=== PATIENT | female | born 1965 | race Caucasian/White ===

== ENCOUNTER 2021-08-22 20:21 | Outpatient (RCR) | payer MEDICAID, SELFPAY | END 2021-10-26 14:43 | disposition home or self-care (01) | LOC: MOW 20:21 | PROVIDERS: PCP Family Medicine; Visit Provider Family Medicine | DX: Z76.0 Encounter for issue of repeat prescription (principal) | CPT/HCPCS: S5170 ==

== ENCOUNTER 2021-09-04 15:03 | Outpatient (RCR) | payer MEDICARE, OTHER, SELFPAY ==
[2021-09-04 18:05] LABS: SARS PCR* Negative SARS-CoV-2 (Negative)
== END 2022-08-24 23:00 | disposition home or self-care (01) ==
LOC: LAB 15:03
PROVIDERS: PCP Family Medicine; Visit Provider Family Medicine
DX: Z11.9 Encounter for screening for infectious and parasitic diseases, unspecified (principal); Z20.822 Contact with and (suspected) exposure to COVID-19
CPT/HCPCS: 87635

== ENCOUNTER 2021-10-16 17:59 | Emergency (ER) | payer MEDICARE, OTHER, SELFPAY ==
[2021-10-16 18:04] VITALS: BP 95/63; PULSE 70; RESP 18; TEMP 36.3; O2SAT 96
--- NOTE | 2021-10-16 18:19 | ED.GENADULT ---
HPI - General Adult General Time Seen by Provider: 18:19 Date Seen: 10/16/21 Chief complaint: Dizziness/Vertigo Stated complaint: Hypotension Time Seen by Provider: 10/16/21 18:19 Source: patient and RN notes reviewed Mode of arrival: other Limitations: no limitations History of Present Illness HPI narrative: Patient is a 56-year-old female coming in with low blood pressure and feeling lightheaded. She states she had a episode of her cyclical vomiting over the weekend with recurrent nausea and vomiting. Her home health nurse was there today in with her blood pressure being low she wanted her to come in and be evaluated. Marina did keep down some Jell-O just prior to coming in. She actually feels that she has maybe turn the corner and that she does needs to go home and get something the eat and drink and rest. She has had no fevers. She does note that she was coughing through the weekend and coughing up some mucus. No chest pain no shortness of breath. No known fevers. No abdominal pain. No urinary symptoms. The lightheadedness is more symptomatic of a feeling of when you stand up too fast. There is no spinning with that. She is not passed out. She was unable to eat or drink through the weekend. Related Data Home Medications Medication Instructions Recorded Confirmed Unobtainable 08/23/21 08/23/21 Allergies Allergy/AdvReac Type Severity Reaction Status Date / Time aspirin Allergy Unknown GI Bleed Unverified 09/19/21 09:40 bupivacaine Allergy Unknown Agitation Unverified 09/19/21 09:40 diphenhydramine Allergy Unknown Anxiety Unverified 09/19/21 09:40 lamotrigine Allergy Unknown Angioedema Unverified 09/19/21 09:40 metoclopramide Allergy Unknown Anxiety Unverified 09/19/21 09:40 NSAIDS (Non-Steroidal Allergy Unknown GI Bleed Unverified 09/19/21 09:40 Anti-Inflamma [NSAIDS (Non-Steroidal Anti-Inflammatory Drug)] prochlorperazine Allergy Unknown Unknown Unverified 09/19/21 09:40 pseudoephedrine Allergy Unknown Unknown Unverified 09/19/21 09:40 sumatriptan Allergy Unknown Punched Unverified 09/19/21 09:40 The Beta Adrenergic Blockers Allergy Unknown Unknown Uncoded 09/19/21 09:40 Haldol Allergy Unknown Anxiety Uncoded 09/19/21 09:40 Review of Systems Status of ROS: Reports: 10 or more systems reviewed and unremarkable except as noted in History and below PFSH PFSH Family History (Updated 08/04/21 @ 15:52 by Sean Henderson) Father Prostate cancer Other Ovarian cancer Social History (Updated 08/04/21 @ 15:52 by Sean Henderson) Narrative: , 3 kids, unemployed, smoker, no EtOH Exam Const: Vital Signs, click to edit/add: Vital Signs - 24 hr 10/16/21 18:04 Temperature 97.4 F L Pulse Rate [Pulse Oximeter] 70 Respiratory Rate 18 Blood Pressure [Le ft Upper Arm] 95/63 Pulse Oximetry 96 Oxygen Delivery Me thod Room Air Documenting provider has reviewed patient's vital signs: yes Common normals: no apparent distress, oriented x3, no limitations, healthy appearing and alert General appearance: cooperative and comfortable HENMT: Common normals: normocephalic, head/scalp atraumatic, external ears normal, nasal mucous membranes and turbinates normal and oropharynx normal (Some greenish staining of the tongue from her Jell-O, mildly dry membranes) Head and scalp: normocephalic and atraumatic Nose: nasal mucous membranes and turbinates normal External ear: external ears normal Eye: Common normals: PERRL, EOMs intact bilaterally, conjunctivae normal and no scleral icterus Conjunctiva: conjunctiva(e) normal Pupil: PERRL Neck & C-Spine: Common normals: full ROM, no lymphadenopathy, supple, no meningeal signs, no JVD and thyroid normal Thyroid: thyroid normal Resp: Common normals: normal respiratory effort, no retractions, no use of accessory muscles and clear to auscultation bilaterally Auscultation: clear to auscultation bilaterally Cardio: Common normals: no JVD, regular rate, regular rhythm, S1 normal heart sound, S2 normal heart sound, no gallops, no clicks and no murmurs Rate: regular rate Rhythm: regular rhythm Heart sounds: S1 normal and S2 normal GI: Common normals: Normal to inspection, nondistended, normoactive bowel sounds present, soft to palpation, non-tender, no hepatosplenomegaly and no masses Palpation: soft and no hepatosplenomegaly Extremity: Common normals: normal to inspection, full ROM, no calf tenderness and no pedal edema Neuro: Common normals: oriented x3, CN's II-XII intact bilaterally, moves all extremities, no focal motor deficits and no sensory deficits noted Sensorium/orientation: alert Meningeal signs: no meningeal signs Speech: speech normal Course Course Hospital Course: Will stab lesion IV, give her L of IV fluids and see how she responds to this. Will do some basic labs and a portable chest x-ray. I have discussed testing for COVID in she would be agreeable to this. Thus, we will do SARs PCR. This presumably is low blood pressure from hypovolemia from decreased oral intake. If that is the case would assume that she will have improvement with IV fluids. She would like to drink something and would like to try some ice water. I will allow her to try this but will cease if she has recurrent nausea or vomiting. Reviewed with patient that I would prefer her to complete a L of fluids, complete her meal and then allow is to recheck the sodium. She really does not want to do that and is requesting discharge to home. She has been drinking fluids here prior to eating and tolerating them fine. Reevaluation(s) Reevaluation #1: Nursing staff came to reports to me that patient wanted her IV out, stated that she wanted to go home. She stated the IV was causing pain all the way upper arm. Nursing staff noted that this was an easy IV start and that they saw no evidence of any infiltration. Patient may be received about half of the 1 L of normal saline. Reviewed with patient that her sodium was 127. She states she just needs to eat and go home. She was going to have a ham sandwich and potato chips at home. I did look in her prior records and we have no recent sodiums on her but a few years back had been normal. She has had about half a L of normal saline. She was able to eat a sandwich and potato chips here and kept them down. Her CBC and C-reactive protein are completely normal, thus, making infection very unlikely. Time: 19:47 Reevaluation #2: Patient is requesting to go home. She has had slight improvement of her blood pressures with systolics of upper 90s to low 100. She states she is feeling fine. She is not feeling nauseated, has tolerated oral food and drink here. She wants to go home. She does agree to allow me to see how she feels when she stands up. Will get nursing staff to assist her with ambulation and see how she is doing. She seems to be of clear mind in understanding what I am saying. I do not feel that I can force her to take IV fluids. She does not want this done. She did not want a different nurse to try different IV to see if it felt better. She refused that as well. Time: 20:11 Reevaluation #3: Nursing staff reported to me that the ambulated patient around in the hallway, she was symptom-free, they felt she was ambulating without any concerns. She is requesting to go home. Time: 20:31 Vital Signs Vital signs: Initial Vital Signs Temperature 97.4 F L 10/16/21 18:04 Temperature Source Temporal Artery Scan 10/16/21 18:04 Pulse Rate 70 10/16/21 18:04 Pulse Rhythm 10/16/21 18:04 Respiratory Rate 18 10/16/21 18:04 Blood Pressure 95/63 10/16/21 18:04 Blood Pressure Mean 73 10/16/21 18:04 Blood Pressure Position Supine 10/16/21 18:04 Pulse Oximetry 96 10/16/21 18:04 Oxygen Delivery Method 10/16/21 18:04 Vital Signs Temperature 97.4 F L 10/16/21 18:04 Pulse Rate 70 10/16/21 18:04 Respiratory Rate 18 10/16/21 18:04 Blood Pressure 95/63 10/16/21 18:04 Pulse Oximetry 96 10/16/21 18:04 Oxygen Delivery Method 10/16/21 18:04 Temperature 97.4 F L 10/16/21 18:04 Pulse Rate 70 10/16/21 18:04 Respiratory Rate 18 10/16/21 18:04 Blood Pressure 95/63 10/16/21 18:04 Pulse Oximetry 96 10/16/21 18:04 Oxygen Delivery Method 10/16/21 18:04 Medical Decision Making Lab Data Labs: Lab Results 10/16/21 10/16/21 10/16/21 Range/Units 19:06 19:06 Unknown WBC 6.55 (4.50-11.00) K/uL RBC 4.67 (4.00-5.20) m/uL Hgb 13.0 (12.0-16.0) gm/dL Hct 39.2 (33.0-51.0) % MCV 84 (80-100) fL MCH 28 (26-34) pg MCHC 33 (32-36) gm/dL RDW Coeff of Chely 13.4 (11.5-15.5) % Plt Count 276 (140-440) K/uL Neut % (Auto) 64.9 (42.0-72.0) % Lymph % (Auto) 22.3 (20-44) % Centre % (Auto) 10.8 (0.0-11.0) % Eos % (Auto) 1.4 (0.0-7.0) % Baso % (Auto) 0.3 (0.0-3.0) % Neut # (Auto) 4.25 (1.7-7.0) K/uL Lymph # (Auto) 1.46 (0.90-2.90) K/uL Centre # (Auto) 0.70 (0.00-0.90) K/UL Eos # (Auto) 0.09 (0.00-0.50) K/uL Baso # (Auto) 0.02 (0.00-0.30) K/uL Abs Immat Gran (auto) 0.02 (0.00-0.30) K/uL Sodium 127 L (135-149) mmol/L Potassium 3.8 (3.6-5.1) mmol/L Chloride 91 L (96-114) mmol/L Carbon Dioxide 28 (20-32) mmol/L BUN 16 (7-30) mg/dL Creatinine 1.4 (0.5-1.5) mg/dL Estimated Creat Clear 39.41 Estimated GFR 44 ml/min Glucose 104 (60-115) mg/dL Calcium 9.3 (8.4-10.6) mg/dL C-Reactive Protein < 0.5 L (0.5-1.0) mg/dL SARS-CoV-2 (PCR) Negative SARS-CoV-2 (Negative) Imaging Data Chest x-ray: Attestation: I have reviewed the pertinent imaging results. Radiologist's impression: Patient: MARINA RICHARDS Facility:?[facility] Patient ID:?[id number] Site Patient ID:?[id number]. Site :?[id number] Study:?XRay Chest PORTABLE-10/16/2021 6:52:19 PM Ordering Physician:Dimas Levine Final Report: INDICATION: COUGH, HYPOTENSION TECHNIQUE: Chest 1 view. COMPARISON: None. FINDINGS: Cardiovascular and mediastinum: Heart size and vasculature are normal in caliber and appearance. Mediastinum is within normal limits. Lungs and pleural space: Lungs are clear. No sign of infiltrate or mass. No sign of pleural effusion. No pneumothorax. Bones and soft tissues: No significant findings. IMPRESSION: Unremarkable chest. Dictated by: Anam Schneider MD @ 10/16/2021 18:57:53 (Electronic Signature) Critical Care Time Critical Care Time Critical Care Time: No Discharge Plan Discharge Clinical Impression: Hyponatremia, Cyclical vomiting, Low blood pressure Condition: Stable Instructions: Hyponatremia (ED), Hypotension (ED), Cyclic Vomiting Syndrome (ED) Additional Instructions: I do not know if the sodium being low is from your nausea and vomiting that you had over the weekend or if it is a chronic finding for you. Thus, I need her to follow up within the next few days to have your sodium rechecked, make this appointment through your clinic. Do encourage you to eat and drink as normally. Should you have recurrent nausea or vomiting, have weakness, are not feeling better in the next 24-48 hours, I do need to return for further evaluation and management. Activity Level: Activity as Tolerated Discharge Diet: Regular Prescriptions: No Action Unobtainable Follow Up/Referrals: Rose Bright DO [Primary Care Provider] - Stand Alone Forms: [employer] Info Instructions
--- NOTE | 2021-10-16 18:24 | CRLHL7_ITS ---
For Patients: As a result of the Century Cures Act, medical imaging exams and procedure reports are released immediately into your electronic medical record. You may view this report before your referring provider. If you have questions, please contact your health care provider. INDICATION: COUGH, HYPOTENSION TECHNIQUE: Chest 1 view. COMPARISON: None. FINDINGS: Cardiovascular and mediastinum: Heart size and vasculature are normal in caliber and appearance. Mediastinum is within normal limits. Lungs and pleural space: Lungs are clear. No sign of infiltrate or mass. No sign of pleural effusion. No pneumothorax. Bones and soft tissues: No significant findings. IMPRESSION: Unremarkable chest. Dictated by: Anam Schneider MD @ 10/16/2021 18:57:53 (Electronically Signed)
[2021-10-16 18:30] VITALS: BP 88/65; PULSE 68; RESP 16; O2SAT 97
[2021-10-16] MEDS: 0.9 % SODIUM CHLORIDE 1000 ml 1,000 ML 700 ML IV (19:02)
[2021-10-16 19:12] LABS: Basophils Absolute Auto 0.02 K/uL (0.00-0.30); Basophils Percent Auto 0.3 % (0.0-3.0); Eosinophils Absolute Auto 0.09 K/uL (0.00-0.50); Eosinophils Percent Auto 1.4 % (0.0-7.0); Hematocrit 39.2 % (33.0-51.0); Immature Granulocytes Abs Auto 0.02 K/uL (0.00-0.30); Lymphocytes Absolute Auto 1.46 K/uL (0.90-2.90); Lymphocytes Percent Auto 22.3 % (20-44); Mean Corpuscular HGB Conc 33 gm/dL (32-36); Mean Corpuscular Hemoglobin 28 pg (26-34); Mean Corpuscular Volume 84 fL (80-100); Monocytes Percent Auto 10.8 % (0.0-11.0); Neutrophils Absolute Auto 4.25 K/uL (1.7-7.0); Neutrophils Percent Auto 64.9 % (42.0-72.0); Platelet Count* 276 K/uL (140-440); RDW Coefficient of Variation % 13.4 % (11.5-15.5); Red Blood Count 4.67 m/uL (4.00-5.20); White Blood Count* 6.55 K/uL (4.50-11.00)
[2021-10-16 19:13] VITALS: BP 101/72; PULSE 68; RESP 16; O2SAT 98
[2021-10-16 19:16] LABS: Slide Review Reflex No
[2021-10-16 19:27] LABS: Chloride* 91 mmol/L (96-114); Potassium* 3.8 mmol/L (3.6-5.1); Sodium* 127 mmol/L (135-149)
[2021-10-16 19:29] LABS: Creatinine* 1.4 mg/dL (0.5-1.5); Est. Creatinine Clearance* 39.41; Estimated Glomerular Filt Rate 44 ml/min
[2021-10-16 19:30] VITALS: BP 88/71; PULSE 64; RESP 16; O2SAT 99
[2021-10-16 19:30] LABS: Blood Urea Nitrogen* 16 mg/dL (7-30); Carbon Dioxide* 28 mmol/L (20-32)
[2021-10-16 19:31] LABS: Calcium* 9.3 mg/dL (8.4-10.6); Glucose* 104 mg/dL (60-115)
--- NOTE | 2021-10-16 19:31 | ED.NURSE ---
iv to R forearm was easy and intact, pt complains of pain up forearm so iv dc'd.
[2021-10-16 19:36] LABS: C Reactive Protein* < 0.5 mg/dL (0.5-1.0)
--- NOTE | 2021-10-16 19:45 | ED.NURSE ---
Pt declines new iv, states she's drinking well now and is past her bed time, prefers to d/c to home, dr rush has been updated
[2021-10-16 20:00] VITALS: BP 97/86; PULSE 64; RESP 16; O2SAT 99
[2021-10-16 20:10] VITALS: BP 97/86; PULSE 62; RESP 16; O2SAT 98
[2021-10-16 20:14] LABS: SARS PCR* Negative SARS-CoV-2 (Negative)
--- NOTE | 2021-10-16 20:20 | ED.NURSE ---
pt ambulated , pt used cane. No symptoms during ambulation
--- NOTE | 2021-10-16 20:44 | ED.NURSE ---
Pt departs ER ambulatory tolerating well independently
== END 2021-10-16 20:45 | disposition home or self-care (01) ==
PROVIDERS: Emergency Provider Family Medicine; PCP Family Medicine
DX: E87.1 Hypo-osmolality and hyponatremia (principal); R11.15 Cyclical vomiting syndrome unrelated to migraine; I95.9 Hypotension, unspecified
CPT/HCPCS: 36415; 71045; 80048; 85025; 86140; 87635; 99284; J7030

== ENCOUNTER 2021-11-02 11:56 | Emergency (ER) | payer MEDICARE, OTHER, SELFPAY ==
[2021-11-02 12:14] VITALS: BP 119/92; PULSE 75; RESP 14; TEMP 36.2; O2SAT 97; BMI 29.1
[2021-11-02 12:56] VITALS: BP 103/78; BP 108/70; BP 124/84; PULSE 72; PULSE 77
[2021-11-02 12:57] VITALS: BP 105/78; PULSE 78; O2SAT 98
[2021-11-02 12:58] VITALS: BP 103/78; PULSE 82; O2SAT 98
--- NOTE | 2021-11-02 13:03 | ED_ITS ---
HPI - General Adult General Date Seen: 11/02/21 Chief complaint: Weakness Stated complaint: BP 80 over 50 Time Seen by Provider: 11/02/21 12:17 Source: patient History of Present Illness HPI narrative: Patient is a 56-year-old woman with a history of cyclic vomiting, seen here a week ago with weakness and dehydration, was noted to have hyponatremia with a sodium 127. She says she has been working on hydration and taking in extra salt. Past couple of days, she says she has been feeling like she is ?melting into her chair, and feels that it takes her a long time to get up. She says actually she feels better today than she did yesterday. She denies having any problems with vomiting or diarrhea over the past few days. She has not had any fevers, denies abdominal pain, chest pain, difficulty breathing, or urinary symptoms. She says that her home health nurse today checked orthostatic vital signs and tells me that her standing blood pressure was 88/50. She did tell nursing it was 80/50. She has not had any syncope. Franklin lightheaded yesterday although that is better today. She says that because of the low blood pressure on standing is recommended that she come in to be seen. She actually feels like she probably does not need to be here today. Related Data Home Medications Medication Instructions Recorded Confirmed Unobtainable 08/23/21 08/23/21 Allergies Allergy/AdvReac Type Severity Reaction Status Date / Time aspirin Allergy Unknown GI Bleed Unverified 09/19/21 09:40 bupivacaine Allergy Unknown Agitation Unverified 09/19/21 09:40 diphenhydramine Allergy Unknown Anxiety Unverified 09/19/21 09:40 lamotrigine Allergy Unknown Angioedema Unverified 09/19/21 09:40 metoclopramide Allergy Unknown Anxiety Unverified 09/19/21 09:40 NSAIDS (Non-Steroidal Allergy Unknown GI Bleed Unverified 09/19/21 09:40 Anti-Inflamma [NSAIDS (Non-Steroidal Anti-Inflammatory Drug)] prochlorperazine Allergy Unknown Unknown Unverified 09/19/21 09:40 pseudoephedrine Allergy Unknown Unknown Unverified 09/19/21 09:40 sumatriptan Allergy Unknown Punched Unverified 09/19/21 09:40 The Beta Adrenergic Blockers Allergy Unknown Unknown Uncoded 09/19/21 09:40 Haldol Allergy Unknown Anxiety Uncoded 09/19/21 09:40 Review of Systems Status of ROS: Reports: 10 or more systems reviewed and unremarkable except as noted in History and below PFSH [facility] Family History Father Prostate cancer Other Ovarian cancer Social History Narrative: , 3 kids, unemployed, smoker, no EtOH Smoking Status: Current every day smoker What tobacco products do you use: cigarettes Do you use any of these nicotine containing products: None Second hand tobacco smoke exposure: Yes How often do you have a drink containing alcohol: never How often do you have six or more drinks on one occasion: Never AUDIT-C Alcohol total score: 0 Non-prescribed substance use: denies use Exam Narrative: Exam Narrative: Vital signs as noted above. In general, an alert, well-appearing patient. Head: Normocephalic, atraumatic. Eyes: Pupils are equal reactive. Extraocular movements are full. Conjunctivae are normal. ENT: Mucous membranes are moist. Throat is normal. Neck: Supple without lymphadenopathy. Heart: Regular rate and rhythm. No murmur or rub. Lungs: Clear bilaterally. No increased work of breathing, crackles or wheezes. Abdomen: Soft and nontender. No organomegaly. Extremities: Well perfused. No edema. No calf tenderness. Pulses intact. Neurologic: Patient is alert and oriented to person and place. Speech is fluent. Face is symmetric. Moves all extremities equally. Affect: Normal. Skin: Warm and dry. Well perfused. Const: Vital Signs, click to edit/add: Vital Signs - 24 hr 11/02/21 12:14 Temperature 97.1 F L Pulse Rate [Pulse Oximeter] 75 Respiratory Rate 14 Blood Pressure [Le ft Upper Arm] 119/92 H Pulse Oximetry 97 Oxygen Delivery Me thod Room Air Course Course Hospital Course: We started by repeating orthostatic vital signs here, which are normal. My plan had been to recheck her electrolytes, I discussed with her that it would be worthwhile to see whether her sodium was improved, and check her potassium. I was also going to give her a little fluid. However, when she saw that her orthostatic vital signs were normal, she said she actually would just like to go home. She says that she feels like she is improving compared to yesterday, she would like to just keep up with hydration and salt intake at home. I discussed that without doing any labs here I can not be certain that her sodium isn't worse than it was last week, and that low sodium can be dangerous if it gets too low. However, she declines any further intervention. She does tell me that she will make sure to come back if she is feeling any worse, and she also agrees to go to clinic next week to have electrolytes rechecked. Vital Signs Vital signs: Initial Vital Signs Temperature 97.1 F L 11/02/21 12:14 Temperature Source Temporal Artery Scan 11/02/21 12:14 Pulse Rate 75 11/02/21 12:14 Respiratory Rate 14 11/02/21 12:14 Blood Pressure 119/92 H 11/02/21 12:14 Blood Pressure Mean 101 11/02/21 12:14 Pulse Oximetry 97 11/02/21 12:14 Oxygen Delivery Method 11/02/21 12:14 Vital Signs Temperature 97.1 F L 11/02/21 12:14 Pulse Rate 75 11/02/21 12:14 Respiratory Rate 14 11/02/21 12:14 Blood Pressure 119/92 H 11/02/21 12:14 Pulse Oximetry 97 11/02/21 12:14 Oxygen Delivery Method 11/02/21 12:14 Temperature 97.1 F L 11/02/21 12:14 Pulse Rate 75 11/02/21 12:14 Respiratory Rate 14 11/02/21 12:14 Blood Pressure 119/92 H 11/02/21 12:14 Pulse Oximetry 97 11/02/21 12:14 Oxygen Delivery Method 11/02/21 12:14 Discharge Plan Discharge Clinical Impression: Weakness Patient Disposition: Home, Self-Care Condition: Stable Instructions: Weakness (ED) Additional Instructions: Your sodium should be rechecked next week in clinic. If you have any worsening weakness or fatigue, develop new symptoms such as vomiting or fever, return to the emergency department. We have not rechecked any labs today, so I am unable to tell you whether your sodium is improved from last week or has gotten worse. Prescriptions: No Action Unobtainable Follow Up/Referrals: Rose Bright, [Primary Care Provider] - Stand Alone Forms: [employer] Info Instructions
--- NOTE | 2021-11-02 13:07 | ED.NURSE ---
Patient is reassured with results of her orthostatic blood pressures. Does not want IV or fluids or blood drawn. MD updated and to the room to talk with patient.
== END 2021-11-02 13:21 | disposition home or self-care (01) ==
PROVIDERS: Emergency Provider Emergency Medicine; PCP Family Medicine
DX: R53.1 Weakness (principal)
CPT/HCPCS: 80048; 81001; 83605; 85025; 86140; 99283

== ENCOUNTER 2021-11-19 23:25 | Emergency (ER) | payer MEDICARE, OTHER, SELFPAY ==
[2021-11-19 23:27] VITALS: BP 98/70; PULSE 78; RESP 16; TEMP 36.3; O2SAT 98; BMI 28.3
--- NOTE | 2021-11-19 23:30 | ED.NURSE ---
Dr. Fontenot notified Pt episode of dizziness @2229, denies concern for acute stroke at this time.
[2021-11-19 23:40] VITALS: BP 96/70; PULSE 75; RESP 16; O2SAT 97
[2021-11-20] VITALS: BP 96/71; PULSE 71; RESP 16; O2SAT 100
--- NOTE | 2021-11-20 | ED.GENADULT ---
HPI - General Adult General Time Seen by Provider: 00:01 Date Seen: 11/20/21 Chief complaint: Dizziness/Vertigo Stated complaint: Fall Time Seen by Provider: 11/20/21 00:00 Source: patient and RN notes reviewed Mode of arrival: EMS Limitations: no limitations History of Present Illness HPI narrative: 48-year-old female who presents by EMS today with lightheadedness and fall. Patient reports a history of cyclic vomiting which is been bothering for the last 4 days although she better over the last 24 hours and new drinking. This evening she got up with the bathroom, sitting on the edge of the bed was quite lightheaded and when she got her balance. She was able to get up but subsequently lost her balance again and fell related to these falls. She uses a walker when she has lightheadedness and was using her walker scarred. She reports lightheadedness and weakness but no room spinning dizziness, no vision changes, no tingling in the arms or legs, no focal weakness. Urinary symptoms, no diarrhea, no chest pain, abdominal pain, or palpitations. Related Data Home Medications Medication Instructions Recorded Confirmed Unobtainable 08/23/21 08/23/21 Allergies Allergy/AdvReac Type Severity Reaction Status Date / Time aspirin Allergy Unknown GI Bleed Verified 11/19/21 23:37 bupivacaine Allergy Unknown Agitation Verified 11/19/21 23:37 diphenhydramine Allergy Unknown Anxiety Verified 11/19/21 23:37 lamotrigine Allergy Unknown Angioedema Verified 11/19/21 23:37 metoclopramide Allergy Unknown Anxiety Verified 11/19/21 23:37 NSAIDS (Non-Steroidal Allergy Unknown GI Bleed Verified 11/19/21 23:37 Anti-Inflamma [NSAIDS (Non-Steroidal Anti-Inflammatory Drug)] prochlorperazine Allergy Unknown Unknown Verified 11/19/21 23:37 pseudoephedrine Allergy Unknown Unknown Verified 11/19/21 23:37 sumatriptan Allergy Unknown Punched Verified 11/19/21 23:37 Luciano ESCOBEDO Beta Adrenergic Blockers Allergy Unknown Unknown Uncoded 09/19/21 09:40 Haldol Allergy Unknown Anxiety Uncoded 09/19/21 09:40 Review of Systems Status of ROS: Reports: 10 or more systems reviewed and unremarkable except as noted in History and below PFSH PFSH Family History Father Prostate cancer Other Ovarian cancer Social History Narrative: , 3 kids, unemployed, smoker, no EtOH Smoking Status: Current every day smoker What tobacco products do you use: cigarettes Do you use any of these nicotine containing products: None Second hand tobacco smoke exposure: Yes How often do you have a drink containing alcohol: never How often do you have six or more drinks on one occasion: Never AUDIT-C Alcohol total score: 0 Non-prescribed substance use: denies use Exam Narrative: Exam Narrative: General: Well-developed and well-nourished, no acute distress Head: Atraumatic and normocephalic Eyes: Pupils are equal reactive, extraocular motions intact, conjunctiva clear ENT: External nose and ears are normal, posterior pharynx without erythema or exudate Neck: No midline cervical tenderness, full spontaneous range of motion the neck, trachea midline, no adenopathy Heart: Regular rate and rhythm no murmurs or thrills Lungs: Clear to auscultation bilaterally without wheezes or crackles Abdomen: Soft, nontender, nondistended with active bowel sounds Musculoskeletal: No tenderness, deformity, or edema Neurologic: Awake, alert, and oriented x3, no gross focal neurologic deficits, cranial nerves intact as tested Psych: Mood and affect are appropriate Skin: No rashes Const: Vital Signs, click to edit/add: Vital Signs - 24 hr 11/19/21 23:27 Temperature 97.3 F L Pulse Rate [Right Pulse Oximeter] 78 Respiratory Rate 16 Blood Pressure [Le ft Upper Arm] 98/70 Pulse Oximetry 98 Oxygen Delivery Me thod Room Air Course Course Hospital Course: Patient seen and examined, prior records reviewed. Due not limited to electrolyte disturbance, dysrhythmia, dehydration, heart failure sepsis. Lightheadedness and. Some on initial exam and she feels back to normal. Charged side of bed and stood up with her walker, reports no lightheadedness and refuses further evaluation. We discussed concerns for possible electrolyte disturbance or infected since symptoms, she verbalizes understanding of this and refuses further treatment. She will be discharged at her request with return instructions. Vital Signs Vital signs: Initial Vital Signs Temperature 97.3 F L 11/19/21 23:27 Temperature Source Temporal Artery Scan 11/19/21 23:27 Pulse Rate 78 11/19/21 23:27 Respiratory Rate 16 11/19/21 23:27 Blood Pressure 98/70 11/19/21 23:27 Blood Pressure Mean 79 11/19/21 23:27 Blood Pressure Position Supine 11/19/21 23:27 Pulse Oximetry 98 11/19/21 23:27 Oxygen Delivery Method 11/19/21 23:27 Vital Signs Temperature 97.3 F L 11/19/21 23:27 Pulse Rate 78 11/19/21 23:27 Respiratory Rate 16 11/19/21 23:27 Blood Pressure 98/70 11/19/21 23:27 Pulse Oximetry 98 11/19/21 23:27 Oxygen Delivery Method 11/19/21 23:27 Temperature 97.3 F L 11/19/21 23:27 Pulse Rate 78 11/19/21 23:27 Respiratory Rate 16 11/19/21 23:27 Blood Pressure 98/70 11/19/21 23:27 Pulse Oximetry 98 11/19/21 23:27 Oxygen Delivery Method 11/19/21 23:27 Medical Decision Making Medical Records Medical records reviewed: Yes I reviewed the patient's medical records Lab Data Lab results reviewed: Yes I reviewed the patient's lab results Discharge Plan Discharge Clinical Impression: Near syncope Patient Disposition: Home w/ Parent or Adult Condition: Improved Instructions: Near Syncope (ED) Additional Instructions: Follow-up with your doctor. Activity Level: No Restrictions Discharge Diet: Regular Prescriptions: No Action Unobtainable Follow Up/Referrals: Rose Bright DO [Primary Care Provider] - Stand Alone Forms: MyHealth Info Instructions
== END 2021-11-20 00:35 | disposition home or self-care (01) ==
LOC: ED 11-20 00:35
PROVIDERS: Emergency Provider Family Medicine; PCP Family Medicine
DX: R55 Syncope and collapse (principal)
CPT/HCPCS: 99283

== ENCOUNTER 2021-11-21 10:16 | Outpatient (CLI) | payer MEDICARE, OTHER, SELFPAY ==
--- NOTE | 2021-11-21 10:30 | CRLHL7_ITS ---
For Patients: As a result of the Cures Act, medical imaging exams and procedure reports are released immediately into your electronic medical record. You may view this report before your referring provider. If you have questions, please contact your health care provider. INDICATION: Fall TECHNIQUE: Cervical spine 4 view. COMPARISON: 11/22/2020 FINDINGS: Bones: Straightening of the normal lordosis. No fractures or significant bone lesions. Joints: Disc space narrowing and spurring C5-6. Normal facet joints. Soft tissues: Unremarkable. IMPRESSION: No fracture. Moderate degenerative disc disease C5-6 which has progressed since the prior study. Dictated by Anam Silverio MD @ 11/21/2021 11:34:34 AM (Electronically Signed)
--- NOTE | 2021-11-21 10:45 | CRLHL7_ITS ---
For Patients: As a result of the Cures Act, medical imaging exams and procedure reports are released immediately into your electronic medical record. You may view this report before your referring provider. If you have questions, please contact your health care provider. INDICATION: Fall, pain TECHNIQUE: 2-view lumbar spine. COMPARISON: 11/22/2020 FINDINGS: Postop changes of lumbar fusion L4-S1. Methylmethacrylate in L3. Hardware intact. No acute fracture. There is physiologic wedging regarding L1. IMPRESSION: No evidence of acute lumbar fracture. Dictated by Anam Silverio MD @ 11/21/2021 11:42:55 AM (Electronically Signed)
--- NOTE | 2021-11-21 11:00 | CRLHL7_ITS ---
For Patients: As a result of the Cures Act, medical imaging exams and procedure reports are released immediately into your electronic medical record. You may view this report before your referring provider. If you have questions, please contact your health care provider. INDICATION: Fall TECHNIQUE: 2-view thoracic spine. COMPARISON: 11/22/2020 FINDINGS: S-shaped curvature thoracic spine. No fracture. Intact pedicles. Catheter terminates at T6, as before. IMPRESSION: No thoracic spine fracture. Dictated by Anam Silverio MD @ 11/21/2021 11:35:58 AM (Electronically Signed)
== END 2021-11-21 10:17 | disposition home or self-care (01) ==
LOC: RAD 10:17
PROVIDERS: PCP Family Medicine; Visit Provider Physician Assistant
DX: M54.50 Low back pain, unspecified (principal); W19.XXXA Unspecified fall, initial encounter
CPT/HCPCS: 72040; 72070; 72100

== ENCOUNTER 2022-05-27 06:55 | Outpatient (CLI) | payer MEDICARE, OTHER, SELFPAY | END 2022-05-27 06:56 | disposition home or self-care (01) | PROVIDERS: PCP Family Medicine; Visit Provider Family Medicine | DX: R55 Syncope and collapse (principal); R53.1 Weakness; I95.9 Hypotension, unspecified | CPT/HCPCS: A0425; A0427 ==

== ENCOUNTER 2022-05-27 07:23 | Emergency (ER) | payer MEDICARE, OTHER, SELFPAY ==
[2022-05-27] VITALS (31 sets, daily range): BP systolic 66–107; BP diastolic 43–81; PULSE 69–92; RESP 12–19; TEMP 36.2; O2SAT 91–100; BMI 32.3
[2022-05-27] MEDS: 0.9 % SODIUM CHLORIDE 1000 ml 1,000 ML IV ×3 (07:29→08:05)
--- NOTE | 2022-05-27 07:29 | ED.NURSE ---
0720--patient arrived and placed on monitor, bp continues every 10 minutes placed in reverse Trendelenburg and interviewing patient to get information. 0725--MD in to see patient patient arrived and c/o dry mouth, abdominal pain rated 9/10 scale. started #20 Jelco in the right forearm and able to draw the labs running a POC ED Trop with results pending. EKG done. 0.9% normal saline started one liter infusing now. 0735--second liter of fluids hung as started 2nd saline lock #20 Jelco in the left forearm. 0740--c/o dry mouth and explained to patient unable to give any water and the reason why. given a swab in the mouth to help with the dryness. 0751--Dr. Martinez in to recheck patient noted the BP 81/52 0753--Repositioned patient on left side as wants to get off back since hx of 2 back surgeries. feels better in this position.
--- NOTE | 2022-05-27 07:40 | ED.GENADULT ---
HPI - General Adult General Chief complaint: Dizziness/Vertigo <Celestino Martinez MD - Last Filed: 05/28/22 07:04> Stated complaint: Hypotension <Celestino Martinez MD - Last Filed: 05/28/22 07:04> Time Seen by Provider: 05/27/22 07:38 <Celestino Martinez MD - Last Filed: 05/28/22 07:04> History of Present Illness HPI narrative: Pt is a 57 year old woman who underwent left lower extremity varicose vein surgery several days ago who presents with weakness via EMS. Pt states that she has extreme mouth dryness. Upon arrival she is noted to be extremely hypotensive with a blood pressure of 66/40 and a pulse of 95. Pt is also complaining of severe pain in the midline of her thorasic spine without radiation. Pt denies overt chest pain. Pt states that she is not having any significant discomfort of the left lower extremity but does note bruising. Pt has not passed out and notes no changes in her sensorium. Upon arrival in the ED a second IV was placed and aggressive hydration is resulting in improved blood pressure but the pain in the midthorasic spine persists. <Celestino Martinez MD - Last Filed: 05/28/22 07:04> Related Data Home medications: Home Medications Medication Instructions Recorded Confirmed buspirone 30 mg tablet 30 mg PO BID 05/27/22 05/27/22 cyclobenzaprine 10 mg tablet 10 mg PO QPM PRN muscle spasm 05/27/22 05/27/22 doxepin 150 mg capsule 150 mg PO QPM 05/27/22 05/27/22 furosemide 20 mg tablet 20 mg PO BID 05/27/22 05/27/22 hydrocodone 5 mg-acetaminophen 325 tab PO 05/27/22 mg tablet naloxegol 25 mg tablet (Movantik) 25 mg PO QAM 05/27/22 05/27/22 nicotine 10 mg inhalation 10 mg inhalation nicotine cravings 05/27/22 cartridge (Nicotrol) ondansetron 8 mg disintegrating 8 mg PO Q8H PRN nausea 05/27/22 05/27/22 tablet oxcarbazepine 300 mg tablet mg PO 05/27/22 oxycodone 5 mg tablet 5 mg PO DAILY PRN chronic pain 05/27/22 05/27/22 promethazine 25 mg tablet 25 mg PO Q12H PRN nausea 05/27/22 05/27/22 sennosides 8.6 mg-docusate sodium tab PO 05/27/22 50 mg tablet (Senexon-S) <Celestino Martinez MD - Last Filed: 05/28/22 07:04> Allergies/adverse reactions: Allergies Allergy/AdvReac Type Severity Reaction Status Date / Time aspirin Allergy Unknown GI Bleed Verified 05/27/22 09:32 bupivacaine Allergy Unknown Agitation Verified 05/27/22 09:32 diphenhydramine Allergy Unknown Anxiety Verified 05/27/22 09:32 lamotrigine Allergy Unknown Angioedema Verified 05/27/22 09:32 metoclopramide Allergy Unknown Anxiety Verified 05/27/22 09:32 NSAIDS (Non-Steroidal Allergy Unknown GI Bleed Verified 05/27/22 09:32 Anti-Inflamma [NSAIDS (Non-Steroidal Anti-Inflammatory Drug)] prochlorperazine Allergy Unknown Unknown Verified 05/27/22 09:32 pseudoephedrine Allergy Unknown Unknown Verified 05/27/22 09:32 sumatriptan Allergy Unknown Punched Verified 05/27/22 09:32 Luciano ESCOBEDO Beta Adrenergic Blockers Allergy Unknown Unknown Uncoded 05/27/22 09:32 Haldol Allergy Unknown Anxiety Uncoded 05/27/22 09:32 <Celestino Martinez MD - Last Filed: 05/28/22 07:04> Review of Systems Status of ROS: Reports: 10 or more systems reviewed and unremarkable except as noted in History and below <Celestino Martinez MD - Last Filed: 05/28/22 07:04> PFSH PFSH Family History: Family History Father Prostate cancer Other Ovarian cancer <Celestino Martinez MD - Last Filed: 05/28/22 07:04> Social History: Social History Narrative: , 3 kids, unemployed, smoker, no EtOH Smoking Status: Current every day smoker What tobacco products do you use: cigarettes Do you use any of these nicotine containing products: None Second hand tobacco smoke exposure: Yes How often do you have a drink containing alcohol: never How often do you have six or more drinks on one occasion: Never AUDIT-C Alcohol total score: 0 Non-prescribed substance use: denies use <Celestino Martinez MD - Last Filed: 05/28/22 07:04> Exam Narrative: Exam Narrative: EXAM GENERAL: Patient appears dehydrated and weak. EYES: No scleral icterus. THYROID: no thyroid nodules or thyromegaly. LYMPH: No supraclavicular or cervical lymphadenopathy. SKIN: Visible skin seen during exam normal or with benign process only. EXT: Left lower extremity shows venous varicose vein surgery with bruising and ecchymoses is small puncture sites. HEART: Regular rate and rhythm with no murmurs, rubs, or gallops. LUNGS: Clear to auscultation bilaterally with no crackles or wheezes. ABD: Soft, non tender, non distended. PSYCH: Good eye contact, speech is not pressured. Neuro: Cranial nerves 2-12 grossly intact no focal neurologic defects. <Celestino Martinez MD - Last Filed: 05/28/22 07:04> Const: Vital Signs, click to edit/add: Vital Signs - 24 hr 05/27/22 07:30 05/27/22 07:35 05/27/22 07:36 Temperature Pulse Rate Pulse Rate [Left P ulse Oximeter] Pulse Rate [Pulse Oximeter] 92 87 90 Respiratory Rate 19 15 12 Blood Pressure Blood Pressure [Le ft Upper Arm] 66/52 L 76/52 L 78/51 L Pulse Oximetry Oxygen Delivery Me thod Oxygen Flow Rate 05/27/22 07:40 05/27/22 07:54 05/27/22 08:26 Temperature 97.1 F L Pulse Rate Pulse Rate [Left P ulse Oximeter] 92 Pulse Rate [Pulse Oximeter] 83 Respiratory Rate 14 16 Blood Pressure Blood Pressure [Le ft Upper Arm] 78/56 L 74/43 L Pulse Oximetry 95 100 Oxygen Delivery Me thod Room Air Oxygen Flow Rate 05/27/22 08:00 05/27/22 07:39 05/27/22 07:40 Temperature Pulse Rate 82 81 Pulse Rate [Left P ulse Oximeter] Pulse Rate [Pulse Oximeter] Respiratory Rate Blood Pressure 78/51 L Blood Pressure [Le ft Upper Arm] Pulse Oximetry 99 96 95 Oxygen Delivery Me thod Nasal Cannula Nasal Cannula Oxygen Flow Rate 3 3 05/27/22 07:41 05/27/22 07:45 05/27/22 07:51 Temperature Pulse Rate 80 84 79 Pulse Rate [Left P ulse Oximeter] Pulse Rate [Pulse Oximeter] Respiratory Rate Blood Pressure 73/56 L 81/52 L Blood Pressure [Le ft Upper Arm] Pulse Oximetry 96 96 100 Oxygen Delivery Me thod Oxygen Flow Rate 05/27/22 08:00 05/27/22 08:01 05/27/22 08:11 Temperature Pulse Rate 80 77 79 Pulse Rate [Left P ulse Oximeter] Pulse Rate [Pulse Oximeter] Respiratory Rate Blood Pressure 85/61 L 107/69 Blood Pressure [Le ft Upper Arm] Pulse Oximetry 100 100 100 Oxygen Delivery Me thod Oxygen Flow Rate 05/27/22 08:15 05/27/22 08:21 05/27/22 08:30 Temperature Pulse Rate 71 80 72 Pulse Rate [Left P ulse Oximeter] Pulse Rate [Pulse Oximeter] Respiratory Rate Blood Pressure 84/65 L Blood Pressure [Le ft Upper Arm] Pulse Oximetry 100 100 100 Oxygen Delivery Me thod Oxygen Flow Rate 05/27/22 08:31 05/27/22 08:41 05/27/22 08:45 Temperature Pulse Rate 69 72 71 Pulse Rate [Left P ulse Oximeter] Pulse Rate [Pulse Oximeter] Respiratory Rate Blood Pressure 91/66 90/59 L Blood Pressure [Le ft Upper Arm] Pulse Oximetry 99 97 99 Oxygen Delivery Me thod Oxygen Flow Rate 05/27/22 08:51 05/27/22 09:00 05/27/22 09:01 Temperature Pulse Rate 77 73 74 Pulse Rate [Left P ulse Oximeter] Pulse Rate [Pulse Oximeter] Respiratory Rate Blood Pressure 85/69 L 90/62 Blood Pressure [Le ft Upper Arm] Pulse Oximetry 91 100 100 Oxygen Delivery Me thod Oxygen Flow Rate 05/27/22 09:30 05/27/22 09:31 05/27/22 09:41 Temperature Pulse Rate 77 80 76 Pulse Rate [Left P ulse Oximeter] Pulse Rate [Pulse Oximeter] Respiratory Rate Blood Pressure 87/58 L 81/61 L Blood Pressure [Le ft Upper Arm] Pulse Oximetry 99 99 99 Oxygen Delivery Me thod Room Air Oxygen Flow Rate 05/27/22 09:51 05/27/22 10:21 05/27/22 10:32 Temperature Pulse Rate 73 78 83 Pulse Rate [Left P ulse Oximeter] Pulse Rate [Pulse Oximeter] Respiratory Rate 14 12 Blood Pressure 103/75 91/81 91/72 Blood Pressure [Le ft Upper Arm] Pulse Oximetry 99 98 99 Oxygen Delivery Me thod Oxygen Flow Rate 05/27/22 10:41 05/27/22 10:51 05/27/22 11:22 Temperature Pulse Rate 78 75 81 Pulse Rate [Left P ulse Oximeter] Pulse Rate [Pulse Oximeter] Respiratory Rate 16 Blood Pressure 96/64 94/67 89/75 L Blood Pressure [Le ft Upper Arm] Pulse Oximetry 97 95 98 Oxygen Delivery Me thod Room Air Oxygen Flow Rate <Celestino Martinez MD - Last Filed: 05/28/22 07:04> Vital Signs, click to edit/add: Vital Signs - 24 hr 05/27/22 07:30 05/27/22 07:35 05/27/22 07:36 Temperature Pulse Rate Pulse Rate [Left P ulse Oximeter] Pulse Rate [Pulse Oximeter] 92 87 90 Respiratory Rate 19 15 12 Blood Pressure Blood Pressure [Le ft Upper Arm] 66/52 L 76/52 L 78/51 L Pulse Oximetry Oxygen Delivery Me thod Oxygen Flow Rate 05/27/22 07:40 05/27/22 07:54 05/27/22 08:26 Temperature 97.1 F L Pulse Rate Pulse Rate [Left P ulse Oximeter] 92 Pulse Rate [Pulse Oximeter] 83 Respiratory Rate 14 16 Blood Pressure Blood Pressure [Le ft Upper Arm] 78/56 L 74/43 L Pulse Oximetry 95 100 Oxygen Delivery Me thod Room Air Oxygen Flow Rate 05/27/22 08:00 05/27/22 07:39 05/27/22 07:40 Temperature Pulse Rate 82 81 Pulse Rate [Left P ulse Oximeter] Pulse Rate [Pulse Oximeter] Respiratory Rate Blood Pressure 78/51 L Blood Pressure [Le ft Upper Arm] Pulse Oximetry 99 96 95 Oxygen Delivery Me thod Nasal Cannula Nasal Cannula Oxygen Flow Rate 3 3 05/27/22 07:41 05/27/22 07:45 05/27/22 07:51 Temperature Pulse Rate 80 84 79 Pulse Rate [Left P ulse Oximeter] Pulse Rate [Pulse Oximeter] Respiratory Rate Blood Pressure 73/56 L 81/52 L Blood Pressure [Le ft Upper Arm] Pulse Oximetry 96 96 100 Oxygen Delivery Me thod Oxygen Flow Rate 05/27/22 08:00 05/27/22 08:01 05/27/22 08:11 Temperature Pulse Rate 80 77 79 Pulse Rate [Left P ulse Oximeter] Pulse Rate [Pulse Oximeter] Respiratory Rate Blood Pressure 85/61 L 107/69 Blood Pressure [Le ft Upper Arm] Pulse Oximetry 100 100 100 Oxygen Delivery Me thod Oxygen Flow Rate 05/27/22 08:15 05/27/22 08:21 05/27/22 08:30 Temperature Pulse Rate 71 80 72 Pulse Rate [Left P ulse Oximeter] Pulse Rate [Pulse Oximeter] Respiratory Rate Blood Pressure 84/65 L Blood Pressure [Le ft Upper Arm] Pulse Oximetry 100 100 100 Oxygen Delivery Me thod Oxygen Flow Rate 05/27/22 08:31 05/27/22 08:41 05/27/22 08:45 Temperature Pulse Rate 69 72 71 Pulse Rate [Left P ulse Oximeter] Pulse Rate [Pulse Oximeter] Respiratory Rate Blood Pressure 91/66 90/59 L Blood Pressure [Le ft Upper Arm] Pulse Oximetry 99 97 99 Oxygen Delivery Me thod Oxygen Flow Rate 05/27/22 08:51 05/27/22 09:00 05/27/22 09:01 Temperature Pulse Rate 77 73 74 Pulse Rate [Left P ulse Oximeter] Pulse Rate [Pulse Oximeter] Respiratory Rate Blood Pressure 85/69 L 90/62 Blood Pressure [Le ft Upper Arm] Pulse Oximetry 91 100 100 Oxygen Delivery Me thod Oxygen Flow Rate 05/27/22 09:30 05/27/22 09:31 05/27/22 09:41 Temperature Pulse Rate 77 80 76 Pulse Rate [Left P ulse Oximeter] Pulse Rate [Pulse Oximeter] Respiratory Rate Blood Pressure 87/58 L 81/61 L Blood Pressure [Le ft Upper Arm] Pulse Oximetry 99 99 99 Oxygen Delivery Me thod Room Air Oxygen Flow Rate 05/27/22 09:51 05/27/22 10:21 05/27/22 10:32 Temperature Pulse Rate 73 78 83 Pulse Rate [Left P ulse Oximeter] Pulse Rate [Pulse Oximeter] Respiratory Rate 14 12 Blood Pressure 103/75 91/81 91/72 Blood Pressure [Le ft Upper Arm] Pulse Oximetry 99 98 99 Oxygen Delivery Me thod Oxygen Flow Rate 05/27/22 10:41 05/27/22 10:51 05/27/22 11:22 Temperature Pulse Rate 78 75 81 Pulse Rate [Left P ulse Oximeter] Pulse Rate [Pulse Oximeter] Respiratory Rate 16 Blood Pressure 96/64 94/67 89/75 L Blood Pressure [Le ft Upper Arm] Pulse Oximetry 97 95 98 Oxygen Delivery Me thod Room Air Oxygen Flow Rate <Vicki Anderson MD - Last Filed: 05/27/22 13:03> Course Course Hospital Course: Patient is being aggressively hydrated. I did order CBC troponin CMP lactate urinalysis. EKG upon my review does show some peaked T-waves. She is in sinus rhythm. Portable chest x-ray is pending. Patient is too unstable to consider going to radiology for CT scan at this point. I will be handing her off to my colleague at change of shift. <Celestino Martinez MD - Last Filed: 05/28/22 07:04> Reevaluation(s) Reevaluation #1: Blood pressure improved. Will proceed with a CT chest PE protocol. <Celestino Martinez MD - Last Filed: 05/28/22 07:04> Time: 07:54 <Celestino Martinez MD - Last Filed: 05/28/22 07:04> Vital Signs Vital signs: Initial Vital Signs Pulse Rate 92 05/27/22 07:30 Respiratory Rate 19 05/27/22 07:30 Blood Pressure 66/52 L 05/27/22 07:30 Blood Pressure Mean 56 05/27/22 07:30 Blood Pressure Position Supine 05/27/22 07:30 Vital Signs Pulse Rate 92 05/27/22 07:30 Respiratory Rate 19 05/27/22 07:30 Blood Pressure 66/52 L 05/27/22 07:30 Temperature 97.1 F L 05/27/22 07:54 Pulse Rate 81 05/27/22 11:22 Respiratory Rate 16 05/27/22 11:22 Blood Pressure 89/75 L 05/27/22 11:22 Pulse Oximetry 98 05/27/22 11:22 Oxygen Delivery Method Room Air 05/27/22 11:22 Oxygen Flow Rate 3 05/27/22 08:00 <Celestino Martinez MD - Last Filed: 05/28/22 07:04> Initial Vital Signs Pulse Rate 92 05/27/22 07:30 Respiratory Rate 19 05/27/22 07:30 Blood Pressure 66/52 L 05/27/22 07:30 Blood Pressure Mean 56 05/27/22 07:30 Blood Pressure Position Supine 05/27/22 07:30 Vital Signs Pulse Rate 92 05/27/22 07:30 Respiratory Rate 19 05/27/22 07:30 Blood Pressure 66/52 L 05/27/22 07:30 Temperature 97.1 F L 05/27/22 07:54 Pulse Rate 81 05/27/22 11:22 Respiratory Rate 16 05/27/22 11:22 Blood Pressure 89/75 L 05/27/22 11:22 Pulse Oximetry 98 05/27/22 11:22 Oxygen Delivery Method Room Air 05/27/22 11:22 Oxygen Flow Rate 3 05/27/22 08:00 <Vicki Anderson MD - Last Filed: 05/27/22 13:03> Medical Decision Making MDM Narrative Medical decision making narrative: With both Dr Martinez and myself in patient room, blood pressure appears to be slowly improving now at 85 systolic. Patient has remained to be not tachycardic. Patient is complaining of back pain. Initial history was that this woke patient up but upon further discussion she has actually been dealing with increased back pain for the past 2 days. She notes that she has had to use more oxycodone than normal recently. She does have a pain pump in. She notes decreased p.o. intake over the past 72 hours. She denies a fever. She denies dysuria. States that she has not been urinating very much. She denies anterior chest pain or shortness of breath. Palpation down thoracic spine does not yield any acute discomfort. She is mentating normally. I have ordered fentanyl 50 mcg and Zofran 4 mg for discomfort. She is receiving a 3rd L of saline at this time and blood pressure now at [address] of chest to PE protocol chest, abdomen pelvis for aorta evaluation. Concern with patient is that her elevated troponin represents an aortic dissection but could also be caused by acute coronary syndrome, diffuse cardiac stress from prolonged hypotension, PE, intra-abdominal process. Have alerted CT of my concerns and the need for expedited CT. Note delay because of a Code White in the hospital as well as code stroke concurrently. 1026 hours: CT of the chest and abdomen show no evidence of PE or aortic dissection. Discussion with Dr. Gustafson, cardiology at [place]. [employer] believes that elevated troponin likely secondary to hypotension. Patient has been accepted by head inspector and center marker but they are asking me to also speak to hospitalist. Patient requesting more pain medication for her back. 50 mcg fentanyl ordered along with aspirin 324 mg p.o. now that we know there is no evidence of a dissection. Assessment/plan 1. Elevated troponin- likely secondary to prolonged hypotension but cannot rule out acute coronary syndrome. Aspirin 324 mg given p.o.. Discussed use of heparin but will hold off for now. Will continue to trend troponins. 2. Acute on chronic back pain-fentanyl IV 50 mcg x 2 3. Recent vein stripping left leg-no evidence of erythema. Note no evidence of PE on CT 4. Disposition-ALS transport to [facility] pending. Accepted by Dr. Mead, hospitalist and Dr. Gustafson, cardiology. 4-6 hour wait stated at 1020 hours. I was called back into the room as Marina expressed her wish to leave to the nursing staff. I do state to Marina that I am of course very worried about her and that the elevated troponin was not just a mild elevation. While this could have been from her prolonged hypotension, we also must keep in mind that this could have been an acute coronary event. Marina states that she would like to go home and does not want to go to [place]. I did ask her if somehow we could keep her here in [facility] overnight for monitoring and she declines this as well. She does appear to be in a state where she is able to make her own decisions and is not currently under the affect of alcohol. I did have nurse come in witness our discussion. I did state that what ever is going on could worsen and could cause her . I did state that without continued observation there be may be other on discovered medical issues going on. She states that she understands that. She tells me that she is DNR DNI and states that if she ever was very sick she would only want an oxygen mask and no intubation and medications to take away her discomfort but no CPR. I again tried to discuss with the importance of seeing a specialist but again she declines and does appear to be able to make that decision on her own. She does agree to follow up with her primary MD. I think an echocardiogram to start with would be a very good idea. I did state that even though she is leaving now if she changes her mind I would be happy to have her come back for further evaluation. AMA is signed. <Vicki Anderson MD - Last Filed: 05/27/22 13:03> Medical Records Medical records reviewed: Yes I reviewed the patient's medical records <Vicki Anderson MD - Last Filed: 05/27/22 13:03> Lab Data Lab results reviewed: Yes I reviewed the patient's lab results <Vicki Anderson MD - Last Filed: 05/27/22 13:03> Labs: Lab Results 05/27/22 05/27/22 05/27/22 Range/Units 07:29 07:35 09:51 WBC 9.74 (4.50-11.00) K/uL RBC 5.07 (4.00-5.20) m/uL Hgb 13.9 (12.0-16.0) gm/dL Hct 40.1 (33.0-51.0) % MCV 79 L (80-100) fL MCH 27 (26-34) pg MCHC 35 (32-36) gm/dL RDW Coeff of Chely 13.9 (11.5-15.5) % Plt Count 314 (140-440) K/uL Neut % (Auto) 75.8 H (42.0-72.0) % Lymph % (Auto) 12.9 L (20-44) % Graham % (Auto) 10.5 (0.0-11.0) % Eos % (Auto) 0.1 (0.0-7.0) % Baso % (Auto) 0.0 (0.0-3.0) % Neut # (Auto) 7.40 H (1.7-7.0) K/uL Lymph # (Auto) 1.30 (0.90-2.90) K/uL Graham # (Auto) 1.00 H (0.00-0.90) K/UL Eos # (Auto) 0.01 (0.00-0.50) K/uL Baso # (Auto) 0.00 (0.00-0.30) K/uL Sodium 128 L (135-149) mmol/L Potassium 3.4 L (3.6-5.1) mmol/L Chloride 100 (96-114) mmol/L Carbon Dioxide 17 L (20-32) mmol/L BUN 23 (7-30) mg/dL Creatinine 1.5 (0.5-1.5) mg/dL Estimated Creat Clear 37.80 Estimated GFR 40 ml/min Glucose 152 H (60-115) mg/dL Lactate 1.4 (0.5-1.9) mmol/L Calcium 9.5 (8.4-10.6) mg/dL Total Bilirubin 0.8 (0.1-1.5) mg/dL AST 25 (12-35) U/L ALT 14 (4-35) U/L Alkaline Phosphatase 90 (40-150) U/L Troponin I 0.35 H* 0.20 H* (0.01-0.04) ng/mL Total Protein 8.0 (6.0-8.3) g/dL Albumin 4.8 (3.3-5.0) g/dL Urine Color (Yellow) Urine Appearance (Clear) Urine pH (5.0-8.5) Ur Specific Kimberly (1.000-1.030) Urine Protein (Negative) Urine Glucose (UA) (Negative) Urine Ketones (Negative) Urine Blood (Negative) Urine Nitrite (Negative) Urine Bilirubin (Negative) Urine Urobilinogen (0.2-1.0) Ur Leukocyte Esterase (Negative) Urine RBC (0-2) Urine WBC (0-5) Ur Squamous Epith Cells (None-Few) Urine Bacteria (None) POC Troponin I 0.23 H 0.15 H (0.01-0.04) ng/ml 05/27/22 Range/Units 10:11 WBC (4.50-11.00) K/uL RBC (4.00-5.20) m/uL Hgb (12.0-16.0) gm/dL Hct (33.0-51.0) % MCV (80-100) fL MCH (26-34) pg MCHC (32-36) gm/dL RDW Coeff of Chely (11.5-15.5) % Plt Count (140-440) K/uL Neut % (Auto) (42.0-72.0) % Lymph % (Auto) (20-44) % Graham % (Auto) (0.0-11.0) % Eos % (Auto) (0.0-7.0) % Baso % (Auto) (0.0-3.0) % Neut # (Auto) (1.7-7.0) K/uL Lymph # (Auto) (0.90-2.90) K/uL Graham # (Auto) (0.00-0.90) K/UL Eos # (Auto) (0.00-0.50) K/uL Baso # (Auto) (0.00-0.30) K/uL Sodium (135-149) mmol/L Potassium (3.6-5.1) mmol/L Chloride (96-114) mmol/L Carbon Dioxide (20-32) mmol/L BUN (7-30) mg/dL Creatinine (0.5-1.5) mg/dL Estimated Creat Clear Estimated GFR ml/min Glucose (60-115) mg/dL Lactate (0.5-1.9) mmol/L Calcium (8.4-10.6) mg/dL Total Bilirubin (0.1-1.5) mg/dL AST (12-35) U/L ALT (4-35) U/L Alkaline Phosphatase (40-150) U/L Troponin I (0.01-0.04) ng/mL Total Protein (6.0-8.3) g/dL Albumin (3.3-5.0) g/dL Urine Color Brown A (Yellow) Urine Appearance Cloudy A (Clear) Urine pH 6.0 (5.0-8.5) Ur Specific Kimberly 1.025 (1.000-1.030) Urine Protein 3+ A (Negative) Urine Glucose (UA) Negative (Negative) Urine Ketones 1+ A (Negative) Urine Blood Trace-intact A (Negative) Urine Nitrite Negative (Negative) Urine Bilirubin 2+ A (Negative) Urine Urobilinogen 0.2 (0.2-1.0) Ur Leukocyte Esterase Negative (Negative) Urine RBC 5-10 A (0-2) Urine WBC 10-25 A (0-5) Ur Squamous Epith Cells Moderate A (None-Few) Urine Bacteria Few A (None) POC Troponin I (0.01-0.04) ng/ml <Celestino Martinez MD - Last Filed: 05/28/22 07:04> Lab Results 05/27/22 05/27/22 05/27/22 Range/Units 07:29 07:35 09:51 WBC 9.74 (4.50-11.00) K/uL RBC 5.07 (4.00-5.20) m/uL Hgb 13.9 (12.0-16.0) gm/dL Hct 40.1 (33.0-51.0) % MCV 79 L (80-100) fL MCH 27 (26-34) pg MCHC 35 (32-36) gm/dL RDW Coeff of Chely 13.9 (11.5-15.5) % Plt Count 314 (140-440) K/uL Neut % (Auto) 75.8 H (42.0-72.0) % Lymph % (Auto) 12.9 L (20-44) % Graham % (Auto) 10.5 (0.0-11.0) % Eos % (Auto) 0.1 (0.0-7.0) % Baso % (Auto) 0.0 (0.0-3.0) % Neut # (Auto) 7.40 H (1.7-7.0) K/uL Lymph # (Auto) 1.30 (0.90-2.90) K/uL Graham # (Auto) 1.00 H (0.00-0.90) K/UL Eos # (Auto) 0.01 (0.00-0.50) K/uL Baso # (Auto) 0.00 (0.00-0.30) K/uL Sodium 128 L (135-149) mmol/L Potassium 3.4 L (3.6-5.1) mmol/L Chloride 100 (96-114) mmol/L Carbon Dioxide 17 L (20-32) mmol/L BUN 23 (7-30) mg/dL Creatinine 1.5 (0.5-1.5) mg/dL Estimated Creat Clear 37.80 Estimated GFR 40 ml/min Glucose 152 H (60-115) mg/dL Lactate 1.4 (0.5-1.9) mmol/L Calcium 9.5 (8.4-10.6) mg/dL Total Bilirubin 0.8 (0.1-1.5) mg/dL AST 25 (12-35) U/L ALT 14 (4-35) U/L Alkaline Phosphatase 90 (40-150) U/L Troponin I 0.35 H* 0.20 H* (0.01-0.04) ng/mL Total Protein 8.0 (6.0-8.3) g/dL Albumin 4.8 (3.3-5.0) g/dL Urine Color (Yellow) Urine Appearance (Clear) Urine pH (5.0-8.5) Ur Specific Kimberly (1.000-1.030) Urine Protein (Negative) Urine Glucose (UA) (Negative) Urine Ketones (Negative) Urine Blood (Negative) Urine Nitrite (Negative) Urine Bilirubin (Negative) Urine Urobilinogen (0.2-1.0) Ur Leukocyte Esterase (Negative) Urine RBC (0-2) Urine WBC (0-5) Ur Squamous Epith Cells (None-Few) Urine Bacteria (None) POC Troponin I 0.23 H 0.15 H (0.01-0.04) ng/ml 05/27/22 Range/Units 10:11 WBC (4.50-11.00) K/uL RBC (4.00-5.20) m/uL Hgb (12.0-16.0) gm/dL Hct (33.0-51.0) % MCV (80-100) fL MCH (26-34) pg MCHC (32-36) gm/dL RDW Coeff of Chely (11.5-15.5) % Plt Count (140-440) K/uL Neut % (Auto) (42.0-72.0) % Lymph % (Auto) (20-44) % Graham % (Auto) (0.0-11.0) % Eos % (Auto) (0.0-7.0) % Baso % (Auto) (0.0-3.0) % Neut # (Auto) (1.7-7.0) K/uL Lymph # (Auto) (0.90-2.90) K/uL Graham # (Auto) (0.00-0.90) K/UL Eos # (Auto) (0.00-0.50) K/uL Baso # (Auto) (0.00-0.30) K/uL Sodium (135-149) mmol/L Potassium (3.6-5.1) mmol/L Chloride (96-114) mmol/L Carbon Dioxide (20-32) mmol/L BUN (7-30) mg/dL Creatinine (0.5-1.5) mg/dL Estimated Creat Clear Estimated GFR ml/min Glucose (60-115) mg/dL Lactate (0.5-1.9) mmol/L Calcium (8.4-10.6) mg/dL Total Bilirubin (0.1-1.5) mg/dL AST (12-35) U/L ALT (4-35) U/L Alkaline Phosphatase (40-150) U/L Troponin I (0.01-0.04) ng/mL Total Protein (6.0-8.3) g/dL Albumin (3.3-5.0) g/dL Urine Color Brown A (Yellow) Urine Appearance Cloudy A (Clear) Urine pH 6.0 (5.0-8.5) Ur Specific Kimberly 1.025 (1.000-1.030) Urine Protein 3+ A (Negative) Urine Glucose (UA) Negative (Negative) Urine Ketones 1+ A (Negative) Urine Blood Trace-intact A (Negative) Urine Nitrite Negative (Negative) Urine Bilirubin 2+ A (Negative) Urine Urobilinogen 0.2 (0.2-1.0) Ur Leukocyte Esterase Negative (Negative) Urine RBC 5-10 A (0-2) Urine WBC 10-25 A (0-5) Ur Squamous Epith Cells Moderate A (None-Few) Urine Bacteria Few A (None) POC Troponin I (0.01-0.04) ng/ml <Vicki Anderson MD - Last Filed: 05/27/22 13:03> Imaging Data CT Chest/Ab/Pelvis: Attestation: I have reviewed the pertinent imaging results. <Vicki Anderson MD - Last Filed: 05/27/22 13:03> Radiologist's impression: A noncontrast acquisition of the chest was not obtained. This lowers sensitivity for detection of intramural or mediastinal hematoma. No findings to suggest an intramural or mediastinal hematoma is seen. The ascending thoracic aorta measures 39 millimeters. This is mildly dilated. No displaced intimal calcification. No dissection flap. The brachiocephalic trunk, left common carotid artery, and left subclavian artery are normal. The main pulmonary artery measures 34 millimeters. This is dilated. Consider pulmonary arterial hypertension. No pulmonary emboli are demonstrated. There is no evidence for right heart strain. There is no pleural or pericardial effusion. No mass at the thoracic inlet. The lung windows demonstrate no endobronchial mass. There is no bronchiectasis. Interstitial type opacities are present in the lung bases, which may represent atelectasis or scarring. There is no honeycombing. There is no traction bronchiectasis. No consolidation. Mild mosaic attenuation in the lung parenchyma, often secondary to small airways disease/air trapping. There is a presumed anastomotic suture line present about the right middle lobe, presumably from prior sublobar wedge resection. Perifissural nodule in the right lung measuring 4 millimeters on series 6, image 97. Potentially an intrapulmonary lymph node. This is of low suspicion for malignancy. Abdomen/pelvis: The liver morphology is non cirrhotic. There is no solid hepatic mass. Cholecystectomy. No adrenal mass. Symmetric nephrograms. No solid renal mass or perinephric fluid. The spleen size is normal. There is no pancreatic mass or glandular atrophy. No common bile duct stone. The celiac axis, SMA, and EMILIANA are widely patent. There is no abdominal aortic aneurysm. There is no dissection flap. There is no retroperitoneal hematoma. Urinary bladder is normal. Uterus appears absent. There is no adnexal mass. There is no evidence on CT for a small bowel or colonic obstruction. There is no transition point. No mucosal hyper enhancement. No perienteric edema. Normal ileocecal valve. Nonspecific fat stranding present about the left common femoral artery and vein. This can be correlated with physical exam findings and focused ultrasound if there is concern. No pelvic sidewall lymphadenopathy. No retroperitoneal or gastrohepatic ligament adenopathy. The patient has undergone a prior gastric bypass. The Tucker limb appears antecolic/antegastric. No obstruction of the Tucker limb or pancreaticobiliary limb. The bone windows demonstrate a small sclerotic lesion in the right proximal femur, likely benign bone islands. This is unchanged. Similar findings are seen in the contralateral left proximal femur. Millimeter device, with anterior/posterior fusion changes from L4 through S1, and vertebroplasty changes at L3. Compression fracture involving the superior endplate of L1. These findings are stable from 12/2019. Impression: 1. No pulmonary emboli. 2. No evidence on CT for right heart strain. No pulmonary infarct. 3. Although a noncontrast acquisition of the chest was not obtained, which limits sensitivity for intramural/mediastinal hematoma, no findings are seen to indicate an acute aortic syndrome. Fusiform dilation of the ascending thoracic aorta. This may be correlated with echocardiogram. 4. No abdominal aortic aneurysm or dissection. Visceral artery branches are widely patent. 5. The patient is post gastric bypass. There is no obstruction of the Tucker limb of pancreaticobiliary limb. No inflammatory changes adjacent to the gastrojejunostomy, or jejunojejunostomy. 6. Fat stranding present about the left common femoral artery/vein. This could be a region of cellulitis. Correlation with focused ultrasound physical e <Vicki Anderson MD - Last Filed: 05/27/22 13:03> ECG Data Attestation: I personally reviewed and interpreted this ECG as follows: <Vicki Anderson MD - Last Filed: 05/27/22 13:03> Interpretation: EKG by my read shows sinus rhythm at a rate of 96. Peaked T-waves are noted V3 and V4, leads 2 <Vicki Anderson MD - Last Filed: 05/27/22 13:03> Discharge Plan Discharge Clinical Impression: Elevated troponin, Hypotension <Celestino Martinez MD - Last Filed: 05/28/22 07:04> Patient Disposition: Left Against Medical Advice <Celestino Matrinez MD - Last Filed: 05/28/22 07:04> Prescriptions: No Action cyclobenzaprine 10 mg tablet 10 mg PO QPM PRN (Reason: muscle spasm) hydrocodone-acetaminophen 5-325 mg tablet PO sennosides-docusate sodium [Senexon-S] 8.6-50 mg tablet PO oxcarbazepine 300 mg tablet PO Nicotrol 10 mg cartridge 10 mg INHALATION ondansetron 8 mg tablet,disintegrating 8 mg PO Q8H PRN (Reason: nausea) buspirone 30 mg tablet 30 mg PO BID promethazine 25 mg tablet 25 mg PO Q12H PRN (Reason: nausea) furosemide 20 mg tablet 20 mg PO BID doxepin 150 mg capsule 150 mg PO QPM oxycodone 5 mg tablet 5 mg PO DAILY PRN (Reason: chronic pain) Movantik 25 mg tablet 25 mg PO QAM <Celestino Martinez MD - Last Filed: 05/28/22 07:04> Follow Up/Referrals: Rose Bright DO [Primary Care Provider] - <Celestino Martinez MD - Last Filed: 05/28/22 07:04> Stand Alone Forms: [facility] Info Instructions <Celestino Martinez MD - Last Filed: 05/28/22 07:04>
[2022-05-27 07:44] LABS: Lactate* 1.4 mmol/L (0.5-1.9)
[2022-05-27 07:46] LABS: Eosinophils Absolute Auto 0.01 K/uL (0.00-0.50); Eosinophils Percent Auto 0.1 % (0.0-7.0); Hematocrit 40.1 % (33.0-51.0); Hemoglobin* 13.9 gm/dL (12.0-16.0); Immature Granulocytes Abs Auto 0.07 K/uL (0.00-0.30); Immature Granulocytes Pct Auto 0.7 %; Lymphocytes Percent Auto 12.9 % (20-44); Mean Corpuscular HGB Conc 35 gm/dL (32-36); Mean Corpuscular Hemoglobin 27 pg (26-34); Mean Corpuscular Volume 79 fL (80-100); Monocytes Percent Auto 10.5 % (0.0-11.0); Neutrophils Percent Auto 75.8 % (42.0-72.0); Platelet Count* 314 K/uL (140-440); RDW Coefficient of Variation % 13.9 % (11.5-15.5); Red Blood Count 5.07 m/uL (4.00-5.20); White Blood Count* 9.74 K/uL (4.50-11.00)
[2022-05-27 07:47] LABS: Slide Review Reflex No
[2022-05-27 07:49] LABS: Troponin, Point-of-Care* 0.23 ng/ml (0.01-0.04)
--- NOTE | 2022-05-27 07:49 | ED.NURSE ---
Ed trop 0.23 Dr Martinez aware
--- NOTE | 2022-05-27 07:52 | CRLHL7_ITS ---
For Patients: As a result of the 21st Century Cures Act, medical imaging exams and procedure reports are released immediately into your electronic medical record. You may view this report before your referring provider. If you have questions, please contact your health care provider. INDICATION: Chest painr/o PE, r/o dissection if able Indication: Chest pain. Evaluate for pulmonary emboli. Evaluate for dissection. Technique: CT of the chest, abdomen, and pelvis. Coronal/sagittal reconstruction images. 95 cc of Isovue 370 IV. Comparison: CT of the abdomen and pelvis, 01/20/2020. Findings: Chest: A noncontrast acquisition of the chest was not obtained. This lowers sensitivity for detection of intramural or mediastinal hematoma. No findings to suggest an intramural or mediastinal hematoma is seen. The ascending thoracic aorta measures 39 millimeters. This is mildly dilated. No displaced intimal calcification. No dissection flap. The brachiocephalic trunk, left common carotid artery, and left subclavian artery are normal. The main pulmonary artery measures 34 millimeters. This is dilated. Consider pulmonary arterial hypertension. No pulmonary emboli are demonstrated. There is no evidence for right heart strain. There is no pleural or pericardial effusion. No mass at the thoracic inlet. The lung windows demonstrate no endobronchial mass. There is no bronchiectasis. Interstitial type opacities are present in the lung bases, which may represent atelectasis or scarring. There is no honeycombing. There is no traction bronchiectasis. No consolidation. Mild mosaic attenuation in the lung parenchyma, often secondary to small airways disease/air trapping. There is a presumed anastomotic suture line present about the right middle lobe, presumably from prior sublobar wedge resection. Perifissural nodule in the right lung measuring 4 millimeters on series 6, image 97. Potentially an intrapulmonary lymph node. This is of low suspicion for malignancy. Abdomen/pelvis: The liver morphology is non cirrhotic. There is no solid hepatic mass. Cholecystectomy. No adrenal mass. Symmetric nephrograms. No solid renal mass or perinephric fluid. The spleen size is normal. There is no pancreatic mass or glandular atrophy. No common bile duct stone. The celiac axis, SMA, and EMILIANA are widely patent. There is no abdominal aortic aneurysm. There is no dissection flap. There is no retroperitoneal hematoma. Urinary bladder is normal. Uterus appears absent. There is no adnexal mass. There is no evidence on CT for a small bowel or colonic obstruction. There is no transition point. No mucosal hyper enhancement. No perienteric edema. Normal ileocecal valve. Nonspecific fat stranding present about the left common femoral artery and vein. This can be correlated with physical exam findings and focused ultrasound if there is concern. No pelvic sidewall lymphadenopathy. No retroperitoneal or gastrohepatic ligament adenopathy. The patient has undergone a prior gastric bypass. The Tucker limb appears antecolic/antegastric. No obstruction of the Tucker limb or pancreaticobiliary limb. The bone windows demonstrate a small sclerotic lesion in the right proximal femur, likely benign bone islands. This is unchanged. Similar findings are seen in the contralateral left proximal femur. Millimeter device, with anterior/posterior fusion changes from L4 through S1, and vertebroplasty changes at L3. Compression fracture involving the superior endplate of L1. These findings are stable from 12/2019. Impression: 1. No pulmonary emboli. 2. No evidence on CT for right heart strain. No pulmonary infarct. 3. Although a noncontrast acquisition of the chest was not obtained, which limits sensitivity for intramural/mediastinal hematoma, no findings are seen to indicate an acute aortic syndrome. Fusiform dilation of the ascending thoracic aorta. This may be correlated with echocardiogram. 4. No abdominal aortic aneurysm or dissection. Visceral artery branches are widely patent. 5. The patient is post gastric bypass. There is no obstruction of the Tucker limb of pancreaticobiliary limb. No inflammatory changes adjacent to the gastrojejunostomy, or jejunojejunostomy. 6. Fat stranding present about the left common femoral artery/vein. This could be a region of cellulitis. Correlation with focused ultrasound physical e Dictated by Justus Lindo MD @ 05/27/2022 9:51:19 AM Please note that all CT scans at this facility use dose modulation, iterative reconstruction, and/or weight-based dosing when appropriate to reduce radiation dose to as low as reasonably achievable. Dictated by: Justus Lindo MD @ 05/27/2022 09:51:33 (Electronically Signed)
[2022-05-27 08:05] LABS: Albumin* 4.8 g/dL (3.3-5.0)
[2022-05-27 08:06] LABS: Chloride* 100 mmol/L (96-114); Potassium* 3.4 mmol/L (3.6-5.1); Sodium* 128 mmol/L (135-149)
[2022-05-27 08:08] LABS: Aspartate Amino Transferase* 25 U/L (12-35); Bilirubin Total* 0.8 mg/dL (0.1-1.5); Carbon Dioxide* 17 mmol/L (20-32); Creatinine* 1.5 mg/dL (0.5-1.5); Estimated Glomerular Filt Rate 40 ml/min
--- NOTE | 2022-05-27 08:08 | CRLHL7_ITS ---
For Patients: As a result of the Century Cures Act, medical imaging exams and procedure reports are released immediately into your electronic medical record. You may view this report before your referring provider. If you have questions, please contact your health care provider. INDICATION: Trauma, fall. TECHNIQUE: CT head without contrast. COMPARISON: None. FINDINGS: CSF spaces: Within normal limits for age. Brain parenchyma and extra-axial spaces: The lawrence-white differentiation is normal. No sign of mass, hemorrhage, or midline shift. No extra-axial fluid collection. Skull base and calvarium: The visualized paranasal sinuses and mastoid air cells demonstrate no acute or significant findings. The visualized orbits are grossly unremarkable. No skull fractures. IMPRESSION: Unremarkable noncontrast head CT. Please note that all CT scans at this facility use dose modulation, iterative reconstruction, and/or weight-based dosing when appropriate to reduce radiation dose to as low as reasonably achievable. Dictated by Joseph Esquivel MD @ 05/27/2022 9:47:42 AM (Electronically Signed)
--- NOTE | 2022-05-27 08:08 | CRLHL7_ITS ---
For Patients: As a result of the Cures Act, medical imaging exams and procedure reports are released immediately into your electronic medical record. You may view this report before your referring provider. If you have questions, please contact your health care provider. INDICATION: Trauma, fall. TECHNIQUE: CT cervical spine without contrast. COMPARISON: None. FINDINGS: Vertebrae: Alignment is normal. There are no fractures or suspicious bony lesions. Discs and facet joints: Degenerative disc spondylosis at C5-6. No other degenerative changes. Extraspinal findings: Prevertebral soft tissues, visualized airway, and visualized lungs are unremarkable. IMPRESSION: No sign of acute injury in the cervical spine. Please note that all CT scans at this facility use dose modulation, iterative reconstruction, and/or weight-based dosing when appropriate to reduce radiation dose to as low as reasonably achievable. Dictated by Joseph Esquivel MD @ 05/27/2022 9:45:01 AM (Electronically Signed)
[2022-05-27 08:09] LABS: Alanine Aminotransferase* 14 U/L (4-35); Alkaline Phosphatase* 90 U/L (40-150); Blood Urea Nitrogen* 23 mg/dL (7-30); Calcium* 9.5 mg/dL (8.4-10.6); Glucose* 152 mg/dL (60-115)
--- NOTE | 2022-05-27 08:15 | PC.NURSE ---
patient continues to be in reverse Trendelenburg and BP improving systolic 80's. patient is more talkative and on 3rd liter of fluids. lying on the left side to get off of back. Dr. Anderson came in to see patient.
[2022-05-27] MEDS: fentaNYL 100 MCG/2 ML inj 50 MCG IVP (08:20)
[2022-05-27] MEDS: ONDANSETRON 2 MG/ML inj 4 MG IVP (08:20)
[2022-05-27 08:22] LABS: Troponin I* 0.35 ng/mL (0.01-0.04)
[2022-05-27 10:12] LABS: Troponin, Point-of-Care* 0.15 ng/ml (0.01-0.04)
[2022-05-27 10:20] LABS: Appearance Urine Cloudy (Clear); Bilirubin Urine 2+ (Negative); Blood Urine Trace-intact (Negative); Color Urine Brown (Yellow); Glucose Urine Negative (Negative); Ketones Urine 1+ (Negative); Leukocyte Esterase Urine Negative (Negative); Nitrite Urine Negative (Negative); Protein Urine 3+ (Negative); Specific Gravity Urine 1.025 (1.000-1.030); Urobilinogen Urine 0.2 (0.2-1.0)
[2022-05-27] MEDS: fentaNYL 100 MCG/2 ML inj 25 MCG IVP (10:29)
[2022-05-27] MEDS: ASPIRIN 81 MG TAB.CHEW 324 MG PO (10:30)
[2022-05-27 10:32] LABS: Bacteria Urine Few; Squamous Epithelial Cell Urine Moderate (None-Few)
--- NOTE | 2022-05-27 11:34 | ED.NURSE ---
Pt signs AMA form, at bedside.
== END 2022-05-27 11:55 | disposition left against medical advice (07) ==
PROVIDERS: Internal Medicine; Emergency Provider Family Medicine; PCP Family Medicine
DX: I95.9 Hypotension, unspecified (principal); R79.89 Other specified abnormal findings of blood chemistry
CPT/HCPCS: 36415; 70450; 71260; 72125; 74177; 80053; 81003; 81015; 83605; 84484; 85025; 87086; 93005; 94761; 96374; 96375; 96376; 99283; 99285; 99291; A9270; J2405; J3010; J7030; Q9967

== ENCOUNTER 2022-08-20 03:07 | Emergency (ER) | payer MEDICARE, OTHER, SELFPAY ==
--- NOTE | 2022-08-20 03:11 | ED_ITS ---
HPI - General Adult General Time Seen by Provider: 03:11 Date Seen: 08/20/22 Chief complaint: Constipation Stated complaint: Constipation Time Seen by Provider: 08/20/22 03:16 Source: patient, RN notes reviewed and old records reviewed Mode of arrival: ambulatory Limitations: no limitations History of Present Illness HPI narrative: 57-year-old female who presents today with complaint that she has not had a bowel movement for a week. No vomiting. No diarrhea. Related Data Home Medications Medication Instructions Recorded Confirmed buspirone 30 mg tablet 30 mg PO BID 05/27/22 08/20/22 cyclobenzaprine 10 mg tablet 10 mg PO QPM PRN muscle spasm 05/27/22 08/20/22 doxepin 150 mg capsule 150 mg PO QPM 05/27/22 08/20/22 furosemide 20 mg tablet 20 mg PO BID 05/27/22 08/20/22 naloxegol 25 mg tablet (Movantik) 25 mg PO QAM 05/27/22 08/20/22 nicotine 10 mg inhalation 10 mg inhalation nicotine cravings 05/27/22 cartridge (Nicotrol) ondansetron 8 mg disintegrating 8 mg PO Q8H PRN nausea 05/27/22 08/20/22 tablet oxcarbazepine 300 mg tablet mg PO 05/27/22 oxycodone 5 mg tablet 5 mg PO DAILY PRN chronic pain 05/27/22 08/20/22 promethazine 25 mg tablet 25 mg PO Q12H PRN nausea 05/27/22 08/20/22 sennosides 8.6 mg-docusate sodium tab PO 05/27/22 50 mg tablet (Senexon-S) Allergies Allergy/AdvReac Type Severity Reaction Status Date / Time aspirin Allergy Unknown GI Bleed Verified 05/27/22 09:32 bupivacaine Allergy Unknown Agitation Verified 05/27/22 09:32 diphenhydramine Allergy Unknown Anxiety Verified 05/27/22 09:32 lamotrigine Allergy Unknown Angioedema Verified 05/27/22 09:32 metoclopramide Allergy Unknown Anxiety Verified 05/27/22 09:32 NSAIDS (Non-Steroidal Allergy Unknown GI Bleed Verified 05/27/22 09:32 Anti-Inflamma [NSAIDS (Non-Steroidal Anti-Inflammatory Drug)] prochlorperazine Allergy Unknown Unknown Verified 05/27/22 09:32 pseudoephedrine Allergy Unknown Unknown Verified 05/27/22 09:32 sumatriptan Allergy Unknown Punched Verified 05/27/22 09:32 The Beta Adrenergic Blockers Allergy Unknown Unknown Uncoded 05/27/22 09:32 Haldol Allergy Unknown Anxiety Uncoded 05/27/22 09:32 [facility] Family History Father Prostate cancer Other Ovarian cancer Social History Narrative: , 3 kids, unemployed, smoker, no EtOH Smoking Status: Current every day smoker What tobacco products do you use: cigarettes Do you use any of these nicotine containing products: None Second hand tobacco smoke exposure: Yes How often do you have a drink containing alcohol: never How often do you have six or more drinks on one occasion: Never AUDIT-C Alcohol total score: 0 Non-prescribed substance use: denies use Exam Narrative: Exam Narrative: General: Well-developed and well-nourished, no acute distress Head: Atraumatic and normocephalic Eyes: Pupils are equal reactive, extraocular motions intact, conjunctiva clear ENT: External nose and ears are normal, posterior pharynx without erythema or exudate Neck: No midline cervical tenderness, full spontaneous range of motion the neck, trachea midline, no adenopathy Heart: Regular rate and rhythm no murmurs or thrills Lungs: Clear to auscultation bilaterally without wheezes or crackles Abdomen: Soft, nontender, nondistended with active bowel sounds Musculoskeletal: No tenderness, deformity, or edema Neurologic: Awake, alert, and oriented x3, no gross focal neurologic deficits, cranial nerves intact as tested Psych: Mood and affect are appropriate Skin: No rashes Const: Vital Signs, click to edit/add: Vital Signs - 24 hr 08/20/22 03:13 Temperature 97.1 F L Respiratory Rate 24 Blood Pressure [Ri ght Upper Arm] 146/89 H Pulse Oximetry 97 Oxygen Delivery Me thod Room Air Course Course Hospital Course: Patient seen examined, prior records are reviewed. Patient presents with abdominal pain and nausea reported no bowel movement for week. Has tried enemas at home and is on Movantik. Exam, appears anxious and uncomfortable. Mild diffuse abdominal tenderness. Chaperoned rectal exam with no stool in the rectal vault. X-ray ordered to make sure there is no evidence for bowel obstruction, if this is negative patient will be given Enemeez, Relistor, and po lyethylene glycol. Reevaluation(s) Time of Reevaluation #1: 04:04 Reevaluation #1: Abdominal x-ray independently interpreted by me demonstrates nonobstructive pattern with moderate colonic air and stool. Will avoid Relistor for now as patient is already on Movantik, GoLYTELY and Enemeez ordered. Time of Reevaluation #2: 05:05 Reevaluation #2: Patient recheck, has taken some of the GoLYTELY in the emergency department has had small amount of stool output. Still complaining of some nausea. Offered repeat doses Zofran which patient declined. She is agreeable to discharge and will be sent home with GoLYTELY although says ?I won't drink that.? Reports that she has Zofran at home. Vital Signs Vital signs: Initial Vital Signs Temperature 97.1 F L 08/20/22 03:13 Temperature Source Temporal Artery Scan 08/20/22 03:13 Respiratory Rate 24 08/20/22 03:13 Blood Pressure 146/89 H 08/20/22 03:13 Blood Pressure Mean 108 H 08/20/22 03:13 Pulse Oximetry 97 08/20/22 03:13 Oxygen Delivery Method Room Air 08/20/22 03:13 Vital Signs Temperature 97.1 F L 08/20/22 03:13 Respiratory Rate 24 08/20/22 03:13 Blood Pressure 146/89 H 08/20/22 03:13 Pulse Oximetry 97 08/20/22 03:13 Oxygen Delivery Method Room Air 08/20/22 03:13 Temperature 97.1 F L 08/20/22 03:13 Respiratory Rate 24 08/20/22 03:13 Blood Pressure 146/89 H 08/20/22 03:13 Pulse Oximetry 97 08/20/22 03:13 Oxygen Delivery Method Room Air 08/20/22 03:13 Discharge Plan Discharge Clinical Impression: Constipation Patient Disposition: Home, Self-Care Condition: Stable Instructions: Constipation (DC) Additional Instructions: Continue taking GoLYTELY until stool is clear Activity Level: No Restrictions Discharge Diet: Regular Prescriptions: No Action cyclobenzaprine 10 mg tablet 10 mg PO QPM PRN (Reason: muscle spasm) sennosides-docusate sodium [Senexon-S] 8.6-50 mg tablet PO oxcarbazepine 300 mg tablet PO Nicotrol 10 mg cartridge 10 mg INHALATION ondansetron 8 mg tablet,disintegrating 8 mg PO Q8H PRN (Reason: nausea) buspirone 30 mg tablet 30 mg PO BID promethazine 25 mg tablet 25 mg PO Q12H PRN (Reason: nausea) furosemide 20 mg tablet 20 mg PO BID doxepin 150 mg capsule 150 mg PO QPM oxycodone 5 mg tablet 5 mg PO DAILY PRN (Reason: chronic pain) Movantik 25 mg tablet 25 mg PO QAM Follow Up/Referrals: Rose Bright DO [Primary Care Provider] - Stand Alone [facility]: [facility]
[2022-08-20 03:13] VITALS: BP 146/89; RESP 24; TEMP 36.2; O2SAT 97; BMI 33.3
--- NOTE | 2022-08-20 03:36 | CRLHL7_ITS ---
For Patients: As a result of the Cures Act, medical imaging exams and procedure reports are released immediately into your electronic medical record. You may view this report before your referring provider. If you have questions, please contact your health care provider. INDICATION: abd pain, nausea- constipation vs sbo TECHNIQUE: Chest 1 views, abdomen two-view. COMPARISON: Chest x-ray October 16, 2021 FINDINGS: Cardiovascular and mediastinum: Heart size and vasculature are normal in caliber and appearance. Lungs and pleural spaces: Similar bibasilar interstitial prominence represents scarring or atelectasis. No sign of infiltrate or mass. No sign of pleural effusion. No pneumothorax. Bones and soft tissues: Postop changes of lumbosacral spine. Left lower quadrant soft tissue device. Cholecystectomy clips. Abdomen: Mild-moderately dilated loops of bowel throughout the abdomen with air seen distally to level of the rectum. No evidence of air-fluid levels. Mild fecal retention. IMPRESSION: 1. No evidence of acute cardiopulmonary process. 2. Nonspecific mild moderately dilated loops of bowel throughout the abdomen with air seen distally to level of the rectum. No evidence of air-fluid levels. Mild fecal retention. No specific evidence for small bowel obstruction. Dictated by Kieran Wagner MD @ 08/20/2022 4:24:05 AM (Electronically Signed)
[2022-08-20] MEDS: DOCUSATE SODIUM/BENZOCAINE 5 ML ENEMA PR (04:08)
[2022-08-20] MEDS: ONDANSETRON ODT 4 MG TAB PO (04:08)
[2022-08-20] MEDS: PEG-3350 SODIUM CL/BICARB-KCL 4,000 ML SOLN 4000 ML PO (04:32)
--- NOTE | 2022-08-20 04:38 | ED.NURSE ---
Patient in and out of the room walking to the bathroom despite commode at bedside. Patient states that there is no way that she can drink the go lightly. RN asked patient if she could try, patient made no comment.
--- NOTE | 2022-08-20 05:26 | ED.NURSE ---
Patient given remainder of go lytely at discharge as well as discharge paperwork. Patient left both the go lytely and paperwork on the counter when she discharged. Patient frustrated with staff
== END 2022-08-20 05:29 | disposition home or self-care (01) ==
PROVIDERS: Emergency Provider Family Medicine; PCP Family Medicine
DX: K59.00 Constipation, unspecified (principal)
CPT/HCPCS: 74022; 96372; 99284; A9270

== ENCOUNTER 2022-09-15 19:48 | Outpatient (CLI) | payer MEDICARE, OTHER, SELFPAY | END 2022-09-15 19:49 | disposition home or self-care (01) | LOC: AMB 09-16 09:57 | PROVIDERS: PCP Family Medicine; Visit Provider Family Medicine | DX: R41.82 Altered mental status, unspecified (principal) | CPT/HCPCS: A0425; A0427 ==

== ENCOUNTER 2022-09-15 20:28 | Emergency (ER) | payer MEDICARE, OTHER, SELFPAY ==
[2022-09-15] VITALS (25 sets, daily range): BP systolic 82–115; BP diastolic 51–85; PULSE 63–96; RESP 16–18; TEMP 36.1–36.6; O2SAT 89–100
--- NOTE | 2022-09-15 20:32 | ED.GENADULT ---
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 own decisions and wishes to go home. <Vicki Anderson MD - Last Filed: 11/27/22 00:41> 1. Fall-fortunately no evidence of head injury, cervical spine injury. Later in the course of the ED visit, Patient does admit that she may have taken extra muscle relaxer before bed tonight. Fall likely secondary to polypharmacy. Patient is able to stand and does not appear to have any significant injury. However she becomes very dizzy after this and is unable to ambulate. Troponin was negative and EKG reassuring. CK elevated 492. 2 L normal saline. Patient declines any further medications. 2. Altered mentation-again likely secondary to polypharmacy. Patient has been very challenging as she is stating that it is her right not to have any further blood draws or evaluation. Urinalysis positive for opioids, benzodiazepines, tricyclics as well as marijuana. Alcohol is negative. 3. Anemia-hemoglobin 9.7 which is a drop from 13.9 in May. Patient denies vomiting or any blood in her stool and is declining a rectal exam. She denies vomiting. She certainly becomes pale when she stands up. CT of the abdomen does not show any obvious acute issues. Patient declines recheck of her hemoglobin. Looking through past records her hemoglobin has been as low as 6.1 in August of 2021. 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 4. Hypotension-improved after 2 L normal saline. Initially I thought low blood pressure was secondary to dehydration but urine shows no evidence of ketones. This low blood pressure likely secondary from muscle relaxers. 5. Disposition-patient agrees to go to [facility] for overnight hospitalization and evaluation regarding the anemia, need for IV fluids given elevated CK. I have contacted patient placement and they will be calling me back. 0020 hours: At this time nursing staff tells me that Marina is pulling off all of her leads and now it wants to sign AMA. She did specifically state AMA once again. By the time I make into the room she is back sleeping. Still have not heard from [facility] at this time Patient agrees to go to [facility] as I do believe she is in need of not only observation but further tests for the new anemia. She will also need fluids for the elevated CK. Creatinine normal at this time. 0200: I had the pleasure of speaking with Dr. Ma, hospitalist at [facility]. He is requesting that I speak with poison Control in regards to potential overdose. Patient had initially agreed that she took baclofen but this is not listed on her active medication list. Other medications which could influence mental status include boost per own although no evidence of prolonged QT on EKG., cyclobenzaprine, Trileptal, oxycodone and Phenergan. Patient denies taking any oxycodone tonight. She does have a fentanyl pain pump however. Patient does not have benzodiazepine listed but did test positive tonight. . I was able to speak to poison Control. Poison Control does not feel that after 5-1/2 hours we should be expecting worsening status. I did go through patient's meds, normal EKG including QT interval and at this time they have no concerns. Addendum 0 400 patient allows me to do rectal exam. Do not see any mikal blood. There is not a lot of stool in the rectal vault. Fecal occult test is sent. Patient is receptive to hemoglobin test. At this time she appears to be able to make her own decisions and wishes to go home. Dr. Kaur- [id number]- reviewed repeat hemoglobin, improved. Agree with discharge plans, notes reviewed. <Lucie Kaur MD - Last Filed: 09/16/22 05:36> Medical Records Medical records reviewed: Yes I reviewed the patient's medical records <Vicki Anderson MD - Last Filed: 11/27/22 00:41> Lab Data Lab results reviewed: Yes I reviewed the patient's lab results <Vicki Anderson MD - Last Filed: 11/27/22 00:41> Lab results narrative: Initial anemia, improved on repeat labs, uncertain etiology <Lucie Kaur MD - Last Filed: 09/16/22 05:36> Labs: Lab Results 09/15/22 09/15/22 09/15/22 Range/Units 20:35 20:40 23:25 WBC 6.21 (4.50-11.00) K/uL RBC 3.63 L (4.00-5.20) m/uL Hgb 9.7 L (12.0-16.0) gm/dL Hct 29.4 L (33.0-51.0) % MCV 81 (80-100) fL MCH 27 (26-34) pg MCHC 33 (32-36) gm/dL RDW Coeff of Chely 14.2 (11.5-15.5) % Plt Count 178 (140-440) K/uL Neut % (Auto) 79.4 H (42.0-72.0) % Lymph % (Auto) 6.4 L (20-44) % [place]son % (Auto) 13.0 H (0.0-11.0) % Eos % (Auto) 0.6 (0.0-7.0) % Baso % (Auto) 0.0 (0.0-3.0) % Neut # (Auto) 4.90 (1.7-7.0) K/uL Lymph # (Auto) 0.40 L (0.90-2.90) K/uL Anson # (Auto) 0.80 (0.00-0.90) K/UL Eos # (Auto) 0.04 (0.00-0.50) K/uL Baso # (Auto) 0.00 (0.00-0.30) K/uL Abs Immat Gran (auto) 0.04 (0.00-0.30) K/uL Imm/Tot Granulo (auto) 0.6 % Sodium 126 L (135-149) mmol/L Potassium 3.0 L (3.6-5.1) mmol/L Chloride 92 L (96-114) mmol/L Carbon Dioxide 26 (20-32) mmol/L BUN 22 (7-30) mg/dL Creatinine 0.9 (0.5-1.5) mg/dL Estimated GFR 74 ml/min Glucose 154 H (60-115) mg/dL Calcium 8.5 (8.4-10.6) mg/dL Total Bilirubin 0.3 (0.1-1.5) mg/dL AST 37 H (12-35) U/L ALT 19 (4-35) U/L Alkaline Phosphatase 84 (40-150) U/L Total Creatine Kinase 496 H (41-117) U/L C-Reactive Protein 23.8 H (0.5-1.0) mg/dL Total Protein 6.4 (6.0-8.3) g/dL Albumin 3.6 (3.3-5.0) g/dL Lipase 12 L (23-300) U/L Urine Color (Yellow) Urine Appearance (Clear) Urine pH (5.0-8.5) Ur Specific [place] (1.000-1.030) Urine Protein (Negative) Urine Glucose (UA) (Negative) Urine Ketones (Negative) Urine Blood (Negative) Urine Nitrite (Negative) Urine Bilirubin (Negative) Urine Urobilinogen (0.2-1.0) Ur Leukocyte Esterase (Negative) Urine RBC (0-2) Urine WBC (0-5) Ur Squamous Epith Cells (None-Few) Urine Bacteria (None) Stool Occult Blood (Negative) Salicylates < 1.0 L (1.0-10) mg/dL Urine Opiates Screen POSITIVE A (Negative) Ur Oxycodone Screen Negative (Negative) Urine Methadone Screen Negative (Negative) Ur Propoxyphene Screen Negative (Negative) Acetaminophen 10.0 (10.0-30.0) ug/mL Ur Barbiturates Screen Negative (Negative) U Tricyclic Antidepress POSITIVE A (Negative) Ur Phencyclidine Scrn Negative (Negative) Ur Amphetamines Screen Negative (Negative) U Methamphetamines Scrn Negative (Negative) U Benzodiazepines Scrn POSITIVE A (Negative) Urine Cocaine Screen Negative (Negative) U Marijuana (THC) Screen POSITIVE A (Negative) Ur Drug Screen Comment See Note Ethyl Alcohol < 0.01 L (0.01-0.03) % Lab Acknowledgement Test Added POC Troponin I 0.00 L (0.01-0.04) ng/ml 09/15/22 09/16/22 09/16/22 Range/Units 23:26 04:20 04:59 WBC (4.50-11.00) K/uL RBC (4.00-5.20) m/uL Hgb 10.3 L (12.0-16.0) gm/dL Hct (33.0-51.0) % MCV (80-100) fL MCH (26-34) pg MCHC (32-36) gm/dL RDW Coeff of Chely (11.5-15.5) % Plt Count (140-440) K/uL Neut % (Auto) (42.0-72.0) % Lymph % (Auto) (20-44) % Anson % (Auto) (0.0-11.0) % Eos % (Auto) (0.0-7.0) % Baso % (Auto) (0.0-3.0) % Neut # (Auto) (1.7-7.0) K/uL Lymph # (Auto) (0.90-2.90) K/uL Anson # (Auto) (0.00-0.90) K/UL Eos # (Auto) (0.00-0.50) K/uL Baso # (Auto) (0.00-0.30) K/uL Abs Immat Gran (auto) (0.00-0.30) K/uL Imm/Tot Granulo (auto) % Sodium (135-149) mmol/L Potassium (3.6-5.1) mmol/L Chloride (96-114) mmol/L Carbon Dioxide (20-32) mmol/L BUN (7-30) mg/dL Creatinine (0.5-1.5) mg/dL Estimated GFR ml/min Glucose (60-115) mg/dL Calcium (8.4-10.6) mg/dL Total Bilirubin (0.1-1.5) mg/dL AST (12-35) U/L ALT (4-35) U/L Alkaline Phosphatase (40-150) U/L Total Creatine Kinase (41-117) U/L C-Reactive Protein (0.5-1.0) mg/dL Total Protein (6.0-8.3) g/dL Albumin (3.3-5.0) g/dL Lipase (23-300) U/L Urine Color Yellow (Yellow) Urine Appearance Clear (Clear) Urine pH 5.5 (5.0-8.5) Ur Specific [place] 1.010 (1.000-1.030) Urine Protein Negative (Negative) Urine Glucose (UA) Negative (Negative) Urine Ketones Negative (Negative) Urine Blood Trace-intact A (Negative) Urine Nitrite Positive A (Negative) Urine Bilirubin Negative (Negative) Urine Urobilinogen 0.2 (0.2-1.0) Ur Leukocyte Esterase Trace A (Negative) Urine RBC 2-5 A (0-2) Urine WBC 2-5 (0-5) Ur Squamous Epith Cells Few (None-Few) Urine Bacteria Moderate A (None) Stool Occult Blood Negative (Negative) Salicylates (1.0-10) mg/dL Urine Opiates Screen (Negative) Ur Oxycodone Screen (Negative) Urine Methadone Screen (Negative) Ur Propoxyphene Screen (Negative) Acetaminophen (10.0-30.0) ug/mL Ur Barbiturates Screen (Negative) U Tricyclic Antidepress (Negative) Ur Phencyclidine Scrn (Negative) Ur Amphetamines Screen (Negative) U Methamphetamines Scrn (Negative) U Benzodiazepines Scrn (Negative) Urine Cocaine Screen (Negative) U Marijuana (THC) Screen (Negative) Ur Drug Screen Comment Ethyl Alcohol (0.01-0.03) % Lab Acknowledgement POC Troponin I (0.01-0.04) ng/ml <Vicki Anderson MD - Last Filed: 11/27/22 00:41> Lab Results 09/15/22 09/15/22 09/15/22 Range/Units 20:35 20:40 23:25 WBC 6.21 (4.50-11.00) K/uL RBC 3.63 L (4.00-5.20) m/uL Hgb 9.7 L (12.0-16.0) gm/dL Hct 29.4 L (33.0-51.0) % MCV 81 (80-100) fL MCH 27 (26-34) pg MCHC 33 (32-36) gm/dL RDW Coeff of Chely 14.2 (11.5-15.5) % Plt Count 178 (140-440) K/uL Neut % (Auto) 79.4 H (42.0-72.0) % Lymph % (Auto) 6.4 L (20-44) % Anson % (Auto) 13.0 H (0.0-11.0) % Eos % (Auto) 0.6 (0.0-7.0) % Baso % (Auto) 0.0 (0.0-3.0) % Neut # (Auto) 4.90 (1.7-7.0) K/uL Lymph # (Auto) 0.40 L (0.90-2.90) K/uL [place] # (Auto) 0.80 (0.00-0.90) K/UL Eos # (Auto) 0.04 (0.00-0.50) K/uL Baso # (Auto) 0.00 (0.00-0.30) K/uL Abs Immat Gran (auto) 0.04 (0.00-0.30) K/uL Imm/Tot Granulo (auto) 0.6 % Sodium 126 L (135-149) mmol/L Potassium 3.0 L (3.6-5.1) mmol/L Chloride 92 L (96-114) mmol/L Carbon Dioxide 26 (20-32) mmol/L BUN 22 (7-30) mg/dL Creatinine 0.9 (0.5-1.5) mg/dL Estimated GFR 74 ml/min Glucose 154 H (60-115) mg/dL Calcium 8.5 (8.4-10.6) mg/dL Total Bilirubin 0.3 (0.1-1.5) mg/dL AST 37 H (12-35) U/L ALT 19 (4-35) U/L Alkaline Phosphatase 84 (40-150) U/L Total Creatine Kinase 496 H (41-117) U/L C-Reactive Protein 23.8 H (0.5-1.0) mg/dL Total Protein 6.4 (6.0-8.3) g/dL Albumin 3.6 (3.3-5.0) g/dL Lipase 12 L (23-300) U/L Urine Color (Yellow) Urine Appearance (Clear) Urine pH (5.0-8.5) Ur Specific [place] (1.000-1.030) Urine Protein (Negative) Urine Glucose (UA) (Negative) Urine Ketones (Negative) Urine Blood (Negative) Urine Nitrite (Negative) Urine Bilirubin (Negative) Urine Urobilinogen (0.2-1.0) Ur Leukocyte Esterase (Negative) Urine RBC (0-2) Urine WBC (0-5) Ur Squamous Epith Cells (None-Few) Urine Bacteria (None) Stool Occult Blood (Negative) Salicylates < 1.0 L (1.0-10) mg/dL Urine Opiates Screen POSITIVE A (Negative) Ur Oxycodone Screen Negative (Negative) Urine Methadone Screen Negative (Negative) Ur Propoxyphene Screen Negative (Negative) Acetaminophen 10.0 (10.0-30.0) ug/mL Ur Barbiturates Screen Negative (Negative) U Tricyclic Antidepress POSITIVE A (Negative) Ur Phencyclidine Scrn Negative (Negative) Ur Amphetamines Screen Negative (Negative) U Methamphetamines Scrn Negative (Negative) U Benzodiazepines Scrn POSITIVE A (Negative) Urine Cocaine Screen Negative (Negative) U Marijuana (THC) Screen POSITIVE A (Negative) Ur Drug Screen Comment See Note Ethyl Alcohol < 0.01 L (0.01-0.03) % Lab Acknowledgement Test Added POC Troponin I 0.00 L (0.01-0.04) ng/ml 09/15/22 09/16/22 09/16/22 Range/Units 23:26 04:20 04:59 WBC (4.50-11.00) K/uL RBC (4.00-5.20) m/uL Hgb 10.3 L (12.0-16.0) gm/dL Hct (33.0-51.0) % MCV (80-100) fL MCH (26-34) pg MCHC (32-36) gm/dL RDW Coeff of Chely (11.5-15.5) % Plt Count (140-440) K/uL Neut % (Auto) (42.0-72.0) % Lymph % (Auto) (20-44) % [place] % (Auto) (0.0-11.0) % Eos % (Auto) (0.0-7.0) % Baso % (Auto) (0.0-3.0) % Neut # (Auto) (1.7-7.0) K/uL Lymph # (Auto) (0.90-2.90) K/uL [place] # (Auto) (0.00-0.90) K/UL Eos # (Auto) (0.00-0.50) K/uL Baso # (Auto) (0.00-0.30) K/uL Abs Immat Gran (auto) (0.00-0.30) K/uL Imm/Tot Granulo (auto) % Sodium (135-149) mmol/L Potassium (3.6-5.1) mmol/L Chloride (96-114) mmol/L Carbon Dioxide (20-32) mmol/L BUN (7-30) mg/dL Creatinine (0.5-1.5) mg/dL Estimated GFR ml/min Glucose (60-115) mg/dL Calcium (8.4-10.6) mg/dL Total Bilirubin (0.1-1.5) mg/dL AST (12-35) U/L ALT (4-35) U/L Alkaline Phosphatase (40-150) U/L Total Creatine Kinase (41-117) U/L C-Reactive Protein (0.5-1.0) mg/dL Total Protein (6.0-8.3) g/dL Albumin (3.3-5.0) g/dL Lipase (23-300) U/L Urine Color Yellow (Yellow) Urine Appearance Clear (Clear) Urine pH 5.5 (5.0-8.5) Ur Specific [place] 1.010 (1.000-1.030) Urine Protein Negative (Negative) Urine Glucose (UA) Negative (Negative) Urine Ketones Negative (Negative) Urine Blood Trace-intact A (Negative) Urine Nitrite Positive A (Negative) Urine Bilirubin Negative (Negative) Urine Urobilinogen 0.2 (0.2-1.0) Ur Leukocyte Esterase Trace A (Negative) Urine RBC 2-5 A (0-2) Urine WBC 2-5 (0-5) Ur Squamous Epith Cells Few (None-Few) Urine Bacteria Moderate A (None) Stool Occult Blood Negative (Negative) Salicylates (1.0-10) mg/dL Urine Opiates Screen (Negative) Ur Oxycodone Screen (Negative) Urine Methadone Screen (Negative) Ur Propoxyphene Screen (Negative) Acetaminophen (10.0-30.0) ug/mL Ur Barbiturates Screen (Negative) U Tricyclic Antidepress (Negative) Ur Phencyclidine Scrn (Negative) Ur Amphetamines Screen (Negative) U Methamphetamines Scrn (Negative) U Benzodiazepines Scrn (Negative) Urine Cocaine Screen (Negative) U Marijuana (THC) Screen (Negative) Ur Drug Screen Comment Ethyl Alcohol (0.01-0.03) % Lab Acknowledgement POC Troponin I (0.01-0.04) ng/ml <Lucie Kaur MD - Last Filed: 09/16/22 05:36> Imaging Data CT Chest/Ab/Pelvis: Attestation: I have reviewed the pertinent imaging results. <Vicki Anderson MD - Last Filed: 11/27/22 00:41> Radiologist's impression: In the chest, the lungs are clear with no sign of significant infiltrate or mass. There is satisfactory enhancement of the pulmonary arteries with no sign of central pulmonary embolism. There is stable mild dilatation of the main pulmonary artery at 3.7 centimeters suggesting pulmonary artery hypertension. There is a moderate patchy atelectasis of the posterior lower lobes, increased compared to the previous study. There is no sign of pneumothorax, pulmonary contusion, pleural effusion, or pleural hematoma. There is no sign of mediastinal or hilar mass or adenopathy. The heart is normal in appearance for the patient`s age. There is stable mild dilatation of the ascending thoracic aorta, measuring 4.1 centimeters in diameter. No sign of aortic dissection. There is age appropriate appearance of the rest of the thoracic aorta and ascending great vessels. There is no sign of supraclavicular or axillary mass or adenopathy. There is no sign of fracture of the ribs, visualized shoulder girdle, sternum or manubrium. There is stable mild T11 compression fracture with stable moderate superior T11 endplate fracture. There are stable minimal T7 and T8 compression fractures. In the abdomen, the liver is seen to have stable mild intrahepatic ductal dilatation. This is associated with stable mild dilatation of the common bile duct to 9 mm and surgical clips from cholecystectomy. The findings are consistent with post-cholecystectomy status. The liver is otherwise normal in appearance. The spleen, pancreas, and adrenals are normal in appearance. The kidneys are normal in appearance. The abdominal aorta is normal in caliber with no sign of dilatation. There is no sign of retroperitoneal mass or adenopathy. Again seen are several lines of surgical shaq in the gastric fundus consistent with gastric bypass surgery. A small bowl anastamosis is again seen in the left upper quadrant with no sign of stricture. The distal stomach, the rest of the loops of small bowel, and colon in the abdomen are normal in appearance. In the pelvis, the appendix is normal in appearance with no sign of inflammatory process. The loops of small bowel, colon, and rectum in the pelvis are normal in appearance. The uterus is again seen to be absent and the adnexal regions are normal in appearance. The urinary bladder is normal in appearance. There is no sign of pelvic or inguinal mass or adenopathy. The previously seen mild patchy density in the left inguinal subcutaneous fat is improved, with mild scarring consistent with previous inflammation or surgery. There is no sign of free air or free fluid in the abdomen or pelvis. Again seen is bone cement in the L3 vertebral body from previous vertebroplasty or kyphoplasty. There is stable mild anterior wedging of the L3 vertebral body with moderate superior L3 endplate fracture. There is a stable moderate L1 compression fracture with stable moderate superior endplate fracture. There are stable changes of fusion from L4 through S1 with bilateral intrapedicular screws with vertical connecting rods. Bilateral sacroiliac joint fusion screws are also seen. There continues to be anterior positioning of the L4-5 interbody spacer. The L5-S1 interbody spacer remains in satisfactory position in the central portion of the disc space. There is stable settling of the spacer into the superior S1 endplate. Again seen is mild scoliosis of the thoracic and lumbar spine convex towards the left. There is no sign of acute fracture of the pelvis, hips, or lumbar spine. An infusion pump is again seen implanted in the left buttock, with catheter entering the spinal canal at the L2-3 interlaminar space and extending superiorly to the T6 level. IMPRESSION: No sign of acute traumatic injury to the chest, abdomen, or pelvis. CT of the chest shows increased patchy atelectasis in the dependent portions of both lungs, now moderate. Stable mild dilatation of the main pulmonary artery suggesting pulmonary artery hypertension. Stable mild aneurysmal dilatation of the ascending thoracic aorta at 4.1 centimeters with no sign of dissection. CT of the abdomen shows stable mild intrahepatic and extrahepatic biliary ductal dilatation consistent with post cholecystectomy status. Stable appearance of gastric bypass surgery. CT of the pelvis shows stable appearance of hysterectomy. Stable appearance of T11, L1, and L3 compression fractures as described above. <Vicki Anderson MD - Last Filed: 11/27/22 00:41> CT scan - head: Attestation: I have reviewed the pertinent imaging results. <Vicki Anderson MD - Last Filed: 11/27/22 00:41> My impression: No obvious abnormalities <Vicki Anderson MD - Last Filed: 11/27/22 00:41> Radiologist's impression: Brain parenchyma and extra-axial spaces: The lawrence-white differentiation is normal. No sign of mass, hemorrhage, or midline shift. No extra-axial fluid collection. Skull base and calvarium: The visualized paranasal sinuses and mastoid air cells demonstrate no acute or significant findings. The visualized orbits are grossly unremarkable. No skull fractures. IMPRESSION: Unremarkable noncontrast head CT. <Vicki Anderson MD - Last Filed: 11/27/22 00:41> Cervical spine CT: Attestation: I have reviewed the pertinent imaging results. <Vicki Anderson MD - Last Filed: 11/27/22 00:41> My impression: I do not note any acute fractures. <Vicki Anderson MD - Last Filed: 11/27/22 00:41> Radiologist's impression: ertebrae: Alignment is normal. There are no fractures or suspicious bony lesions. Discs and facet joints: Disc space narrowing and disc osteophyte complex at C5-6. Extraspinal findings: Prevertebral soft tissues, visualized airway, and visualized lungs are unremarkable. IMPRESSION: No acute cervical spine findings. <Vicki Anderson MD - Last Filed: 11/27/22 00:41> ECG Data Attestation: I personally reviewed and interpreted this ECG as follows: <Vicki Anderson MD - Last Filed: 11/27/22 00:41> Interpretation: EKG by my read shows sinus rhythm at a rate of 92. I do not note any acute ST or T-wave changes. Both DE interval and QT corrected are within normal limits <Vicki Anderson MD - Last Filed: 11/27/22 00:41> Critical Care Time Critical Care Time Critical Care Time: Yes Attestation: The patient required my highest level preparedness to intervene emergently and I personally spent this critical care time directly and personally managing the patient. This critical care time included: Obtaining a history; Examining the patient; Pulse oximetry; Ordering and reviewing of studies; Arranging urgent treatment with development of a management plan; Evaluation of patients response to treatment; Frequent reassessment discussions with other providers. This critical care time was performed to assess and manage the high probability of imminent life-threatening deterioration that could result in multiorgan failure. It was exclusive of separate billable procedures and treating other patients and teaching time. <Vicki Anderson MD - Last Filed: 11/27/22 00:41> Total Critical Care Time in Minutes: 60 <Vicki Anderson MD - Last Filed: 11/27/22 00:41> Discharge Plan Discharge Clinical Impression: Acute hypotension, Elevated creatine kinase, Anemia, Altered mental status <Vicki Anderson MD - Last Filed: 11/27/22 00:41> Patient Disposition: Xfer Other <Vicki Anderson MD - Last Filed: 11/27/22 00:41> Discharge Location: [facility] <Vicki Anderson MD - Last Filed: 11/27/22 00:41> Condition: Improved <Vicki Anderson MD - Last Filed: 11/27/22 00:41> Additional Instructions: Marina, your hemoglobin was 9.7 today. This is changed from May when her hemoglobin was 13.9. Your stool tested today for blood was negative which is good. I would like you to call your primary on Saturday to see if you can have your hemoglobin recheck. Limit extra muscle relaxer pain medications in the future. Return to the emergency room for worsening symptoms. <Vicki Anderson MD - Last Filed: 11/27/22 00:41> Prescriptions: No Action cyclobenzaprine 10 mg tablet 10 mg PO QPM PRN (Reason: muscle spasm) sennosides-docusate sodium [Senexon-S] 8.6-50 mg tablet PO oxcarbazepine 300 mg tablet PO Nicotrol 10 mg cartridge 10 mg INHALATION ondansetron 8 mg tablet,disintegrating 8 mg PO Q8H PRN (Reason: nausea) buspirone 30 mg tablet 30 mg PO BID promethazine 25 mg tablet 25 mg PO Q12H PRN (Reason: nausea) furosemide 20 mg tablet 20 mg PO BID doxepin 150 mg capsule 150 mg PO QPM oxycodone 5 mg tablet 5 mg PO DAILY PRN (Reason: chronic pain) Movantik 25 mg tablet 25 mg PO QAM <Vicki Anderson MD - Last Filed: 11/27/22 00:41> Stand Alone Forms: [facility] Info Instructions <Vicki Anderson MD - Last Filed: 11/27/22 00:41>
--- NOTE | 2022-09-15 20:35 | CRLHL7_ITS ---
For Patients: As a result of the Century Cures Act, medical imaging exams and procedure reports are released immediately into your electronic medical record. You may view this report before your referring provider. If you have questions, please contact your health care provider. INDICATION: Fall, head pain TECHNIQUE: CT head without contrast. COMPARISON: 05/27/[address] FINDINGS: CSF spaces: Within normal limits for age. Brain parenchyma and extra-axial spaces: The lawrence-white differentiation is normal. No sign of mass, hemorrhage, or midline shift. No extra-axial fluid collection. Skull base and calvarium: The visualized paranasal sinuses and mastoid air cells demonstrate no acute or significant findings. The visualized orbits are grossly unremarkable. No skull fractures. IMPRESSION: Unremarkable noncontrast head CT. Please note that all CT scans at this facility use dose modulation, iterative reconstruction, and/or weight-based dosing when appropriate to reduce radiation dose to as low as reasonably achievable. Dictated by Colt Feliz MD @ 09/15/2022 10:17:26 PM (Electronically Signed)
--- NOTE | 2022-09-15 20:35 | CRLHL7_ITS ---
For Patients: As a result of the Cures Act, medical imaging exams and procedure reports are released immediately into your electronic medical record. You may view this report before your referring provider. If you have questions, please contact your health care provider. INDICATION: Fall, head and neck pain. TECHNIQUE: CT cervical spine without contrast. COMPARISON: 05/27/[address] FINDINGS: Vertebrae: Alignment is normal. There are no fractures or suspicious bony lesions. Discs and facet joints: Disc space narrowing and disc osteophyte complex at C5-6. Extraspinal findings: Prevertebral soft tissues, visualized airway, and visualized lungs are unremarkable. IMPRESSION: No acute cervical spine findings. Please note that all CT scans at this facility use dose modulation, iterative reconstruction, and/or weight-based dosing when appropriate to reduce radiation dose to as low as reasonably achievable. Dictated by Colt Feliz MD @ 09/15/2022 10:20:58 PM (Electronically Signed)
--- NOTE | 2022-09-15 20:36 | CRLHL7_ITS ---
For Patients: As a result of the Century Cures Act, medical imaging exams and procedure reports are released immediately into your electronic medical record. You may view this report before your referring provider. If you have questions, please contact your health care provider. INDICATION: Status post fall with abdominal pain. History of cholecystectomy, spine stimulator, gastric bypass. COMPARISON: CT of the chest, abdomen, pelvis from 05/27/2022. TECHNIQUE: CT examination of the chest, abdomen, and pelvis was performed with the uneventful intravenous administration of 98 cc of Isovue 370 while 3 mm thick axial sections were obtained from above the apices of the lungs through the symphysis pubis. Oral contrast was not administered. Please note that all CT scans at this facility use dose modulation, iterative reconstruction, and/or weight-based dosing when appropriate to reduce radiation dose to as low as reasonably achievable. FINDINGS: : In the chest, the lungs are clear with no sign of significant infiltrate or mass. There is satisfactory enhancement of the pulmonary arteries with no sign of central pulmonary embolism. There is stable mild dilatation of the main pulmonary artery at 3.7 centimeters suggesting pulmonary artery hypertension. There is a moderate patchy atelectasis of the posterior lower lobes, increased compared to the previous study. There is no sign of pneumothorax, pulmonary contusion, pleural effusion, or pleural hematoma. There is no sign of mediastinal or hilar mass or adenopathy. The heart is normal in appearance for the patient`s age. There is stable mild dilatation of the ascending thoracic aorta, measuring 4.1 centimeters in diameter. No sign of aortic dissection. There is age appropriate appearance of the rest of the thoracic aorta and ascending great vessels. There is no sign of supraclavicular or axillary mass or adenopathy. There is no sign of fracture of the ribs, visualized shoulder girdle, sternum or manubrium. There is stable mild T11 compression fracture with stable moderate superior T11 endplate fracture. There are stable minimal T7 and T8 compression fractures. In the abdomen, the liver is seen to have stable mild intrahepatic ductal dilatation. This is associated with stable mild dilatation of the common bile duct to 9 mm and surgical clips from cholecystectomy. The findings are consistent with post-cholecystectomy status. The liver is otherwise normal in appearance. The spleen, pancreas, and adrenals are normal in appearance. The kidneys are normal in appearance. The abdominal aorta is normal in caliber with no sign of dilatation. There is no sign of retroperitoneal mass or adenopathy. Again seen are several lines of surgical shaq in the gastric fundus consistent with gastric bypass surgery. A small bowl anastamosis is again seen in the left upper quadrant with no sign of stricture. The distal stomach, the rest of the loops of small bowel, and colon in the abdomen are normal in appearance. In the pelvis, the appendix is normal in appearance with no sign of inflammatory process. The loops of small bowel, colon, and rectum in the pelvis are normal in appearance. The uterus is again seen to be absent and the adnexal regions are normal in appearance. The urinary bladder is normal in appearance. There is no sign of pelvic or inguinal mass or adenopathy. The previously seen mild patchy density in the left inguinal subcutaneous fat is improved, with mild scarring consistent with previous inflammation or surgery. There is no sign of free air or free fluid in the abdomen or pelvis. Again seen is bone cement in the L3 vertebral body from previous vertebroplasty or kyphoplasty. There is stable mild anterior wedging of the L3 vertebral body with moderate superior L3 endplate fracture. There is a stable moderate L1 compression fracture with stable moderate superior endplate fracture. There are stable changes of fusion from L4 through S1 with bilateral intrapedicular screws with vertical connecting rods. Bilateral sacroiliac joint fusion screws are also seen. There continues to be anterior positioning of the L4-5 interbody spacer. The L5-S1 interbody spacer remains in satisfactory position in the central portion of the disc space. There is stable settling of the spacer into the superior S1 endplate. Again seen is mild scoliosis of the thoracic and lumbar spine convex towards the left. There is no sign of acute fracture of the pelvis, hips, or lumbar spine. An infusion pump is again seen implanted in the left buttock, with catheter entering the spinal canal at the L2-3 interlaminar space and extending superiorly to the T6 level. IMPRESSION: No sign of acute traumatic injury to the chest, abdomen, or pelvis. CT of the chest shows increased patchy atelectasis in the dependent portions of both lungs, now moderate. Stable mild dilatation of the main pulmonary artery suggesting pulmonary artery hypertension. Stable mild aneurysmal dilatation of the ascending thoracic aorta at 4.1 centimeters with no sign of dissection. CT of the abdomen shows stable mild intrahepatic and extrahepatic biliary ductal dilatation consistent with post cholecystectomy status. Stable appearance of gastric bypass surgery. CT of the pelvis shows stable appearance of hysterectomy. Stable appearance of T11, L1, and L3 compression fractures as described above. Please note that all CT scans at this facility use dose modulation, iterative reconstruction, and/or weight-based dosing when appropriate to reduce radiation dose to as low as reasonably achievable. Dictated by Fili Gamino MD @ 09/15/2022 10:41:36 PM (Electronically Signed)
[2022-09-15 20:50] LABS: Eosinophils Absolute Auto 0.04 K/uL (0.00-0.50); Eosinophils Percent Auto 0.6 % (0.0-7.0); Hematocrit 29.4 % (33.0-51.0); Hemoglobin* 9.7 gm/dL (12.0-16.0); Immature Granulocytes Abs Auto 0.04 K/uL (0.00-0.30); Immature Granulocytes Pct Auto 0.6 %; Lymphocytes Percent Auto 6.4 % (20-44); Mean Corpuscular HGB Conc 33 gm/dL (32-36); Mean Corpuscular Hemoglobin 27 pg (26-34); Mean Corpuscular Volume 81 fL (80-100); Neutrophils Percent Auto 79.4 % (42.0-72.0); Platelet Count* 178 K/uL (140-440); RDW Coefficient of Variation % 14.2 % (11.5-15.5); Red Blood Count 3.63 m/uL (4.00-5.20); White Blood Count* 6.21 K/uL (4.50-11.00)
[2022-09-15] MEDS: 0.9 % SODIUM CHLORIDE 1000 ml 1,000 ML IV ×2 (21:00→22:12)
[2022-09-15 21:11] LABS: Slide Review Reflex No
[2022-09-15 21:15] LABS: Albumin* 3.6 g/dL (3.3-5.0)
[2022-09-15 21:16] LABS: Chloride* 92 mmol/L (96-114); Sodium* 126 mmol/L (135-149)
[2022-09-15 21:18] LABS: Bilirubin Total* 0.3 mg/dL (0.1-1.5); Creatinine* 0.9 mg/dL (0.5-1.5); Estimated Glomerular Filt Rate 74 ml/min
[2022-09-15 21:19] LABS: Alanine Aminotransferase* 19 U/L (4-35); Alkaline Phosphatase* 84 U/L (40-150); Aspartate Amino Transferase* 37 U/L (12-35); Blood Urea Nitrogen* 22 mg/dL (7-30); Calcium* 8.5 mg/dL (8.4-10.6); Carbon Dioxide* 26 mmol/L (20-32); Glucose* 154 mg/dL (60-115); Total Protein* 6.4 g/dL (6.0-8.3)
[2022-09-15 21:20] LABS: Lipase* 12 U/L (23-300)
[2022-09-15 21:22] LABS: Ethanol* < 0.01 % (0.01-0.03); Salicylate* < 1.0 mg/dL (1.0-10)
[2022-09-15 21:50] LABS: C Reactive Protein* 23.8 mg/dL (0.5-1.0)
[2022-09-15 22:13] LABS: Creatine Kinase* 496 U/L (41-117)
[2022-09-15 23:32] LABS: Appearance Urine Clear (Clear); Bilirubin Urine Negative (Negative); Blood Urine Trace-intact (Negative); Color Urine Yellow (Yellow); Glucose Urine Negative (Negative); Ketones Urine Negative (Negative); Leukocyte Esterase Urine Trace (Negative); Nitrite Urine Positive (Negative); Protein Urine Negative (Negative); Urobilinogen Urine 0.2 (0.2-1.0); pH Urine 5.5 (5.0-8.5)
[2022-09-15 23:39] LABS: Amphetamine Screen Urine Negative (Negative); Barbiturate Screen Urine Negative (Negative); Benzodiazepines Screen Urine POSITIVE (Negative); Cannabinoid Screen Urine POSITIVE (Negative); Cocaine Screen Urine Negative (Negative); Methadone Screen Urine Negative (Negative); Methamphetamines Screen Urine Negative (Negative); Opiate Screen Urine POSITIVE (Negative); Oxycodone Screen Urine Negative (Negative); Phencyclidine Screen Urine Negative (Negative); Tricyclic Antidepressant Urine POSITIVE (Negative)
[2022-09-15 23:55] LABS: Bacteria Urine Moderate; Squamous Epithelial Cell Urine Few (None-Few)
[2022-09-16] VITALS (21 sets, daily range): BP systolic 130; BP diastolic 83; PULSE 69–111; RESP 18; O2SAT 96–100
--- NOTE | 2022-09-16 00:23 | PC.NURSE ---
patient disoriented upon arrival to ER, combative with attempts to put in IV, carpenter supervisor monitoring equipment. patient then fell asleep and was snoring. slept through CT, slept though hooking her up to monitoring equipment; during the sleep period pressures low see VS charting. Dr Anderson updated, 2L bolus and patient continues to be very difficult to rouse, awakens only to painful stimuli sternal rub and then right back to sleep. patient awoke when cath urine sample obtained and became again agitated and combative. stated she did not want any further monitoring equipment, MD at bedside and patient in agreement to do more labs. wastewater analyst lab analyst came to bedside and patient again refusing labs. patient removed all tele leaves and O2 monitor from finger, when attempts made by nurse to reapply the monitoring equipment patient stated she no and refused to allow placement of monitoring equipment. MD updated on patients refusal of monitoring or labs. patient back to sleep at this time.
[2022-09-16] MEDS: POTASSIUM BICARB 25 MEQ EFFERVESCENT TAB 50 MEQ PO (03:49)
--- NOTE | 2022-09-16 04:15 | PC.NURSE ---
patient awoke and used BSC to void, ambulated with walker and 2 staff assist in room approx 10 ft. patient awake and alert now, able to answer appropriately and cooperate with cares
[2022-09-16 04:34] LABS: Fecal Occult Blood* Negative (Negative)
[2022-09-16 05:02] LABS: Hemoglobin* 10.3 gm/dL (12.0-16.0)
--- NOTE | 2022-09-16 06:55 | PC.NURSE ---
patient stated understanding to DC, taxi called and voucher provided. patient ambulated to taxi and DC with out further event
== END 2022-09-16 06:55 | disposition other institution (70) ==
PROVIDERS: Emergency Provider Family Medicine; PCP Family Medicine
DX: R41.82 Altered mental status, unspecified (principal); R74.8 Abnormal levels of other serum enzymes; I95.9 Hypotension, unspecified; D64.9 Anemia, unspecified
CPT/HCPCS: 36415; 70450; 71260; 72125; 74177; 80053; 80143; 80179; 80306; 81001; 82077; 82270; 82550; 83690; 84484; 85018; 85025; 86140; 87040; 87086; 87186; 93005; 99285; 99291; A9270; J7030; Q9967

== ENCOUNTER 2022-12-12 10:13 | Emergency (ER) | payer MEDICARE, OTHER, SELFPAY ==
[2022-12-12] VITALS (7 sets, daily range): BP systolic 128–152; BP diastolic 78–115; PULSE 81–102; RESP 12–25; TEMP 37.6; O2SAT 95–98; BMI 28.7
[2022-12-12] MEDS: LORazepam 2 MG/ML inj 1 MG IVP (11:24)
[2022-12-12] MEDS: OLANZapine 5 MG/ML inj IVP (11:25)
[2022-12-12] MEDS: 0.9 % SODIUM CHLORIDE 1000 ml 1,000 ML IV (11:25)
--- NOTE | 2022-12-12 11:39 | ED_ITS ---
HPI - General Adult General Chief complaint: Abdominal Pain Stated complaint: vomiting/UTI? Time Seen by Provider: 12/12/22 10:29 History of Present Illness HPI narrative: Patient is a 57-year-old female who has had a history of cyclic vomiting in the past she has had chronic pain issues. Is on narcotic on a regular basis. She reports a day and a half of nausea vomiting, and she is concerned about a UTI as well. She has had UTIs in the past. She denies chest pain, fevers, rigors, shortness of breath. She has not had any upper respiratory congestion. She has had no hematuria. She reports she has had some foul-smelling urine. She has had a past history of cyclic vomiting and she has not been told or no lens really figure out why she does this. Related Data Home Medications Medication Instructions Recorded Confirmed buspirone 30 mg tablet 30 mg PO BID 05/27/22 08/20/22 cyclobenzaprine 10 mg tablet 10 mg PO QPM PRN muscle spasm 05/27/22 08/20/22 doxepin 150 mg capsule 150 mg PO QPM 05/27/22 08/20/22 furosemide 20 mg tablet 20 mg PO BID 05/27/22 08/20/22 naloxegol 25 mg tablet (Movantik) 25 mg PO QAM 05/27/22 08/20/22 nicotine 10 mg inhalation 10 mg inhalation nicotine cravings 05/27/22 cartridge (Nicotrol) ondansetron 8 mg disintegrating 8 mg PO Q8H PRN nausea 05/27/22 08/20/22 tablet oxcarbazepine 300 mg tablet mg PO 05/27/22 oxycodone 5 mg tablet 5 mg PO DAILY PRN chronic pain 05/27/22 08/20/22 promethazine 25 mg tablet 25 mg PO Q12H PRN nausea 05/27/22 08/20/22 sennosides 8.6 mg-docusate sodium tab PO 05/27/22 50 mg tablet (Senexon-S) Previous Rx's Medication Instructions Recorded ciprofloxacin HCl 250 mg tablet 250 mg PO BID #10 tabs 12/12/22 (Cipro) Allergies Allergy/AdvReac Type Severity Reaction Status Date / Time aspirin Allergy Unknown GI Bleed Verified 09/15/22 21:32 bupivacaine Allergy Unknown Agitation Verified 09/15/22 21:32 diphenhydramine Allergy Unknown Anxiety Verified 09/15/22 21:32 lamotrigine Allergy Unknown Angioedema Verified 09/15/22 21:32 metoclopramide Allergy Unknown Anxiety Verified 09/15/22 21:32 NSAIDS (Non-Steroidal Allergy Unknown GI Bleed Verified 09/15/22 21:32 Anti-Inflamma [NSAIDS (Non-Steroidal Anti-Inflammatory Drug)] prochlorperazine Allergy Unknown Unknown Verified 09/15/22 21:32 pseudoephedrine Allergy Unknown Unknown Verified 09/15/22 21:32 sumatriptan Allergy Unknown Punched Verified 09/15/22 21:32 The Beta Adrenergic Blockers Allergy Unknown Unknown Uncoded 09/15/22 21:32 Haldol Allergy Unknown Anxiety Uncoded 09/15/22 21:32 Review of Systems Status of ROS: Reports: 6 or more systems reviewed and unremarkable except as noted in History and below PFSH PFSH Medical History POLST (Physician Orders for Life-Sustaining Treatment) ?Z78.9 - Other specified health status (ICD-10) Family History Father Prostate cancer Other Ovarian cancer Social History Narrative: , 3 kids, unemployed, smoker, no EtOH Smoking Status: Current every day smoker What tobacco products do you use: cigarettes Do you use any of these nicotine containing products: None Second hand tobacco smoke exposure: Yes How often do you have a drink containing alcohol: never How often do you have six or more drinks on one occasion: Never AUDIT-C Alcohol total score: 0 Non-prescribed substance use: denies use service: No Exam Narrative: Exam Narrative: Objective: Patient's vital signs show low-grade temperature a blood pressure elevated patient is slightly agitated Alert orient x3 No facial asymmetry Neck is supple Chest clear Pulse regular Abdomen benign soft Extremities are no edema neurologic nonfocal. Good peripheral perfusion noted. Const: Vital Signs, click to edit/add: Vital Signs - 24 hr 12/12/22 10:22 12/12/22 11:22 12/12/22 11:56 Temperature 99.7 F H Pulse Rate 81 Pulse Rate [Pulse Oximeter] 102 H Respiratory Rate 18 14 Blood Pressure [Ri ght Forearm] 152/115 H Pulse Oximetry 96 95 97 Oxygen Delivery Me thod Room Air Course Vital Signs Vital signs: Initial Vital Signs Temperature 99.7 F H 12/12/22 10:22 Temperature Source Temporal Artery Scan 12/12/22 10:22 Pulse Rate 102 H 12/12/22 10:22 Pulse Rhythm Regular 12/12/22 10:22 Respiratory Rate 18 12/12/22 10:22 Blood Pressure 152/115 H 12/12/22 10:22 Blood Pressure Mean 127 H 12/12/22 10:22 Blood Pressure Position Supine 12/12/22 10:22 Pulse Oximetry 96 12/12/22 10:22 Oxygen Delivery Method Room Air 12/12/22 10:22 Vital Signs Temperature 99.7 F H 12/12/22 10:22 Pulse Rate 102 H 12/12/22 10:22 Respiratory Rate 18 12/12/22 10:22 Blood Pressure 152/115 H 12/12/22 10:22 Pulse Oximetry 96 12/12/22 10:22 Oxygen Delivery Method Room Air 12/12/22 10:22 Temperature 99.7 F H 12/12/22 15:43 Pulse Rate 102 H 12/12/22 15:43 Respiratory Rate 14 12/12/22 15:43 Blood Pressure 152/115 H 12/12/22 15:43 Pulse Oximetry 98 12/12/22 15:00 Oxygen Delivery Method Room Air 12/12/22 10:22 Medical Decision Making MDM Narrative Medical decision making narrative: [age] year white female with chronic pain, with history of cyclic vomiting, presents with vomiting over the last day and a half. Will rule out UTI, check labs, IV hydration, IV Zyprexa and Ativan given. Disposition pending findings above. Patient was requesting some medication as she was pretty uncomfortable to vomiting and nausea. She does report she tried some Zofran at home and did not seem to help with the symptoms. Addendum 12:48 p.m. patient's lab studies show normal white count normal hemo globin, sodium slightly low 129, potassium significantly low at 2.9. She was given 25 mEq oral potassium bicarb, and will be given a 10 milk or blunt IV bump of potassium as well. Glucose is 121 nonfasting LFTs normal, and importantly her CRP is less than 0.5. Still pending urine. Patient feels a bit better. Addendum 1:28 p.m. patient had some burning with potassium so we will get her some lidocaine with the potassium. Hopefully she will tolerate the little better, will give her the oral potassium as well. She has not vomited at this time. She feels some better. I think it looks like she does have a urinary tract infection given Rocephin IV and will send her home with Cipro 2 times a day for the next week. Will need follow up with regular doctor next few days. She was comfortable plan. Lab Data Labs: Lab Results 12/12/22 12/12/22 Range/Units 12:00 12:40 WBC 6.47 (4.50-11.00) K/uL RBC 5.22 H (4.00-5.20) m/uL Hgb 13.7 (12.0-16.0) gm/dL Hct 40.6 (33.0-51.0) % MCV 78 L (80-100) fL MCH 26 (26-34) pg MCHC 34 (32-36) gm/dL RDW Coeff of [place] 13.4 (11.5-15.5) % Plt Count 272 (140-440) K/uL Neut % (Auto) 74.5 H (42.0-72.0) % Lymph % (Auto) 14.1 L (20-44) % [place] % (Auto) 10.7 (0.0-11.0) % Eos % (Auto) 0.0 (0.0-7.0) % Baso % (Auto) 0.2 (0.0-3.0) % Neut # (Auto) 4.80 (1.7-7.0) K/uL Lymph # (Auto) 0.90 (0.90-2.90) K/uL [place] # (Auto) 0.70 (0.00-0.90) K/UL Eos # (Auto) 0.00 (0.00-0.50) K/uL Baso # (Auto) 0.01 (0.00-0.30) K/uL Abs Immat Gran (auto) 0.03 (0.00-0.30) K/uL Imm/Tot Granulo (auto) 0.5 % Sodium 129 L (135-149) mmol/L Potassium 2.9 L* (3.6-5.1) mmol/L Chloride 95 L (96-114) mmol/L Carbon Dioxide 22 (20-32) mmol/L Anion Gap 12 (7-15) mEq/L BUN 12 (7-30) mg/dL Creatinine 0.6 (0.5-1.5) mg/dL Estimated Creat Clear 94.51 Estimated GFR 103 ml/min Glucose 120 H (60-115) mg/dL Calcium 9.3 (8.4-10.6) mg/dL Total Bilirubin 0.4 (0.1-1.5) mg/dL Direct Bilirubin 0.0 (0.0-0.5) mg/dL AST 33 (12-35) U/L ALT 12 (4-35) U/L Alkaline Phosphatase 97 (40-150) U/L C-Reactive Protein < 0.5 L (0.5-1.0) mg/dL Total Protein 8.0 (6.0-8.3) g/dL Albumin 4.8 (3.3-5.0) g/dL Amylase 80 (18-89) U/L Urine Color Yellow (Yellow) Urine Appearance Slightly Cloudy A (Clear) Urine pH 6.5 (5.0-8.5) Ur Specific [place] 1.020 (1.000-1.030) Urine Protein 1+ A (Negative) Urine Glucose (UA) Negative (Negative) Urine Ketones 1+ A (Negative) Urine Blood 1+ A (Negative) Urine Nitrite Positive A (Negative) Urine Bilirubin Negative (Negative) Urine Urobilinogen 1.0 (0.2-1.0) Ur Leukocyte Esterase 1+ A (Negative) Urine RBC 2-5 A (0-2) Urine WBC 25-50 A (0-5) Ur Squamous Epith Cells Few (None-Few) Urine Bacteria Many A (None) Urine Mucus Moderate A (None) Discharge Plan Discharge Clinical Impression: Nausea & vomiting, Urinary tract infection, Cyclical vomiting Patient Disposition: Home w/ Parent or Adult Condition: Improved Additional Instructions: Light activity, fluids, continue home medications, Cipro for urinary tract infection. Return if problems or concerns, follow up with regular doctor in 2-3 days. Eat high potassium containing diet including bananas leafy vegetables that are green, [place] juice. Recommend a repeat potassium check with your follow-up appointment Activity Level: Light activity Discharge Diet: Full Liquid Diet Detail: Advance diet as tolerated Prescriptions: New ciprofloxacin HCl [Cipro] 250 mg tablet 250 mg PO BID Qty: 10 0RF No Action cyclobenzaprine 10 mg tablet 10 mg PO QPM PRN (Reason: muscle spasm) sennosides-docusate sodium [Senexon-S] 8.6-50 mg tablet PO oxcarbazepine 300 mg tablet PO Nicotrol 10 mg cartridge 10 mg INHALATION ondansetron 8 mg tablet,disintegrating 8 mg PO Q8H PRN (Reason: nausea) buspirone 30 mg tablet 30 mg PO BID promethazine 25 mg tablet 25 mg PO Q12H PRN (Reason: nausea) furosemide 20 mg tablet 20 mg PO BID doxepin 150 mg capsule 150 mg PO QPM oxycodone 5 mg tablet 5 mg PO DAILY PRN (Reason: chronic pain) Movantik 25 mg tablet 25 mg PO QAM Follow Up/Referrals: Rose Bright DO [Primary Care Provider] - Stand Alone Forms: [facility] Instructions
[2022-12-12 12:12] LABS: Basophils Absolute Auto 0.01 K/uL (0.00-0.30); Basophils Percent Auto 0.2 % (0.0-3.0); Hematocrit 40.6 % (33.0-51.0); Hemoglobin* 13.7 gm/dL (12.0-16.0); Immature Granulocytes Abs Auto 0.03 K/uL (0.00-0.30); Immature Granulocytes Pct Auto 0.5 %; Lymphocytes Percent Auto 14.1 % (20-44); Mean Corpuscular HGB Conc 34 gm/dL (32-36); Mean Corpuscular Hemoglobin 26 pg (26-34); Mean Corpuscular Volume 78 fL (80-100); Monocytes Percent Auto 10.7 % (0.0-11.0); Neutrophils Percent Auto 74.5 % (42.0-72.0); Platelet Count* 272 K/uL (140-440); RDW Coefficient of Variation % 13.4 % (11.5-15.5); Red Blood Count 5.22 m/uL (4.00-5.20); White Blood Count* 6.47 K/uL (4.50-11.00)
[2022-12-12 12:14] LABS: Slide Review Reflex No
[2022-12-12 12:19] LABS: Albumin* 4.8 g/dL (3.3-5.0); Chloride* 95 mmol/L (96-114); Sodium* 129 mmol/L (135-149)
[2022-12-12 12:22] LABS: Amylase* 80 U/L (18-89); Creatinine* 0.6 mg/dL (0.5-1.5); Est. Creatinine Clearance* 94.51; Estimated Glomerular Filt Rate 103 ml/min
[2022-12-12 12:23] LABS: Alanine Aminotransferase* 12 U/L (4-35); Alkaline Phosphatase* 97 U/L (40-150); Anion Gap 12 mEq/L (7-15); Aspartate Amino Transferase* 33 U/L (12-35); Bilirubin Total* 0.4 mg/dL (0.1-1.5); Blood Urea Nitrogen* 12 mg/dL (7-30); Calcium* 9.3 mg/dL (8.4-10.6); Carbon Dioxide* 22 mmol/L (20-32); Glucose* 120 mg/dL (60-115)
[2022-12-12 12:25] LABS: Potassium* 2.9 mmol/L (3.6-5.1)
[2022-12-12 12:27] LABS: C Reactive Protein* < 0.5 mg/dL (0.5-1.0)
[2022-12-12 12:53] LABS: Appearance Urine Slightly Cloudy (Clear); Bilirubin Urine Negative (Negative); Blood Urine 1+ (Negative); Color Urine Yellow (Yellow); Glucose Urine Negative (Negative); Ketones Urine 1+ (Negative); Leukocyte Esterase Urine 1+ (Negative); Nitrite Urine Positive (Negative); Protein Urine 1+ (Negative); pH Urine 6.5 (5.0-8.5)
[2022-12-12 13:00] LABS: Bacteria Urine Many; Mucus Urine Moderate; Squamous Epithelial Cell Urine Few (None-Few); WBC Urine 25-50 (0-5)
[2022-12-12] MEDS: POTASSIUM CHLORIDE 10 MEQ/100 ML PIGGYBACK 100 MEQ IVPB (13:10)
[2022-12-12] MEDS: POTASSIUM BICARB 25 MEQ EFFERVESCENT TAB PO (13:10)
--- NOTE | 2022-12-12 13:18 | ED.NURSE ---
dr manning informed of her inability to cope with the iv kcl due to pain in the right arm. co pain with the potassium infusion. this was turned off. dr manning ordered lidocaine with the infusion.
[2022-12-12] MEDS: cefTRIAXone 1 GM in 0.9 % SODIUM CHLORIDE Mini-bag 100 ML IVPB (13:25)
[2022-12-12] MEDS: POTASSIUM CHLORIDE 10 MEQ, LIDOCAINE 1 % 1 ML in 0.9 % SODIUM CHLORIDE 100 ml 100 ML 106 MEQ IVPB (13:32)
[2022-12-12] MEDS: OXYCODONE 5 MG TABLET PO (14:25)
--- NOTE | 2022-12-12 15:50 | ED.NURSE ---
Registration Bag Machine Helper assisting Pt with calling taxi and voucher. Pt waiting for taxi in waiting room.
== END 2022-12-12 15:44 | disposition home or self-care (01) ==
PROVIDERS: Emergency Provider Family Medicine; PCP Family Medicine
DX: N39.0 Urinary tract infection, site not specified (principal); R11.15 Cyclical vomiting syndrome unrelated to migraine
CPT/HCPCS: 36415; 80048; 80076; 81001; 82150; 84132; 85025; 86140; 87086; 87186; 94761; 96365; 96368; 96375; 99284; A9270; J0696; J2060; J3480; J7030; S0166

== ENCOUNTER 2023-01-14 15:01 | Outpatient (CLI) | payer MEDICARE, OTHER, SELFPAY ==
--- OUTSIDE RECORDS SUMMARY | 2023-01-15 10:32 | XMS_ITS | Continuity of Care Document ---
Author Name Unknown Organization [facility] Address [address] [place] [address] Phone Care Team Providers Care Culinary Intern Name Role Phone Luis A ESCOBEDO, PhD, [...] on Encounter [facility], [address], [place], [place], [address] , [place] tel:[phone] [facility] No Information 2 Luis A Carrillo. [facility] [place], [address], [place], [address], [place]. tel:[phone] [facility], [address], [facility] [place], [place], [address] , [place] tel:[phone] [facility] Arthrodesis status 2 Luis A Carrillo. [facility], [address], [place], [address], [place]. tel:[phone] Referring Provider: Rose Kovacs, [employer] [facility] [address] [place], [address]. tel:[phone] [facility], [address], [place], [address] , [place] tel: [phone] [facility] No Information 2 Cm Perez. [facility], [address], [place], [place], [address] , [place]. tel: [phone] Referring Provider: Rose Kovacs, [employer] [address], [place], [address]. tel:[phone] [facility], [address], [place], [place], [address] , [place] tel: [phone] [facility] No Information 2 Luis A Carrillo. [facility] [place], [address], [place], [address], [place]. tel: [phone] Referring Provider: Rose Kovacs, [employer] [address], [place], [address]. tel:[phone] [facility], [address], [place], [place], [address] , [place] tel: [phone] [facility] No Information 2 Luis A Carrillo. [facility], [address], [place], [address], [place]. tel:[phone] Referring Provider: Rose Kovacs [employer] [address], [place], [address]. [phone] Office/Outpa tient Visit,Est, Mod [facility], [address], [place], [place], [address] , [place] tel: [phone] [facility] No Information 2 Luis A Carrillo. [facility], [address], [place], [address], [place]. tel:[phone] Referring Provider: Rose Kovacs, [employer] [address], [place], [address]. [phone] Office/Outpa tient Visit,Est, Mod [facility], [address], [place], [address] , [place] tel: [phone] [facility] Spinal stenosis, lumbar region with neurogenic claudication 2 Luis A Carrillo. [facility], [address], [place], [address], [place]. tel: [phone] Referring Provider: Rose Kovacs, [facility] [address], [place], [address]. tel:[phone] Office/Outpa tient Visit,New, Mod [facility], [address], [place], [address] , [place] tel: [phone] [facility] Spinal stenosis, lumbar region with neurogenic claudication Oct- 1 Luis A Carrillo. [facility] [place], [address], [place], [address], [place]. tel: [phone] Referring Provider: Rose Kovacs, [facility] [address], [place], [address]. tel:[phone] Office/Outpa tient Visit,Est, Mod [facility], [address], [place], [address] , [place] tel: [phone] [facility] Arthrodesis status 7 Luis A Carrillo. [facility] [place], [address], [place], [address], [place]. tel: [phone] Referring Provider: Rose Kovacs [facility] [address], [place], [address]. tel:[phone] Office/Outpa tient Visit,New, Mod [facility], [address], [place], [address] , [place] tel: [phone] [facility] Arthrodesis statusOther spondylosis, lumbar region Apr- 0-201 7 Luis A Carrillo. [facility] [place], [address], [place], [address], [place]. tel: [phone] Referring Provider: Rose Kovacs, [employer] [address], [place], [address]. tel:[phone] [facility], [address], [place], [address] , [place] tel: [phone] [facility] Other intervertebral disc degeneration, lumbar regionCervicalg ia 7 Luis Alberto Landa. [facility], [address], [place], [place], [address] , [place]. tel: [phone] Family History Family Member Type Diagnosis Age At Onset No Information Payers Payer name Insurance type Covered libertarian ID Brant gold(s) Medicare MB [id number] Social History Type Description Quantity Date Captured [...]
--- OUTSIDE RECORDS SUMMARY | 2023-01-15 10:32 | XMS_ITS | Continuity of Care Document ---
Author Name Unknown Organization [facility] Address [address] [place] [address] Phone Care Team Providers Care Cake Icer And Packer Name Role Phone RN, RN Unavailable Unavailable [...] Providers Copied on Encounter OSCAR Garcia, [address], [place], [place], [address], [place] tel:[phone] Home Visit No Information 3 RN RN. [address], [place], [place], [address], [place]. tel:[phone] [facility], [address], [place], [address], [place] tel:[phone] [facility] CDS (chief complaint) Postlaminectom y syndrome, not elsewhere classifiedOthe r spondylosis with radiculopathy, lumbar regionOther intervertebral disc degeneration, lumbar regionOpioid dependence, uncomplicated 3 [facility]. [address], [place], [place], [address], [place]. tel:[phone] Referring Provider: Laine Diallo , [address], [place], [address]. tel:[phone] OSCAR Garcia, [address], [place], [place], [address], [place] tel:[phone] [facility] [place] No Information 3 Yoel Jang. [address], [place], [address], [place]. tel:[phone] Referring Provider: Laine Diallo , [address], [place], [address]. tel:[phone] [facility], [address], [place], [place], [address], [place] tel:[phone] [facility] No Information 3 Yoel Jang. [address], [place], [address], [place]. tel:[phone] Referring Provider: Laine Diallo , [address], [place], [address]. tel:[phone] [facility], [address], [place], [place], [address], [place] tel:[phone] Home Visit Pump Visit (chief complaint) Chronic pain syndromePostla minectomy syndrome, not elsewhere classifiedChro raina pain syndrome 3 CARLOS MANUEL HOROWITZ. [address], [address], [place], [address], [place]. tel:[phone] Referring Provider: Rose ADAN, [address] [place], [place], [address]. tel:[phone] [facility], [address], [place], [place], [address], [place] tel:[phone] Home Visit No Information 3 CARLOS MANUEL HOROWITZ. [address], [address], [place], [address], [place]. tel:[phone] Referring Provider: Rose ADAN, [address] [facility], [place], [address]. tel:[phone] [facility], [address], [place], [place], [address], [place] tel:[phone] Home Visit Pump Visit (chief complaint) Unspecified abdominal painPostlamine ctomy syndrome, not elsewhere classifiedUnsp ecified abdominal pain Oct- 3 RN RN. [address], [address], [place], [address], [place]. tel:[phone] Referring Provider: Rose ADAN, [address], [place], [address]. tel:[phone] [facility], [address], [place], [address], [place] tel:[phone] Home Visit No Information 3 RN RN. [address], [address], [address], [place]. tel:[phone] Referring Provider: Rose ADAN, [address], [place], [address]. tel:[phone] [facility], [address], [address], [place] tel:[phone] Home Visit Abdominal pain (chief complaint) Postlaminectom y syndrome, not elsewhere classifiedUnsp ecified abdominal painChronic pain syndromePostla minectomy syndrome, not elsewhere classified 3 RN RN. [address], [address], [place], [address], [place]. tel:[phone] Referring Provider: Rose ADAN, [address], [place], [address]. tel:[phone] [facility], [address], [place], [address], [place] tel:[phone] Home Visit No Information 3 RN RN. [address], [address], [place], [address], [place]. tel:[phone] Referring Provider: Rose ADAN, [address], [place], [address]. tel:[phone] BR[facility] GarciaC, [address], [place], [place], [address], [place] tel:[phone] Home Visit Pump Visit (chief complaint) Postlaminectom y syndrome, not elsewhere classifiedPost laminectomy syndrome, not elsewhere classified 3 RN RN. [address], [address], [place], [address], [place]. tel:[phone] Referring Provider: Rose ADAN, [address], [place], [address]. tel:[phone] BRADY GarciaC, [address], [place], [address], [place] tel:[phone] Home Visit No Information 3 RN RN. [address], [address], [place], [address], [place]. tel:[phone] Referring Provider: Rose ADAN, [address], [place], [address]. tel:[phone] [facility], [address], [place], [address], [place] tel:[phone] Home Visit Abdominal pain (chief complaint) Postlaminectom y syndrome, not elsewhere classifiedComp rudy regional pain syndrome I of other specified siteChronic pain syndromePostla minectomy syndrome, not elsewhere classified 3 RN RN. [address], [address], [place], [place], [address], [place]. tel:[phone] Referring Provider: Rose ADAN, [address], [place], [address]. tel:[phone] [facility], [address], [place], [place], [address], [place] tel:[phone] Home Visit No Information 3 RN RN. [address], [address], [place], [place], [address], [place]. tel:[phone] Referring Provider: Rose ADAN, [address] [place], [address]. tel:[phone] [facility], [address], [place], [address], [place] tel:[phone] Home Visit Abdominal pain (chief complaint) Postlaminectom y syndrome, not elsewhere classifiedUnsp ecified abdominal painChronic pain syndromePostla minectomy syndrome, not elsewhere classified 3 RN RN. [address], [address], [place], [address], [place]. tel:[phone] Referring Provider: Rose ADAN, [address] [place], [address]. tel:[phone] [facility], [address], [place], [address], [place] tel:[phone] Home Visit No Information 3 RN RN. [address], [address], [place], [address], [place]. tel:[phone] Referring Provider: Rose ADAN, [address] [place], [address]. tel:[phone] [facility], [address], [place], [address], [place] tel:[phone] Home Visit No Information 3 RN RN. [address], [address], [place], [place], [address], [place]. tel:[phone] Referring Provider: Rose ADAN, [address] [place], [address]. tel:[phone] Jose, [facility], [address], [place], [place], [address], [place] tel:[phone] Home Visit Pump Visit (chief complaint) Postlaminectom y syndrome, not elsewhere classifiedPost laminectomy syndrome, not elsewhere classified 3 RN RN. [address], [address], [place], [place], [address], [place]. tel:[phone] Referring Provider: Rose ADAN, [address] [place], [place], [address]. tel:[phone] [facility], [address], [place], [place], [address], [place] tel:[phone] [facility] No Information 3 Mannie Price. [address], [place], [address], [place]. tel:[phone] Referring Provider: Albert Chand [address], [place], [address]. tel:[phone] [facility], [address], [place], [address], [place] tel:[phone] [facility] Ev back pain (chief complaint) Postlaminectom y syndrome, not elsewhere classifiedGene ralized abdominal painPostlamine ctomy syndrome, not elsewhere classifiedGene ralized abdominal pain 3 [facility]. [address], [place], [place], [address], [place]. tel:[phone] Referring Provider: Albert Chand [address], [place], [address]. tel:[phone] [facility], [address], [place], [place], [address], [place] tel:[phone] [facility] [place] No Information 3 Mannie Price. [address], [place], [address], [place]. tel:[phone] Referring Provider: Albert Chand, [address], [place], [address]. tel:[phone] [facility], [address], [place], [place], [address], [place] tel:[phone] Home Visit No Information 3 RN RN. [address], [address], [place], [address], [place]. tel:[phone] Referring Provider: Rose ADAN, [address], [place], [address]. tel:[phone] [facility], [address], [place], [place], [address], [place] tel:[phone] Home Visit Abdominal pain (chief complaint) Complex regional pain syndrome I of lower limb, bilateralPostl aminectomy syndrome, not elsewhere classifiedComp rudy regional pain syndrome I of lower limb, bilateral 3 RN RN. [address], [address], [place], [place], [address], [place]. tel:[phone] Referring Provider: Rose ADAN, [address], [place], [address]. tel:[phone] [facility], [address], [place], [place], [address], [place] tel:[phone] Home Visit No Information 3 RN RN. [address], [address], [place], [place], [address], [place]. tel:[phone] Referring Provider: Rose ADAN, [address], [place], [address]. tel:[phone] [facility], [address], [place], [address], [place] tel:[phone] Home Visit Abdominal pain (chief complaint) Postlaminectom y syndrome, not elsewhere classifiedPost laminectomy syndrome, not elsewhere classified 3 RN RN. [address], [address], [place], [address], [place]. tel:[phone] Referring Provider: Rose ADAN, [address], [place], [address]. tel:[phone] [facility], [address], [place], [address], [place] tel:[phone] Home Visit No Information 3 RN RN. [address], [address], [place], [address], [place]. tel:[phone] Referring Provider: Rose ADAN, [address], [place], [address]. tel:[phone] [facility], [address], [place], [address], [place] tel:[phone] Home Visit Abdominal pain (chief complaint) Postlaminectom y syndrome, not elsewhere classifiedPost laminectomy syndrome, not elsewhere classified 2 RN RN. [address], [address], [place], [address], [place]. tel:[phone] Referring Provider: Rose ADAN, [address], [place], [address]. tel:[phone] [facility], [address], [place], [place], [address], [place] tel:[phone] Home Visit No Information 2 RN RN. [address], [address], [place], [place], [address], [place]. tel:[phone] Referring Provider: Rose ADAN, [address] [place], [address]. tel:[phone] [facility], [address], [place], [place], [address], [place] tel:[phone] Home Visit Abdominal pain (chief complaint) Complex regional pain syndrome I of other specified sitePostlamine ctomy syndrome, not elsewhere classifiedChro raina pain syndromeComple x regional pain syndrome I of other specified site 2 RN RN. [address], [address], [place]. tel:[phone] Referring Provider: Rose ADAN, [address] [place], [address]. tel:[phone] [facility], [address] [facility], [place], [address], [place] tel:[phone] Home Visit No Information 2 RN RN. [address], [place], [address], [place]. tel:[phone] Referring Provider: Rose ADAN, [address] [place], [address]. tel:[phone] [facility], [address], [place], [address], [place] tel:[phone] Home Visit Abdominal pain (chief complaint) Generalized abdominal painPostlamine ctomy syndrome, not elsewhere classifiedComp rudy regional pain syndrome I of lower limb, bilateral Nov- 2 RN RN. [address], [place], [address], [place]. tel:[phone] Referring Provider: Rose ADAN, [address], [place], [address]. tel:[phone] [facility], [address], [place], [address], [place] tel:[phone] Home Visit No Information 2 RN RN. [address] , [address], [place], [address], [place]. tel:[phone] Referring Provider: Rose ADAN, [address], [place], [address]. tel:[phone] [facility], [address] [facility] [address], [place], [address], [place] tel:[phone] Home Visit Postlaminectom y syndrome, not elsewhere classifiedPain disorder with related psychological factorsComplex regional pain syndrome I of lower limb, bilateral Oct- 2 RN RN. [address] , [address], [place], [address], [place]. tel:[phone] Referring Provider: Rose ADAN, [address], [place], [address]. tel:[phone] [facility], [address] [facility], [place], [address], [place] tel:[phone] Home Visit No Information 2 RN RN. [address] , [address], [place], [address], [place]. tel:[phone] Referring Provider: Rose ADAN, [address], [place], [address]. tel:[phone] [facility], [address], [place], [place], [address], [place] tel:[phone] Home Visit Abdominal pain (chief complaint) Postlaminectom y syndrome, not elsewhere classifiedPost laminectomy syndrome, not elsewhere classified 2 RN RN. [address], [address], [place], [place], [address], [place]. tel:[phone] Referring Provider: Rose ADAN, [address], [place], [address]. tel:[phone] [facility], [address], [place], [place], [address], [place] tel:[phone] Home Visit No Information 2 RN RN. [address], [address], [place], [address], [place]. tel:[phone] Referring Provider: Rose ADAN, [address], [place], [address]. tel:[phone] [facility], [address], [place], [place], [address], [place] tel:[phone] Home Visit Abdominal pain (chief complaint) Postlaminectom y syndrome, not elsewhere classifiedChro raina pain syndromePostla minectomy syndrome, not elsewhere classified 2 RN RN. [address], [address], [place], [place], [address], [place]. tel:[phone] Referring Provider: Rose ADAN, [address], [place], [address]. tel:[phone] [facility], [address], [place], [place], [address], [place] tel:[phone] Home Visit No Information 2 RN RN. [address] , [address], [place], [place], [address], [place]. tel:[phone] Referring Provider: Rose ADAN, [address], [place], [address]. tel:[phone] [facility], [address], [place], [address], [place] tel:[phone] Home Visit Abdominal pain (chief complaint) Postlaminectom y syndrome, not elsewhere classifiedChro raina pain syndromePostla minectomy syndrome, not elsewhere classified 2 RN RN. [address] , [address], [place], [address], [place]. tel:[phone] Referring Provider: Rose ADAN, [address], [place], [address]. tel:[phone] [facility], [address] [facility] [address], [place], [address], [place] tel:[phone] Home Visit No Information 2 RN RN. [address] , [address], [place], [address], [place]. tel:[phone] Referring Provider: Rose ADAN, [address], [place], [address]. tel:[phone] [facility], [address], [place], [address], [place] tel:[phone] Home Visit No Information 2 RN RN. [address] , [address], [place], [address], [place]. tel:[phone] Referring Provider: Rose ADAN, [address], [place], [address]. tel:[phone] [facility], [address], [place], [place], [address], [place] tel:[phone] Home Visit Pump Visit (chief complaint) Generalized abdominal painChronic pain syndromeGenera lized abdominal pain May- 2 RN RN. [address], [place], [address], [place]. tel:[phone] Referring Provider: Rose ADAN, [address], [place], [address]. tel:[phone] BR[facility]Y GarciaC, [address], [place], [address], [place] tel:[phone] Home Visit No Information 2 RN RN. [address], [address], [place], [address], [place]. tel:[phone] Referring Provider: Rose ADAN, [address], [place], [address]. tel:[phone] BR[facility]Y Garcia[facility], [address], [place], [address], [place] tel:[phone] Home Visit Abdominal pain (chief complaint) Postlaminectom y syndrome, not elsewhere classifiedChro raina pain syndromePostla minectomy syndrome, not elsewhere classified 2 RN RN. [address], [address], [place], [address], [place]. tel:[phone] Referring Provider: Rose ADAN, [address], [place], [address]. tel:[phone] [facility], [address], [place], [address], [place] tel:[phone] Home Visit No Information 2 RN RN. [address], [address], [place], [place], [address], [place]. tel:[phone] Referring Provider: Rose ADAN, [address], [place], [address]. tel:[phone] BRADY GarciaC, [address] [facility] [address], [place], [address], [place] tel:[phone] Home Visit Abdominal pain (chief complaint) Chronic pain syndromePostla minectomy syndrome, not elsewhere classifiedChro raina pain syndrome 2 RN RN. [address] , [address], [place], [address], [place]. tel:[phone] Referring Provider: Rose ADAN, [address], [place], [address]. tel:[phone] [facility], [address] [facility] [address], [place], [address], [place] tel:[phone] Home Visit No Information 2 RN RN. [address], [place], [address], [place]. tel:[phone] Referring Provider: Rose ADAN, [address], [place], [address]. tel:[phone] [facility], [address] [facility] [address], [place], [address], [place] tel:[phone] Home Visit Abdominal pain (chief complaint) Postlaminectom y syndrome, not elsewhere classifiedPost laminectomy syndrome, not elsewhere classified 2 RN RN. [address], [place], [address], [place]. tel:[phone] Referring Provider: Rose ADAN, [address], [place], [address]. tel:[phone] OSCAR Garcia, [address], [place], [place], [address], [place] tel:[phone] Home Visit No Information 2 RN RN. [address], [place], [place], [address], [place]. tel:[phone] Referring Provider: Rose ADAN, [address], [place], [address]. tel:[phone] OSCAR Garcia, [address], [place], [place], [address], [place] tel:[phone] Home Visit Abdominal pain (chief complaint) Chronic pain syndromePostla minectomy syndrome, not elsewhere classifiedChro raina pain syndrome 1 RN RN. [address], [address], [place], [place], [address], [place]. tel:[phone] Referring Provider: Rose ADAN, [address], [place], [address]. tel:[phone] OSCAR Garcia, [address], [place], [place], [address], [place] tel:[phone] Home Visit No Information 1 RN RN. [address], [address], [place], [address], [place]. tel:[phone] Referring Provider: Rose ADAN, [address], [place], [address]. tel:[phone] OSACR Garcia, [address], [address], [place] tel:[phone] Home Visit No Information 1 RN RN. [address], [address], [address], [place]. tel:[phone] Referring Provider: Rose ADAN, [address], [place], [address]. tel:[phone] OSCAR Garcia, [address], [place], [address], [place] tel:[phone] Home Visit Abdominal pain (chief complaint) Postlaminectom y syndrome, not elsewhere classifiedChro raina pain syndromeUnspec ified abdominal painPostlamine ctomy syndrome, not elsewhere classified 1 RN RN. [address], [address], [place], [address], [place]. tel:[phone] Referring Provider: Rose ADAN, [address], [place], [address]. tel:[phone] OSCAR Garcia, [address] [facility] [address], [place], [address], [place] tel:[phone] Home Visit No Information 1 RN RN. [address], [address], [place], [address], [place]. tel:[phone] Referring Provider: Rose ADAN, [address], [place], [address]. tel:[phone] OSCAR Garcia, [address], [place], [address], [place] tel:[phone] Home Visit Generalized abdominal painChronic pain syndromeGenera lized abdominal pain 1 RN RN. [address], [address], [address], [place]. tel:[phone] Referring Provider: Rose ADAN, [address], [place], [address]. tel:[phone] [facility], [address], [place], [address], [place] tel:[phone] Home Visit No Information 1 RN RN. [address], [place], [address], [place]. tel:[phone] Referring Provider: Rose ADAN, [address], [place], [address]. tel:[phone] [facility], [address] [facility], [place], [place], [address], [place] tel:[phone] Home Visit Chronic pain syndromePostla minectomy syndrome, not elsewhere classifiedChro raina pain syndrome 1 RN RN. [address], [place], [address], [place]. tel:[phone] Referring Provider: Rose ADAN, [address], [place], [address]. tel:[phone] [facility], [address] [facility] [address], [place], [address], [place] tel:[phone] Home Visit No Information 1 RN RN. [address] [facility], [address], [place], [address], [place]. tel:[phone] Referring Provider: Rose ADAN, [address], [place], [address]. tel:[phone] [facility], [address] [facility] [address], [place], [address], [place] tel:[phone] Home Visit No Information 1 RN RN. [address], [place], [address], [place]. tel:[phone] Referring Provider: Rose ADAN, [address], [place], [address]. tel:[phone] [facility], [address] [facility] [address], [place], [place], [address], [place] tel:[phone] Home Visit Abdominal pain (chief complaint) Postlaminectom y syndrome, not elsewhere classifiedChro raina pain syndromePostla minectomy syndrome, not elsewhere classified 1 RN RN. [address] [facility], [address], [place], [place], [address], [place]. tel:[phone] Referring Provider: Rose ADAN, [address], [place], [address]. tel:[phone] [facility], [address], [place], [place], [address], [place] tel:[phone] Home Visit No Information 1 RN CARLOS MANUEL. [address] [facility], [address], [place], [address], [place]. tel:[phone] Referring Provider: Rose ADAN, [address], [place], [address]. tel:[phone] [facility], [address] [facility], [address], [place], [address], [place] tel:[phone] [facility] back pain (chief complaint) Complex regional pain syndrome I of lower limb, bilateral 1 Brea Mendieta. [address], [place], [place], [address], [place]. tel:[phone] Referring Provider: Anam Wiley, [address], [place], [address] . tel:[phone] [facility], [address] [facility] [address], [place], [place], [address], [place] tel:[phone] [facility] No Information 1 Brea Mendieta. [address], [place], [place], [address], [place]. tel:[phone] Referring Provider: Rose ADAN, [address], [place], [address]. tel:[phone] OSCAR Garcia, [address], [place], [place], [address], [place] tel:[phone] [facility] Complex regional pain syndrome I of lower limb, bilateral 1 Jackie Thompson. [address], [place], [address], [place]. tel:[phone] Referring Provider: Rose ADAN, [address] [place], [place], [address]. tel:[phone] BRADY Garcia, [address], [place], [id number], [place] tel:[phone] Home Visit Chronic pain syndromeGenera lized abdominal painChronic pain syndrome 1 CARLOS MANUEL OHROWITZ. [address] , [address], [place], [place], [id number], [place]. tel:[phone] Referring Provider: Rose ADAN, [address] [place], [place], [address]. tel:[phone] [facility] [facility], [address], [place], [address], [place] tel:[phone] Home Visit No Information 1 CARLOS MANUEL HOROWITZ. [address], [address], [place], [address], [place]. tel:[phone] Referring Provider: Rose ADAN, [address] [facility], [place], [address]. tel:[phone] Est Pt Eval 25 Min BRADY Garcia, [address], [place], [address], [place] tel:[phone] [facility] back pain (chief complaint) Complex regional pain syndrome I of lower limb, bilateralPostl aminectomy syndrome, not elsewhere classified Apr-2 1 Brea Lacey. [address] [facility] [address], [place], [address], [place]. tel:[phone] Referring Provider: Rose ADAN, [address] [facility], [place], [address]. tel:[phone] OSCAR Garcia, [address], [place], [address], [place] tel:[phone] Home Visit No Information 1 RN CARLOS MANUEL. [address] , [address], [place], [address], [place]. tel:[phone] Referring Provider: Rose ADAN, [address] [facility], [place], [address]. tel:[phone] OSCAR Garcia, [address] [facility] [address], [place], [address], [place] tel:[phone] Home Visit Unspecified abdominal painUnspecifie d abdominal pain Apr- 1 RN CARLOS MANUEL. [address] , [address], [place], [address], [place]. tel:[phone] Referring Provider: Rose ADAN, [address] [facility], [place], [address]. tel:[phone] OSCAR aGrcia, [address] [facility] [address], [place], [address], [place] tel:[phone] Home Visit No Information 1 RN CARLOS MANUEL. [address] , [address], [place], [address], [place]. tel:[phone] Referring Provider: Rose ADAN, [address] [facility], [place], [address]. tel:[phone] BRADY GarciaC, [address], [place], [place], [address], [place] tel:[phone] Home Visit Postlaminectom y syndrome, not elsewhere classifiedLow back painPostlamine ctomy syndrome, not elsewhere classified 1 RN RN. [address], [address], [place], [place], [address], [place]. tel:[phone] Referring Provider: Rose ADAN, [address] [place], [address]. tel:[phone] [facility], [address], [place], [place], [address], [place] tel:[phone] Home Visit No Information 1 RN RN. [address], [address], [place], [place], [address], [place]. tel:[phone] Referring Provider: Rose ADAN, [address] [facility], [place], [address]. tel:[phone] BRADY GarciaC, [address], [place], [place], [address], [place] tel:[phone] Home Visit Postlaminectom y syndrome, not elsewhere classifiedPost laminectomy syndrome, not elsewhere classified 1 RN RN. [address], [address], [place], [place], [address], [place]. tel:[phone] Referring Provider: Rose ADAN, [address] [facility], [place], [address]. tel:[phone] [facility], [address], [place], [place], [address], [place] tel:[phone] Home Visit No Information 1 RN RN. [address], [address], [place], [place], [address], [place]. tel:[phone] Referring Provider: Rose Bright DO S, [address] [facility], [place], [address]. tel:[phone] [facility], [address], [place], [address], [place] tel:[phone] [facility] Ev Chest pain (chief complaint) Complex regional pain syndrome I of other specified siteGeneralize d abdominal painNeuralgia and neuritis, unspecifiedOpi oid dependence, uncomplicatedC omplex regional pain syndrome I of other specified siteGeneralize d abdominal painNeuralgia and neuritis, unspecifiedOpi oid dependence, uncomplicated 0 [facility]. [address] [facility] [address], [place], [place], [address], [place]. tel:[phone] Referring Provider: Ney Kovacs, [address] [facility] [address], [place], [address]. tel:[phone] [facility], [facility], [address], [place], [place], [address], [place] tel:[phone] [facility] Ev No Information 0 Gavin Brewster. [address], [place], [address], [place]. tel:[phone] Referring Provider: Ney Kovacs, [address] [facility] [address], [place], [address]. tel:[phone] [facility], [facility], [address], [place], [place], [address], [place] tel:[phone] Home Visit Postlaminectom y syndrome, not elsewhere classifiedChro raina pain syndromePostla minectomy syndrome, not elsewhere classified 0 RN RN. [address], [address], [place], [place], [address], [place]. tel:[phone] Referring Provider: Rose ADAN, [address] [place], [place], [address]. tel:[phone] BRADY GarciaC, [address], [place], [place], [address], [place] tel:[phone] Home Visit No Information 0 RN RN. [address], [address], [place], [place], [address], [place]. tel:[phone] Referring Provider: Rose ADAN, [address] [facility], [place], [address]. tel:[phone] BRADY GarciaC, [address], [place], [address], [place] tel:[phone] Home Visit No Information 0 RN RN. [address], [address], [place], [place], [address], [place]. tel:[phone] Referring Provider: Rose ADAN, [address] [place], [address]. tel:[phone] [facility], [address], [place], [place], [address], [place] tel:[phone] Home Visit No Information 0 Antonino Middleton. [address], [place], [address], [place]. tel:[phone] [facility], [address], [place], [place], [address], [place] tel:[phone] Home Visit Postlaminectom y syndrome, not elsewhere classifiedChro raina pain syndromePostla minectomy syndrome, not elsewhere classified 0 RN RN. [address], [address], [place], [place], [address], [place]. tel:[phone] Referring Provider: Rose ADAN, [address] [facility], [place], [address]. tel:[phone] [facility], [address], [place], [place], [address], [place] tel:[phone] Home Visit No Information 0 RN RN. [address], [address], [place], [address], [place]. tel:[phone] Referring Provider: Rose ADAN, [address] [facility], [place], [address]. tel:[phone] [facility], [address], [place], [address], [place] tel:[phone] Home Visit Postlaminectom y syndrome, not elsewhere classifiedChro raina pain syndromePostla minectomy syndrome, not elsewhere classified 0 RN RN. [address], [address], [place], [place], [address], [place]. tel:[phone] Referring Provider: Rose ADAN, [address] [facility], [place], [address]. tel:[phone] [facility], [address], [place], [address], [place] tel:[phone] Home Visit No Information 0 RN RN. [address], [address], [place], [address], [place]. tel:[phone] Referring Provider: Rose ADAN, [address] [facility], [place], [address]. tel:[phone] [facility], [address], [place], [place], [address], [place] tel:[phone] Home Visit No Information 0 RN RN. [address], [address], [place], [place], [address], [place]. tel:[phone] Referring Provider: Rose ADAN, [address] [facility], [place], [address]. tel:[phone] [facility], [address], [place], [place], [address], [place] tel:[phone] Home Visit Abdominal pain (chief complaint) Unspecified abdominal painUnspecifie d abdominal pain 0 RN RN. [address], [address], [place], [address], [place]. tel:[phone] Referring Provider: Rose ADAN, [address] [facility], [place], [address]. tel:[phone] [facility], [address], [place], [place], [address], [place] tel:[phone] Home Visit No Information 0 RN RN. [address], [address], [place], [address], [place]. tel:[phone] Referring Provider: Rose ADAN, [address] [facility], [place], [address]. tel:[phone] [facility], [address], [address], [place] tel:[phone] Home Visit No Information 0 RN RN. [address], [address], [place], [address], [place]. tel:[phone] Referring Provider: Rose ADAN, [address] [place], [address]. tel:[phone] OSCAR Garcia, [address], [address], tel:[phone] Home Visit Abdominal pain (chief complaint) back pain (chief complaint) bilateral ankle pain (chief complaint) bilateral foot pain (chief complaint) Generalized abdominal painPostlamine ctomy syndrome, not elsewhere classifiedChro raina pain syndromeGenera lized abdominal pain 0 RN RN. [address] [facility] [address], [place], [address], [place]. tel:[phone] Referring Provider: Rose ADAN, [address] [place], [address]. tel:[phone] OSCAR Garcia, [address], [address] [place] [address], tel:[phone] Home Visit No Information June-0 0 RN RN. [address], [address] [place] [address], . tel:[phone] Referring Provider: Rose ADAN, [address] [place], [address]. tel:[phone] OSCAR Garcia, [address], [address], tel:[phone] Home Visit Abdominal pain (chief complaint) bilateral ankle pain (chief complaint) bilateral foot pain (chief complaint) Generalized abdominal painGeneralize d abdominal pain May-0 0 RN RN. [address] [facility], [address], [place], [address], . tel:[phone] Referring Provider: Rose ADAN, [address] [place], [place], [address]. tel:[phone] OSCAR Garcia, [address], [place], [place], [address], [place] tel:[phone] Home Visit No Information 0 RN RN. [address], [address], [place], [place], [address], [place]. tel:[phone] Referring Provider: Rose ADAN, [address] [facility], [place], [address]. tel:[phone] [facility], [address], [place], [place], [address], [place] tel:[phone] Home Visit No Information 0 RN RN. [address], [address], [place], [address], [place]. tel:[phone] Referring Provider: Rose ADAN, [address] [facility], [place], [address]. tel:[phone] [facility], [address], [place], [place], [address], [place] tel:[phone] Home Visit Abdominal pain (chief complaint) Generalized abdominal painGeneralize d abdominal pain 0 RN RN. [address], [address], [place], [place], [address], [place]. tel:[phone] Referring Provider: Rose ADAN, [address] [facility], [place], [address]. tel:[phone] [facility], [address], [place], [place], [address], [place] tel:[phone] Home Visit No Information 0 RN RN. [address], [address], [place], [address], [place]. tel:[phone] Referring Provider: Rose ADAN, [address] [facility], [place], [address]. tel:[phone] BRADY GarciaC, [address], [address], [place] tel:[phone] [facility] Postlaminectom y syndrome, not elsewhere classified 0 RN RN. [address], [address], [place], [address], [place]. tel:[phone] Referring Provider: Rose ADAN, [address] [facility], [place], [address]. tel:[phone] [facility], [address], [place], [address], [place] tel:[phone] Home Visit No Information 0 RN RN. [address], [address], [place], [address], [place]. tel:[phone] Referring Provider: Rose ADAN, [address] [facility], [place], [address]. tel:[phone] [facility], [address], [place], [address], [place] tel:[phone] Home Visit Abdominal pain (chief complaint) Unspecified abdominal painGeneralize d abdominal painUnspecifie d abdominal pain 9 RN RN. [address], [address], [place], [address], [place]. tel:[phone] Referring Provider: Rose ADAN, [address] [facility], [place], [address]. tel:[phone] [facility], [address], [place], [address], [place] tel:[phone] Home Visit No Information 9 RN RN. [address], [place], [place], [address], [place]. tel:[phone] Referring Provider: Rose ADAN, [address] [place], [address]. tel:[phone] Jose, [facility], [address], [place], [place], [address], [place] tel:[phone] Home Visit back pain (chief complaint) Postlaminectom y syndrome, not elsewhere classifiedEnco unter for adjustment and management of infusion pumpPostlamine ctomy syndrome, not elsewhere classified 9 RN RN. [address], [place], [place], [address], [place]. tel:[phone] Referring Provider: Rose ADAN, [address] [place], [address]. tel:[phone] [facility], [address], [place], [place], [address], [place] tel:[phone] Home Visit No Information 9 RN RN. [address], [place], [address], [place]. tel:[phone] Referring Provider: Rose ADAN, [address] [place], [address]. tel:[phone] Est Pt Eval 25 Min [facility], [facility], [address], [place], [place], [address], [place] tel:[phone] [facility] back pain (chief complaint) Opioid dependence, uncomplicatedG eneralized abdominal painPostlamine ctomy syndrome, not elsewhere classifiedComp rudy regional pain syndrome I of lower limb, bilateral 9 Antonino Middleton. [address], [place], [address], [place]. tel:[phone] Referring Provider: Rose ADAN, [address] [place], [address]. tel:[phone] Est Pt Eval 25 Min [facility], [address], [place], [place], [address], [place] tel:[phone] [facility] Not Listed (chief complaint) Low back painPostlamine ctomy syndrome, not elsewhere classifiedPain in left kneeGeneralize d abdominal painNeuralgia and neuritis, unspecifiedRad iculopathy, lumbar regionComplex regional pain syndrome I of other specified siteLow back pain 9 Antonino Middleton. [address], [place], [address], [place]. tel:[phone] Referring Provider: Rose ADAN, [address] [place], [address]. tel:[phone] Est Pt Eval 25 Min [facility], [address], [place], [place], [address], [place] tel:[phone] [facility] Abdominal Pain (chief complaint) Neuralgia and neuritis, unspecifiedCom plex regional pain syndrome I of other specified siteLong term (current) use of opiate analgesicPain in left kneeOpioid dependence, uncomplicatedE ncounter for adjustment and management of infusion pumpNeuralgia and neuritis, unspecified 9 Jackie Thompson. [address], [place], [place], [address], [place]. tel:[phone] Referring Provider: Rose ADAN, [address] [place], [address]. tel:[phone] [facility], [address], [place], [place], [address], [place] tel:[phone] [facility] No Information 9 Jackie Thompson. [address], [place], [place], [address], [place]. tel:[phone] Referring Provider: Rose ADAN, [address] [facility] [place], [address]. tel:[phone] Est Pt Eval [address] [facility], [address], [place], [place], [address], [place] tel:[phone] [facility] Not Listed (chief complaint) Complex regional pain syndrome I of lower limb, bilateralPain in left kneeNeuralgia and neuritis, unspecifiedOpi oid dependence, uncomplicatedL eber term (current) use of opiate analgesicEncou nter for adjustment and management of infusion pumpComplex regional pain syndrome I of lower limb, bilateral Jackie Thompson. [address], [place], [address], [place]. tel:[phone] Referring Provider: Rose ADAN, [address] [facility] [place], [address]. tel:[phone] [facility], [address], [address], [place] tel:[phone] [facility] No Information 9 Jackie Thompson. [address], [address], [place]. tel:[phone] Referring Provider: Rose ADAN, [address] [facility] [place], [address]. tel:[phone] [facility], [address], [address], [place] tel:[phone] [facility] No Information 9 Alli Saldaña. [address], [place], [place], [address], [place]. tel:[phone] Referring Provider: Rose ADAN, [address] [place], [address]. tel:[phone] Est Pt Eval 25 Min [facility], [address], [place], [place], [address], [place] tel:[phone] [facility] Complex regional pain syndrome I of other specified sitePostlamine ctomy syndrome, not elsewhere classifiedComp rudy regional pain syndrome I of other specified site Apr- Antonino Middleton. [address], [place], [address], [place]. tel:[phone] Referring Provider: Rose ADAN, [address] [place], [address]. tel:[phone] Est Pt Eval 25 Min [facility], [address], [place], [place], [address], [place] tel:[phone] [facility] Complex regional pain syndrome I of lower limb, bilateralCompl ex regional pain syndrome I of other specified siteNeuralgia and neuritis, unspecifiedLon g term (current) use of opiate analgesicCompl ex regional pain syndrome I of lower limb, bilateral Apr- Justyn King. [address], [place], [address], [place]. tel:[phone] Referring Provider: Rose ADAN, [address] [place], [address]. tel:[phone] Est Pt Eval 25 Min [facility], [address], [place], [place], [address], [place] tel:[phone] [facility] Postlaminectom y syndrome, not elsewhere classifiedRadi culopathy, lumbar regionComplex regional pain syndrome I of lower limb, bilateralOther intervertebral disc degeneration, lumbar regionLong term (current) use of opiate analgesicPostl aminectomy syndrome, not elsewhere classified Justyn King. [address], [place], [address], [place]. tel:[phone] Referring Provider: Rose ADAN, [address] [facility], [place], [address]. tel:[phone] Est Pt Eval 25 Min [facility], [address], [place], [place], [address], [place] tel:[phone] [facility] Postlaminectom y syndrome, not elsewhere classifiedGene ralized abdominal painUnspecifie d abdominal painComplex regional pain syndrome I of other specified siteLong term (current) use of opiate analgesicPostl aminectomy syndrome, not elsewhere classified 9 Calixto Sagastume Felice. [address], [place], [address], [place]. tel:[phone] Referring Provider: Rose ADAN, [address] [facility], [place], [address]. tel:[phone] Est Pt Eval 25 Min [facility], [address], [place], [place], [address], [place] tel:[phone] [facility] Generalized abdominal painPostlamine ctomy syndrome, not elsewhere classifiedComp rudy regional pain syndrome I of other specified siteLong term (current) use of opiate analgesicGener alized abdominal pain 9 Antonino Middleton. [address], [place], [address], [place]. tel:[phone] Referring Provider: Rose ADAN, [address] [facility], [place], [address]. tel:[phone] [facility], [address] [facility] [address], [place], [place], [address], [place] tel:[phone] [facility] back pain (chief complaint) bilateral leg pain (chief complaint) Postlaminectom y syndrome, not elsewhere classifiedLow back painOpioid dependence, uncomplicated RN RN. [address] [facility] [address], [place], [place], [address], [place]. tel:[phone] Referring Provider: Rose Bright DO S, [address] [place], [address]. tel:[phone] Jose, [facility], [address] [facility] [address], [place], [place], [address], [place] tel:[phone] [facility] No Information 9 Brea Mendieta. [address], [place], [place], [address], [place]. tel:[phone] Referring Provider: Anam Wiley, [address], [place], [address] . tel:[phone] [facility], [address] [facility], [address], [place], [address], [place] tel:[phone] [facility] back pain (chief complaint) Postlaminectom y syndrome, not elsewhere classifiedOthe r spondylosis with radiculopathy, lumbar regionOther intervertebral disc degeneration, lumbar regionOpioid dependence, uncomplicated 9 [facility]. [address] [facility] [address], [place], [place], [address], [place]. tel:[phone] Referring Provider: Anam Wiley, [address], [place], [address] . tel:[phone] [facility], [address] [facility] [address], [place], [place], [address], [place] tel:[phone] [facility] Complex regional pain syndrome I of lower limb, bilateralCompl ex regional pain syndrome I of lower limb, bilateral RN RN. [address] [facility] [address], [place], [place], [address], [place]. tel:[phone] Referring Provider: Rose Bright DO S, [address] [place], [address]. tel:[phone] [facility], [facility], [address] [facility] [address], [place], [place], [address], [place] tel:[phone] [facility] No Information 8 Brea Mendieta. [address], [place], [place], [address], [place]. tel:[phone] Referring Provider: Anam Wiley, [address], [place], [address] . tel:[phone] [facility], [address] [facility], [address], [place], [address], [place] tel:[phone] [facility] Back pain (chief complaint) Postlaminectom y syndrome, not elsewhere classifiedOthe r spondylosis with radiculopathy, lumbar regionOther intervertebral disc degeneration, lumbar regionOpioid dependence, uncomplicatedP ostlaminectomy syndrome, not elsewhere classifiedOthe r spondylosis with radiculopathy, lumbar regionOther intervertebral disc degeneration, lumbar regionOpioid dependence, uncomplicated [facility]. [address] [facility] [address], [place], [place], [address], [place]. tel:[phone] Referring Provider: Anam Wiley, [address], [place], [address] . tel:[phone] Est Pt Eval 25 Min Jose, [facility], [address] [facility] [address], [place], [place], [address], [place] tel:[phone] [facility] Unspecified abdominal painComplex regional pain syndrome I of lower limb, bilateralNeura lgia and neuritis, unspecifiedUns pecified abdominal pain 8 Antonino Middleton. [address] [facility] [address], [place], [address], [place]. tel:[phone] Referring Provider: Rose ADAN, [address] [facility], [place], [address]. tel:[phone] [facility], [address] [facility], [place], [place], [address], [place] tel:[phone] [facility] Physical Therapy Myalgia 8 Augustus Nixon. [address] [facility] [address], [place], [place], [address], [place]. tel:[phone] Referring Provider: Rose ADAN, [address] [facility], [place], [address]. tel:[phone] Psychiatric Diagnostic Evaluation Jose [facility], [address] [facility], [place], [place], [address], [place] tel:[phone] [facility] Pain disorder with related psychological factors 8 Alli Saldaña. [address] [facility], [address], [place], [place], [address], [place]. tel:[phone] Referring Provider: Rose ADAN, [address] [facility], [place], [address]. tel:[phone] Est Pt Eval [address] [facility], [address] [facility] [address], [place], [place], [address], [place] tel:[phone] [facility] Generalized abdominal painNeuralgia and neuritis, unspecifiedCom plex regional pain syndrome I of other specified siteRadiculopa thy, lumbar regionLow back painComplex regional pain syndrome I of lower limb, bilateralPostl aminectomy syndrome, not elsewhere classifiedCerv icalgiaGeneral ized abdominal pain 8 Calixto Sagastume Felice. [address] [facility] [address], [place], [address], [place]. tel:[phone] Referring Provider: Rose ADAN, [address] [place], [address]. tel:[phone] Est Pt Eval 25 Min Jose, [facility], [address], [place], [place], [address], [place] tel:[phone] [facility] Generalized abdominal painNeuralgia and neuritis, unspecifiedPos tlaminectomy syndrome, not elsewhere classifiedLong term (current) use of opiate analgesicGener alized abdominal pain Leatha Joseph. [address] [facility], [address], [place], [place], [address], [place]. tel:[phone] Referring Provider: Rose ADAN, [address] [place], [address]. tel:[phone] [facility], [address], [place], [place], [address], [place] tel:[phone] [facility] right ankle pain (chief complaint) Complex regional pain syndrome I of lower limb, bilateralCompl ex regional pain syndrome I of lower limb, bilateral 8 RN RN. [address] [facility], [address], [place], [address], [place]. tel:[phone] Referring Provider: Rose ADNA, [address] [place], [address]. tel:[phone] [facility], [address], [place], [place], [address], [place] tel:[phone] [facility] No Information 8 Jake Farah. [address], [address], [place], [place], [address], [place]. tel:[phone] Referring Provider: Rose Bright DO S, [address] [place], [address]. tel:[phone] [facility], [address], [place], [address], [place] tel:[phone] [facility] bilateral leg pain (chief complaint) Postlaminectom y syndrome, not elsewhere classifiedComp rudy regional pain syndrome I of lower limb, bilateralNeura lgia and neuritis, unspecifiedPos tlaminectomy syndrome, not elsewhere classifiedComp rudy regional pain syndrome I of lower limb, bilateralNeura lgia and neuritis, unspecified 8 [facility]. [address] [facility], [place], [place], [address], [place]. tel:[phone] Referring Provider: Anam Wiley, [address], [place], [address] . tel:[phone] [facility], [address], [place], [place], [address], [place] tel:[phone] [facility] No Information 8 Brea Mendieta. [address], [place], [place], [address], [place]. tel:[phone] Referring Provider: Anam Wiley, [address], [place], [address] . tel:[phone] Est Pt Eval 25 Min [facility], [facility], [address] [facility] [address], [place], [place], [address], [place] tel:[phone] [facility] Generalized abdominal painPostlamine ctomy syndrome, not elsewhere classifiedLow back painRadiculopa thy, lumbar regionPain in left footPain in right footGeneralize d abdominal pain Calixto Viveros. [address], [place], [address], [place]. tel:[phone] Referring Provider: Rose ADAN, [address] [place], [address]. tel:[phone] [facility], [address], [place], [place], [address], [place] tel:[phone] [facility] No Information Jake Farah. [address], [place], [place], [address], [place]. tel:[phone] Referring Provider: Rose ADAN, [address] [place], [address]. tel:[phone] Est Pt Eval 25 Min [facility], [address], [place], [place], [address], [place] tel:[phone] [facility] Generalized abdominal painUnspecifie d abdominal painPostlamine ctomy syndrome, not elsewhere classifiedLow back painGeneralize d abdominal pain 8 Calixto Viveros. [address], [place], [address], [place]. tel:[phone] Referring Provider: Rose ADAN, [address] [place], [address]. tel:[phone] Est Pt Eval 25 Min [facility], [address], [place], [place], [address], [place] tel:[phone] [facility] Postlaminectom y syndrome, not elsewhere classifiedGene ralized abdominal painUnspecifie d abdominal painLow back painPostlamine ctomy syndrome, not elsewhere classified Oct-0 Calixto Viveros. [address], [place], [address], [place]. tel:[phone] Referring Provider: Rose ADAN, [address] [facility], [place], [address]. tel:[phone] Est Pt Eval 25 Min [facility], [address], [place], [place], [address], [place] tel:[phone] [facility] Postlaminectom y syndrome, not elsewhere classifiedUnsp ecified abdominal painGeneralize d abdominal painLow back painPostlamine ctomy syndrome, not elsewhere classified Calixto Viveros. [address], [place], [address], [place]. tel:[phone] Referring Provider: Rose ADAN, [address] [facility], [place], [address]. tel:[phone] Est Pt Eval 25 Min [facility], [address], [place], [place], [address], [place] tel:[phone] [facility] Postlaminectom y syndrome, not elsewhere classifiedGene ralized abdominal painUnspecifie d abdominal painLow back painPostlamine ctomy syndrome, not elsewhere classified Calixto Viveros. [address], [place], [address], [place]. tel:[phone] Referring Provider: Rose ADAN, [address] [facility], [place], [address]. tel:[phone] Est Pt Eval 25 Min [facility], [address], [place], [place], [address], [place] tel:[phone] [facility] Generalized abdominal painLong term (current) use of opiate analgesicPostl aminectomy syndrome, not elsewhere classifiedGene ralized abdominal pain 8 Calixto Viveros. [address], [place], [address], [place]. tel:[phone] Referring Provider: Rose ADAN, [address] [place], [address]. tel:[phone] Est Pt Eval 25 Min [facility], [address], [place], [place], [address], [place] tel:[phone] [facility] Generalized abdominal painLong term (current) use of opiate analgesicGener alized abdominal pain Leatha Joseph. [address], [place], [place], [address], [place]. tel:[phone] Referring Provider: Rose ADAN, [address] [place], [address]. tel:[phone] Est Pt Eval 25 Min Jose, [facility], [address], [place], [place], [address], [place] tel:[phone] [facility] Generalized abdominal painNeuralgia and neuritis, unspecifiedGen eralized abdominal pain 8 Alejandralakesha King. [address], [place], [address], [place]. tel:[phone] Referring Provider: Rose ADAN, [address] [place], [address]. tel:[phone] [facility], [address], [place], [address], [place] tel:[phone] [facility] headache (chief complaint) HeadacheOther reaction to spinal and lumbar punctureOther reaction to spinal and lumbar punctureHeadac he 8 [facility]. [address] [facility] [address], [place], [place], [address], [place]. tel:[phone] Referring Provider: Anam Wiley, [address], [place], [address] . tel:[phone] [facility], [address], [place], [place], [address], [place] tel:[phone] [facility] No Information 8 Brea Mendieta. [address], [place], [place], [address], [place]. tel:[phone] Referring Provider: Anam Wiley, [address], [place], [address] . tel:[phone] [facility], [address] [address], [place], [address], [place] tel:[phone] [facility] Abdominal pain (chief complaint) Complex regional pain syndrome I of other specified siteGeneralize d abdominal painNeuralgia and neuritis, unspecifiedOpi oid dependence, uncomplicated 8 [facility]. [address] [facility] [address], [place], [place], [address], [place]. tel:[phone] Referring Provider: Anam Wiley, [address], [place], [address] . tel:[phone] Jose, [facility], [address], [place], [place], [address], [place] tel:[phone] [facility] No Information 8 Brea Mendieta. [address], [place], [place], [address], [place]. tel:[phone] Referring Provider: Anam Wiley, [address], [place], [address] . tel:[phone] [facility], [address], [place], [place], [address], [place] tel:[phone] [facility] No Information 8 Lori Richey. [address], [place], [address], [place]. tel:[phone] Referring Provider: Rose ADAN, [address] [place], [address]. tel:[phone] [facility], [address], [place], [place], [address], [place] tel:[phone] [facility] MyalgiaGeneral ized abdominal painPain in unspecified jointPain in left knee 8 Lori Richey. [address], [place], [address], [place]. tel:[phone] Referring Provider: Rose ADAN, [address] [facility], [place], [address]. tel:[phone] [facility], [address], [place], [place], [address], [place] tel:[phone] [facility] Generalized abdominal painGeneralize d abdominal painGeneralize d abdominal painGeneralize d abdominal painUnspecifie d abdominal pain 8 RN RN. [address], [place], [place], [address], [place]. tel:[phone] Referring Provider: Rose ADAN, [address] [facility], [place], [address]. tel:[phone] [facility], [address], [place], [address], [place] tel:[phone] [facility] Abdominal pain (chief complaint) Complex regional pain syndrome I of other specified siteGeneralize d abdominal painNeuralgia and neuritis, unspecifiedOpi oid dependence, uncomplicated 8 [facility]. [address], [place], [place], [address], [place]. tel:[phone] Referring Provider: Anam Wiley, [address], [place], [address] . tel:[phone] [facility], [address], [place], [place], [address], [place] tel:[phone] [facility] No Information 8 Brea Mendieta. [address], [place], [place], [address], [place]. tel:[phone] Referring Provider: Anam Wiley, [address], [place], [address] . tel:[phone] [facility], [address], [place], [place], [address], [place] tel:[phone] [facility] [place] No Information 8 Lori Richey. [address], [place], [address], [place]. tel:[phone] Referring Provider: Rose Bright DO S, [address] [facility], [place], [address]. tel:[phone] [facility], [address], [place], [place], [address], [place] tel:[phone] [facility] Generalized abdominal painMyalgiaPai n in left kneePain in unspecified joint 8 Lori Richey. [address], [place], [address], [place]. tel:[phone] Referring Provider: Rose ADAN, [address] [facility], [place], [address]. tel:[phone] [facility], [address], [place], [place], [address], [place] tel:[phone] [facility] [place] Generalized abdominal painMyalgiaPai n in unspecified jointPain in left knee 8 Joey Garirson. [address], [place], [address], [place]. tel:[phone] Referring Provider: Rose ADAN, [address] [facility], [place], [address]. tel:[phone] [facility], [address], [place], [address], [place] tel:[phone] [facility] Abdominal pain (chief complaint) Unspecified abdominal painNeuralgia and neuritis, unspecifiedUns pecified abdominal painNeuralgia and neuritis, unspecified 8 [facility]. [address], [place], [place], [address], [place]. tel:[phone] Referring Provider: Anam Wiley, [address], [place], [address] . tel:[phone] [facility], [facility], [address], [place], [place], [address], [place] tel:[phone] [facility] No Information 8 Brea Mendieta. [address], [place], [place], [address], [place]. tel:[phone] Referring Provider: Anam Wiley, [address], [place], [address] . tel:[phone] Est Pt Eval 15 Min [facility], [address], [place], [place], [address], [place] tel:[phone] [facility] Abdominal pain (chief complaint) Generalized abdominal pain 8 Leatha Joseph. [address] [facility], [place], [place], [address], [place]. tel:[phone] Referring Provider: Rose Bright DO S, [address] [place], [address]. tel:[phone] [facility], [address] [facility] [address], [place], [address], [place] tel:[phone] [facility] Abdominal pain (chief complaint) Abdominal painNeuralgia and neuritis, unspecifiedUns pecified abdominal painNeuralgia and neuritis, unspecified 8 [facility]. [address] [facility] [address], [place], [place], [address], [place]. tel:[phone] Referring Provider: Anam Wiley, [address], [place], [address] . tel:[phone] [facility], [address] [address], [place], [place], [address], [place] tel:[phone] [facility] No Information 8 Brea Mendieta. [address], [place], [place], [address], [place]. tel:[phone] Referring Provider: Anam Wiley, [address], [place], [address] . tel:[phone] New Pt Eval 60 Min [facility], [address], [place], [place], [address], [place] tel:[phone] [facility] Abdominal pain (chief complaint) Generalized abdominal painPain in unspecified jointMyalgiaLo ng term (current) use of opiate analgesic No Information Referring Provider: Rose Bright DO S, [address] [place], [address]. tel:[phone] Family History Family Member Type Diagnosis Age At Onset Mother Problem (finding) Cancer Father Problem (finding) Cancer Father Problem (finding) Other Payers Payer name Insurance type Covered libertarian ID Authoriza tion(s) Medicare Part B [id number] [facility] [id number] Social History Type Description Quantity Date Captured [...] persistently. Pump Visit The pain is loca enll in the middle upper abdomen. Pain intensity [...] Location: right ankle. 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 The [...] Follow up int he cli raina as CC from the right buttock pocket Related [...] pain syndrome I of lower limb, bilateral - Dr. Anam Guidry to call patient and can proceed with scheduling appointment for SCS explant surgery. Related to Complex regional pain syndrome I of lower limb, bilateral Same plan of care as statement for above diagnosis, no changes Related to Postlaminectomy syndrome, not elsewhere classified Obtain PA for SCS ex plant- patient reports the device does not provide her with any pain relief Related to Postlaminectomy syndrome, not elsewhere classified Assessments Type Assessment Date No Information Patient Care Teams Name Effective Dates (start - stop) Status Members No Information
== END 2023-01-14 15:02 | disposition home or self-care (01) ==
LOC: AMB 01-15 10:27
PROVIDERS: PCP Family Medicine; Visit Provider Emergency Medicine Emergency Medical Services
DX: R10.9 Unspecified abdominal pain (principal)
CPT/HCPCS: A0425; A0427

== ENCOUNTER 2023-01-14 15:27 | Emergency (ER) | payer MEDICARE, OTHER, SELFPAY ==
[2023-01-14] VITALS (10 sets, daily range): BP systolic 134–163; BP diastolic 64–134; PULSE 93–107; RESP 18–20; TEMP 37.2; O2SAT 94–98; BMI 28.3
--- NOTE | 2023-01-14 15:54 | CRLHL7_ITS ---
For Patients: As a result of the Century Cures Act, medical imaging exams and procedure reports are released immediately into your electronic medical record. You may view this report before your referring provider. If you have questions, please contact your health care provider. INDICATION: Abdominal pain. TECHNIQUE: Multiplanar CT examination of the abdomen and pelvis were acquired after the administration of 100 mL Isovue 370 intravenously. COMPARISON: CT chest abdomen pelvis 09/15/2022. FINDINGS: Lower chest: Motion degraded study limits evaluation. Linear bandlike opacifications of the lung bases likely due to subsegmental atelectasis and/or scarring. No focal consolidation. Normal heart size. No pleural effusions or pneumothorax. Mild pulmonary vascular congestion. Liver: Normal. Gallbladder/Biliary: Cholecystectomy. No biliary ductal dilitation. Pancreas: Normal. Spleen: Normal. Adrenal Glands: Normal. Kidneys: Normal size and symmetrically enhancing. No obstructive calculi or hydronephrosis. Ureters: Unremarkable. Bladder: Unremarkable. Bowel: Postsurgical changes from prior gastric bypass. No bowel wall thickening or obstruction identified.. The appendix is normal. No significant colonic diverticulosis. Pelvic organs: Prostatomegaly. Peritoneum: No free fluid or pneumoperitoneum. Surgical clips in the left iliac chain region. Vessels: No aneurysms. Portal vein remains patent. Mild atherosclerotic calcifications. Lymph Nodes: No lymphadenopathy. Abdominal Wall/Soft Tissues: Small calcified lesion in subcutaneous soft tissues posteriorly on the right, possibly a sebaceous cyst otherwise, unremarkable.. Spinal stimulator pulse generator in the soft tissues of the posterior lumbar spine region. Spinal similar leads terminate outside the field of view. Bones: Spinal fixation hardware from L4-S2. Persistent anterior positioning of the intervertebral disc spacer between L4 and L5. Stable position of the L5-S1 interbody spacer. Kyphoplasty material within the vertebral body of L3. No acute osseous abnormalities identified.. IMPRESSION: 1. No acute abdominopelvic pathology. 2. Chronic findings as detailed above. Please note that all CT scans at this facility use dose modulation, iterative reconstruction, and/or weight-based dosing when appropriate to reduce radiation dose to as low as reasonably achievable. Dictated by Waylon Massey MD @ 01/14/2023 7:19:06 PM (Electronically Signed)
--- NOTE | 2023-01-14 15:57 | ED_ITS ---
HPI - Abdominal Pain General Chief Complaint: Abdominal Pain Stated Complaint: Abdominal pain Time Seen by Provider: 01/14/23 15:34 History of Present Illness HPI narrative: This 57-year-old female comes in by ambulance because of abdominal pain that she states began about 3 days ago. She states that it is in her back radiating to her abdomen or vice versa, in her abdomen radiating through to her back. She states that it is a constant pain that began at 2 or 3/10 in severity and now is at 8 or 9/10. She has some associated nausea but has not had any vomiting. She does have chronic pain and took an oxycodone prior to arrival. She arrives with normal vital signs. She did have CT imaging of her abdomen and pelvis 4 months ago and 7 months ago and I reviewed these results. Related Data Home Medications Medication Instructions Recorded Confirmed buspirone 30 mg tablet 30 mg PO BID 05/27/22 08/20/22 cyclobenzaprine 10 mg tablet 10 mg PO QPM PRN muscle spasm 05/27/22 08/20/22 doxepin 150 mg capsule 150 mg PO QPM 05/27/22 08/20/22 furosemide 20 mg tablet 20 mg PO BID 05/27/22 08/20/22 naloxegol 25 mg tablet (Movantik) 25 mg PO QAM 05/27/22 08/20/22 nicotine 10 mg inhalation 10 mg inhalation nicotine cravings 05/27/22 cartridge (Nicotrol) ondansetron 8 mg disintegrating 8 mg PO Q8H PRN nausea 05/27/22 08/20/22 tablet oxcarbazepine 300 mg tablet mg PO 05/27/22 oxycodone 5 mg tablet 5 mg PO DAILY PRN chronic pain 05/27/22 08/20/22 promethazine 25 mg tablet 25 mg PO Q12H PRN nausea 05/27/22 08/20/22 sennosides 8.6 mg-docusate sodium tab PO 05/27/22 50 mg tablet (Senexon-S) Previous Rx's Medication Instructions Recorded ciprofloxacin HCl 250 mg tablet 250 mg PO BID #10 tabs 12/12/22 (Cipro) tramadol 50 mg tablet 50 mg PO Q6H PRN pain #10 tabs 01/14/23 Allergies Allergy/AdvReac Type Severity Reaction Status Date / Time aspirin Allergy Unknown GI Bleed Verified 09/15/22 21:32 bupivacaine Allergy Unknown Agitation Verified 09/15/22 21:32 diphenhydramine Allergy Unknown Anxiety Verified 09/15/22 21:32 lamotrigine Allergy Unknown Angioedema Verified 09/15/22 21:32 metoclopramide Allergy Unknown Anxiety Verified 09/15/22 21:32 NSAIDS (Non-Steroidal Allergy Unknown GI Bleed Verified 09/15/22 21:32 Anti-Inflamma [NSAIDS (Non-Steroidal Anti-Inflammatory Drug)] prochlorperazine Allergy Unknown Unknown Verified 09/15/22 21:32 pseudoephedrine Allergy Unknown Unknown Verified 09/15/22 21:32 sumatriptan Allergy Unknown Punched Verified 09/15/22 21:32 The Beta Adrenergic Blockers Allergy Unknown Unknown Uncoded 09/15/22 21:32 Haldol Allergy Unknown Anxiety Uncoded 09/15/22 21:32 Review of Systems Status of ROS Reports: 10 or more systems reviewed and unremarkable except as noted in History and below Narrative Constitutional: No fevers, no weight gain or loss. Eyes: No discharge. No vision changes. HENT: No congestion, no sore throat, no ear pain. Cardiovascular: No chest pain, no palpitations. Respiratory: No shortness of breath, no wheezes, no cough. Gastrointestinal: Abdominal pain with nausea. No vomiting or diarrhea. Genitourinary: No dysuria, no hematuria. Musculoskeletal: Normal range of motion. Skin: No rashes, no pruritis. Neurological: No dizziness, weakness, sensory change, speech change. Endo/Heme/Allergies: No bruising or bleeding. No polydipsia. Pysch: no suicidality, no anxiety, no insomnia. All other systems reviewed and are negative. [facility] Medical History POLST (Physician Orders for Life-Sustaining Treatment) ?Z78.9 - Other specified health status (ICD-10) Family History Father Prostate cancer Other Ovarian cancer Social History Narrative: , 3 kids, unemployed, smoker, no EtOH Smoking Status: Current every day smoker What tobacco products do you use: cigarettes Do you use any of these nicotine containing products: None Second hand tobacco smoke exposure: Yes How often do you have a drink containing alcohol: never How often do you have six or more drinks on one occasion: Never AUDIT-C Alcohol total score: 0 Non-prescribed substance use: denies use service: No Exam Narrative: Exam Narrative: Constitutional: Well-developed, well-nourished, no acute distress. HEENT: Normocephalic, atraumatic. Neck: Normal range of motion. Nontender. Supple. Heart: Regular. No murmurs. Normal rate. Intact distal pulses. Lungs: Clear to auscultation. No chest discomfort. No wheezes, rhonchi, or rales. Abdomen: Normal bowel sounds. Diffuse tenderness in the mid abdomen. No rebound tenderness. Genitalia: Deferred. Back: No midline tenderness. Normal range of motion. Extremities: Normal range of motion. No injury. Skin: Intact. No rash. Warm. No erythema or pallor. Neurologic: No altered sensation. No weakness. Alert and oriented. Psychiatric: No suicidality. No anxiety or depression. No insomnia. Nursing notes and vitals signs are reviewed. Const: Vital Signs, click to edit/add: Vital Signs - 24 hr 01/14/23 15:30 01/14/23 15:31 01/14/23 16:00 Temperature 99.0 F Pulse Rate Pulse Rate [Right Pulse Oximeter] 104 H 93 104 H Respiratory Rate 20 18 20 Blood Pressure [Ri ght Upper Arm] 144/128 H 135/109 H 156/110 H Pulse Oximetry 96 Oxygen Delivery Me thod Room Air Room Air Room Air 01/14/23 16:14 01/14/23 16:15 01/14/23 17:20 Temperature Pulse Rate 96 96 Pulse Rate [Right Pulse Oximeter] 107 H Respiratory Rate 20 Blood Pressure [Ri ght Upper Arm] 146/112 H Pulse Oximetry 94 95 97 Oxygen Delivery Me thod Room Air 01/14/23 19:00 Temperature Pulse Rate Pulse Rate [Right Pulse Oximeter] 103 H Respiratory Rate 18 Blood Pressure [Ri ght Upper Arm] 163/134 H Pulse Oximetry 98 Oxygen Delivery Me thod Room Air Course Vital Signs Vital signs: Initial Vital Signs Pulse Rate 104 H 01/14/23 15:30 Pulse Rhythm Regular 01/14/23 15:30 Respiratory Rate 20 01/14/23 15:30 Respiratory Depth Normal 01/14/23 15:30 Blood Pressure 144/128 H 01/14/23 15:30 Blood Pressure Mean 133 H 01/14/23 15:30 Oxygen Delivery Method Room Air 01/14/23 15:30 Vital Signs Pulse Rate 104 H 01/14/23 15:30 Respiratory Rate 20 01/14/23 15:30 Blood Pressure 144/128 H 01/14/23 15:30 Oxygen Delivery Method Room Air 01/14/23 15:30 Temperature 99.0 F 01/14/23 15:31 Pulse Rate 103 H 01/14/23 19:00 Respiratory Rate 18 01/14/23 19:00 Blood Pressure 163/134 H 01/14/23 19:00 Pulse Oximetry 98 01/14/23 19:00 Oxygen Delivery Method Room Air 01/14/23 19:00 MDM - Abdominal Pain MDM Narrative Medical decision making narrative: This patient comes in with flare-up of abdominal pain and back pain. She is not sure which is causing the pain rather it is coming from her back or from her abdomen. An IV was established and labs are acquired. CT imaging of the abdomen and pelvis shows no acute findings. She does have history of back problems and has had surgery. Most likely this is coming from her back. Lab results are returning with reassuring findings. Her urine is not showing any sign of infection but there is some bilirubin present in the urine. This patient received a 1 time dose of Dilaudid 0.5 mg intravenously. I explained that we would not likely repeat this treatment unless there was new finding in her labs or imaging to necessitated. She does take 1 oxycodone tablet daily and states that she stays with that plan as it is outlined by her doctor. She is okay to be discharged home and states that she plans to call her back specialist tomorrow. I did provide prescription for 10 tablets of tramadol. Lab Data Labs: Lab Results 01/14/23 01/14/23 Range/Units 15:56 16:10 WBC 9.82 (4.50-11.00) K/uL RBC 5.70 H (4.00-5.20) m/uL Hgb 15.4 (12.0-16.0) gm/dL Hct 44.9 (33.0-51.0) % MCV 79 L (80-100) fL MCH 27 (26-34) pg MCHC 34 (32-36) gm/dL RDW Coeff of [place] 15.5 (11.5-15.5) % Plt Count 319 (140-440) K/uL Neut % (Auto) 71.0 (42.0-72.0) % Lymph % (Auto) 16.0 L (20-44) % [place] % (Auto) 12.5 H (0.0-11.0) % Eos % (Auto) 0.2 (0.0-7.0) % Baso % (Auto) 0.1 (0.0-3.0) % Neut # (Auto) 6.97 (1.7-7.0) K/uL Lymph # (Auto) 1.60 (0.90-2.90) K/uL [place] # (Auto) 1.20 H (0.00-0.90) K/UL Eos # (Auto) 0.02 (0.00-0.50) K/uL Baso # (Auto) 0.01 (0.00-0.30) K/uL Abs Immat Gran (auto) 0.02 (0.00-0.30) K/uL Imm/Tot Granulo (auto) 0.2 % Sodium Cancelled Potassium Cancelled Chloride Cancelled Carbon Dioxide Cancelled Anion Gap Cancelled BUN Cancelled Creatinine Cancelled Estimated Creat Clear Cancelled Estimated GFR Cancelled Glucose Cancelled Calcium Cancelled Total Bilirubin 0.7 (0.1-1.5) mg/dL Direct Bilirubin 0.1 (0.0-0.5) mg/dL AST 24 (12-35) U/L ALT 16 (4-35) U/L Alkaline Phosphatase 102 (40-150) U/L C-Reactive Protein < 0.5 L (0.5-1.0) mg/dL Total Protein 8.7 H (6.0-8.3) g/dL Albumin 5.2 H (3.3-5.0) g/dL Lipase 59 (23-300) U/L Urine Color [place] A (Yellow) Urine Appearance Cloudy A (Clear) Urine pH 6.0 (5.0-8.5) Ur Specific [place] >= 1.030 (1.000-1.030) Urine Protein 3+ A (Negative) Urine Glucose (UA) Negative (Negative) Urine Ketones Trace A (Negative) Urine Blood Trace-intact A (Negative) Urine Nitrite Negative (Negative) Urine Bilirubin 2+ A (Negative) Urine Urobilinogen 1.0 (0.2-1.0) Ur Leukocyte Esterase Negative (Negative) Urine RBC 0-2 (0-2) Urine WBC 0-2 (0-5) Ur Squamous Epith Cells Few (None-Few) Urine Bacteria Few A (None) Discharge Plan Discharge Clinical Impression: Back pain, Abdominal pain Patient Disposition: Home, Self-Care Condition: Unchanged Additional Instructions: Take medication as needed and directed. Follow up with primary physician or back specialist as needed. Return if worsening. Prescriptions: New tramadol 50 mg tablet 50 mg PO Q6H PRN (Reason: pain) Qty: 10 0RF No Action cyclobenzaprine 10 mg tablet 10 mg PO QPM PRN (Reason: muscle spasm) sennosides-docusate sodium [Senexon-S] 8.6-50 mg tablet PO oxcarbazepine 300 mg tablet PO Nicotrol 10 mg cartridge 10 mg INHALATION ondansetron 8 mg tablet,disintegrating 8 mg PO Q8H PRN (Reason: nausea) buspirone 30 mg tablet 30 mg PO BID promethazine 25 mg tablet 25 mg PO Q12H PRN (Reason: nausea) furosemide 20 mg tablet 20 mg PO BID doxepin 150 mg capsule 150 mg PO QPM oxycodone 5 mg tablet 5 mg PO DAILY PRN (Reason: chronic pain) Movantik 25 mg tablet 25 mg PO QAM ciprofloxacin HCl [Cipro] 250 mg tablet 250 mg PO BID Qty: 10 0RF Follow Up/Referrals: Rose Bright DO [Primary Care Provider] - Stand Alone Forms: MyHealth Info Instructions
[2023-01-14 16:17] LABS: Basophils Percent Auto 0.1 % (0.0-3.0); Eosinophils Percent Auto 0.2 % (0.0-7.0); Hematocrit 44.9 % (33.0-51.0); Hemoglobin* 15.4 gm/dL (12.0-16.0); Mean Corpuscular HGB Conc 34 gm/dL (32-36); Mean Corpuscular Hemoglobin 27 pg (26-34); Mean Corpuscular Volume 79 fL (80-100); Monocytes Percent Auto 12.5 % (0.0-11.0); Platelet Count* 319 K/uL (140-440); RDW Coefficient of Variation % 15.5 % (11.5-15.5); White Blood Count* 9.82 K/uL (4.50-11.00)
[2023-01-14 16:18] LABS: Basophils Absolute Auto 0.01 K/uL (0.00-0.30); Eosinophils Absolute Auto 0.02 K/uL (0.00-0.50); Immature Granulocytes Abs Auto 0.02 K/uL (0.00-0.30); Immature Granulocytes Pct Auto 0.2 %; Neutrophils Absolute Auto 6.97 K/uL (1.7-7.0)
[2023-01-14 16:19] LABS: Slide Review Reflex No
--- OUTSIDE RECORDS SUMMARY | 2023-01-14 16:20 | XMS_ITS | Continuity of Care Document ---
Author Name Unknown Organization [facility] Address [address] [place] [address] Phone Care Team Providers Care Mill Operator Name Role Phone RN, RN Unavailable Unavailable Allergies, Adverse Reactions, Alerts Substance Reaction Status Criticality HALOPERIDOL LACTATE Unknown Active No Infor mation haloperidol Unknown Active No Information NSAIDS (Non-Steroidal Anti-Inflammatory Drug) GI Bleed ing Active No Information METOCLOPRAMIDE HCL anxiety Active No Inform ation DIPHENHYDRAMINE HCL anxiety Active No Infor mation Medications Medication Instructions Dosage Effective Dates (start - stop) Status Comments doxepin 150 mg capsule take 1 capsule by oral route every day at bedtime 150 MG - Active Movantik 25 mg tablet take 1 tablet by oral route every day in the morning 25 MG - Active melatonin 10 mg capsule Takes 1 capsule at bed time - Active ferrous sulfate 325 mg (65 mg iron) tablet,delayed release Takes 1 table by mouth daily - Active take one tablet daily by mouth acetaminophen 500 mg capsule take 2 capsule by oral route every 8 hours as needed 1000 MG - Active promethazine 25 mg tablet take 1 tablet by oral route every 4 - 6 hours as needed 25 MG - Active oxycodone 5 mg tablet take 1 tablet by oral route daily as needed - Active furosemide 20 mg tablet take 2 tablet by oral route 2 times every day 40 MG - Active Intrathecal Fentanyl INTRATHEC - Active Intrathecal Morphine INTRATHEC - Active Intrathecal Bupivacaine INTRATHEC - Active FLEXERIL 10mg ORAL TABLET Take one tablet by mouth three times per day - Active Zofran 8 mg tablet take 1 tablet by oral route every 8 hours for 2 days - Active Procedures Procedure Date Catheter Dye Study Fluoroscopic guidance-Cath Dye Study Dec Catheter Dye Study Fluoroscopic guidance-Cath Dye Study Dec Verified No Separate Anesthesia 023 Pump Programming W/Refill Non 2022 HIT PAIN IMP PUMP DONNY Pump Programming W/Refill Non 2022 Compounded drug, not otherwise classifie d HIT PAIN IMP PUMP DONNY Pump Programming W/Refill Non 2022 Compounded drug, not otherwise classifie d HIT PAIN IMP PUMP DONNY Pump Programming W/Refill Non 2022 Compounded drug, not otherwise classifie d HIT PAIN IMP PUMP DONNY Pump Programming W/Refill Non 2022 Compounded drug, not otherwise classifie d HIT PAIN IMP PUMP DONNY Pump Programming W/Refill Non 2022 Compounded drug, not otherwise classifie d HIT PAIN IMP PUMP DONNY HIT PAIN IMP PUMP DONNY Pump Programming W/Refill Non 2022 Catheter Dye Study Fluoroscopic guidance-Cath Dye Study Apr Punct Asp Fluid Collection Fluoro Guidance - NonSpine Change Control for Procedure(s): 2022 Change Control for Modifier(s) Catheter Dye Study Fluoroscopic guidance-Cath Dye Study Apr Punct Asp Fluid Collection Fluoro Needle NonSpine Verified No Separate Anesthesia 023 HIT PAIN IMP PUMP DONNY Compounded drug, not otherwise classifie d Pump Programming W/Refill Non 2022 HIT PAIN IMP PUMP DONNY Pump Programming W/Refill Non 2022 Compounded drug, not otherwise classifie d Compounded drug, not otherwise classifie d Compounded drug, not otherwise classifie d HIT PAIN IMP PUMP DONNY Pump Programming W/Refill Non 2021 HIT PAIN IMP PUMP DONNY Pump Programming W/Refill Non 2021 Compounded drug, not otherwise classifie d Compounded drug, not otherwise classifie d Compounded drug, not otherwise classifie d HIT PAIN IMP PUMP DONNY HIT PAIN IMP PUMP DONNY HIT PAIN IMP PUMP DONNY Pump Programming W/Refill Non 2021 Compounded drug, not otherwise classifie d HIT PAIN IMP PUMP DNONY Pump Programming W/Refill Non 2021 Compounded drug, not otherwise classifie d HIT PAIN IMP PUMP DONNY Pump Programming W/Refill Non 2021 HIT PAIN IMP PUMP DONNY HIT PAIN IMP PUMP DONNY Pump Programming W/Refill Non 2021 HIT PAIN IMP PUMP DONNY Pump Programming W/Refill Non 2021 HIT PAIN IMP PUMP DONNY Pump Programming W/Refill Non 2021 HIT PAIN IMP PUMP DONNY Pump Programming W/Refill Non 2021 HIT PAIN IMP PUMP DONNY Pump Programming W/Refill Non 2020 Compounded drug, not otherwise classifie d HIT PAIN IMP PUMP DONNY HIT PAIN IMP PUMP DONNY Pump Programming W/Refill Non 2020 HIT PAIN IMP PUMP DONNY Pump Programming W/Refill Non 2020 Compounded drug, not otherwise classifie d HIT PAIN IMP PUMP DONNY Pump Programming W/Refill Non 2020 Compounded drug, not otherwise classifie d HIT PAIN IMP PUMP DONNY HIT PAIN IMP PUMP DONNY Pump Programming W/Refill Non 2020 HIT PAIN IMP PUMP DONNY Revise/Remove SCS IPG Removal Of Spenial Neurostimulator Elect rodes Removal Of Spinal Neurostimulator Electr odes Revise/Remove SCS (IPG) Pump Programming W/Refill Non 2020 HIT PAIN IMP PUMP DONNY Est Pt Eval 25 Min HIT PAIN IMP PUMP DONNY Pump Programming W/Refill Non 2020 HIT PAIN IMP PUMP DONNY Pump Programming W/Refill Non 2020 HIT PAIN IMP PUMP DONNY Pump Programming W/Refill Non 2020 HIT PAIN IMP PUMP DONNY Catheter Dye Study Fluoroscopic guidance-Cath Dye Study Jan Change Control for Diagnosis(s) Catheter Dye Study Fluoroscopic guidance-Cath Dye Study Jan Pump Programming W/Refill Non 2019 HIT PAIN IMP PUMP DONNY HIT PAIN IMP PUMP DONNY Pump Programming W/Refill Non 2019 HIT PAIN IMP PUMP DONNY Pump Programming W/Refill Non 2019 HIT PAIN IMP PUMP DONNY HIT PAIN IMP PUMP DONNY Pump Programming W/Refill Non 2019 HIT PAIN IMP PUMP DONNY HIT PAIN IMP PUMP DONNY Pump Programming W/Refill Non 2019 HIT PAIN IMP PUMP DONNY Pump Programming W/Refill Non 2019 HIT PAIN IMP PUMP DONNY HIT PAIN IMP PUMP DONNY Pump Programming W/Refill Non 2019 HIT PAIN IMP PUMP DONNY Pt Seen-No Charge, Per Physician 2019 HIT PAIN IMP PUMP DONNY Pump Programming W/Refill Non 2018 HIT PAIN IMP PUMP DONNY Pump Programming W/Refill Non 2018 HIT PAIN IMP PUMP DONNY Est Pt Eval 25 Min Est Pt Eval 25 Min Pump Programming W/Refill Non 2018 Est Pt Eval 25 Min Pump Programming W/Refill Non 2018 Toxicology Test Group C Est Pt Eval 25 Min Pump Programming W/Refill Non 2018 Toxicology Test Group C No Show Visit Fee Est Pt Eval 25 Min Pump Programming W/Refill Non 2018 Est Pt Eval 25 Min Electronic Anal. W/O Reprogram 19 Est Pt Eval 25 Min Electronic Anal. W/O Reprogram 19 Est Pt Eval 25 Min Electronic Anal. W/O Reprogram 19 Est Pt Eval 25 Min Pump Programming W/Refill Non 2018 Global Postop Visit Implant SCS Epidi Lead Implant SCS Epidi Lead Implant SCS IPG Implant SCS Epi Lead Implant SCS IPG Implant SCS IPG Implant SCS Epi Lead Implant SCS Epi Lead Global Postop Visit Implant SCS Epidi Lead Implant SCS Epidi Lead Moderate Sedation (older Than 5 Years) D Implant SCS Epi Lead Stim Analysis W Reprog Moderate Sedation (older Than 5 Years) D Moderate Sedation (older Than 5 Years) A ddl 15 Min Implant SCS Epi Lead Implant SCS Epi Lead Adverse Events did not occur Est Pt Eval 25 Min Pump Programming W/Refill Non 2017 PT Eval - Moderate Complexity 8 Therapeutic Activities Mobility: Walking & Moving Around, Curre nt Mobility: Walking & Moving Around, Goal Psychiatric Diagnostic Evaluation Est Pt Eval 25 Min Electronic Anal. W/O Reprogram 18 Est Pt Eval 25 Min Elec Analys Progrm Pump; W/rep Global Postop Visit No Show Visit Fee Implant SCS Epi Lead Stim Analysis W Reprog Moderate Sedation (older Than 5 Years) A ddl 15 Min Moderate Sedation (older Than 5 Years) O Implant SCS Epi Lead Implant SCS Epi Lead Adverse Events did not occur Implant SCS Epidi Lead Implant SCS Epidi Lead Moderate Sedation (older Than 5 Years) O Moderate Sedation (older Than 5 Years) A ddl 15 Min Est Pt Eval 25 Min Elec Analys Progrm Pump; W/rep 18 No Show Visit Fee Est Pt Eval 25 Min Pump Programming W/Refill Non 2017 Pump Meds See Narative Est Pt Eval 25 Min Elec Analys Progrm Pump; W/rep 18 Est Pt Eval 25 Min Elec Analys Progrm Pump; W/rep 18 Est Pt Eval 25 Min Elec Analys Progrm Pump; W/rep 18 Est Pt Eval 25 Min Elec Analys Progrm Pump; W/rep 18 Est Pt Eval 25 Min Elec Analys Progrm Pump; W/rep 18 Est Pt Eval 25 Min Elec Analys Progrm Pump; W/rep 18 Inj Lumbar Epidural Bld/clot P 18 Fluoro Guidance - Spine Inj Lumbar Epidural Bld/clot P 18 Fluoro Guidance - Spine Adverse Events did not occur Epidural Blood Patch Fluoroscopic Guidance For Needle Placeme nt - Spine Moderate Sedation (older Than 5 Years) J Implant/Revise Spine Cath Implant/Replace Prog Pump Implant/Replace Prog Pump Implant/Revise Spine Cath Adverse Events did not occur Implant/Revision Spine Cath Implant/Replace Prog Pump No Show Visit Fee Aquatic Therapy Global Postop Visit Moderate Sedation (older Than 5 Years) J Epidurography Rad S&i Implant/Revise Spine Cath Implant/Revise Spine Cath Adverse Events did not occur Implant/Revision Spine Cath Moderate Sedation (older Than 5 Years) J Moderate Sedation (older Than 5 Years) A ddl 15 Min No Show Visit Fee Neuromuscular Re-education Therapeutic Exercise PT Eval - Moderate Complexity 8 Neuromuscular Re-education Mobility: Walking & Moving Around, Curre nt Mobility: Walking & Moving Around, Goal Inj Anes Agent; Celiac Plexus 8 Inj Anes Agent; Celiac Plexus 8 Celiac Plexus Moderate Sedation (older Than 5 Years) J Moderate Sedation (older Than 5 Years) A ddl 15 Min Est Pt Eval 15 Min Inj Anes Agent; Celiac Plexus 8 Inj Anes Agent; Celiac Plexus 8 Celiac Plexus Moderate Sedation (older Than 5 Years) J New Pt Eval 60 Min Drug Test Prsmv Dir Opt Obs Advance Directives Directive Yes / No Effective Date File Name No Information Encounters Encounter Description Practice Location Reason(s) For Visit Diagnoses Date Provider Providers Copied on Encounter [facility], [address], [place], [place], [address], [place] tel:[phone] Home Visit No Information 3 RN RN. [address], [place], [place], [address], [place]. tel:[phone] [facility], [address], [place], [address], [place] tel:[phone] [facility] CDS (chief complaint) Postlaminectom y syndrome, not elsewhere classifiedOthe r spondylosis with radiculopathy, lumbar regionOther intervertebral disc degeneration, lumbar regionOpioid dependence, uncomplicated 3 [facility]. [address], [place], [place], [address], [place]. tel:[phone] Referring Provider: Laine Diallo , [address], [place], [address]. tel:[phone] [facility], [address], [place], [place], [address], [place] tel:[phone] [facility] [place] No Information 3 Yoel Jang. [address], [place], [address], [place]. tel:[phone] Referring Provider: Laine Diallo , [address], [place], [address]. tel:[phone] [facility], [address], [place], [place], [address], [place] tel:[phone] [facility] No Information 3 Yoel Jang. [address], [place], [address], [place]. tel:[phone] Referring Provider: Laine Diallo , [address], [place], [address]. tel:[phone] [facility], [address], [place], [place], [address], [place] tel:[phone] Home Visit Pump Visit (chief complaint) Chronic pain syndromePostla minectomy syndrome, not elsewhere classifiedChro raina pain syndrome 3 [facility]OR[facility]. [address], [address], [place], [address], [place]. tel:[phone] Referring Provider: Rose ADAN, [address] [place], [place], [address]. tel:[phone] [facility], [address], [place], [place], [address], [place] tel:[phone] Home Visit No Information 3 CARLOS MANUEL HOROWITZ. [address], [place], [address], [place]. tel:[phone] Referring Provider: Rose ADAN, [address] [facility], [place], [address]. tel:[phone] [facility], [address], [place], [place], [address], [place] tel:[phone] Home Visit Pump Visit (chief complaint) Unspecified abdominal painPostlamine ctomy syndrome, not elsewhere classifiedUnsp ecified abdominal pain Oct- 3 RN RN. [address], [place], [address], [place]. tel:[phone] Referring Provider: Rose ADAN, [address] [facility], [place], [address]. tel:[phone] [facility], [address], [place], [address], [place] tel:[phone] Home Visit No Information 3 RN RN. [address], [place], [address], [place]. tel:[phone] Referring Provider: Rose ADAN, [address], [place], [address]. tel:[phone] [facility], [address], [place], [address], [place] tel:[phone] Home Visit Abdominal pain (chief complaint) Postlaminectom y syndrome, not elsewhere classifiedUnsp ecified abdominal painChronic pain syndromePostla minectomy syndrome, not elsewhere classified 3 RN RN. [address], [place], [address], [place]. tel:[phone] Referring Provider: Rose ADAN, [address] [facility], [place], [address]. tel:[phone] [facility], [address], [place], [address], [place] tel:[phone] Home Visit No Information 3 RN RN. [address], [place], [address], [place]. tel:[phone] Referring Provider: Rose ADAN, [address] [facility], [place], [address]. tel:[phone] [facility], [address], [place], [place], [address], [place] tel:[phone] Home Visit Pump Visit (chief complaint) Postlaminectom y syndrome, not elsewhere classifiedPost laminectomy syndrome, not elsewhere classified 3 RN RN. [address], [place], [address], [place]. tel:[phone] Referring Provider: Rose ADAN, [address] [facility], [place], [address]. tel:[phone] [facility], [address], [place], [address], [place] tel:[phone] Home Visit No Information 3 RN RN. [address], [place], [address], [place]. tel:[phone] Referring Provider: Rose ADAN, [address] [facility], [place], [address]. tel:[phone] [facility], [address], [place], [address], [place] tel:[phone] Home Visit Abdominal pain (chief complaint) Postlaminectom y syndrome, not elsewhere classifiedComp rudy regional pain syndrome I of other specified siteChronic pain syndromePostla minectomy syndrome, not elsewhere classified 3 RN RN. [address], [address], [place], [place], [address], [place]. tel:[phone] Referring Provider: Rose ADAN, [address] [facility], [place], [address]. tel:[phone] [facility], [address], [place], [place], [address], [place] tel:[phone] Home Visit No Information 3 RN RN. [address], [place], [place], [address], [place]. tel:[phone] Referring Provider: Rose ADAN, [address] [place], [address]. tel:[phone] [facility], [address], [place], [address], [place] tel:[phone] Home Visit Abdominal pain (chief complaint) Postlaminectom y syndrome, not elsewhere classifiedUnsp ecified abdominal painChronic pain syndromePostla minectomy syndrome, not elsewhere classified 3 RN RN. [address], [place], [address], [place]. tel:[phone] Referring Provider: Rose ADAN, [address] [place], [address]. tel:[phone] [facility], [address], [place], [address], [place] tel:[phone] Home Visit No Information 3 RN RN. [address], [place], [address], [place]. tel:[phone] Referring Provider: Rose ADAN, [address] [place], [address]. tel:[phone] [facility], [address], [address], [place] tel:[phone] Home Visit No Information 3 RN RN. [address], [place], [place], [address], [place]. tel:[phone] Referring Provider: Rose ADAN, [address] [place], [address]. tel:[phone] [facility], [address], [place], [place], [address], [place] tel:[phone] Home Visit Pump Visit (chief complaint) Postlaminectom y syndrome, not elsewhere classifiedPost laminectomy syndrome, not elsewhere classified 3 RN RN. [address], [place], [place], [address], [place]. tel:[phone] Referring Provider: Rose ADAN, [address] [place], [place], [address]. tel:[phone] [facility], [address], [place], [place], [address], [place] tel:[phone] [facility] [place] No Information 3 Mannie Price. [address], [place], [address], [place]. tel:[phone] Referring Provider: Albert Chand [address], [place], [address]. tel:[phone] [facility], [address], [place], [address], [place] tel:[phone] [facility] Ev back pain (chief complaint) Postlaminectom y syndrome, not elsewhere classifiedGene ralized abdominal painPostlamine ctomy syndrome, not elsewhere classifiedGene ralized abdominal pain 3 [facility]. [address], [place], [place], [address], [place]. tel:[phone] Referring Provider: Albert Chand [address], [place], [address]. tel:[phone] [facility], [address], [place], [place], [address], [place] tel:[phone] [facility] [place] No Information 3 Mannie Price. [address], [place], [address], [place]. tel:[phone] Referring Provider: Albert Chand, [address], [place], [address]. tel:[phone] [facility], [address], [place], [place], [address], [place] tel:[phone] Home Visit No Information 3 RN RN. [address], [place], [address], [place]. tel:[phone] Referring Provider: Rose ADAN, [address] [facility], [place], [address]. tel:[phone] [facility], [address], [place], [place], [address], [place] tel:[phone] Home Visit Abdominal pain (chief complaint) Complex regional pain syndrome I of lower limb, bilateralPostl aminectomy syndrome, not elsewhere classifiedComp rudy regional pain syndrome I of lower limb, bilateral 3 RN RN. [address], [place], [place], [address], [place]. tel:[phone] Referring Provider: Rose ADAN, [address] [facility], [place], [address]. tel:[phone] [facility], [address], [place], [place], [address], [place] tel:[phone] Home Visit No Information 3 RN RN. [address], [place], [place], [address], [place]. tel:[phone] Referring Provider: Rose ADAN, [address] [facility], [place], [address]. tel:[phone] [facility], [address], [address], [place] tel:[phone] Home Visit Abdominal pain (chief complaint) Postlaminectom y syndrome, not elsewhere classifiedPost laminectomy syndrome, not elsewhere classified 3 RN RN. [address], [place], [address], [place]. tel:[phone] Referring Provider: Rose ADAN, [address] [facility], [place], [address]. tel:[phone] [facility], [address], [address], [place] tel:[phone] Home Visit No Information 3 RN RN. [address], [place], [address], [place]. tel:[phone] Referring Provider: Rose ADAN, [address] [facility], [place], [address]. tel:[phone] [facility], [address], [address], [place] tel:[phone] Home Visit Abdominal pain (chief complaint) Postlaminectom y syndrome, not elsewhere classifiedPost laminectomy syndrome, not elsewhere classified 2 RN RN. [address], [place], [address], [place]. tel:[phone] Referring Provider: Rose ADAN, [address] [facility], [place], [address]. tel:[phone] [facility], [address], [place], [place], [address], [place] tel:[phone] Home Visit No Information 2 RN RN. [address], [place], [place], [address], [place]. tel:[phone] Referring Provider: Rose ADAN, [address] [place], [address]. tel:[phone] [facility], [address], [place], [place], [address], [place] tel:[phone] Home Visit Abdominal pain (chief complaint) Complex regional pain syndrome I of other specified sitePostlamine ctomy syndrome, not elsewhere classifiedChro raina pain syndromeComple x regional pain syndrome I of other specified site 2 RN RN. [address], [place], [address], [place]. tel:[phone] Referring Provider: Rose ADAN, [address] [place], [address]. tel:[phone] [facility], [address] [facility], [place], [address], [place] tel:[phone] Home Visit No Information 2 RN RN. [address], [place], [address], [place]. tel:[phone] Referring Provider: Rose ADAN, [address] [place], [address]. tel:[phone] [facility], [address], [place], [address], [place] tel:[phone] Home Visit Abdominal pain (chief complaint) Generalized abdominal painPostlamine ctomy syndrome, not elsewhere classifiedComp rudy regional pain syndrome I of lower limb, bilateral Nov- 2 RN RN. [address], [place], [address], [place]. tel:[phone] Referring Provider: Rose ADAN, [address] [facility], [place], [address]. tel:[phone] [facility], [address], [place], [address], [place] tel:[phone] Home Visit No Information 2 RN RN. [address], [place], [address], [place]. tel:[phone] Referring Provider: Rose ADAN, [address] [facility], [place], [address]. tel:[phone] [facility], [address] [facility] [address], [place], [address], [place] tel:[phone] Home Visit Postlaminectom y syndrome, not elsewhere classifiedPain disorder with related psychological factorsComplex regional pain syndrome I of lower limb, bilateral Oct- 2 RN RN. [address], [place], [address], [place]. tel:[phone] Referring Provider: Rose ADAN, [address] [facility], [place], [address]. tel:[phone] [facility], [address] [facility], [address], [place] tel:[phone] Home Visit No Information 2 RN RN. [address], [place], [address], [place]. tel:[phone] Referring Provider: Rose ADAN, [address] [facility], [place], [address]. tel:[phone] [facility], [address], [place], [place], [address], [place] tel:[phone] Home Visit Abdominal pain (chief complaint) Postlaminectom y syndrome, not elsewhere classifiedPost laminectomy syndrome, not elsewhere classified 2 RN RN. [address], [place], [place], [address], [place]. tel:[phone] Referring Provider: Rose ADAN, [address] [facility], [place], [address]. tel:[phone] [facility], [address], [place], [place], [address], [place] tel:[phone] Home Visit No Information 2 RN RN. [address], [place], [address], [place]. tel:[phone] Referring Provider: Rose ADAN, [address] [facility], [place], [address]. tel:[phone] [facility], [address], [place], [place], [address], [place] tel:[phone] Home Visit Abdominal pain (chief complaint) Postlaminectom y syndrome, not elsewhere classifiedChro raina pain syndromePostla minectomy syndrome, not elsewhere classified 2 RN RN. [address], [place], [place], [address], [place]. tel:[phone] Referring Provider: Rose ADAN, [address] [facility], [place], [address]. tel:[phone] [facility], [address], [place], [place], [address], [place] tel:[phone] Home Visit No Information 2 RN RN. [address] , [address] [address], [place], [place], [address], [place]. tel:[phone] Referring Provider: Rose ADAN, [address] [facility], [place], [address]. tel:[phone] [facility], [address], [place], [address], [place] tel:[phone] Home Visit Abdominal pain (chief complaint) Postlaminectom y syndrome, not elsewhere classifiedChro raina pain syndromePostla minectomy syndrome, not elsewhere classified 2 RN RN. [address] , [address], [place], [address], [place]. tel:[phone] Referring Provider: Rose ADAN, [address] [facility], [place], [address]. tel:[phone] [facility], [address] [facility], [place], [address], [place] tel:[phone] Home Visit No Information 2 RN RN. [address] , [address], [place], [address], [place]. tel:[phone] Referring Provider: Rose ADAN, [address] [facility], [place], [address]. tel:[phone] [facility], [address], [place], [address], [place] tel:[phone] Home Visit No Information 2 RN RN. [address] , [address], [place], [address], [place]. tel:[phone] Referring Provider: Rose ADAN, [address] [facility], [place], [address]. tel:[phone] BRADY GarciaC, [address], [place], [place], [address], [place] tel:[phone] Home Visit Pump Visit (chief complaint) Generalized abdominal painChronic pain syndromeGenera lized abdominal pain May- 2 RN RN. [address], [address], [place], [address], [place]. tel:[phone] Referring Provider: Rose ADAN, [address] [facility], [place], [address]. tel:[phone] BRADY GarciaC, [address], [place], [address], [place] tel:[phone] Home Visit No Information 2 RN RN. [address], [address], [place], [address], [place]. tel:[phone] Referring Provider: Rose ADAN, [address] [facility], [place], [address]. tel:[phone] BRADY GarciaC, [address], [place], [address], [place] tel:[phone] Home Visit Abdominal pain (chief complaint) Postlaminectom y syndrome, not elsewhere classifiedChro raina pain syndromePostla minectomy syndrome, not elsewhere classified 2 RN RN. [address], [address], [place], [address], [place]. tel:[phone] Referring Provider: Rose ADAN, [address] [facility], [place], [address]. tel:[phone] [facility], [address], [place], [address], [place] tel:[phone] Home Visit No Information 2 RN RN. [address], [address], [place], [place], [address], [place]. tel:[phone] Referring Provider: Rose ADAN, [address], [place], [address]. tel:[phone] BRADY GarciaC, [address] [facility] 220[place], [place], [address], [place] tel:[phone] Home Visit Abdominal pain (chief complaint) Chronic pain syndromePostla minectomy syndrome, not elsewhere classifiedChro raina pain syndrome 2 RN RN. [address] , [address], [place], [address], [place]. tel:[phone] Referring Provider: Rose ADAN, [address] [facility], [place], [address]. tel:[phone] [facility], [address] [facility] 220[place], [place], [address], [place] tel:[phone] Home Visit No Information 2 RN RN. [address] , [address], [place], [address], [place]. tel:[phone] Referring Provider: Rose ADAN, [address] [facility], [place], [address]. tel:[phone] [facility], [address] [facility] 220[place], [place], [address], [place] tel:[phone] Home Visit Abdominal pain (chief complaint) Postlaminectom y syndrome, not elsewhere classifiedPost laminectomy syndrome, not elsewhere classified 2 RN RN. [address] , [address], [place], [address], [place]. tel:[phone] Referring Provider: Rose ADAN, [address], [place], [address]. tel:[phone] OSCAR Garcia, [address], [place], [place], [address], [place] tel:[phone] Home Visit No Information 2 RN RN. [address], [address], [place], [place], [address], [place]. tel:[phone] Referring Provider: Rose ADAN, [address] [facility], [place], [address]. tel:[phone] OSCAR Garcia, [address], [place], [place], [address], [place] tel:[phone] Home Visit Abdominal pain (chief complaint) Chronic pain syndromePostla minectomy syndrome, not elsewhere classifiedChro raina pain syndrome 1 RN RN. [address], [address], [place], [place], [address], [place]. tel:[phone] Referring Provider: Rose ADAN, [address] [facility], [place], [address]. tel:[phone] OSCAR Garcia, [address], [place], [place], [address], [place] tel:[phone] Home Visit No Information 1 RN RN. [address], [address], [place], [address], [place]. tel:[phone] Referring Provider: Rose ADAN, [address] [facility], [place], [address]. tel:[phone] OSCAR Garcia, [address], [address], [place] tel:[phone] Home Visit No Information 1 RN RN. [address], [address], [place], [address], [place]. tel:[phone] Referring Provider: Rose ADAN, [address] [facility], [place], [address]. tel:[phone] OSCAR Garcia, [address], [place], [address], [place] tel:[phone] Home Visit Abdominal pain (chief complaint) Postlaminectom y syndrome, not elsewhere classifiedChro raina pain syndromeUnspec ified abdominal painPostlamine ctomy syndrome, not elsewhere classified 1 RN RN. [address], [address], [place], [address], [place]. tel:[phone] Referring Provider: Rose ADAN, [address] [facility], [place], [address]. tel:[phone] OSCAR Garcia, [address] [facility] 220[place], [place], [address], [place] tel:[phone] Home Visit No Information 1 RN RN. [address], [address], [place], [address], [place]. tel:[phone] Referring Provider: Rose ADAN, [address] [facility], [place], [address]. tel:[phone] OSCAR Garcia, [address], [place], [address], [place] tel:[phone] Home Visit Generalized abdominal painChronic pain syndromeGenera lized abdominal pain 1 RN RN. [address], [address], [place], [address], [place]. tel:[phone] Referring Provider: Rose ADAN, [address] [facility], [place], [address]. tel:[phone] BRADY GarciaC, [address], [place], [address], [place] tel:[phone] Home Visit No Information 1 RN RN. [address] , [address], [place], [address], [place]. tel:[phone] Referring Provider: Rose ADAN, [address] [facility], [place], [address]. tel:[phone] BRADY GarciaC, [address] [facility], [place], [place], [address], [place] tel:[phone] Home Visit Chronic pain syndromePostla minectomy syndrome, not elsewhere classifiedChro raina pain syndrome [address] , [address], [place], [address], [place]. tel:[phone] Referring Provider: Rose ADAN, [address], [place], [address]. tel:[phone] [facility], [address] [facility] 220[place], [place], [address], [place] tel:[phone] Home Visit No Information 1 RN RN. [address] [facility], [address], [place], [address], [place]. tel:[phone] Referring Provider: Rose ADAN, [address], [place], [address]. tel:[phone] [facility], [address] [facility] 220[place], [place], [address], [place] tel:[phone] Home Visit No Information 1 RN RN. [address] , [address], [place], [address], [place]. tel:[phone] Referring Provider: Rose ADAN, [address], [place], [address]. tel:[phone] [facility] [address] [facility] [address], [place], [place], [address], [place] tel:[phone] Home Visit Abdominal pain (chief complaint) Postlaminectom y syndrome, not elsewhere classifiedChro raina pain syndromePostla minectomy syndrome, not elsewhere classified 1 RN RN. [address] [facility], [address], [place], [place], [address], [place]. tel:[phone] Referring Provider: Rose ADAN, [address], [place], [address]. tel:[phone] [facility], [address] [facility], [place], [place], [address], [place] tel:[phone] Home Visit No Information 1 RN CARLOS MANUEL. [address] [facility], [address], [place], [address], [place]. tel:[phone] Referring Provider: Rose ADAN, [address], [place], [address]. tel:[phone] [facility], [address] [facility], [address], [place], [address], [place] tel:[phone] [facility] Surgical [facility] back pain (chief complaint) Complex regional pain syndrome I of lower limb, bilateral 1 Brea Mendieta. [address], [place], [place], [address], [place]. tel:[phone] Referring Provider: Anam Wiley, [address], [place], [address] . tel:[phone] [facility], [address] [facility] [address], [place], [place], [address], [place] tel:[phone] [facility] No Information 1 Brea Mendieta. [address], [place], [place], [address], [place]. tel:[phone] Referring Provider: Rose ADAN, [address], [place], [address]. tel:[phone] OSCAR Garcia, [address], [place], [place], [address], [place] tel:[phone] [facility] Complex regional pain syndrome I of lower limb, bilateral 1 Jackie Thompson. [address], [place], [address], [place]. tel:[phone] Referring Provider: Rose ADAN, [address], [place], [address]. tel:[phone] BRADY Garcia, [address], [place], [address], [place] tel:[phone] Home Visit Chronic pain syndromeGenera lized abdominal painChronic pain syndrome 1 CARLOS MANUEL HOROWITZ. [address] , [address], [place], [place], [address], [place]. tel:[phone] Referring Provider: Rose ADAN, [address], [place], [address]. tel:[phone] [facility], [address], [place], [address], [place] tel:[phone] Home Visit No Information 1 CARLOS MANUEL HOROWITZ. [address], [address], [place], [address], [place]. tel:[phone] Referring Provider: Rose ADAN, [address] [facility], [place], [address]. tel:[phone] Est Pt Eval 25 Min BRADY Garcia, [address], [place], [address], [place] tel:[phone] [facility] back pain (chief complaint) Complex regional pain syndrome I of lower limb, bilateralPostl aminectomy syndrome, not elsewhere classified Apr-2 1 Brea Lacey. [address] [facility] 220[place], [place], [address], [place]. tel:[phone] Referring Provider: Rose ADAN, [address], [place], [address]. tel:[phone] OSCAR Garcia, [address], [place], [address], [place] tel:[phone] Home Visit No Information 1 RN CARLOS MANUEL. [address] , [address], [place], [address], [place]. tel:[phone] Referring Provider: Rose ADAN, [address], [place], [address]. tel:[phone] OSCAR Garcia, [address] [facility] 220[place], [place], [address], [place] tel:[phone] Home Visit Unspecified abdominal painUnspecifie d abdominal pain Apr- 1 RN CARLOS MANUEL. [address] , [address], [place], [address], [place]. tel:[phone] Referring Provider: Rose ADAN, [address], [place], [address]. tel:[phone] OSCAR Garcia, [address] [facility] 220[place], [place], [address], [place] tel:[phone] Home Visit No Information 1 RN CARLOS MANUEL. [address] , [address], [place], [address], [place]. tel:[phone] Referring Provider: Rose ADAN, [address], [place], [address]. tel:[phone] BRADY GarciaC, [address], [place], [place], [address], [place] tel:[phone] Home Visit Postlaminectom y syndrome, not elsewhere classifiedLow back painPostlamine ctomy syndrome, not elsewhere classified 1 RN RN. [address], [address], [place], [place], [address], [place]. tel:[phone] Referring Provider: Rose ADAN, [address] [place], [address]. tel:[phone] [facility], [address], [place], [place], [address], [place] tel:[phone] Home Visit No Information 1 RN RN. [address], [address], [place], [place], [address], [place]. tel:[phone] Referring Provider: Rose ADAN, [address], [place], [address]. tel:[phone] BRADY GarciaC, [address], [place], [place], [address], [place] tel:[phone] Home Visit Postlaminectom y syndrome, not elsewhere classifiedPost laminectomy syndrome, not elsewhere classified 1 RN RN. [address], [address], [place], [place], [address], [place]. tel:[phone] Referring Provider: Rose ADAN, [address], [place], [address]. tel:[phone] [facility], [address], [place], [place], [address], [place] tel:[phone] Home Visit No Information 1 RN RN. [address], [address], [place], [place], [address], [place]. tel:[phone] Referring Provider: Rose Bright DO S, [address], [place], [address]. tel:[phone] [facility], [address], [address], [place], [address], [place] tel:[phone] [facility] Ev Chest pain (chief complaint) Complex regional pain syndrome I of other specified siteGeneralize d abdominal painNeuralgia and neuritis, unspecifiedOpi oid dependence, uncomplicatedC omplex regional pain syndrome I of other specified siteGeneralize d abdominal painNeuralgia and neuritis, unspecifiedOpi oid dependence, uncomplicated 0 [facility]. [address] [facility] [address], [place], [place], [address], [place]. tel:[phone] Referring Provider: Ney Kovacs, [address] [facility] [address], [place], [address]. tel:[phone] [facility], [facility], [address], [place], [place], [address], [place] tel:[phone] [facility] Ev No Information 0 Gavin Brewster. [address], [place], [address], [place]. tel:[phone] Referring Provider: Ney Kovacs, [address] [facility] [address], [place], [address]. tel:[phone] [facility], [facility], [address], [place], [place], [address], [place] tel:[phone] Home Visit Postlaminectom y syndrome, not elsewhere classifiedChro raina pain syndromePostla minectomy syndrome, not elsewhere classified 0 RN RN. [address], [address], [place], [place], [address], [place]. tel:[phone] Referring Provider: Rose ADAN, [address] [place], [place], [address]. tel:[phone] BRADY GarciaC, [address], [place], [place], [address], [place] tel:[phone] Home Visit No Information 0 RN RN. [address], [address], [place], [place], [address], [place]. tel:[phone] Referring Provider: Rose ADAN, [address] [facility], [place], [address]. tel:[phone] BRADY GarciaC, [address], [address], [place] tel:[phone] Home Visit No Information 0 RN RN. [address], [address], [place], [place], [address], [place]. tel:[phone] Referring Provider: Rose ADAN, [address] [place], [address]. tel:[phone] [facility], [address], [place], [place], [address], [place] tel:[phone] Home Visit No Information 0 Antonino Middleton. [address], [place], [address], [place]. tel:[phone] [facility], [address], [place], [place], [address], [place] tel:[phone] Home Visit Postlaminectom y syndrome, not elsewhere classifiedChro raina pain syndromePostla minectomy syndrome, not elsewhere classified 0 RN RN. [address], [address], [place], [place], [address], [place]. tel:[phone] Referring Provider: Rose ADAN, [address], [place], [address]. tel:[phone] [facility], [address], [place], [place], [address], [place] tel:[phone] Home Visit No Information 0 RN RN. [address], [address], [place], [address], [place]. tel:[phone] Referring Provider: Rose ADAN, [address], [place], [address]. tel:[phone] [facility], [address], [address], [place] tel:[phone] Home Visit Postlaminectom y syndrome, not elsewhere classifiedChro raina pain syndromePostla minectomy syndrome, not elsewhere classified 0 RN RN. [address], [address], [place], [place], [address], [place]. tel:[phone] Referring Provider: Rose ADAN, [address], [place], [address]. tel:[phone] [facility], [address], [place], [address], [place] tel:[phone] Home Visit No Information 0 RN RN. [address], [address], [place], [address], [place]. tel:[phone] Referring Provider: Rose ADAN, [address], [place], [address]. tel:[phone] [facility], [address], [place], [place], [address], [place] tel:[phone] Home Visit No Information 0 RN RN. [address], [address], [place], [place], [address], [place]. tel:[phone] Referring Provider: Rose ADAN, [address], [place], [address]. tel:[phone] [facility], [address], [place], [place], [address], [place] tel:[phone] Home Visit Abdominal pain (chief complaint) Unspecified abdominal painUnspecifie d abdominal pain 0 RN RN. [address], [address], [place], [address], [place]. tel:[phone] Referring Provider: Rose ADAN, [address], [place], [address]. tel:[phone] [facility], [address], [place], [place], [address], [place] tel:[phone] Home Visit No Information 0 RN RN. [address], [address], [place], [address], [place]. tel:[phone] Referring Provider: Rose ADAN, [address], [place], [address]. tel:[phone] [facility], [address], [place], [address], [place] tel:[phone] Home Visit No Information 0 RN RN. [address], [address], [place], [address], [place]. tel:[phone] Referring Provider: Rose ADAN, [address] [place], [address]. tel:[phone] OSCAR Garcia, [address], [address], tel:[phone] Home Visit Abdominal pain (chief complaint) back pain (chief complaint) bilateral ankle pain (chief complaint) bilateral foot pain (chief complaint) Generalized abdominal painPostlamine ctomy syndrome, not elsewhere classifiedChro raina pain syndromeGenera lized abdominal pain 0 RN RN. [address] [facility] 220[place], [place], [address], [place]. tel:[phone] Referring Provider: Rose ADAN, [address] [place], [address]. tel:[phone] OSCAR Garcia, [address], [address] [place] [address], tel:[phone] Home Visit No Information June-0 0 RN RN. [address], [address] [place] [address], . tel:[phone] Referring Provider: Rose ADAN, [address] [place], [address]. tel:[phone] OSCAR Garcia, [address], [address], tel:[phone] Home Visit Abdominal pain (chief complaint) bilateral ankle pain (chief complaint) bilateral foot pain (chief complaint) Generalized abdominal painGeneralize d abdominal pain May-0 0 RN RN. [address] [facility], [address], [place], [address], . tel:[phone] Referring Provider: Rose ADAN, [address] [place], [place], [address]. tel:[phone] OSCAR Garcia, [address], [place], [place], [address], [place] tel:[phone] Home Visit No Information 0 RN RN. [address], [address], [place], [place], [address], [place]. tel:[phone] Referring Provider: Rose ADAN, [address], [place], [address]. tel:[phone] [facility], [address], [place], [place], [address], [place] tel:[phone] Home Visit No Information 0 RN RN. [address], [address], [place], [address], [place]. tel:[phone] Referring Provider: Rose ADAN, [address], [place], [address]. tel:[phone] [facility], [address], [place], [place], [address], [place] tel:[phone] Home Visit Abdominal pain (chief complaint) Generalized abdominal painGeneralize d abdominal pain 0 RN RN. [address], [address], [place], [place], [address], [place]. tel:[phone] Referring Provider: Rose ADAN, [address], [place], [address]. tel:[phone] [facility], [address], [place], [place], [address], [place] tel:[phone] Home Visit No Information 0 RN RN. [address], [address], [place], [address], [place]. tel:[phone] Referring Provider: Rose ADAN, [address], [place], [address]. tel:[phone] BRADY GarciaC, [address], [place], [address], [place] tel:[phone] [facility] Postlaminectom y syndrome, not elsewhere classified 0 RN RN. [address], [address], [place], [address], [place]. tel:[phone] Referring Provider: Rose ADAN, [address], [place], [address]. tel:[phone] [facility], [address], [place], [address], [place] tel:[phone] Home Visit No Information 0 RN RN. [address], [address], [place], [address], [place]. tel:[phone] Referring Provider: Rose ADAN, [address], [place], [address]. tel:[phone] [facility], [address], [place], [address], [place] tel:[phone] Home Visit Abdominal pain (chief complaint) Generalized abdominal painUnspecifie d abdominal painUnspecifie d abdominal pain 9 RN RN. [address], [address], [place], [address], [place]. tel:[phone] Referring Provider: Rose ADAN, [address], [place], [address]. tel:[phone] [facility], [address], [address], [place] tel:[phone] Home Visit No Information 9 RN RN. [address] , [address], [place], [place], [address], [place]. tel:[phone] Referring Provider: Rose ADAN, [address] [facility] [place], [address]. tel:[phone] Jose, [facility], [address], [place], [place], [address], [place] tel:[phone] Home Visit back pain (chief complaint) Postlaminectom y syndrome, not elsewhere classifiedEnco unter for adjustment and management of infusion pumpPostlamine ctomy syndrome, not elsewhere classified 9 RN RN. [address] , [address], [place], [address], [place]. tel:[phone] Referring Provider: Rose ADAN, [address] [place], [address]. tel:[phone] Jose, [facility], [address], [place], [address], [place] tel:[phone] Home Visit No Information 9 RN RN. [address] , [address], [place], [address], [place]. tel:[phone] Referring Provider: Rose ADAN, [address] [place], [address]. tel:[phone] Est Pt Eval 25 Min [facility], [facility], [address], [place], [place], [address], [place] tel:[phone] [facility] back pain (chief complaint) Generalized abdominal painPostlamine ctomy syndrome, not elsewhere classifiedComp rudy regional pain syndrome I of lower limb, bilateralOpioi d dependence, uncomplicated 9 Antonino Middleton. [address], [place], [address], [place]. tel:[phone] Referring Provider: Rose ADAN, [address] [place], [address]. tel:[phone] Est Pt Eval 25 Min [facility], [address], [place], [place], [address], [place] tel:[phone] [facility] Not Listed (chief complaint) Low back painPostlamine ctomy syndrome, not elsewhere classifiedPain in left kneeGeneralize d abdominal painNeuralgia and neuritis, unspecifiedRad iculopathy, lumbar regionComplex regional pain syndrome I of other specified siteLow back pain 9 Antonino Middleton. [address], [place], [address], [place]. tel:[phone] Referring Provider: Rose ADAN, [address] [place], [address]. tel:[phone] Est Pt Eval 25 Min [facility], [address], [place], [place], [address], [place] tel:[phone] [facility] Abdominal Pain (chief complaint) Neuralgia and neuritis, unspecifiedEnc ounter for adjustment and management of infusion pumpComplex regional pain syndrome I of other specified siteLong term (current) use of opiate analgesicPain in left kneeOpioid dependence, uncomplicatedN euralgia and neuritis, unspecified 9 Jackie Thompson. [address], [place], [place], [address], [place]. tel:[phone] Referring Provider: Rose ADAN, [address] [place], [address]. tel:[phone] [facility], [address], [place], [place], [address], [place] tel:[phone] [facility] No Information 9 Jackie Thompson. [address], [place], [place], [address], [place]. tel:[phone] Referring Provider: Rose ADAN, [address] [facility] [place], [address]. tel:[phone] Est Pt Eval 25 Min Jose [facility], [address], [place], [place], [address], [place] tel:[phone] [facility] Not Listed (chief complaint) Complex regional pain syndrome I of lower limb, bilateralPain in left kneeNeuralgia and neuritis, unspecifiedOpi oid dependence, uncomplicatedL eber term (current) use of opiate analgesicEncou nter for adjustment and management of infusion pumpComplex regional pain syndrome I of lower limb, bilateral 9 Jackie Thompson. [address], [place], [address], [place]. tel:[phone] Referring Provider: Rose ADAN, [address] [place], [address]. tel:[phone] Jose [facility], [address], [address], [place] tel:[phone] [facility] No Information 9 Jackie Thompson. [address], [place], [address], [place]. tel:[phone] Referring Provider: Rose ADAN, [address] [place], [address]. tel:[phone] Jose [facility], [address], [place], [place], [address], [place] tel:[phone] [facility] No Information 9 Alli Saldaña. [address], [place], [place], [address], [place]. tel:[phone] Referring Provider: Rose Bright DO S, [address] [place], [address]. tel:[phone] Est Pt Eval 25 Min [facility], [address], [place], [place], [address], [place] tel:[phone] [facility] Postlaminectom y syndrome, not elsewhere classifiedComp rudy regional pain syndrome I of other specified siteComplex regional pain syndrome I of other specified site Apr- 9 Antonino Middleton. [address], [place], [address], [place]. tel:[phone] Referring Provider: Rose Bright DO S, [address] [facility], [place], [address]. tel:[phone] Est Pt Eval 25 [facility], [address], [place], [place], [address], [place] tel:[phone] [facility] Complex regional pain syndrome I of lower limb, bilateralCompl ex regional pain syndrome I of other specified siteNeuralgia and neuritis, unspecifiedLon g term (current) use of opiate analgesicCompl ex regional pain syndrome I of lower limb, bilateral Mar- 9 Justyn King. [address], [place], [address], [place]. tel:[phone] Referring Provider: Rose Bright DO S, [address] [facility], [place], [address]. tel:[phone] Est Pt Eval 25 Min [facility], [address], [place], [place], [address], [place] tel:[phone] [facility] jail (current) use of opiate analgesicPostl aminectomy syndrome, not elsewhere classifiedOthe r intervertebral disc degeneration, lumbar regionRadiculo jason, lumbar regionComplex regional pain syndrome I of lower limb, bilateralPostl aminectomy syndrome, not elsewhere classified Justyn King. [address], [place], [address], [place]. tel:[phone] Referring Provider: Rose ADAN, [address] [facility], [place], [address]. tel:[phone] Est Pt Eval 25 Min [facility], [address], [place], [place], [address], [place] tel:[phone] [facility] Postlaminectom y syndrome, not elsewhere classifiedGene ralized abdominal painUnspecifie d abdominal painComplex regional pain syndrome I of other specified siteLong term (current) use of opiate analgesicPostl aminectomy syndrome, not elsewhere classified 9 Calixto Sagastume Felice. [address], [place], [address], [place]. tel:[phone] Referring Provider: Rose ADAN, [address] [facility], [place], [address]. tel:[phone] Est Pt Eval 25 Min [facility], [address], [place], [place], [address], [place] tel:[phone] [facility] Generalized abdominal painPostlamine ctomy syndrome, not elsewhere classifiedComp rudy regional pain syndrome I of other specified siteLong term (current) use of opiate analgesicGener alized abdominal pain 9 Antonino Middleton. [address], [place], [address], [place]. tel:[phone] Referring Provider: Rose ADAN, [address] [facility], [place], [address]. tel:[phone] Jose, [facility], [address] [facility] [address], [place], [place], [address], [place] tel:[phone] [facility] back pain (chief complaint) bilateral leg pain (chief complaint) Postlaminectom y syndrome, not elsewhere classifiedLow back painOpioid dependence, uncomplicated RN RN. [address] [facility], [address], [place], [place], [address], [place]. tel:[phone] Referring Provider: Rose Bright DO S, [address] [place], [address]. tel:[phone] Jose, [facility], [address] [facility] [address], [place], [place], [address], [place] tel:[phone] [facility] No Information 9 Brea Mendieta. [address], [place], [place], [address], [place]. tel:[phone] Referring Provider: Anam Wiley, [address], [place], [address] . tel:[phone] [facility], [address] [facility], [address], [place], [address], [place] tel:[phone] [facility] back pain (chief complaint) Postlaminectom y syndrome, not elsewhere classifiedOthe r spondylosis with radiculopathy, lumbar regionOther intervertebral disc degeneration, lumbar regionOpioid dependence, uncomplicated 9 [facility]. [address] [facility] [address], [place], [place], [address], [place]. tel:[phone] Referring Provider: Anam Wiley, [address], [place], [address] . tel:[phone] [facility], [address] [facility] [address], [place], [place], [address], [place] tel:[phone] [facility] Complex regional pain syndrome I of lower limb, bilateralCompl ex regional pain syndrome I of lower limb, bilateral RN RN. [address] [facility] [address], [place], [place], [address], [place]. tel:[phone] Referring Provider: Rose Bright DO S, [address] [place], [address]. tel:[phone] Jose [facility], [address] [facility] [address], [place], [place], [address], [place] tel:[phone] [facility] No Information 8 Brea Mendieta. [address], [place], [place], [address], [place]. tel:[phone] Referring Provider: Anam Wiley, [address], [place], [address] . tel:[phone] [facility], [address] [facility], [address], [place], [address], [place] tel:[phone] [facility] Back pain (chief complaint) Opioid dependence, uncomplicatedO ther spondylosis with radiculopathy, lumbar regionPostlami nectomy syndrome, not elsewhere classifiedOthe r intervertebral disc degeneration, lumbar regionPostlami nectomy syndrome, not elsewhere classifiedOthe r spondylosis with radiculopathy, lumbar regionOther intervertebral disc degeneration, lumbar regionOpioid dependence, uncomplicated [facility]. [address] [facility] [address], [place], [place], [address], [place]. tel:[phone] Referring Provider: Anam Wiley, [address], [place], [address] . tel:[phone] Est Pt Eval 25 Min Jose [facility], [address] [facility] [address], [place], [place], [address], [place] tel:[phone] [facility] Unspecified abdominal painComplex regional pain syndrome I of lower limb, bilateralNeura lgia and neuritis, unspecifiedUns pecified abdominal pain 8 Antonino Middleton. [address] [facility] [address], [place], [address], [place]. tel:[phone] Referring Provider: Rose ADAN, [address] [place], [address]. tel:[phone] Jose [facility], [address], [place], [place], [address], [place] tel:[phone] [facility] Myalgia 8 Augustus Nixon. [address] [facility] [address], [place], [place], [address], [place]. tel:[phone] Referring Provider: Rose ADAN, [address] [place], [place], [address]. tel:[phone] Psychiatric Diagnostic Evaluation Jose [facility], [address], [place], [place], [address], [place] tel:[phone] [facility] Pain disorder with related psychological factors 8 Alli Saldaña. [address] [facility], [address], [place], [place], [address], [place]. tel:[phone] Referring Provider: Rose ADAN, [address] [facility], [place], [address]. tel:[phone] Est Pt Eval 25 Min Jose [facility], [address] [facility], [place], [place], [address], [place] tel:[phone] [facility] Generalized abdominal painNeuralgia and neuritis, unspecifiedRad iculopathy, lumbar regionLow back painComplex regional pain syndrome I of lower limb, bilateralPostl aminectomy syndrome, not elsewhere classifiedCerv icalgiaComplex regional pain syndrome I of other specified siteGeneralize d abdominal pain 8 Calixto Patriciaamando Felice. [address] [facility] [address], [place], [address], [place]. tel:[phone] Referring Provider: Rose ADAN, [address] [place], [address]. tel:[phone] Est Pt Eval 25 Min Jose, [facility], [address], [place], [place], [address], [place] tel:[phone] [facility] Generalized abdominal painNeuralgia and neuritis, unspecifiedPos tlaminectomy syndrome, not elsewhere classifiedLong term (current) use of opiate analgesicGener alized abdominal pain Leatha Joseph. [address] [facility], [address], [place], [place], [address], [place]. tel:[phone] Referring Provider: Rose ADAN, [address] [place], [address]. tel:[phone] [facility], [address], [place], [place], [address], [place] tel:[phone] [facility] right ankle pain (chief complaint) Complex regional pain syndrome I of lower limb, bilateralCompl ex regional pain syndrome I of lower limb, bilateral 8 RN RN. [address] [facility], [address], [place], [address], [place]. tel:[phone] Referring Provider: Rose ADAN, [address] [place], [address]. tel:[phone] [facility], [address] [facility] [address], [place], [place], [address], [place] tel:[phone] [facility] No Information 8 Jake Farah. [address] [facility] [address], [address], [place], [place], [address], [place]. tel:[phone] Referring Provider: Rose Bright DO S, [address] [place], [address]. tel:[phone] [facility], [address] [facility], [address], [place], [address], [place] tel:[phone] [facility] bilateral leg pain (chief complaint) Postlaminectom y syndrome, not elsewhere classifiedComp rudy regional pain syndrome I of lower limb, bilateralNeura lgia and neuritis, unspecifiedPos tlaminectomy syndrome, not elsewhere classifiedComp rudy regional pain syndrome I of lower limb, bilateralNeura lgia and neuritis, unspecified 8 [facility]. [address] [facility] [address], [place], [place], [address], [place]. tel:[phone] Referring Provider: Anam Wiley, [address], [place], [address] . tel:[phone] [facility], [facility], [address] [facility] [address], [place], [place], [address], [place] tel:[phone] [facility] No Information 8 Brea Mendieta. [address], [place], [place], [address], [place]. tel:[phone] Referring Provider: Anam Wiley, [address], [place], [address] . tel:[phone] Est Pt Eval 25 Min [facility], [facility], [address] [facility] [address], [place], [place], [address], [place] tel:[phone] [facility] Generalized abdominal painPostlamine ctomy syndrome, not elsewhere classifiedLow back painRadiculopa thy, lumbar regionPain in left footPain in right footGeneralize d abdominal pain Calixto Viveros. [address], [place], [address], [place]. tel:[phone] Referring Provider: Rose ADAN, [address] [place], [address]. tel:[phone] [facility], [address] [facility] [address], [place], [place], [address], [place] tel:[phone] [facility] No Information Jake Farah. [address], [place], [place], [address], [place]. tel:[phone] Referring Provider: Rose ADAN, [address] [place], [address]. tel:[phone] Est Pt Eval 25 Min [facility], [address], [place], [place], [address], [place] tel:[phone] [facility] Unspecified abdominal painPostlamine ctomy syndrome, not elsewhere classifiedLow back painGeneralize d abdominal painGeneralize d abdominal pain 8 Calixto Viveros. [address], [place], [address], [place]. tel:[phone] Referring Provider: Rose ADAN, [address] [place], [address]. tel:[phone] Est Pt Eval 25 Min [facility], [address], [place], [place], [address], [place] tel:[phone] [facility] Generalized abdominal painUnspecifie d abdominal painPostlamine ctomy syndrome, not elsewhere classifiedLow back painPostlamine ctomy syndrome, not elsewhere classified Oct- Calixto Viveros. [address], [place], [address], [place]. tel:[phone] Referring Provider: Rose ADAN, [address] [facility], [place], [address]. tel:[phone] Est Pt Eval 25 Min [facility], [address], [place], [place], [address], [place] tel:[phone] [facility] Low back painPostlamine ctomy syndrome, not elsewhere classifiedUnsp ecified abdominal painGeneralize d abdominal painPostlamine ctomy syndrome, not elsewhere classified Calixto Viveros. [address], [place], [address], [place]. tel:[phone] Referring Provider: Rose ADAN, [address] [facility], [place], [address]. tel:[phone] Est Pt Eval 25 Min [facility], [address], [place], [place], [address], [place] tel:[phone] [facility] Low back painUnspecifie d abdominal painGeneralize d abdominal painPostlamine ctomy syndrome, not elsewhere classifiedPost laminectomy syndrome, not elsewhere classified Calixto Viveros. [address], [place], [address], [place]. tel:[phone] Referring Provider: Rose ADAN, [address] [facility], [place], [address]. 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 [address], [place], [address], [place]. tel:[phone] Referring Provider: Rose ADAN, [address] [facility], [place], [address]. tel:[phone] Est Pt Eval 25 Min [facility], [address], [place], [place], [address], [place] tel:[phone] [facility] Generalized abdominal painLong term (current) use of opiate analgesicGener alized abdominal pain 8 Leatha Joseph. [address], [place], [place], [address], [place]. tel:[phone] Referring Provider: Rose ADAN, [address] [facility], [place], [address]. tel:[phone] Est Pt Eval 25 Min Jose, [facility], [address], [place], [place], [address], [place] tel:[phone] [facility] Generalized abdominal painNeuralgia and neuritis, unspecifiedGen eralized abdominal pain 8 Alejandralakesha King. [address], [place], [address], [place]. tel:[phone] Referring Provider: Rose ADAN, [address] [facility], [place], [address]. tel:[phone] [facility] [place], [address], [place], [address], [place] tel:[phone] [facility] headache (chief complaint) HeadacheOther reaction to spinal and lumbar punctureOther reaction to spinal and lumbar punctureHeadac he 8 [facility]. [address] [facility] [address], [place], [place], [address], [place]. tel:[phone] Referring Provider: Anam Wiley, [address], [place], [address] . tel:[phone] [facility], [facility], [address] [facility] [address], [place], [place], [address], [place] tel:[phone] [facility] No Information 8 Brea Mnedieta. [address], [place], [place], [address], [place]. tel:[phone] Referring Provider: Anam Wiley, [address], [place], [address] . tel:[phone] [facility], [address] [facility], [address], [place], [address], [place] tel:[phone] [facility] Abdominal pain (chief complaint) Complex regional pain syndrome I of other specified siteGeneralize d abdominal painNeuralgia and neuritis, unspecifiedOpi oid dependence, uncomplicated 8 [facility]. [address] [facility] [address], [place], [place], [address], [place]. tel:[phone] Referring Provider: Anam Wiley, [address], [place], [address] . tel:[phone] [facility], [facility], [address] [facility] [address], [place], [place], [address], [place] tel:[phone] [facility] No Information 8 Brea Mendieta. [address], [place], [place], [address], [place]. tel:[phone] Referring Provider: Anam Wiley, [address], [place], [address] . tel:[phone] [facility], [address], [place], [place], [address], [place] tel:[phone] [facility] No Information 8 [facility]. [address], [place], [address], [place]. tel:[phone] Referring Provider: Rose ADAN, [address] [place], [address]. tel:[phone] [facility], [address], [place], [place], [address], [place] tel:[phone] [facility] MyalgiaGeneral ized abdominal painPain in unspecified jointPain in left knee 8 Lori Richey. [address], [place], [address], [place]. tel:[phone] Referring Provider: Rose ADAN, [address] [facility], [place], [address]. tel:[phone] [facility], [address], [place], [place], [address], [place] tel:[phone] [facility] Generalized abdominal painGeneralize d abdominal painGeneralize d abdominal painGeneralize d abdominal painUnspecifie d abdominal pain 8 RN RN. [address], [place], [place], [address], [place]. tel:[phone] Referring Provider: Rose ADAN, [address] [facility], [place], [address]. tel:[phone] [facility], [address], [place], [address], [place] tel:[phone] [facility] Abdominal pain (chief complaint) Neuralgia and neuritis, unspecifiedOpi oid dependence, uncomplicatedC omplex regional pain syndrome I of other specified siteGeneralize d abdominal pain 8 [facility]. [address], [place], [place], [address], [place]. tel:[phone] Referring Provider: Anam Wiley, [address], [place], [address] . tel:[phone] Jose [facility], [address], [place], [place], [address], [place] tel:[phone] [facility] No Information 8 Brea Mendieta. [address], [place], [place], [address], [place]. tel:[phone] Referring Provider: Anam Wiley, [address], [place], [address] . tel:[phone] Jose [facility], [address], [place], [place], [address], [place] tel:[phone] [facility] [place] No Information 8 Lori Richey. [address], [place], [address], [place]. tel:[phone] Referring Provider: Rose Bright DO S, [address] [facility], [place], [address]. tel:[phone] [facility], [facility], [address], [place], [place], [address], [place] tel:[phone] [facility] [place] Generalized abdominal painMyalgiaPai n in left kneePain in unspecified joint 8 Lori Richey. [address], [place], [address], [place]. tel:[phone] Referring Provider: Rose ADAN, [address] [facility], [place], [address]. tel:[phone] [facility], [address], [place], [place], [address], [place] tel:[phone] [facility] [place] Generalized abdominal painMyalgiaPai n in unspecified jointPain in left knee 8 Joey Garrison. [address], [place], [address], [place]. tel:[phone] Referring Provider: Rose ADAN, [address] [facility], [place], [address]. tel:[phone] [facility], [address], [place], [address], [place] tel:[phone] [facility] Abdominal pain (chief complaint) Unspecified abdominal painNeuralgia and neuritis, unspecifiedUns pecified abdominal painNeuralgia and neuritis, unspecified 8 [facility]. [address], [place], [place], [address], [place]. tel:[phone] Referring Provider: Anam Wiley, [address], [place], [address] . tel:[phone] [facility], [facility], [address], [place], [place], [address], [place] tel:[phone] [facility] No Information 8 Brea Mendieta. [address], [place], [place], [address], [place]. tel:[phone] Referring Provider: Anam Wiley, [address], [place], [address] . tel:[phone] Est Pt Eval 15 Min [facility], [address] [facility] [address] [facility] [address], [place], [place], [address], [place] tel:[phone] [facility] Abdominal pain (chief complaint) Generalized abdominal pain 8 Leatha Joseph. [address] [facility] [address], [address], [place], [place], [address], [place]. tel:[phone] Referring Provider: Rose Bright DO S, [address] [place], [address]. tel:[phone] [facility], [address], [address], [place], [address], [place] tel:[phone] [facility] Abdominal pain (chief complaint) Abdominal painNeuralgia and neuritis, unspecifiedUns pecified abdominal painNeuralgia and neuritis, unspecified 8 [facility]. [address], [place], [place], [address], [place]. tel:[phone] Referring Provider: Anam Wiley, [address], [place], [address] . tel:[phone] [facility], [address], [place], [place], [address], [place] tel:[phone] [facility] No Information 8 Brea Mendieta. [address], [place], [place], [address], [place]. tel:[phone] Referring Provider: Anam Wiley, [address], [place], [address] . tel:[phone] New Pt Eval 60 Min [facility], [address], [place], [place], [address], [place] tel:[phone] [facility] Abdominal pain (chief complaint) Generalized abdominal painPain in unspecified jointMyalgiaLo ng term (current) use of opiate analgesic No Information Referring Provider: Rose Bright DO S, [address] [place], [address]. tel:[phone] Family History Family Member Type Diagnosis Age At Onset Mother Problem (finding) Cancer Father Problem (finding) Cancer Father Problem (finding) Other Payers Payer name Insurance type Covered republican ID Authoriza tion(s) Medicare Part B [id number] [facility] [id number] Social History Type Description Quantity Date Captured Comments Alcohol Use Details Unknown Caffeine Use Details Unknown Tobacco Use Status Smoking Status No Information Sex Female Chief Complaint And Reason For Visit No Information Reason For Referral Reason For Referral No Information Plan Of Treatment Date Type Action Status Goal Tobacco cessation counseling completed Appointment Marina Jean-Baptiste BOOKED Appointment Marina [facility]aptiste BOOKED Appointment Marina Jean-Baptiste BOOKED Appointment Marina Jean-Baptiste BOOKED Appointment Marina Jean-Baptiste BOOKED History Of Present Illness Encounter Date Complaint History Of Prese nt Illness CDS function test Pump Visit The primary pain involves the abdomen. Pain intensity is currently 4/10.The pain has been stable. It occurs persistently. Pump Visit The pain is loca nell in the middle upper abdomen. Pain intensity is currently 7/10. Pain is usually 5/10,It occurs persistently. Abdominal pain Pump Visit The pain is loca nell in the middle upper abdomen. Pain intensity is currently 3/10. Pain is usually 7/10, is 7/10 at its worst, 3/10 at its best,It occurs persistently. Abdominal pain Abdominal pain Pump Visit The pain is loca nell in the middle upper abdomen. Pain intensity is currently 3/10.The pain has been stable. It occurs persistently. back pain Severity level i s severe. The problem is worsening. It occurs persistently. Location of pain is lower back. Abdominal pain Abdominal pain Abdominal pain Abdominal pain Abdominal pain Severity is mode rate-severe. It occurs daily. The problem is unchanged. Location is epigastric. There is no radiation. The patient describes it as Pressure. Context: no pattern noted. Denies aggravating factors. Relieving factors include pain pump. Abdominal pain Abdominal pain Abdominal pain Pump Visit The primary pain involves the abdomen. Abdominal pain Location is epig astric. Abdominal pain Abdominal pain Additional infor mation: upper abd pain. Abdominal pain Abdominal pain Abdominal pain back pain Location of pain is lower back and Feet pain. back pain Severity level i s 8. The problem is fluctuating. It occurs persistently. Location of pain is lower back and feet and ankles.The patient describes the pain as numbness, sharp and throbbing. Symptoms are aggravated by sitting and walking. Symptoms are relieved by heat, ice, pain meds/drugs and elevation. Chest pain Abdominal pain Abdominal pain back pain Location of pain is lower back. bilateral ankle pain Location: b ilateral ankle. bilateral foot pain Location: bi lateral foot. Abdominal pain bilateral ankle pain Location: b ilateral ankle. bilateral foot pain Location: bi lateral foot. Abdominal pain It occurs consta ntly. The problem is worse. Location is and upper abdomen. The patient describes it as sharp, stabbing and throbbing. Abdominal pain Location is and upper. The patient describes it as sharp, stabbing and throbbing. back pain Severity level i s 7. The problem is stable. It occurs persistently. Location of pain is lower back and abdominal.The patient describes the pain as deep, localized, piercing, sharp, stabbing and throbbing. Symptoms are aggravated by activity and nausea and vomiting. Symptoms are relieved by ice, over the counter medication: acetaminophen and rest. back pain Location of pain is lower back and right hip.The patient describes the pain as sharp. Symptoms are aggravated by bending, jumping, lifting, lying/rest, pushing, pulling, driving, getting out of bed/chair and. Symptoms are relieved by exercise, ice, lying down, injection, movement, physical therapy, stretching and pain medication. Not Listed Abdominal Pain Not Listed back pain Location of pain is lower back.The patient describes the pain as stabbing. Symptoms are aggravated by lying/rest, sitting and movement. Symptoms are relieved by medications. bilateral leg pain back pain Location of pain is lower back and legs. Back pain Severity level i s moderate-severe. The problem is stable. It occurs persistently. Location of pain is lower back and bilateral feet. Pain is radiated to the left foot and right foot.The patient describes the pain as an ache, burning, sharp and throbbing. right ankle pain Location: right ankle. 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 The pain is relieved by movement. bilateral leg pain Location: rajni ateral. headache Abdominal pain Abdominal pain Severity is inca pacitating. It occurs constantly. The problem is worse. Location is midline. The patient describes it as stabbing. Abdominal pain Abdominal pain Location is hypo gastric. There is radiation to back. The patient describes it as stabbing and squeezing. Symptom is aggravated by everything. Relieving factors include laying down on back. Abdominal pain The problem is w orse. Abdominal pain Severity is jarrell re. It occurs randomly. Location is LLQ. The patient describes it as sharp, stabbing, throbbing and deep. Symptom is aggravated by bending over, bowel movement and daily activities. Relieving factors include rest, medication, ice and injections. Functional Status Date Functional Assessmen t No Information Instructions Date Instruction Additional Igor caro -Schedule pump repla cement pending battery expirationFollow-up: -Follow up as scheduled for your next pump appointment Related to Postlaminectomy syndrome, not elsewhere classified same Related to Gener alized abdominal pain Follow up int he cli raina as [id number] CC from the right buttock pocket Related to Postlaminectomy syndrome, not elsewhere classified Same plan of care as statement for above diagnosis, no changes Related to Complex regional pain syndrome I of lower limb, bilateral Same plan of care as statement for above diagnosis, no changes Related to Postlaminectomy syndrome, not elsewhere classified - Continue Movantik- Order next syringe to increase MS by 0.5mg- Follow up with provider annually- Follow up with Home infusion as scheduled. Related to Generalized abdominal pain Same plan of care as statement for above diagnosis, no changes Related to Postlaminectomy syndrome, not elsewhere classified - Dr. Anam Guidry to call patient and can proceed with scheduling appointment for SCS explant surgery. Related to Complex regional pain syndrome I of lower limb, bilateral Obtain PA for SCS ex plant- patient reports the device does not provide her with any pain relief Related to Postlaminectomy syndrome, not elsewhere classified Assessments Type Assessment Date No Information Patient Care Teams Name Effective Dates (start - stop) Status Members No Information
--- OUTSIDE RECORDS SUMMARY | 2023-01-14 16:20 | XMS_ITS | Continuity of Care Document ---
Author Name Unknown Organization [facility] Address [address] [place] [address] Phone Care Team Providers Care Trailers And [employer] Salesperson Name Role Phone Luis A ESCOBEDO, PhD, Gerardo Unavailable Unavai lable Allergies, Adverse Reactions, Alerts Substance Reaction Status Criticality NSAIDS (Non-Steroidal Anti-Inflammatory Drug) GI bleed ing Active No Information gabapentin Edema Active No Information DIPHENHYDRAMINE HCL Active No Infor mation aspirin GI bleeding Active No Information SUMATRIPTAN SUCCINATE chest pain Active No Inf ormation HALOPERIDOL LACTATE Active No Infor mation haloperidol Active No Information sumatriptan chest pain Active No Information Medications Medication Instructions Dosage Effective Dates (start - stop) Status Comments ACETAMINOPHEN (unknown strength) Not Available - Active SODIUM PHOSPHATE (unknown strength) Not Available - Active OMEPRAZOLE (unknown strength) Not Available - Active FERROUS SULFATE (unknown strength) Not Available - Active BUSPIRONE HCL (unknown strength) Not Available - Active OXCARBAZEPINE (unknown strength) Not Available - Active FOLIC ACID (unknown strength) Not Available - Active DOCUSATE CALCIUM (unknown strength) Not Available - Active MOVANTIK (unknown strength) Not Available - Active BACLOFEN (unknown strength) Not Available - Active PSEUDOEPHEDRINE HCL (unknown strength) Not Available - Active OXYCODONE HCL (unknown strength) Not Available - Active VITAMIN D3 (unknown strength) Not Available - Active VITAMIN B-12 (unknown strength) Not Available - Active AMRIX (unknown strength) Not Available - Active DOXEPIN HCL (unknown strength) Not Available - Active FUROSEMIDE (unknown strength) Not Available - Active UROMAG (unknown strength) Not Available - Active NICOTROL (unknown strength) Not Available - Active ZUPLENZ (unknown strength) Not Available - Active PROMETHAZINE HCL (unknown strength) Not Available - Active hydromorphone 2 mg tablet take 1 tablet by oral route once daily as needed for postop pain. Max 1 tab/day. - No Longer Active Procedures Procedure Date Postop Followup Visit ALIF / OLIF Anterior Lumbar Interbody Fu tahmina Anterior Interbody Fusion - Additional L evel(s) Posterior Instrumentation, 3-6 Segments PEEK/ Cage/ Implant, For Interbody Fusio n Iliac Bolts / Pelvic Fixation Stealth / Stereotactic Navigation, Spina l X Ray Exam Entire Spine 03/30 VW Office/Outpatient Visit,Est, Mod 2021 Office/Outpatient Visit,Est, Mod 2021 Office/Outpatient Visit,New, Mod 2020 Office/Outpatient Visit,Est, Mod 2016 Office/Outpatient Visit,New, Mod 2016 Advance Directives Directive Yes / No Effective Date File Name No Information Encounters Encounter Description Practice Location Reason(s) For Visit Diagnoses Date Provider Providers Copied on Encounter [facility], [address], [place], [place], [id number] , [place] tel:[phone] [facility] No Information 2 Luis A Carrillo. [facility], [address], [place], [address], [place]. tel:[phone] [facility], [address], [facility] [place], [place], [address] , [place] tel:[phone] [facility] Arthrodesis status 2 Luis A Carrillo. [facility], [address], [place], [address], [place]. tel:[phone] Referring Provider: Rose Kovacs, [facility] [address] [place], [address]. tel:[phone] [facility], [address], [place], [address] , [place] tel: [phone] [facility] No Information 2 Cm Perez. [facility], [address], [place], [place], [address] , [place]. tel: [phone] Referring Provider: Rose Kovacs, [employer] [address], [place], [address]. tel:[phone] [facility], [address], [place], [place], [address] , [place] tel: [phone] [facility] No Information 2 Luis A Carrillo. [facility], [address], [place], [address], [place]. tel: [phone] Referring Provider: Rose Kovacs, [employer] [address], [place], [address]. tel:[phone] [facility], [address], [place], [place], [address] , [place] tel: [phone] [facility] No Information 2 Luis A Carrillo. [facility], [address], [place], [address], [place]. tel:[phone] Referring Provider: Rose Kovacs [employer] [address], [place], [address]. [phone] Office/Outpa tient Visit,Est, Mod [facility], [address], [place], [place], [address] , [place] tel: [phone] [facility] No Information 2 Luis A Carrillo. [facility], [address], [place], [address], [place]. tel:[phone] Referring Provider: Rose Kovacs, [employer] [address], [place], [address]. [phone] Office/Outpa tient Visit,Est, Mod [facility], [address], [place], [address] , [place] tel: [phone] [facility] Spinal stenosis, lumbar region with neurogenic claudication 2 Luis A Carrillo. [facility], [address], [place], [address], [place]. tel: [phone] Referring Provider: Rose Kovacs, [facility] [address], [place], [address]. tel:[phone] Office/Outpa tient Visit,New, Mod [facility], [address], [place], [address] , [place] tel: [phone] [facility] Spinal stenosis, lumbar region with neurogenic claudication Oct- 1 Luis A Carrillo. [facility], [address], [place], [address], [place]. tel: [phone] Referring Provider: Rose Kovacs, [employer] [facility] [address], [place], [address]. tel:[phone] Office/Outpa tient Visit,Est, Mod [facility], [address], [place], [address] , [place] tel: [phone] [facility] Arthrodesis status 7 Luis A Carrillo. [facility], [address], [place], [address], [place]. tel: [phone] Referring Provider: Rose Kovacs [employer] [address], [place], [address]. tel:[phone] Office/Outpa tient Visit,New, Mod [facility], [address], [place], [address] , [place] tel: [phone] [facility] Arthrodesis statusOther spondylosis, lumbar region Apr- 0-201 7 Luis A Carrillo. [facility], [address], [place], [address], [place]. tel: [phone] Referring Provider: Rose Kovacs, [employer] [address], [place], [address]. tel:[phone] [facility], [address], [place], [address] , [place] tel: [phone] [facility] Other intervertebral disc degeneration, lumbar regionCervicalg ia 7 Luis Alberto Landa. [facility], [address], [address], [place], [place], [address] , [place]. tel: [phone] Family History Family Member Type Diagnosis Age At Onset No Information Payers Payer name Insurance type Covered constitution party ID Brant gold(s) Medicare MB [id number] Social History Type Description Quantity Date Captured Comments Alcohol Use Details Unknown Caffeine Use Details Unknown Tobacco Use Status No Information Smoking Status No Information Sex Female Chief Complaint And Reason For Visit No Information Reason For Referral Reason For Referral No Information History Of Present Illness Encounter Date Complaint History Of Prese nt Illness No Information Functional Status Date Functional Assessmen t No Information Instructions Date Instruction Additional Infor mation Weight Management Education Rela nell to Overweight Weight management: I nstructed to return to General Practitioner timeframe: 1 Month. Related to Overweight Assessments Type Assessment Date No Information Patient Care Teams Name Effective Dates (start - stop) Status Members No Information
[2023-01-14 17:03] LABS: Albumin* 5.2 g/dL (3.3-5.0)
[2023-01-14 17:06] LABS: Bilirubin Direct* 0.1 mg/dL (0.0-0.5); Bilirubin Total* 0.7 mg/dL (0.1-1.5)
[2023-01-14 17:07] LABS: Alanine Aminotransferase* 16 U/L (4-35); Alkaline Phosphatase* 102 U/L (40-150); Aspartate Amino Transferase* 24 U/L (12-35); Lipase* 59 U/L (23-300); Total Protein* 8.7 g/dL (6.0-8.3)
[2023-01-14 17:10] LABS: C Reactive Protein* < 0.5 mg/dL (0.5-1.0)
[2023-01-14 17:23] LABS: Appearance Urine Cloudy (Clear); Bilirubin Urine 2+ (Negative); Blood Urine Trace-intact (Negative); Color Urine Amber (Yellow); Glucose Urine Negative (Negative); Ketones Urine Trace (Negative); Leukocyte Esterase Urine Negative (Negative); Nitrite Urine Negative (Negative); Protein Urine 3+ (Negative); Specific Gravity Urine >= 1.030 (1.000-1.030)
[2023-01-14 17:57] LABS: Bacteria Urine Few; RBC Urine 0-2 (0-2); Squamous Epithelial Cell Urine Few (None-Few); WBC Urine 0-2 (0-5)
[2023-01-14] MEDS: HYDROmorphone 0.5 mg/0.5 ml inj IVP (20:01)
== END 2023-01-14 20:35 | disposition home or self-care (01) ==
PROVIDERS: Emergency Provider Emergency Medicine Emergency Medical Services; PCP Family Medicine
DX: R10.9 Unspecified abdominal pain (principal); M54.9 Dorsalgia, unspecified
CPT/HCPCS: 36415; 74177; 80048; 80076; 81001; 83690; 85025; 86140; 87086; 96374; 99284; J1170; Q9967

== ENCOUNTER 2023-01-17 13:55 | Emergency (ER) | payer MEDICARE, OTHER, SELFPAY ==
[2023-01-17 14:10] VITALS: BP 129/83; PULSE 111; RESP 18; TEMP 36.4; O2SAT 93; BMI 28.3
--- NOTE | 2023-01-17 14:23 | ED_ITS ---
HPI - General Adult General Date Seen: 01/17/23 Chief complaint: Back Injury/Pain Stated complaint: severe back and neck pain Time Seen by Provider: 01/17/23 14:18 History of Present Illness HPI narrative: This is 57-year-old female with a complex past medical history including chronic pain, chronic opiate dependence (oxycodone 5 mg, 1 tablet daily p.r.n. prescribed by her PCP through the [facility]), lumbar radiculopathy, multiple previous lumbar fusions, previous pelvic fracture E with surgery, Tucker-en-Y gastric bypass, cyclic vomiting syndrome, pre diabetes, fibromyalgia, borderline personality disorder, PTSD, tobacco abuse, bipolar disorder, osteoporosis, dilatation of ascending aorta, Raynaud's disease, venous stasis, lymphedema. She presents to the ER today with an episode of severe back and neck pain. She does have a history of some chronic low back pain for which she takes her oxycodone (never more than 1 tablet per day) and has also had some occasional neck pain. She also has flares of abdominal pain intractable vomiting that happened sporadically throughout her adult life, perhaps once every few months but sometimes they come in spurts. She apparently has cyclic vomiting syndrome. She does not sound like she has ever been given a clear explanation why. She has a GI doctor apparently who she sees through the [facility] system. She set up for colonoscopy in a few weeks (unclear indication? ). She does not have a hi story of peptic ulcer disease. For about the past week or so (6 or 7 days, she is not sure) she has been having a flare of pain in her back. Initially, it was hard for her know if it was abdominal pain radiating through to the back or back pain radiating through to the front. She was seen here in the ER (see notes below) a couple of days ago and it sounds like it was not clear at that time. She had a workup including CT abdomen/pelvis. Workup was reassuring. Since then she has had ongoing pain and she says she is pretty confident coming from her back, not her abdomen. The pain really is in her mid thoracic back, between her shoulder blades. It does not really radiate from there. It did not migrate. No pain down her arms or down her legs. No associated numbness or tingling in her legs. It does not really hurt to breathe. No anterior chest pain. She says pain in her midback is not her normal location for her chronic back pain. Normally, the pain is in her lower back or in her neck. She can not describe the pain other than it is painful. She likes to stand bent at the waist, hunched over the ER counter because that is her position of greatest comfort. The pain has been keeping her awake at night. She also notes that she has been sweating a lot at night. She does not think the sweating is due to fever or chills. No other symptoms of an infection. No sore throat, nasal congestion, cough. No trouble breathing. She has been nauseous but not vomiting. Normal urination. Normal bowel movements. No rashes. No known sick exposures. She has a history of osteoporotic fractures in her back and in her pelvis, apparently triggered during activities such as gardening. She does not recall any recent new activity or fall that would have caused a fracture lately. She was here in the ER a couple of days ago. She has been taking the prescribed tramadol but it does not really do anything for her pain. It just makes her feel, ?funny. ? Review of medical records: She was in the ER 3 days ago on 01/14-per that record: 57-year-old female comes in by ambulance because of abdominal pain that she states began about 3 days ago. She states that it is in her back radiating to her abdomen or vice versa, in her abdomen radiating through to her back. She states that it is a constant pain that began at 2 or 3/10 in severity and now is at 8 or 9/10. She has some associated nausea but has not had any vomiting. She does have chronic pain and took an oxycodone prior to arrival. She arrives with normal vital signs. She did have CT imaging of her abdomen and pelvis 4 months ago and 7 months ago and I reviewed these results. Medical decision making narrative: This patient comes in with flare-up of abdominal pain and back pain. She is not sure which is causing the pain rather it is coming from her back or from her abdomen. An IV was established and labs are acquired. CT imaging of the abdomen and pelvis shows no acute findings. She does have history of back problems and has had surgery. Most likely this is coming from her back. Lab results are returning with reassuring findings. Her urine is not showing any sign of infection but there is some bilirubin present in the urine. This patient received a 1 time dose of Dilaudid 0.5 mg intravenously. I explained that we would not likely repeat this treatment unless there was new finding in her labs or imaging to necessitated. She does take 1 oxycodone tablet daily and states that she stays with that plan as it is outlined by her doctor. She is okay to be discharged home and states that she plans to call her back specialist tomorrow. I did provide prescription for [address] abdomen/pelvis 01/14/2023 FINDINGS: Lower chest: Motion degraded study limits evaluation. Linear bandlike opacifications of the lung bases likely due to subsegmental atelectasis and/or scarring. No focal consolidation. Normal heart size. No pleural effusions or pneumothorax. Mild pulmonary vascular congestion. Liver: Normal. Gallbladder/Biliary: Cholecystectomy. No biliary ductal dilitation. Pancreas: Normal. Spleen: Normal. Adrenal Glands: Normal. Kidneys: Normal size and symmetrically enhancing. No obstructive calculi or hydronephrosis. Ureters: Unremarkable. Bladder: Unremarkable. Bowel: Postsurgical changes from prior gastric bypass. No bowel wall thickening or obstruction identified.. The appendix is normal. No significant colonic diverticulosis. Pelvic organs: Prostatomegaly. Peritoneum: No free fluid or pneumoperitoneum. Surgical clips in the left iliac chain region. Vessels: No aneurysms. Portal vein remains patent. Mild atherosclerotic calcifications. Lymph Nodes: No lymphadenopathy. Abdominal Wall/Soft Tissues: Small calcified lesion in subcutaneous soft tissues posteriorly on the right, possibly a sebaceous cyst otherwise, unremarkable.. Spinal stimulator pulse generator in the soft tissues of the posterior lumbar spine region. Spinal similar leads terminate outside the field of view. Bones: Spinal fixation hardware from L4-S2. Persistent anterior positioning of the intervertebral disc spacer between L4 and L5. Stable position of the L5-S1 interbody spacer. Kyphoplasty material within the vertebral body of L3. No acute osseous abnormalities identified.. IMPRESSION: 1. No acute abdominopelvic pathology. 2. Chronic findings as detailed above. Lab Results 01/14/23 01/14/23 Range/Units 15:56 16:10 WBC 9.82 (4.50-11.00) K/uL RBC 5.70 H (4.00-5.20) m/uL Hgb 15.4 (12.0-16.0) gm/dL Hct 44.9 (33.0-51.0) % MCV 79 L (80-100) fL MCH 27 (26-34) pg MCHC 34 (32-36) gm/dL RDW Coeff of Chely 15.5 (11.5-15.5) % Plt Count 319 (140-440) K/uL Neut % (Auto) 71.0 (42.0-72.0) % Lymph % (Auto) 16.0 L (20-44) % [place] % (Auto) 12.5 H (0.0-11.0) % Eos % (Auto) 0.2 (0.0-7.0) % Baso % (Auto) 0.1 (0.0-3.0) % Neut # (Auto) 6.97 (1.7-7.0) K/uL Lymph # (Auto) 1.60 (0.90-2.90) K/uL [place] # (Auto) 1.20 H (0.00-0.90) K/UL Eos # (Auto) 0.02 (0.00-0.50) K/uL Baso # (Auto) 0.01 (0.00-0.30) K/uL Abs Immat Gran (auto) 0.02 (0.00-0.30) K/uL Imm/Tot Granulo (auto) 0.2 % Sodium Cancelled Potassium Cancelled Chloride Cancelled Carbon Dioxide Cancelled Anion Gap Cancelled BUN Cancelled Creatinine Cancelled Estimated Creat Clear Cancelled Estimated GFR Cancelled Glucose Cancelled Calcium Cancelled Total Bilirubin 0.7 (0.1-1.5) mg/dL Direct Bilirubin 0.1 (0.0-0.5) mg/dL AST 24 (12-35) U/L ALT 16 (4-35) U/L Alkaline Phosphatase 102 (40-150) U/L C-Reactive Protein < 0.5 L (0.5-1.0) mg/dL Total Protein 8.7 H (6.0-8.3) g/dL Albumin 5.2 H (3.3-5.0) g/dL Lipase 59 (23-300) U/L Urine Color [place] A (Yellow) Urine Appearance Cloudy A (Clear) Urine pH 6.0 (5.0-8.5) Ur Specific [place] >= 1.030 (1.000-1.030) Urine Protein 3+ A (Negative) Urine Glucose (UA) Negative (Negative) Urine Ketones Trace A (Negative) Urine Blood Trace-intact A (Negative) Urine Nitrite Negative (Negative) Urine Bilirubin 2+ A (Negative) Urine Urobilinogen 1.0 (0.2-1.0) Ur Leukocyte Esterase Negative (Negative) Urine RBC 0-2 (0-2) Urine WBC 0-2 (0-5) Ur Squamous Epith Cells Few (None-Few) Urine Bacteria Few A (None) Related Data Home Medications Medication Instructions Recorded Confirmed buspirone 30 mg tablet 30 mg PO BID 05/27/22 08/20/22 cyclobenzaprine 10 mg tablet 10 mg PO QPM PRN muscle spasm 05/27/22 08/20/22 doxepin 150 mg capsule 150 mg PO QPM 05/27/22 08/20/22 furosemide 20 mg tablet 20 mg PO BID 05/27/22 08/20/22 naloxegol 25 mg tablet (Movantik) 25 mg PO QAM 05/27/22 08/20/22 nicotine 10 mg inhalation 10 mg inhalation nicotine cravings 05/27/22 cartridge (Nicotrol) ondansetron 8 mg disintegrating 8 mg PO Q8H PRN nausea 05/27/22 08/20/22 tablet oxcarbazepine 300 mg tablet mg PO 05/27/22 oxycodone 5 mg tablet 5 mg PO DAILY PRN chronic pain 05/27/22 08/20/22 promethazine 25 mg tablet 25 mg PO Q12H PRN nausea 05/27/22 08/20/22 sennosides 8.6 mg-docusate sodium tab PO 05/27/22 50 mg tablet (Senexon-S) Previous Rx's Medication Instructions Recorded ciprofloxacin HCl 250 mg tablet 250 mg PO BID #10 tabs 12/12/22 (Cipro) tramadol 50 mg tablet 50 mg PO Q6H PRN pain #10 tabs 01/14/23 Allergies Allergy/AdvReac Type Severity Reaction Status Date / Time aspirin Allergy Unknown GI Bleed Verified 09/15/22 21:32 bupivacaine Allergy Unknown Agitation Verified 09/15/22 21:32 diphenhydramine Allergy Unknown Anxiety Verified 09/15/22 21:32 lamotrigine Allergy Unknown Angioedema Verified 09/15/22 21:32 metoclopramide Allergy Unknown Anxiety Verified 09/15/22 21:32 NSAIDS (Non-Steroidal Allergy Unknown GI Bleed Verified 09/15/22 21:32 Anti-Inflamma [NSAIDS (Non-Steroidal Anti-Inflammatory Drug)] prochlorperazine Allergy Unknown Unknown Verified 09/15/22 21:32 pseudoephedrine Allergy Unknown Unknown Verified 09/15/22 21:32 sumatriptan Allergy Unknown Punched Verified 09/15/22 21:32 The Beta Adrenergic Blockers Allergy Unknown Unknown Uncoded 09/15/22 21:32 Haldol Allergy Unknown Anxiety Uncoded 09/15/22 21:32 [facility] Medical History POLST (Physician Orders for Life-Sustaining Treatment) ?Z78.9 - Other specified health status (ICD-10) Family History Father Prostate cancer Other Ovarian cancer Social History Narrative: , 3 kids, unemployed, smoker, no EtOH Smoking Status: Current every day smoker What tobacco products do you use: cigarettes Do you use any of these nicotine containing products: None Second hand tobacco smoke exposure: Yes How often do you have a drink containing alcohol: never How often do you have six or more drinks on one occasion: Never AUDIT-C Alcohol total score: 0 Non-prescribed substance use: denies use service: No Exam Const: Vital Signs, click to edit/add: Vital Signs - 24 hr 01/17/23 14:10 Temperature 97.6 F Pulse Rate [Right Pulse Oximeter] 111 H Respiratory Rate 18 Blood Pressure [Ri ght Upper Arm] 129/83 Pulse Oximetry 93 Oxygen Delivery Me thod Room Air Course Course ED Course: Constitutional: Appears well-developed and well-nourished. Alert. Conversant, but has multiple symptoms initially has a lot of trouble organizing her thoughts to even explain what is wrong and what brought her back to the ER today. She standing bent at the waist leaning on her elbows on the count of her ER room. This is sufficient comfort. unprompted, She is able to walk herself back to her ER bed using her cane, and then climbs up on her hands and knees onto the bed and then settles down sitting down. Non toxic. HENT: Head: Atraumatic. Nose: Nose normal. Mouth/Throat: Oral mucosa is clear and moist. no trismus. Pharynx normal. Tonsils symmetric. No tonsillar enlargement, erythema, or exudate. Eyes: Conjunctivae normal. EOM normal. Pupils equal, round, and reactive to light. No scleral icterus. Neck: Complains of posterior neck pain. No midline tenderness or step-off. Normal range of motion. Neck supple. No tracheal deviation present. Cardiovascular: Normal rate, regular rhythm. No gallop. No friction rub. No murmur heard. Symmetric radial artery pulses . No JVD Pulmonary/Chest: Effort normal. No stridor. No respiratory distress. No wheezes. No rales. No rhonchi . No tenderness. Abdominal: Soft. Bowel sounds normal. No distension. No mass. No tenderness. No rebound. No guarding. Musculoskeletal: Normal inspection of her back. No rash, erythema, bruising. She has pain in tenderness of the midthoracic back. No step-off there. She has multiple healed lumbar incisions. All of them are well apposed and looks good. No definite point tenderness in the lower lumbar spine. RUE: Normal range of motion. No tenderness. No deformity LUE: Normal range of motion. No tenderness. No deformity RLE: Normal range of motion. No edema. No tenderness. No deformity LLE: Normal range of motion. No edema. No tenderness. No deformity Neurological: Alert and oriented to person, place, and time. Normal strength. CN II-VII intact. No sensory deficit. GCS eye subscore is 4. GCS verbal subscore is 5. GCS motor subscore is 6. Normal coordination Sensory: Normal light touch sensation bilaterally on the anteromedial thigh (L3), medial malleolus (L4), dorsal first web space (L5), lateral malleolus (S1). Strength: 5/5 strength hip flexors (L3) on the right and left 5/5 strength in the quadriceps (L4) on the right and left 5/5 strength in the tibialis anterior 5/5 strength in the EHL (L5) on the right and left 5/5 strength in the gastrocnemius (S1) on the right and left 5/5 strength in the hamstring on the right and left Negative straight leg raise bilaterally. Skin: Skin is warm and dry. No rash noted. No pallor. Normal capillary refill. Psychiatric: Somewhat disjointed historian but polite. Normal mood. Normal affect. Vital Signs Vital signs: Initial Vital Signs Temperature 97.6 F 01/17/23 14:10 Temperature Source Temporal Artery Scan 01/17/23 14:10 Pulse Rate 111 H 01/17/23 14:10 Respiratory Rate 18 01/17/23 14:10 Blood Pressure 129/83 01/17/23 14:10 Blood Pressure Mean 98 01/17/23 14:10 Blood Pressure Position Sitting 01/17/23 14:10 Pulse Oximetry 93 01/17/23 14:10 Oxygen Delivery Method Room Air 01/17/23 14:10 Vital Signs Temperature 97.6 F 01/17/23 14:10 Pulse Rate 111 H 01/17/23 14:10 Respiratory Rate 18 01/17/23 14:10 Blood Pressure 129/83 01/17/23 14:10 Pulse Oximetry 93 01/17/23 14:10 Oxygen Delivery Method Room Air 01/17/23 14:10 Temperature 97.6 F 01/17/23 14:10 Pulse Rate 111 H 01/17/23 14:10 Respiratory Rate 18 01/17/23 14:10 Blood Pressure 129/83 01/17/23 14:10 Pulse Oximetry 93 01/17/23 14:10 Oxygen Delivery Method Room Air 01/17/23 14:10 Medications Administered Medications: Generic Name Dose Route Start Last Admin Trade Name Freq PRN Reason Stop Dose Admin Hydromorphone HCl 0.5 mg 01/17/23 14:48 01/17/23 15:27 Hydromorphone 0.5 Mg/0.5 Ml Inj IVP 0.5 mg Q1H PRN Administration Pain Discontinued Medications Generic Name Dose Route Start Last Admin Trade Name Freq PRN Reason Stop Dose Admin Ondansetron HCl 4 mg 01/17/23 14:48 01/17/23 15:27 Ondansetron 2 Mg/Ml Inj IVP 01/17/23 14:49 4 mg ONCE ONE Administration Medical Decision Making MDM Narrative Medical decision making narrative: This is a 57-year-old female with a complex past history presenting to the ER with multiple concerns but primarily among them would be an episode of severe thoracic back pain that is been bothering her for the past week approximately. Differential would include musculoskeletal back pain, osteoporotic or pathologic fracture, spine pathology such as spine Mets. Also could consider possible infectious etiology such as epidural abscess. She has had some some sweating at night but no chills. No definite active evidence for infection. Discussed with the patient that MRI of her thoracic spine would be the most sensitive test to look for bulging discs, epidural abscess, spine infection, diskitis. This would require transfer since MRI is not available here [place] on the . She strongly does not want to transfer. We discussed that we could perform a CT scan of her chest which which shows possible fractures and may show evidence for other causes of pain. She also has a history of aortic dilatation. This would raise concern for possible aortic pathology causing her thoracic back pain. I have ordered a angiogram of her aorta by CT. CT shows no evidence for any acute aortic syndrome. Also no evidence for any fractures of the thoracic vertebrae. There is a subacute right 6th rib fracture which is not anatomically in the location of her pain. She has a history of chronic abdominal pain and cyclic vomiting syndrome. She had a workup for that with labs and CT abdomen pelvis couple of days ago that was negative. She really does not think this is an episode of CVS. With her thoracic back pain, Consider atypical presentation for ACS. EKG shows nonspecific changes but no definite ischemia. Troponin is mildly abnormal at 0.09. Unclear if this is demand ischemia or possibly true evolving ACS. She had had a previous workup here in the ER few months ago that showed a mildly abnormal troponin. At that time transferred to the [facility] for further cardiac workup was recommended but the patient declined. I have ordered a repeat troponin for trending purposes. Discussed with my oncoming partner, Dr. Fontenot . He will follow up on repeat troponin and will consult Cardiology to determine a plan of care. CBC shows reassuring white count and hemoglobin. Metabolic profile shows mildly low sodium, stable. Mother low potassium, better than 3 days ago. Kidney function normal. Glucose 170 but this is a nonfasting glucose. LFTs are normal. Lipase normal. COVID negative. She is not complaining of any shortness of breath. No pleuritic component to her pain. Overall low suspicion for PE. No wheezing or bronchospasm. No evidence for pneumothorax, pleural effusion, pneumonia causing her thoracic back pain. No evidence for shingles, thoracic wall cellulitis, or visible abrasion or ecchymosis to suggest trauma. Lab Data Labs: Lab Results 01/17/23 Range/Units 15:15 WBC 8.23 (4.50-11.00) K/uL RBC 5.71 H (4.00-5.20) m/uL Hgb 15.4 (12.0-16.0) gm/dL Hct 44.5 (33.0-51.0) % MCV 78 L (80-100) fL MCH 27 (26-34) pg MCHC 35 (32-36) gm/dL RDW Coeff of Chely 14.7 (11.5-15.5) % Plt Count 309 (140-440) K/uL Neut % (Auto) 65.1 (42.0-72.0) % Lymph % (Auto) 23.5 (20-44) % [place] % (Auto) 10.1 (0.0-11.0) % Eos % (Auto) 0.6 (0.0-7.0) % Baso % (Auto) 0.1 (0.0-3.0) % Neut # (Auto) 5.36 (1.7-7.0) K/uL Lymph # (Auto) 1.93 (0.90-2.90) K/uL [place] # (Auto) 0.80 (0.00-0.90) K/UL Eos # (Auto) 0.05 (0.00-0.50) K/uL Baso # (Auto) 0.01 (0.00-0.30) K/uL Abs Immat Gran (auto) 0.05 (0.00-0.30) K/uL Imm/Tot Granulo (auto) 0.6 % Sodium 130 L (135-149) mmol/L Potassium 3.5 L (3.6-5.1) mmol/L Chloride 96 (96-114) mmol/L Carbon Dioxide 22 (20-32) mmol/L Anion Gap 12 (7-15) mEq/L BUN 17 (7-30) mg/dL Creatinine 0.9 (0.5-1.5) mg/dL Estimated Creat Clear 60.56 Estimated GFR 74 ml/min Glucose 170 H (60-115) mg/dL Calcium 9.7 (8.4-10.6) mg/dL Total Bilirubin 0.6 (0.1-1.5) mg/dL AST 27 (12-35) U/L ALT 15 (4-35) U/L Alkaline Phosphatase 93 (40-150) U/L Troponin I 0.09 H* (0.01-0.04) ng/mL Total Protein 8.4 H (6.0-8.3) g/dL Albumin 5.1 H (3.3-5.0) g/dL Lipase 65 (23-300) U/L SARS-CoV-2 (PCR) Negative SARS-CoV-2 (Negative) Influenza Type A (PCR) Negative PCR FLU A (Negative) Influenza Type B (PCR) Negative PCR FLU B (Negative) RSV (PCR) Negative PCR RSV (Negative) Imaging Data CT scan - chest: Attestation: I have reviewed the pertinent imaging results. Radiologist's impression: IMPRESSION: 1. No evidence of acute aortic syndrome. No aortic aneurysm or dissection identified. 2. Likely subacute fracture of the right anterior 6th rib. No pleural effusions or pneumothorax. 3. No acute abdominopelvic pathology. ECG Data Attestation: I personally reviewed and interpreted this ECG as follows: Interpretation: Normal sinus rhythm with marked sinus arrhythmia. Rate 93. MI 144 QRS axis normal axis. No pathologic Q-waves. ST segment/T wave: No ST segment elevation or depression. Nonspecific T-wave flattening lead V1, V2, V5, V6, aVL, 1. QTc: 467 Discharge Plan Discharge Clinical Impression: Acute thoracic back pain, Elevated troponin Prescriptions: No Action cyclobenzaprine 10 mg tablet 10 mg PO QPM PRN (Reason: muscle spasm) sennosides-docusate sodium [Senexon-S] 8.6-50 mg tablet PO oxcarbazepine 300 mg tablet PO Nicotrol 10 mg cartridge 10 mg INHALATION ondansetron 8 mg tablet,disintegrating 8 mg PO Q8H PRN (Reason: nausea) buspirone 30 mg tablet 30 mg PO BID promethazine 25 mg tablet 25 mg PO Q12H PRN (Reason: nausea) furosemide 20 mg tablet 20 mg PO BID doxepin 150 mg capsule 150 mg PO QPM oxycodone 5 mg tablet 5 mg PO DAILY PRN (Reason: chronic pain) Movantik 25 mg tablet 25 mg PO QAM ciprofloxacin HCl [Cipro] 250 mg tablet 250 mg PO BID Qty: 10 0RF tramadol 50 mg tablet 50 mg PO Q6H PRN (Reason: pain) Qty: 10 0RF Follow Up/Referrals: Rose Bright DO [Primary Care Provider] -
--- NOTE | 2023-01-17 14:48 | CRLHL7_ITS ---
For Patients: As a result of the Century Cures Act, medical imaging exams and procedure reports are released immediately into your electronic medical record. You may view this report before your referring provider. If you have questions, please contact your health care provider. INDICATION: Chest pain. TECHNIQUE: Multiplanar CT examination of the chest without contrast and CT examination of the chest, abdomen and pelvis acquired after the administration of 95 mL of Isovue 370 contrast intravenously, dissection protocol COMPARISON: CT abdomen pelvis 12/2022, CT chest abdomen pelvis 09/15/2022 FINDINGS: CHEST: Lower neck: Visualized thyroid is unremarkable. Cardiovascular structures: The unenhanced images demonstrate no evidence of aortic intramural hematoma. Thoracic aorta is normal in caliber without evidence of dissection. Heart size is normal. Airways: Patent. Mediastinum: No lymphadenopathy. Lungs: Linear bandlike opacifications of the lung bases likely due to subsegmental atelectasis and/or scarring. No focal consolidation. Pleura: No pleural effusions or pneumothorax. Chest wall: Unremarkable. Bones: Degenerative changes of the thoracic spine. Likely subacute fracture of the anterior aspect of the right 6th rib (6:146). ABDOMEN AND PELVIS: Streak artifact from the posterior spinal fixation hardware limits evaluation of the adjacent structures. Liver: Unremarkable. Gallbladder: Cholecystectomy Bile ducts: No biliary ductal dilitation. Pancreas: Unremarkable. Spleen: Unremarkable. Adrenal glands: Unremarkable. Kidneys: Normal. No hydronephrosis or renal masses. Ureters: No hydroureter. Bladder: Normal. GI tract: Status post gastric bypass. No bowel obstruction. Vascular: Abdominal aorta is normal in caliber without evidence of dissection. Mild atherosclerotic calcifications. The portal vein remains patent. Lymph nodes: Unremarkable. Peritoneum: Surgical clips in the left iliac region. No free air or significant free fluid. Pelvic Organs: Unremarkable. Bones: Infusion pump implanted in the left buttock, with catheter entering the spinal canal at the L2-3 interlaminar space, extending superiorly to the level of T6. Degenerative changes of the lumbar spine. Kyphoplasty material again seen at L3. No acute osseous abnormalities. Redemonstrated posterior spinal fixation hardware from L4-S2. Persistent anterior positioning of the intervertebral disc spacer between L4 and L5. Stable position of the L5-S1 interbody spacer. IMPRESSION: 1. No evidence of acute aortic syndrome. No aortic aneurysm or dissection identified. 2. Likely subacute fracture of the right anterior 6th rib. No pleural effusions or pneumothorax. 3. No acute abdominopelvic pathology. Please note that all CT scans at this facility use dose modulation, iterative reconstruction, and/or weight-based dosing when appropriate to reduce radiation dose to as low as reasonably achievable. Dictated by Waylon Massey MD @ 01/17/2023 4:09:44 PM (Electronically Signed)
--- OUTSIDE RECORDS SUMMARY | 2023-01-17 14:58 | XMS_ITS | Continuity of Care Document ---
Author Name Unknown Organization [facility] Address [address] [address] [place] [address] Phone Care Team Providers Care Nnp Name Role Phone Jeremy ESCOBEDO, Fredis Unavailable Unavailable Allergies, Adverse Reactions, Alerts Substance Reaction Status Criticality BUPIVACAINE HCL Active No Informati on SUMATRIPTAN SUCCINATE chest pains Active No Inf ormation sumatriptan chest pains Active No Information METOCLOPRAMIDE HCL extreme nervousness Active No Information DIPHENHYDRAMINE HCL Nervousness Active No Infor mation NSAIDS (Non-Steroidal Anti-I nflammatory Drug) Stomach Ulcers Active No Information Medications Medication Instructions Dosage Effective Dates (start - stop) Status Comments Movantik 25 mg tablet take 1 tablet by oral route every day in the morning 25 MG - Active Miralax 17 gram/dose oral powder Take by oral route as directed in colonoscopy prep instructions received from [facility] - Active Procedure date: 01/31/23. Dispense two 238g bottles Dulcolax (bisacodyl) 5 mg tablet,delayed release Take by oral route as directed in colonoscopy prep instructions received from [facility] - Active Procedure date: 01/31/23 sucralfate 1 gram tablet take 1 tab by mouth 4 times a day 20 min before meals and at bedtime Crush pill mix w 2-3 tablespoons of water to turn into liquid and drink - Active Needs appt for further refills Movantik 25 mg tablet take 1 tablet by oral route every day in the morning 25 MG - Active ondansetron [address] 1 tablet by translingual route every 8 hours as needed for nausea. Place on top of the tongue where it will dissolve, then swallow - Active promethazine 25 mg tablet take 1 tablet by oral route every 12 hours as needed as needed for nausea - Active Percocet 5 mg-325 mg tablet take 1 tablet twice per day - Active cyclobenzaprine 10 mg tablet take 1 tablet by oral route every day 10 MG - Active furosemide 40 mg tablet take 1 tablet by oral route every day 40 MG - Active Vitamin B-12 1,000 mcg/mL injection solution inject 1 milliliter by intramuscular route every month - Active MELATONIN (unknown strength) take 1 tablet every night Not Available - Active doxepin 150 mg capsule take 1 capsule by oral route every day at bedtime 150 MG - Active Trileptal 300 mg tablet take 1 tablet by oral route 4 times every day 300 MG - Active buspirone 30 mg tablet take 2 Tablet by oral route 2 times every day 60 MG - Active Procedures Procedure Date Telephone E&M III 21-30 Min MD JASS Telephone E&M III 21-30 Min MD JASS Offic/outpt E&m Estab Mod-hi 2 19 Init Hosp-da E&m Mod Severity 8 Offic/outpt E&m Estab Low-mod 8 Offic/outpt E&m Estab Mod-hi 2 18 Colonoscopy Flex; W/bx 1/mx Ugi Endo; W/bx 1/mx Level Iv-surg Path Gross/micro 18 Offic/outpt E&m New Mod-hi Advance Directives Directive Yes / No Effective Date File Name No Information Encounters Encounter Description Practice Location Reason(s) For Visit Diagnoses Date Provider Providers Copied on Encounter [facility] BERNARDO BANUELOS [address] [address], [place], [id number], [place] tel:[phone] [facility] No Information 3 Jeremy Mcneal. [address], [place], [place], [address] , [place]. tel: [phone] [facility], [address] [address], [place], [place], [id number], [place] tel:[phone] [facility] No Information 3 Jeremy Mcneal. [address], [place], [place], [address] , [place]. tel: [phone] Referring Provider: Referral Self, USE FOR SELF REFERRALS. [facility], [address] [address], [place], [place], [id number], [place] tel:[phone] [facility] No Information 3 Calixto Trotter. [address], [place], [place], [address] , [place]. tel: [phone] [facility], [address] [address], [place], [address], [place] tel:[phone] [facility] No Information 3 Jeremy Mcneal. [address], [place], [place], [address] , [place]. tel: [phone] [facility], [address] [address], [place], [address], [place] tel:[phone] [facility] No Information 3 Calixto Trotter. [address], [place], [place], [address] , [place]. tel: [phone] [facility], [address] [address], [place], [address], [place] tel:[phone] [facility] No Information 3 Jeremy Mcneal. [address] [facility] [address], [place], [place], [address] , [place]. tel: [phone] Telephone E&M III 21-30 Min JASS [facility], [address] [address], [place], [address], [place] tel:[phone] [facility] GI Symptoms or Concerns (chief complaint) Constipation due to opioid therapyAdverse effect of other opioids, initial encounterCyclic vomiting syndrome 0 2 Jeremy Mcneal. [address] [facility] [address], [place], [place], [address] , [place]. tel: [phone] Referring Provider: Referral Self, USE FOR SELF REFERRALS. [facility], [address] [address], [place], [address], [place] tel:[phone] [facility] No Information 2 Jeremy Mcneal. [address] [facility] [address], [facility] [address], [place], [place], [address] , [place]. tel: [phone] Telephone E&M III 21-30 Min JASS [facility], [address] [address], [place], [address], [place] tel:[phone] [facility] GI Symptoms or Concerns (chief complaint) Upper abdominal pain 0 Jeremy Mcneal. [address] [facility] [address], [facility] [address], [place], [place], [address] , [place]. tel: [phone] Referring Provider: Referral Self, USE FOR SELF REFERRALS. [facility], [address] [address], [place], [address], [place] tel:[phone] [facility] No Information 0 Jeremy Mcneal. [address] [facility] [address], [facility] [address], [place], [place], [address] , [place]. tel: [phone] [facility], [address] [address], [place], [address], [place] tel:[phone] [facility] Abdominal hernia without obstruction and without gangrene, recurrence not specified, unspecified hernia type 9 Jeremy Mcneal. [address] [facility] [address], [place], [place], [address] , [place]. tel: [phone] Offic/outpt E&m Estab Mod-hi 2 [facility], [address] [address], [place], [place], [address], [place] tel:[phone] [facility] GI Symptoms or Concerns (chief complaint) Regurgitation of foodDietary counseling and surveillance 9 Jeremy Mcneal. [facility] [address], [facility] [place], [place], [address] , [place]. [phone] Referring Provider: [place], [address] [place], [address]. tel:[phone] Init Hosp-da E&m Mod Severity [facility], [address] [address], [place], [address], [place] tel:[phone] No Information 8 Danielle Nelson. [address] [place] [address], [facility] [place], [address] , [place]. [phone] Referring Provider: [place], [address] [place], [address]. tel:[phone] Offic/outpt E&m Estab Low-mod [facility] [place], [address] [address], [place], [address], [place] tel:[phone] [facility] GI Symptoms or Concerns (chief complaint) Intra-abdominal adhesions 8 Jeremy Mcneal. [facility] [address], [facility] [place], [place], [address] , [place]. [phone] Referring Provider: [place], [address] [place], [address]. tel:[phone] Offic/outpt E&m Estab Mod-hi 2 [facility], [address] [address], [place], [address], [place] tel:[phone] [facility] GI Symptoms or Concerns (chief complaint) Intra-abdominal adhesionsDietary counseling and surveillance 8 Jeremy Mcneal. [address] [facility], [facility] [address], [place], [place], [address] , [place]. [phone] Referring Provider: Rose Bright DO, [address] [place] [address], [address]. tel:[phone] [facility], [address] [address], [facility] [place], [address], [place] tel:[phone] [facility] MelenaNon-intract able cyclical vomiting with nauseaChange in bowel habitLeft lower quadrant painChange in bowel habitCyclical vomiting, not intractableMelena Left lower quadrant pain 8 Jeremy Mcneal. [facility], [facility] [address], [place], [place], [address] , [place]. [phone] Referring Provider: Rose Bright DO, [address] [place] [address], [address]. tel:[phone] Offic/outpt E&m New Mod-hi [facility], [address] [address], [facility] [place], [address], [place] tel:[phone] [facility] GI Symptoms or Concerns (chief complaint) Left lower quadrant abdominal pain of unknown etiologyChange in bowel habitsMelenaDieta ry counseling and surveillance 7 Jeremy Mcenal. [address] [facility] [address], [facility] [address], [place], [place], [address] , [place]. tel:[phone] Referring Provider: Rose Bright DO, [address] [place] [address], [address]. tel:[phone] Family History Family Member Type Diagnosis Age At Onset Brother Problem (finding) Alive and well Father Problem (finding) prostate cancer Mother Problem (finding) malignant neoplasm of o vary Son Problem (finding) cyclic vomiting syndrom e Daughter Problem (finding) Alive and well Son Problem (finding) Alive and well Immunizations Vaccine Date Status Comments Pneumococcal conjugate vacci ne 20-valent (PCV20), polysaccharide CFF407 conjugate, adjuvant, preservative free administered Note: [facility] bi-direct ional interface ; Source: Other Registry SARS-COV-2 (COVID-19) vaccin e, mRNA, spike protein, LNP, preservative free, 100 mcg/0.5mL dose or 50 mcg/0.25mL dose administered Note: [facility] bi -directional interface ; Source: Other Registry SARS-COV-2 (COVID-19) vaccin e, mRNA, spike protein, LNP, preservative free, 100 mcg/0.5mL dose or 50 mcg/0.25mL dose administered Note: [facility] bi -directional interface ; Source: Other Registry SARS-COV-2 (COVID-19) vaccin e, mRNA, spike protein, LNP, preservative free, 100 mcg or 50 mcg dose administered Note: [facility] bi-direct ional interface ; Source: Other Registry SARS-COV-2 (COVID-19) vaccin e, mRNA, spike protein, LNP, preservative free, 100 mcg/0.5mL dose or 50 mcg/0.25mL dose administered Note: [facility] bi -directional interface ; Source: Other Registry SARS-COV-2 (COVID-19) vaccin e, mRNA, spike protein, LNP, preservative free, 100 mcg or 50 mcg dose administered Note: [facility] bi-direct ional interface ; Source: Other Registry SARS-COV-2 (COVID-19) vaccin e, mRNA, spike protein, LNP, preservative free, 100 mcg/0.5mL dose or 50 mcg/0.25mL dose administered Note: [facility] bi -directional interface ; Source: Other Registry SARS-COV-2 (COVID-19) vaccin e, mRNA, spike protein, LNP, preservative free, 100 mcg or 50 mcg dose administered Note: [facility] bi-direct ional interface ; Source: Other Registry zoster vaccine recombinant administered N ote: [facility] bi-directional interface ; Source: Other Registry zoster vaccine recombinant administered N ote: [facility] bi-directional interface ; Source: Other Registry Afluria Qd administered Note: [facility] bi-directional interface ; Source: Other Registry Afluria Qd administered Note: [facility] bi-directional interface ; Source: Other Registry Influenza, injectable, quadrivalent, preservative free, 3 yrs or older administered Source: Other Provid er Afluria Qd administered Note: [facility] bi-directional interface ; Source: Other Registry Afluria Qd administered Note: [facility] bi-directional interface ; Source: Other Registry tetanus toxoid, reduced diphtheria toxoid, and acellular pertussis vaccine, adsorbed administered Note: [facility] b i-directional interface ; Source: Other Registry Payers Payer name Insurance type Covered libertarian ID Authoriza tion(s) No Information Social History Type Description Quantity Date Captured Comments Sex Female Smoking Status No Information Chief Complaint And Reason For Visit No Information Reason For Referral Reason For Referral No Information Plan Of Treatment Date Type Action Status Goal Lifestyle education regardin g diet completed Goal Lifestyle education regardin g diet completed Goal Lifestyle education regardin g diet completed Referral Ordered: referred to [facility] Pt believes she has abd hernia 2 Weeks Appointment date/timeframe: 03/27/2019 ordered Referral Ordered: Xray Upper GI Series With Small Bowel Follow Through Appointment date/timeframe: 08/08/2018 ordered Referral Ordered: referred to Kamron Bloom MD Surgery Fixed sigmoid, lysis of adhesions 1 Week Appointment date/timeframe: 07/18/2017 ordered Referral Ordered: referred to Tomas Burgos MD Surgery diagnostic laparoscopy, SARAVANAN? 2 Weeks Appointment date/timeframe: 06/26/2017 ordered Referral Ordered: Colonoscopy Appointment date/timeframe: 04/11/2017 ordered Referral Ordered: EGD Appointment date/timeframe: 04/11/2017 ordered Appointment Marina Jean-Baptiste BOOKED History Of Present Illness Encounter Date Complaint History Of Prese nt Illness GI Symptoms or Concerns I had th e pleasure of having a telephone consultation with Ms. Marina Jean-Baptiste. Marina consented to telephone consultation, we were alone on the line together. We spoke for approximately 15 minutes and I spent an additional 10 minutes reviewing medical records and coordinating care. 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 Marina Jean-Baptiste due to the covid 19 pandemic.We spoke for 15 minutes and I spent an additional 10 minutes reviewing the medical record and coordinating carethe level of clinical decision making was moderate to high.As you recall, Ms. 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 She also had a narcotic pain pump placed in September 2017 and tells me that this helped her significantly and she has had no significant abdominal pain since this placement.She had an endoscopy performed by myself in March 2017 with a finding of gastric bypass anatomy. To me, at that time, it was unclear whether this was Tucker-en-Y anatomy versus Billroth II or modified Tucker-en-Y, but the gastric pouch was notable to be very small in length and diameter. Her colonoscopy was notable for difficulty getting through the sigmoid colon due to adhesions. There seemed to be a very fixed loop there, the colon was tortuous as well. She was sedated with propofol anesthesia and despite copious amount of oropofol, she continued to have significant pain as the colonoscope was proceeding through the sigmoid and descending colon, which again was very rigid.Of concern is records from an ER visits in February 2018 at [facility] that describes the physician there looking up the [place] Narcotic Database and seeing that Marina has been prescribed narcotics from various providers and was not being truthful with them about this fact.She recently went to the ER in [place] for upper abdominal pain on 01/19. CT and labs normal. Was asking for narcotics per ER note.She says her BMs have been good on Movantik.Omeprazole helping with upper abdominal pain, but eating can still trigger discomfort. GI Symptoms or Concerns I had th e pleasure of seeing Ms. Marina Jean-Baptiste in clinic today for followup of chronic GI symptoms.As you recall, Ms. 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 She would drink a small amount of liquid and almost immediately have regurgitation. This continued for the whole day and she became quite dehydrated, but eventually the symptoms wore off and resolved on their own. She felt well for a number of weeks until yesterday when the symptoms occurred again and it sounds like she was admitt GI Symptoms or Concerns I had th e pleasure of seeing Ms. Marina Jean-Baptiste in followup today for lower abdominal pain.As you recall, Marina has multiple medical problems including bipolar disorder, PTSD, chronic back pain after failed spinal fusion and cyclic vomiting syndrome. She has chronic intermittent left lower quadrant abdominal pain that she describes as debilitating when it occurs. Essentially, she feels a twisting or popping sensation that begins suddenly associated with vagal-like symptoms of sweating and lightheadedness, then ultimately the urgency to defecate. The pain continues while she is defecating and then will go away after she has completed her bowel movement only to recur multiple times in a day. Symptoms seem to occur almost exclusively when she is making a bowel movement.She was seen in the emergency department multiple times at [facility] and had at least one CT scan that was normal. She was also seen by Dr. Hill of Gastroenterology at [place] and ultimately referred to me for a second opinion.We performed a colonoscopy on April 11, and it was interesting and that her sigmoid colon was very fixed and rigid and despite copious amounts of propofol, she had significant pain when trying to maneuver around this area. We are ultimately successful, but I favored that adhesions or holding this sigmoid in place and that this was in fact which she was experiencing when she was attempting to make a bowel movement as it was likely holding her rectoanal angle in place.She has tried and failed several medications for functional/IBS pain.I felt that her symptoms of pain with BM were related to her fixed sigmoid colon/adhesions in this area and had her meet Dr. Burgos in the [facility] for consult. She admits that she was confused about the context/location of the appointment and was disrespectful to Dr. Burgos and did not have a good experience with him. She feels guilt about this and plans to write him an apology letter.She is still very much interested in discussing exploratory laparoscopy vs laparotomy with a surgeon with intent to lyse adhesions in LLQ. GI Symptoms or Concerns I had th e pleasure of seeing Ms. Marina Jean-Baptiste in followup today for lower abdominal pain.As you recall, I last saw Marina in January 2017 for the same complaint. She has multiple medical problems including bipolar disorder, PTSD, chronic back pain after failed spinal fusion and cyclic vomiting syndrome. She has chronic intermittent left lower quadrant abdominal pain that she describes as debilitating when it occurs. Essentially, she feels a twisting or popping sensation that begins suddenly associated with vagal-like symptoms of sweating and lightheadedness, then ultimately the urgency to defecate. The pain continues while she is defecating and then will go away after she has completed her bowel movement only to recur multiple times in a day. Symptoms seem to occur almost exclusively when she is making a bowel movement.She was seen in the emergency department multiple times at [facility] and had at least one CT scan that was normal. She was also seen by Dr. Clark GI Symptoms or Concerns A comple te history, physical exam, and review of systems were obtained in the clinic today and recorded in our electronic medical record. Please see my assessment and plan below.I had the pleasure of meeting Ms. Marina Jean-Baptiste, a 51-year-old woman seen in consultation at the request of Dr. Bright for evaluation of left lower quadrant abdominal pain, change in bowel habits, melena.Marina has multiple medical problems including bipolar disorder, PTSD and chronic back pain after a failed spinal fusion and cyclic vomiting syndrome and has chronic lower abdominal pain, but is seen for more acute left lower quadrant pain. She describes that for the past month, she has severe debilitating intense left lower quadrant pain that feels to her like a twisting or popping. She will suddenly feel hot and begin to sweat and ultimately have urgency to defecate and has severe sharp pain until she is able to pass a pencil thin formed stool without any overt red blood and then resolution of Functional Status Date Functional Assessmen t No Information Instructions Date Instruction Additional Infor gordo 1. Opioid-induced co nstipation: Continue Movantik and MiraLax daily.2. Cyclic vomiting. Continue as needed use of promethazine, ondansetron, and sucralfate.3. Colon cancer screening, should be due for colonoscopy in 2022.She knows she can reach me at any time should the need arise. We will leave her next appointment on an as needed basis for now.Thank you so much for involving me in the care of Ms. Jean-Baptiste. Related to Constipation due to opioid therapy 1) Continue movantik 2) Continue omeprazole 40 QD3) Trial of sucralfate crushed w water QID4) EGD and colonoscopy normal in 2017, due for colonoscopy in 2022Follow up as needed. Thank you so much. Related to Upper abdominal pain 1. Proceed with uppe r GI series with small bowel followthrough. I am going to call Marina once I have the results of this study.2. Empirically start her on omeprazole in case there is peptic ulcer disease.3. She did not ask me for any pain medication today and seemed quite satisfied with her pain control with the narcotic pump.Thank you so much for involving me in the care of Ms. Jean-Baptiste. Related to Regurgitation of food Lifestyle education regarding di et Related to Dietary counseling and surveillance Referral to General Surgery to discuss possibility of lysis of adhesions/diagnostic laparoscopy.Thank you so much for involving me in the care of Ms. Jean-Baptiste. Related to Intra-abdominal adhesions Lifestyle education regarding di et Related to Dietary counseling and surveillance 1. EGD and colonosco py.2. Obtain outside records.3. We can have her followup in clinic after the aforementioned studies, if there is nothing found just to summarize where we at and to see if there are any other new ideas for treatment moving forward.Thank you so much for involving me in the care of Ms. Jean-Baptiste. Related to Left lower quadrant abdominal pain of unknown etiology Lifestyle education regarding di et Related to Dietary counseling and surveillance Assessments Type Assessment Date No Information Patient Care Teams Name Effective Dates (start - [id number] Status [id number] Information
--- OUTSIDE RECORDS SUMMARY | 2023-01-17 14:59 | XMS_ITS | Continuity of Care Document ---
Author Name Unknown Organization Jose [facility] Address [address] [place] [address] Phone Care Team Providers Care Zinc Plate Grainer Name Role Phone RN, RN Unavailable Unavailable [...] Providers Copied on Encounter OSCAR Garcia, [address], [place], [place], [address], [place] tel:[phone] Home Visit No Information 3 RN RN. [address], [place], [place], [address], [place]. tel:[phone] [facility], [address], [place], [address], [place] tel:[phone] [facility] CDS (chief complaint) Postlaminectom y syndrome, not elsewhere classifiedOthe r spondylosis with radiculopathy, lumbar regionOther intervertebral disc degeneration, lumbar regionOpioid dependence, uncomplicated 3 [facility]. [address], [place], [place], [address], [place]. tel:[phone] Referring Provider: Laine Diallo , [address], [place], [address]. tel:[phone] OSCAR Garcia, [address], [place], [place], [address], [place] tel:[phone] [facility] No Information 3 Yoel Jang. [address], [place], [address], [place]. tel:[phone] Referring Provider: Laine Diallo , [address], [place], [address]. tel:[phone] [facility], [address], [place], [place], [address], [place] tel:[phone] [facility] No Information 3 Yoel Jang. [address], [place], [address], [place]. tel:[phone] Referring Provider: Laine Diallo , [address], [place], [address]. tel:[phone] [facility], [address], [place], [place], [address], [place] tel:[phone] Home Visit Pump Visit (chief complaint) Chronic pain syndromePostla minectomy syndrome, not elsewhere classifiedChro raina pain syndrome 3 [facility]OROW[facility]. [address], [address], [place], [address], [place]. tel:[phone] Referring Provider: Rose ADAN, [address] [place], [place], [address]. tel:[phone] [facility], [address], [place], [place], [address], [place] tel:[phone] Home Visit No Information 3 CARLOS MANUEL HOROWITZ. [address], [address], [place], [address], [place]. tel:[phone] Referring Provider: Rose ADAN, [address] [facility], [place], [address]. tel:[phone] [facility], [address], [place], [place], [address], [place] tel:[phone] Home Visit Pump Visit (chief complaint) Unspecified abdominal painPostlamine ctomy syndrome, not elsewhere classifiedUnsp ecified abdominal pain Oct- 3 RN RN. [address], [address], [place], [address], [place]. tel:[phone] Referring Provider: Rose ADAN, [address] [facility], [place], [address]. tel:[phone] [facility], [facility], [address], [place], [address], [place] tel:[phone] Home Visit No Information 3 RN RN. [address], [address], [place], [address], [place]. tel:[phone] Referring Provider: Rose ADAN, [address], [place], [address]. tel:[phone] [facility], [address], [place], [address], [place] tel:[phone] Home Visit Abdominal pain (chief complaint) Postlaminectom y syndrome, not elsewhere classifiedUnsp ecified abdominal painChronic pain syndromePostla minectomy syndrome, not elsewhere classified 3 RN RN. [address], [address], [place], [address], [place]. tel:[phone] Referring Provider: Rose ADAN, [address], [place], [address]. tel:[phone] [facility], [address], [place], [address], [place] tel:[phone] Home Visit No Information 3 RN RN. [address], [address], [place], [address], [place]. tel:[phone] Referring Provider: Rose ADAN, [address], [place], [address]. tel:[phone] BR[facility]C, [address], [place], [place], [address], [place] tel:[phone] Home Visit Pump Visit (chief complaint) Postlaminectom y syndrome, not elsewhere classifiedPost laminectomy syndrome, not elsewhere classified 3 RN RN. [address], [address], [place], [address], [place]. tel:[phone] Referring Provider: Rose ADAN, [address], [place], [address]. tel:[phone] BR[facility], [address], [place], [address], [place] tel:[phone] Home Visit No Information 3 RN RN. [address], [address], [place], [address], [place]. tel:[phone] Referring Provider: Rose ADAN, [address], [place], [address]. tel:[phone] [facility], [address], [place], [address], [place] tel:[phone] Home Visit Abdominal pain (chief complaint) Postlaminectom y syndrome, not elsewhere classifiedComp rudy regional pain syndrome I of other specified siteChronic pain syndromePostla minectomy syndrome, not elsewhere classified 3 RN RN. [address], [address], [place], [place], [address], [place]. tel:[phone] Referring Provider: Rose ADAN, [address], [place], [address]. tel:[phone] [facility], [address], [place], [place], [address], [place] tel:[phone] Home Visit No Information 3 RN RN. [address], [address], [place], [place], [address], [place]. tel:[phone] Referring Provider: Rose ADAN, [address] [place], [address]. tel:[phone] [facility], [address], [place], [address], [place] tel:[phone] Home Visit Abdominal pain (chief complaint) Postlaminectom y syndrome, not elsewhere classifiedUnsp ecified abdominal painChronic pain syndromePostla minectomy syndrome, not elsewhere classified 3 RN RN. [address], [address], [place], [address], [place]. tel:[phone] Referring Provider: Rose ADAN, [address] [place], [address]. tel:[phone] [facility], [address], [place], [address], [place] tel:[phone] Home Visit No Information 3 RN RN. [address], [address], [place], [address], [place]. tel:[phone] Referring Provider: Rose ADAN, [address] [place], [address]. tel:[phone] [facility], [address], [place], [address], [place] tel:[phone] Home Visit No Information 3 RN RN. [address], [address], [place], [place], [address], [place]. tel:[phone] Referring Provider: Rose ADAN, [address] [place], [address]. tel:[phone] Jose, [facility], [address], [place], [place], [address], [place] tel:[phone] Home Visit Pump Visit (chief complaint) Postlaminectom y syndrome, not elsewhere classifiedPost laminectomy syndrome, not elsewhere classified 3 RN RN. [address], [address], [place], [place], [address], [place]. tel:[phone] Referring Provider: Rose ADAN, [address] [place], [place], [address]. tel:[phone] [facility], [address], [place], [place], [address], [place] tel:[phone] [facility] No Information 3 Mannie Price. [address], [place], [address], [place]. tel:[phone] Referring Provider: Albert Chand [address], [place], [address]. tel:[phone] [facility], [address], [place], [address], [place] tel:[phone] [facility] Ev back pain (chief complaint) Postlaminectom y syndrome, not elsewhere classifiedGene ralized abdominal painPostlamine ctomy syndrome, not elsewhere classifiedGene ralized abdominal pain 3 [facility]. [address], [place], [place], [address], [place]. tel:[phone] Referring Provider: Albert Chand [address], [place], [address]. tel:[phone] [facility], [address], [place], [place], [address], [place] tel:[phone] [facility] No Information 3 Mannie Price. [address], [place], [address], [place]. tel:[phone] Referring Provider: Albert Chand, [address], [place], [address]. tel:[phone] [facility], [address], [place], [place], [address], [place] tel:[phone] Home Visit No Information 3 RN RN. [address], [address], [place], [address], [place]. tel:[phone] Referring Provider: Rose ADAN, [address], [place], [address]. tel:[phone] [facility], [address], [place], [place], [address], [place] tel:[phone] Home Visit Abdominal pain (chief complaint) Complex regional pain syndrome I of lower limb, bilateralPostl aminectomy syndrome, not elsewhere classifiedComp rudy regional pain syndrome I of lower limb, bilateral 3 RN RN. [address], [address], [place], [place], [address], [place]. tel:[phone] Referring Provider: Rose ADAN, [address], [place], [address]. tel:[phone] [facility], [address], [place], [place], [address], [place] tel:[phone] Home Visit No Information 3 RN RN. [address], [address], [place], [place], [address], [place]. tel:[phone] Referring Provider: oRse ADAN, [address], [place], [address]. tel:[phone] [facility], [address], [place], [address], [place] tel:[phone] Home Visit Abdominal pain (chief complaint) Postlaminectom y syndrome, not elsewhere classifiedPost laminectomy syndrome, not elsewhere classified 3 RN RN. [address], [address], [place], [address], [place]. tel:[phone] Referring Provider: Rose ADAN, [address], [place], [address]. tel:[phone] [facility], [address], [place], [address], [place] tel:[phone] Home Visit No Information 3 RN RN. [address], [address], [place], [address], [place]. tel:[phone] Referring Provider: Rose ADAN, [address], [place], [address]. tel:[phone] [facility], [address], [place], [address], [place] tel:[phone] Home Visit Abdominal pain (chief complaint) Postlaminectom y syndrome, not elsewhere classifiedPost laminectomy syndrome, not elsewhere classified 2 RN RN. [address], [address], [place], [address], [place]. tel:[phone] Referring Provider: Rose ADAN, [address], [place], [address]. tel:[phone] [facility], [address], [place], [place], [address], [place] tel:[phone] Home Visit No Information 2 RN RN. [address], [address], [place], [place], [address], [place]. tel:[phone] Referring Provider: Rose ADAN, [address] [place], [address]. tel:[phone] [facility], [address], [place], [place], [address], [place] tel:[phone] Home Visit Abdominal pain (chief complaint) Complex regional pain syndrome I of other specified sitePostlamine ctomy syndrome, not elsewhere classifiedChro raina pain syndromeComple x regional pain syndrome I of other specified site 2 RN RN. [address], [place], [address], [place]. tel:[phone] Referring Provider: Rose ADAN, [address] [place], [address]. tel:[phone] [facility], [address] [facility], [place], [address], [place] tel:[phone] Home Visit No Information 2 RN RN. [address] , [address], [place], [address], [place]. tel:[phone] Referring Provider: Rose ADAN, [address] [place], [address]. tel:[phone] [facility], [address], [place], [address], [place] tel:[phone] Home Visit Abdominal pain (chief complaint) Generalized abdominal painPostlamine ctomy syndrome, not elsewhere classifiedComp rudy regional pain syndrome I of lower limb, bilateral Nov- 2 RN RN. [address] , [address], [address], [place]. tel:[phone] Referring Provider: Rose ADAN, [address], [place], [address]. tel:[phone] [facility], [address], [place], [address], [place] tel:[phone] Home Visit No Information 2 RN RN. [address] , [address], [place], [address], [place]. tel:[phone] Referring Provider: Rose ADAN, [address], [place], [address]. tel:[phone] [facility], [address] [facility] [address], [place], [address], [place] tel:[phone] Home Visit Postlaminectom y syndrome, not elsewhere classifiedPain disorder with related psychological factorsComplex regional pain syndrome I of lower limb, bilateral Oct- 2 RN RN. [address] , [address], [place], [address], [place]. tel:[phone] Referring Provider: Rose ADAN, [address], [place], [address]. tel:[phone] [facility], [address] [facility] [address], [place], [address], [place] tel:[phone] Home Visit No Information 2 RN RN. [address] , [address], [address], [place]. tel:[phone] Referring Provider: Rose ADAN, [address], [place], [address]. tel:[phone] [facility], [address], [place], [place], [address], [place] tel:[phone] Home Visit Abdominal pain (chief complaint) Postlaminectom y syndrome, not elsewhere classifiedPost laminectomy syndrome, not elsewhere classified 2 RN RN. [address], [address], [place], [place], [address], [place]. tel:[phone] Referring Provider: Rose ADAN, [address], [place], [address]. tel:[phone] [facility], [address], [place], [place], [address], [place] tel:[phone] Home Visit No Information 2 RN RN. [address], [address], [address], [place]. tel:[phone] Referring Provider: Rose ADAN, [address], [place], [address]. tel:[phone] [facility], [address], [place], [place], [address], [place] tel:[phone] Home Visit Abdominal pain (chief complaint) Postlaminectom y syndrome, not elsewhere classifiedChro raina pain syndromePostla minectomy syndrome, not elsewhere classified 2 RN RN. [address], [address], [place], [place], [address], [place]. tel:[phone] Referring Provider: Rose ADAN, [address], [place], [address]. tel:[phone] [facility], [address], [place], [place], [address], [place] tel:[phone] Home Visit No Information 2 RN RN. [address] , [address], [place], [place], [address], [place]. tel:[phone] Referring Provider: Rose ADAN, [address], [place], [address]. tel:[phone] [facility], [address], [place], [address], [place] tel:[phone] Home Visit Abdominal pain (chief complaint) Postlaminectom y syndrome, not elsewhere classifiedChro raina pain syndromePostla minectomy syndrome, not elsewhere classified 2 RN RN. [address] , [address], [place], [address], [place]. tel:[phone] Referring Provider: Rose ADAN, [address], [place], [address]. tel:[phone] [facility], [address] [facility] [address], [place], [address], [place] tel:[phone] Home Visit No Information 2 RN RN. [address] , [address], [place], [address], [place]. tel:[phone] Referring Provider: Rose ADAN, [address], [place], [address]. tel:[phone] [facility], [address], [place], [address], [place] tel:[phone] Home Visit No Information 2 RN RN. [address] , [address], [place], [address], [place]. tel:[phone] Referring Provider: Rose ADAN, [address], [place], [address]. tel:[phone] [facility], [address], [place], [place], [address], [place] tel:[phone] Home Visit Pump Visit (chief complaint) Generalized abdominal painChronic pain syndromeGenera lized abdominal pain May- 2 RN RN. [address], [address], [place], [address], [place]. tel:[phone] Referring Provider: Rose ADAN, [address], [place], [address]. tel:[phone] [facility], [address], [place], [address], [place] tel:[phone] Home Visit No Information 2 RN RN. [address], [address], [place], [address], [place]. tel:[phone] Referring Provider: Rose ADAN, [address], [place], [address]. tel:[phone] [facility], [address], [place], [address], [place] tel:[phone] Home Visit Abdominal pain (chief complaint) Postlaminectom y syndrome, not elsewhere classifiedChro raina pain syndromePostla minectomy syndrome, not elsewhere classified 2 RN RN. [address], [address], [address], [place]. tel:[phone] Referring Provider: Rose ADAN, [address], [place], [address]. tel:[phone] [facility], [address], [place], [address], [place] tel:[phone] Home Visit No Information 2 RN RN. [address], [address], [place], [place], [address], [place]. tel:[phone] Referring Provider: Rose ADAN, [address], [place], [address]. tel:[phone] [facility], [address] [facility] [address], [place], [address], [place] tel:[phone] Home Visit Abdominal pain (chief complaint) Chronic pain syndromePostla minectomy syndrome, not elsewhere classifiedChro raina pain syndrome 2 RN RN. [address] , [address], [place], [address], [place]. tel:[phone] Referring Provider: Rose ADAN, [address], [place], [address]. tel:[phone] [facility], [address] [facility] [address], [place], [address], [place] tel:[phone] Home Visit No Information 2 RN RN. [address] , [address], [place], [address], [place]. tel:[phone] Referring Provider: Rose ADAN, [address], [place], [address]. tel:[phone] [facility], [address] [facility] [address], [place], [address], [place] tel:[phone] Home Visit Abdominal pain (chief complaint) Postlaminectom y syndrome, not elsewhere classifiedPost laminectomy syndrome, not elsewhere classified 2 RN RN. [address] , [address], [address], [place]. tel:[phone] Referring Provider: Rose ADAN, [address], [place], [address]. tel:[phone] OSCAR Garcia, [address], [place], [place], [address], [place] tel:[phone] Home Visit No Information 2 RN RN. [address], [address], [place], [place], [address], [place]. tel:[phone] Referring Provider: Rose ADAN, [address], [place], [address]. tel:[phone] OSCAR Garcia, [address], [place], [place], [address], [place] tel:[phone] Home Visit Abdominal pain (chief complaint) Chronic pain syndromePostla minectomy syndrome, not elsewhere classifiedChro raina pain syndrome 1 RN RN. [address], [address], [place], [place], [address], [place]. tel:[phone] Referring Provider: Rose ADAN, [address], [place], [address]. tel:[phone] OSCAR Garcia, [address], [place], [place], [address], [place] tel:[phone] Home Visit No Information 1 RN RN. [address], [address], [place], [address], [place]. tel:[phone] Referring Provider: Rose ADAN, [address], [place], [address]. tel:[phone] OSCAR Garcia, [address], [place], [address], [place] tel:[phone] Home Visit No Information 1 RN RN. [address], [address], [place], [address], [place]. tel:[phone] Referring Provider: Rose ADAN, [address], [place], [address]. tel:[phone] OSCAR Garcia, [address], [place], [address], [place] tel:[phone] Home Visit Abdominal pain (chief complaint) Postlaminectom y syndrome, not elsewhere classifiedChro raina pain syndromeUnspec ified abdominal painPostlamine ctomy syndrome, not elsewhere classified 1 RN RN. [address], [address], [place], [address], [place]. tel:[phone] Referring Provider: Rose ADAN, [address], [place], [address]. tel:[phone] OSCAR Garcia, [address] [facility] [address], [place], [address], [place] tel:[phone] Home Visit No Information 1 RN RN. [address], [address], [place], [address], [place]. tel:[phone] Referring Provider: Rose ADAN, [address], [place], [address]. tel:[phone] OSCAR Garcia, [address], [place], [address], [place] tel:[phone] Home Visit Generalized abdominal painChronic pain syndromeGenera lized abdominal pain 1 RN RN. [address], [address], [place], [address], [place]. tel:[phone] Referring Provider: Rose ADAN, [address], [place], [address]. tel:[phone] [facility], [address], [place], [address], [place] tel:[phone] Home Visit No Information 1 RN RN. [address], [place], [address], [place]. tel:[phone] Referring Provider: Rose ADAN, [address], [place], [address]. tel:[phone] [facility], [address] [facility] [address], [place], [place], [address], [place] tel:[phone] Home Visit Chronic pain syndromePostla minectomy syndrome, not elsewhere classifiedChro raina pain syndrome 1 RN RN. [address] [facility], [place], [address], [place]. tel:[phone] Referring Provider: Rose ADAN, [address], [place], [address]. tel:[phone] [facility], [address] [facility] [facility] [address], [place], [address], [place] tel:[phone] Home Visit No Information 1 RN RN. [address] [facility], [address], [place], [address], [place]. tel:[phone] Referring Provider: Rose ADAN, [address], [place], [address]. tel:[phone] [facility], [address] [facility] [address], [place], [address], [place] tel:[phone] Home Visit No Information 1 RN RN. [address], [place], [address], [place]. tel:[phone] Referring Provider: Rose ADAN, [address], [place], [address]. tel:[phone] [facility], [address] [facility] [address], [place], [place], [address], [place] tel:[phone] Home Visit Abdominal pain (chief complaint) Postlaminectom y syndrome, not elsewhere classifiedChro raina pain syndromePostla minectomy syndrome, not elsewhere classified 1 RN RN. [address] [facility], [address], [place], [place], [address], [place]. tel:[phone] Referring Provider: Rose ADAN, [address], [place], [address]. tel:[phone] [facility], [address] [facility], [place], [place], [address], [place] tel:[phone] Home Visit No Information 1 RN CARLOS MANUEL. [address] [facility], [address], [place], [address], [place]. tel:[phone] Referring Provider: Rose ADAN, [address], [facility] [place], [address]. tel:[phone] [facility], [address] [facility], [address], [place], [address], [place] tel:[phone] [facility] back pain (chief complaint) Complex regional pain syndrome I of lower limb, bilateral 1 Brea Mendieta. [address], [place], [place], [address], [place]. tel:[phone] Referring Provider: Anam Wiley, [address], [place], [address] . tel:[phone] [facility], [address], [place], [place], [id number], [place] tel:[phone] [facility] No Information 1 Brea Mendieta. [address], [place], [place], [id number], [place]. tel:[phone] Referring Provider: Rose ADAN, [address] [facility], [place], [address]. tel:[phone] [facility] Garcia, [address], [place], [place], [id number], [place] tel:[phone] [facility] Complex regional pain syndrome I of lower limb, bilateral 1 Jackie Thompson. [address], [place], [address], [place]. tel:[phone] Referring Provider: Rose ADAN, [address] [place], [place], [address]. tel:[phone] BRADY Garcia, [address], [place], [address], [place] tel:[phone] Home Visit Chronic pain syndromeGenera lized abdominal painChronic pain syndrome 1 CARLOS MANUEL HOROWITZ. [address] , [address], [place], [place], [address], [place]. tel:[phone] Referring Provider: Rose ADAN, [address] [place], [place], [address]. tel:[phone] Jose [facility], [address], [place], [address], [place] tel:[phone] Home Visit No Information 1 CARLOS MANUEL HOROWITZ. [address], [address], [place], [address], [place]. tel:[phone] Referring Provider: Rose ADAN, [address] [facility], [place], [address]. tel:[phone] Est Pt Eval 25 Min BRADY Garcia, [address], [place], [address], [place] tel:[phone] [facility] back pain (chief complaint) Complex regional pain syndrome I of lower limb, bilateralPostl aminectomy syndrome, not elsewhere classified Apr-2 1 Brea Lacey. [address] [facility] [address], [place], [address], [place]. tel:[phone] Referring Provider: Rose ADAN, [address] [facility], [place], [address]. tel:[phone] OSCAR Garcia, [address], [place], [address], [place] tel:[phone] Home Visit No Information 1 RN CARLOS MANUEL. [address] , [address], [place], [address], [place]. tel:[phone] Referring Provider: Rose ADAN, [address] [facility], [place], [address]. tel:[phone] OSCAR Garcia, [address] [facility] [address], [place], [address], [place] tel:[phone] Home Visit Unspecified abdominal painUnspecifie d abdominal pain Apr- 1 RN CARLOS MANUEL. [address] , [address], [place], [address], [place]. tel:[phone] Referring Provider: Rose ADAN, [address] [facility], [place], [address]. tel:[phone] OSCAR Garcia, [address] [facility] [address], [place], [address], [place] tel:[phone] Home Visit No Information 1 RN CARLOS MANUEL. [address] , [address], [place], [address], [place]. tel:[phone] Referring Provider: Rose ADAN, [address] [facility], [place], [address]. tel:[phone] BRADY GarciaC, [address], [place], [place], [address], [place] tel:[phone] Home Visit Postlaminectom y syndrome, not elsewhere classifiedLow back painPostlamine ctomy syndrome, not elsewhere classified 1 RN RN. [address], [address], [place], [place], [address], [place]. tel:[phone] Referring Provider: Rose ADAN, [address] [place], [address]. tel:[phone] [facility], [address], [place], [place], [address], [place] tel:[phone] Home Visit No Information 1 RN RN. [address], [address], [place], [place], [address], [place]. tel:[phone] Referring Provider: Rose ADAN, [address] [facility], [place], [address]. tel:[phone] BRADY GarciaC, [address], [place], [place], [address], [place] tel:[phone] Home Visit Postlaminectom y syndrome, not elsewhere classifiedPost laminectomy syndrome, not elsewhere classified 1 RN RN. [address], [address], [place], [place], [address], [place]. tel:[phone] Referring Provider: Rose ADAN, [address] [facility], [place], [address]. tel:[phone] [facility], [address], [place], [place], [address], [place] tel:[phone] Home Visit No Information 1 RN RN. [address], [address], [place], [place], [address], [place]. tel:[phone] Referring Provider: Rose Bright DO S, [address] [facility], [place], [address]. tel:[phone] [facility], [address], [place], [address], [place] tel:[phone] [facility] Ev Chest pain (chief complaint) Complex regional pain syndrome I of other specified siteGeneralize d abdominal painNeuralgia and neuritis, unspecifiedOpi oid dependence, uncomplicatedC omplex regional pain syndrome I of other specified siteGeneralize d abdominal painNeuralgia and neuritis, unspecifiedOpi oid dependence, uncomplicated 0 [facility]. [address] [facility] [address], [place], [place], [address], [place]. tel:[phone] Referring Provider: Ney Kovacs, [address] [facility] [address], [place], [address]. tel:[phone] [facility], [facility], [address], [place], [place], [address], [place] tel:[phone] [facility] Ev No Information 0 Gavin Brewster. [address], [place], [address], [place]. tel:[phone] Referring Provider: Ney Kovacs, [address] [facility] [address], [place], [address]. tel:[phone] [facility], [facility], [address], [place], [place], [address], [place] tel:[phone] Home Visit Postlaminectom y syndrome, not elsewhere classifiedChro raina pain syndromePostla minectomy syndrome, not elsewhere classified 0 RN RN. [address], [address], [place], [place], [address], [place]. tel:[phone] Referring Provider: Rose ADAN, [address] [place], [place], [address]. tel:[phone] BRADY GarciaC, [address], [place], [place], [address], [place] tel:[phone] Home Visit No Information 0 RN RN. [address], [address], [place], [place], [address], [place]. tel:[phone] Referring Provider: Rose ADAN, [address] [facility], [place], [address]. tel:[phone] BRADY GarciaC, [address], [place], [address], [place] tel:[phone] Home Visit No Information 0 RN RN. [address], [address], [place], [place], [address], [place]. tel:[phone] Referring Provider: Rose ADAN, [address] [place], [address]. tel:[phone] [facility], [address], [place], [place], [address], [place] tel:[phone] Home Visit No Information 0 Antonino Middleton. [address], [place], [address], [place]. tel:[phone] [facility], [address], [place], [place], [address], [place] tel:[phone] Home Visit Postlaminectom y syndrome, not elsewhere classifiedChro raina pain syndromePostla minectomy syndrome, not elsewhere classified 0 RN RN. [address], [address], [place], [place], [address], [place]. tel:[phone] Referring Provider: Rose ADAN, [address] [facility], [place], [address]. tel:[phone] [facility], [address], [place], [place], [address], [place] tel:[phone] Home Visit No Information 0 RN RN. [address], [address], [place], [address], [place]. tel:[phone] Referring Provider: Rose ADAN, [address] [facility], [place], [address]. tel:[phone] [facility], [address], [place], [address], [place] tel:[phone] Home Visit Postlaminectom y syndrome, not elsewhere classifiedChro raina pain syndromePostla minectomy syndrome, not elsewhere classified 0 RN RN. [address], [address], [place], [place], [address], [place]. tel:[phone] Referring Provider: Rose ADAN, [address] [facility], [place], [address]. tel:[phone] [facility], [address], [place], [address], [place] tel:[phone] Home Visit No Information 0 RN RN. [address], [address], [place], [address], [place]. tel:[phone] Referring Provider: Rose ADAN, [address] [facility], [place], [address]. tel:[phone] [facility], [address], [place], [place], [address], [place] tel:[phone] Home Visit No Information 0 RN RN. [address], [address], [place], [place], [address], [place]. tel:[phone] Referring Provider: Rose ADAN, [address] [facility], [place], [address]. tel:[phone] [facility], [address], [place], [place], [address], [place] tel:[phone] Home Visit Abdominal pain (chief complaint) Unspecified abdominal painUnspecifie d abdominal pain 0 RN RN. [address], [address], [place], [address], [place]. tel:[phone] Referring Provider: Rose ADAN, [address] [facility], [place], [address]. tel:[phone] [facility], [address], [place], [place], [address], [place] tel:[phone] Home Visit No Information 0 RN RN. [address], [address], [place], [address], [place]. tel:[phone] Referring Provider: Rose ADAN, [address] [facility], [place], [address]. tel:[phone] [facility], [address], [place], [address], [place] tel:[phone] Home Visit No Information 0 RN RN. [address], [address], [place], [address], [place]. tel:[phone] Referring Provider: Rose ADAN, [address] [place], [address]. tel:[phone] OSCAR Garcia, [address], [address], tel:[phone] Home Visit Abdominal pain (chief complaint) back pain (chief complaint) bilateral ankle pain (chief complaint) bilateral foot pain (chief complaint) Chronic pain syndromeGenera lized abdominal painPostlamine ctomy syndrome, not elsewhere classifiedGene ralized abdominal pain 0 RN RN. [address] [facility] [address], [place], [address], [place]. tel:[phone] Referring Provider: Rose ADAN, [address] [place], [address]. tel:[phone] OSCAR Garcia, [address], [address], tel:[phone] Home Visit No Information June-0 0 RN RN. [address] [facility] [address], [place], [address], . tel:[phone] Referring Provider: Rose ADAN, [address] [place], [address]. tel:[phone] OSCAR Garcia, [address], [address], tel:[phone] Home Visit Abdominal pain (chief complaint) bilateral ankle pain (chief complaint) bilateral foot pain (chief complaint) Generalized abdominal painGeneralize d abdominal pain May-0 0 RN RN. [address] [facility], [address], [place], [address], [place]. tel:[phone] Referring Provider: Rose ADAN, [address] [place], [address]. tel:[phone] OSCAR Garcia, [address], [place], [place], [address], [place] tel:[phone] Home Visit No Information 0 RN RN. [address], [address], [place], [place], [address], [place]. tel:[phone] Referring Provider: Rose ADAN, [address] [facility], [place], [address]. tel:[phone] [facility], [address], [place], [place], [address], [place] tel:[phone] Home Visit No Information 0 RN RN. [address], [address], [place], [address], [place]. tel:[phone] Referring Provider: Rose ADAN, [address] [facility], [place], [address]. tel:[phone] [facility], [address], [place], [place], [address], [place] tel:[phone] Home Visit Abdominal pain (chief complaint) Generalized abdominal painGeneralize d abdominal pain 0 RN RN. [address], [address], [place], [place], [address], [place]. tel:[phone] Referring Provider: Rose ADAN, [address] [facility], [place], [address]. tel:[phone] [facility], [address], [place], [place], [address], [place] tel:[phone] Home Visit No Information 0 RN RN. [address], [address], [place], [address], [place]. tel:[phone] Referring Provider: Rose ADAN, [address] [facility], [place], [address]. tel:[phone] BRADY GarciaC, [address], [place], [address], [place] tel:[phone] [facility] Postlaminectom y syndrome, not elsewhere classified 0 RN RN. [address], [address], [place], [address], [place]. tel:[phone] Referring Provider: Rose ADAN, [address] [facility], [place], [address]. tel:[phone] [facility], [address], [place], [address], [place] tel:[phone] Home Visit No Information 0 RN RN. [address], [address], [place], [address], [place]. tel:[phone] Referring Provider: Rose ADAN, [address] [facility], [place], [address]. tel:[phone] [facility], [address], [place], [address], [place] tel:[phone] Home Visit Abdominal pain (chief complaint) Generalized abdominal painUnspecifie d abdominal painUnspecifie d abdominal pain 9 RN RN. [address], [address], [place], [address], [place]. tel:[phone] Referring Provider: Rose ADAN, [address] [facility], [place], [address]. tel:[phone] [facility], [address], [place], [address], [place] tel:[phone] Home Visit No Information 9 RN RN. [address] , [address], [place], [place], [address], [place]. tel:[phone] Referring Provider: Rose ADAN, [address] [facility], [address]. tel:[phone] [facility], [address], [place], [place], [address], [place] tel:[phone] Home Visit back pain (chief complaint) Encounter for adjustment and management of infusion pumpPostlamine ctomy syndrome, not elsewhere classifiedPost laminectomy syndrome, not elsewhere classified 9 RN RN. [address] , [address], [place], [place], [address], [place]. tel:[phone] Referring Provider: Rose ADAN, [address] [place], [address]. tel:[phone] [facility], [address], [place], [place], [address], [place] tel:[phone] Home Visit No Information 9 RN RN. [address] , [address], [place], [address], [place]. tel:[phone] Referring Provider: Rose ADAN, [address] [place], [address]. tel:[phone] Est Pt Eval 25 Min [facility], [address], [place], [place], [address], [place] tel:[phone] [facility] back pain (chief complaint) Opioid dependence, uncomplicatedC omplex regional pain syndrome I of lower limb, bilateralGener alized abdominal painPostlamine ctomy syndrome, not elsewhere classified 9 Antonino Middleton. [address] [facility] [address], [place], [address], [place]. tel:[phone] Referring Provider: Rose ADAN, [address] [place], [address]. tel:[phone] Est Pt Eval 25 Min [facility], [address], [place], [place], [address], [place] tel:[phone] [facility] Not Listed (chief complaint) Low back painPostlamine ctomy syndrome, not elsewhere classifiedGene ralized abdominal painPain in left kneeNeuralgia and neuritis, unspecifiedRad iculopathy, lumbar regionComplex regional pain syndrome I of other specified siteLow back pain 9 Antonino Cashh. [address], [place], [address], [place]. tel:[phone] Referring Provider: Rose AADN, [address] [place], [address]. tel:[phone] Est Pt Eval 25 Min [facility], [address], [place], [place], [address], [place] tel:[phone] [facility] Abdominal Pain (chief complaint) Neuralgia and neuritis, unspecifiedCom plex regional pain syndrome I of other specified siteLong term (current) use of opiate analgesicPain in left kneeOpioid dependence, uncomplicatedE ncounter for adjustment and management of infusion pumpNeuralgia and neuritis, unspecified 9 Jackie Thompson. [address], [place], [place], [address], [place]. tel:[phone] Referring Provider: Rose ADAN, [address] [place], [address]. tel:[phone] [facility], [address], [place], [place], [address], [place] tel:[phone] [facility] No Information 9 Jackie Thompson. [address], [place], [place], [address], [place]. tel:[phone] Referring Provider: Rose ADAN, [address] [place], [address]. tel:[phone] Est Pt Eval 25 Min Jose [facility], [address], [place], [place], [address], [place] tel:[phone] [facility] Not Listed (chief complaint) Complex regional pain syndrome I of lower limb, bilateralPain in left kneeNeuralgia and neuritis, unspecifiedOpi oid dependence, uncomplicatedL eber term (current) use of opiate analgesicEncou nter for adjustment and management of infusion pumpComplex regional pain syndrome I of lower limb, bilateral 9 Jackie Thompson. [address], [place], [place], [address], [place]. tel:[phone] Referring Provider: Rose ADAN, [address] [facility], [address]. tel:[phone] Jose [facility], [address], [place], [place], [address], [place] tel:[phone] [facility] No Information 9 Jackie Thompson. [address], [place], [place], [address], [place]. tel:[phone] Referring Provider: Rose ADAN, [address] [facility], [address]. tel:[phone] Jose [facility], [address], [place], [place], [address], [place] tel:[phone] Ev [facility] No Information 9 Alli Saldaña. [address] , [address], [place], [place], [address], [place]. tel:[phone] Referring Provider: Rose ADAN, [address] [place], [address]. tel:[phone] Est Pt Eval 25 Min [facility], [address] [facility] [address], [place], [place], [address], [place] tel:[phone] [facility] Complex regional pain syndrome I of other specified sitePostlamine ctomy syndrome, not elsewhere classifiedComp rudy regional pain syndrome I of other specified site Apr- 9 Antonino Middleton. [address] [facility] [address], [place], [address], [place]. tel:[phone] Referring Provider: Rose ADAN, [address] [facility], [place], [address]. tel:[phone] Est Pt Eval 25 Min [facility], [address] [facility] [address], [place], [place], [address], [place] tel:[phone] [facility] Complex regional pain syndrome I of lower limb, bilateralCompl ex regional pain syndrome I of other specified siteNeuralgia and neuritis, unspecifiedLon g term (current) use of opiate analgesicCompl ex regional pain syndrome I of lower limb, bilateral Mar- 9 Justyn King. [address] [facility] [address] [facility] [address], [place], [address], [place]. tel:[phone] Referring Provider: Rose ADAN, [address] [facility], [place], [address]. tel:[phone] Est Pt Eval 25 Min [facility], [address], [place], [place], [address], [place] tel:[phone] [facility] Radiculopathy, lumbar regionComplex regional pain syndrome I of lower limb, bilateralOther intervertebral disc degeneration, lumbar regionLong term (current) use of opiate analgesicPostl aminectomy syndrome, not elsewhere classifiedPost laminectomy syndrome, not elsewhere classified 9 Justyn King. [address], [place], [address], [place]. tel:[phone] Referring Provider: Rose ADAN, [address] [facility], [place], [address]. tel:[phone] Est Pt Eval 25 Min [facility], [address], [place], [place], [address], [place] tel:[phone] [facility] Postlaminectom y syndrome, not elsewhere classifiedGene ralized abdominal painUnspecifie d abdominal painComplex regional pain syndrome I of other specified siteLong term (current) use of opiate analgesicPostl aminectomy syndrome, not elsewhere classified 9 Calixto Viveros. [address], [place], [address], [place]. tel:[phone] Referring Provider: Rose ADAN, [address] [facility], [place], [address]. tel:[phone] Est Pt Eval 25 Min [facility], [address], [place], [place], [address], [place] tel:[phone] [facility] Complex regional pain syndrome I of other specified siteLong term (current) use of opiate analgesicPostl aminectomy syndrome, not elsewhere classifiedGene ralized abdominal painGeneralize d abdominal pain 9 Muñizadry Middleton. [address], [place], [address], [place]. tel:[phone] Referring Provider: Rose ADAN, [address] [facility], [place], [address]. tel:[phone] [facility], [address] [facility] [address], [place], [place], [address], [place] tel:[phone] [facility] back pain (chief complaint) bilateral leg pain (chief complaint) Postlaminectom y syndrome, not elsewhere classifiedLow back painOpioid dependence, uncomplicated 9 RN RN. [address] [facility] [address], [place], [place], [address], [place]. tel:[phone] Referring Provider: Rose Bright DO S, [address] [place], [address]. tel:[phone] [facility], [address] [facility] [address], [place], [place], [address], [place] tel:[phone] [facility] No Information 9 Brea Mendieta. [address], [place], [place], [address], [place]. tel:[phone] Referring Provider: Anam Wiley, [address], [place], [address] . tel:[phone] [facility], [address] [facility], [address], [place], [address], [place] tel:[phone] [facility] back pain (chief complaint) Postlaminectom y syndrome, not elsewhere classifiedOthe r spondylosis with radiculopathy, lumbar regionOther intervertebral disc degeneration, lumbar regionOpioid dependence, uncomplicated 9 [facility]. [address] [facility] [address], [place], [place], [address], [place]. tel:[phone] Referring Provider: Anam Wiley, [address], [place], [address] . tel:[phone] [facility], [address] [facility] [address], [place], [place], [address], [place] tel:[phone] [facility] Complex regional pain syndrome I of lower limb, bilateralCompl ex regional pain syndrome I of lower limb, bilateral RN RN. [address] [facility] [address], [place], [place], [address], [place]. tel:[phone] Referring Provider: Rose Bright DO S, [address] [place], [address]. tel:[phone] [facility], [facility], [address] [facility] [address], [place], [place], [address], [place] tel:[phone] [facility] No Information 8 Brea Mendieta. [address], [place], [place], [address], [place]. tel:[phone] Referring Provider: Anam Wiley, [address], [place], [address] . tel:[phone] [facility], [address] [facility], [address], [place], [address], [place] tel:[phone] [facility] Back pain (chief complaint) Postlaminectom y syndrome, not elsewhere classifiedOthe r spondylosis with radiculopathy, lumbar regionOther intervertebral disc degeneration, lumbar regionOpioid dependence, uncomplicatedP ostlaminectomy syndrome, not elsewhere classifiedOthe r spondylosis with radiculopathy, lumbar regionOther intervertebral disc degeneration, lumbar regionOpioid dependence, uncomplicated [facility]. [address] [facility] [address], [place], [place], [address], [place]. tel:[phone] Referring Provider: Anam Wiley, [address], [place], [address] . tel:[phone] Est Pt Eval 25 Min Jose, [facility], [address] [facility] [address], [place], [place], [address], [place] tel:[phone] [facility] Unspecified abdominal painComplex regional pain syndrome I of lower limb, bilateralNeura lgia and neuritis, unspecifiedUns pecified abdominal pain 8 Antonino Middleton. [address] [facility] [address], [place], [address], [place]. tel:[phone] Referring Provider: Rose ADAN, [address] [place], [address]. tel:[phone] Jose [facility], [address] [facility] [address], [place], [place], [address], [place] tel:[phone] [facility] Myalgia 8 Augustus Nixon. [address] [facility] [address], [place], [place], [address], [place]. tel:[phone] Referring Provider: Rose ADAN, [address] [place], [address]. tel:[phone] Psychiatric Diagnostic Evaluation BRADY Garcia, [address] [facility], [place], [place], [address], [place] tel:[phone] [facility] Pain disorder with related psychological factors 8 Alli Saldaña. [address] [facility], [address], [place], [place], [address], [place]. tel:[phone] Referring Provider: Rose ADAN, [address] [facility], [place], [address]. tel:[phone] Est Pt Eval 25 Min Jose [facility], [address], [place], [place], [address], [place] tel:[phone] [facility] Postlaminectom y syndrome, not elsewhere classifiedComp rudy regional pain syndrome I of other specified siteRadiculopa thy, lumbar regionLow back painComplex regional pain syndrome I of lower limb, bilateralGener alized abdominal painNeuralgia and neuritis, unspecifiedCer vicalgiaGenera lized abdominal pain 8 Calixto Sagastume Felice. [address] [facility] [address], [place], [address], [place]. tel:[phone] Referring Provider: Rose ADAN, [address] [place], [address]. tel:[phone] Est Pt Eval 25 Min Jose, [facility], [address], [place], [place], [address], [place] tel:[phone] [facility] Generalized abdominal painNeuralgia and neuritis, unspecifiedPos tlaminectomy syndrome, not elsewhere classifiedLong term (current) use of opiate analgesicGener alized abdominal pain Leatha Joseph. [address] [facility], [address], [place], [place], [address], [place]. tel:[phone] Referring Provider: Rose ADAN, [address] [place], [address]. tel:[phone] Jose [facility], [address], [place], [place], [address], [place] tel:[phone] [facility] right ankle pain (chief complaint) Complex regional pain syndrome I of lower limb, bilateralCompl ex regional pain syndrome I of lower limb, bilateral 8 RN RN. [address] [facility], [address], [place], [place], [address], [place]. tel:[phone] Referring Provider: Rose ADAN, [address] [place], [address]. tel:[phone] Jose [facility], [address], [place], [place], [address], [place] tel:[phone] [facility] No Information 8 Jake Farah. [address] [facility], [address], [place], [place], [address], [place]. tel:[phone] Referring Provider: Rose Bright DO S, [address] [place], [address]. tel:[phone] [facility], [address] [facility], [address], [place], [address], [place] tel:[phone] [facility] bilateral leg pain (chief complaint) Postlaminectom y syndrome, not elsewhere classifiedComp rudy regional pain syndrome I of lower limb, bilateralNeura lgia and neuritis, unspecifiedPos tlaminectomy syndrome, not elsewhere classifiedComp rudy regional pain syndrome I of lower limb, bilateralNeura lgia and neuritis, unspecified 8 [facility]. [address] [facility] [address], [place], [place], [address], [place]. tel:[phone] Referring Provider: Anam Wiley, [address], [place], [address] . tel:[phone] [facility], [address] [facility] [address], [place], [place], [address], [place] tel:[phone] [facility] No Information 8 Brea Mendieta. [address], [place], [place], [address], [place]. tel:[phone] Referring Provider: Anam Wiley, [address], [place], [address] . tel:[phone] Est Pt Eval 25 Min [facility], [address] [facility] [address], [place], [place], [address], [place] tel:[phone] [facility] Generalized abdominal painPostlamine ctomy syndrome, not elsewhere classifiedLow back painRadiculopa thy, lumbar regionPain in left footPain in right footGeneralize d abdominal pain Calixto Viveros. [address] [facility] [address], [place], [address], [place]. tel:[phone] Referring Provider: Rose ADAN, [address] [place], [address]. tel:[phone] [facility], [address] [facility] [address], [place], [place], [address], [place] tel:[phone] [facility] No Information Jake Farah. [address] [facility], [address], [place], [place], [address], [place]. tel:[phone] Referring Provider: Rose ADAN, [address] [place], [address]. tel:[phone] Est Pt Eval 25 Min [facility], [address], [place], [place], [address], [place] tel:[phone] [facility] Postlaminectom y syndrome, not elsewhere classifiedLow back painGeneralize d abdominal painUnspecifie d abdominal painGeneralize d abdominal pain 8 Calixto Viveros. [address], [place], [address], [place]. tel:[phone] Referring Provider: Rose ADAN, [address] [place], [address]. tel:[phone] Est Pt Eval 25 Min Jose, [facility], [address], [place], [place], [address], [place] tel:[phone] [facility] Postlaminectom y syndrome, not elsewhere classifiedGene ralized abdominal painUnspecifie d abdominal painLow back painPostlamine ctomy syndrome, not elsewhere classified Calixto Viveros. [address], [place], [address], [place]. tel:[phone] Referring Provider: Rose ADAN, [address] [facility], [place], [address]. tel:[phone] Est Pt Eval 25 Min [facility], [address], [place], [place], [address], [place] tel:[phone] [facility] Postlaminectom y syndrome, not elsewhere classifiedUnsp ecified abdominal painGeneralize d abdominal painLow back painPostlamine ctomy syndrome, not elsewhere classified Calixto Viveros. [address], [place], [address], [place]. tel:[phone] Referring Provider: Rose ADAN, [address] [facility], [place], [address]. tel:[phone] Est Pt Eval 25 Min [facility], [address], [place], [place], [address], [place] tel:[phone] [facility] Low back painUnspecifie d abdominal painGeneralize d abdominal painPostlamine ctomy syndrome, not elsewhere classifiedPost laminectomy syndrome, not elsewhere classified Calixto Viveros. [address], [place], [address], [place]. tel:[phone] Referring Provider: Rose ADAN, [address] [facility], [place], [address]. tel:[phone] Est Pt Eval 25 Min [facility], [address], [place], [place], [address], [place] tel:[phone] [facility] long term care phlebotomist (current) use of opiate analgesicPostl aminectomy syndrome, not elsewhere classifiedGene ralized abdominal painGeneralize d abdominal pain 8 Calixto Viveros. [address], [place], [address], [place]. tel:[phone] Referring Provider: Rose ADAN, [address] [place], [address]. tel:[phone] Est Pt Eval 25 Min [facility], [address], [place], [place], [address], [place] tel:[phone] [facility] Generalized abdominal painLong term (current) use of opiate analgesicGener alized abdominal pain Leatha Joseph. [address], [address], [place], [place], [address], [place]. tel:[phone] Referring Provider: Rose ADAN, [address] [place], [address]. tel:[phone] Est Pt Eval 25 Min Jose, [facility], [address], [place], [place], [address], [place] tel:[phone] [facility] Generalized abdominal painNeuralgia and neuritis, unspecifiedGen eralized abdominal pain 8 Alejandralakesha King. [address], [place], [address], [place]. tel:[phone] Referring Provider: Rose ADAN, [address] [place], [address]. tel:[phone] [facility] [place], [address], [place], [address], [place] tel:[phone] [facility] [place] headache (chief complaint) HeadacheOther reaction to spinal and lumbar punctureOther reaction to spinal and lumbar punctureHeadac he 8 [facility]. [address] [facility] [address], [place], [place], [address], [place]. tel:[phone] Referring Provider: Anam Wiley, [address], [place], [address] . tel:[phone] Jose [facility], [address] [facility] [address], [place], [place], [address], [place] tel:[phone] [facility] No Information 8 Brea Mendieta. [address], [place], [place], [address], [place]. tel:[phone] Referring Provider: Anam Wiley, [address], [place], [address] . tel:[phone] [facility], [address] [facility], [address], [place], [address], [place] tel:[phone] [facility] Abdominal pain (chief complaint) Complex regional pain syndrome I of other specified siteGeneralize d abdominal painNeuralgia and neuritis, unspecifiedOpi oid dependence, uncomplicated 8 [facility]. [address] [facility] [address], [place], [place], [address], [place]. tel:[phone] Referring Provider: Anam Wiley, [address], [place], [address] . tel:[phone] Jose, [facility], [address] [facility] [address], [place], [place], [address], [place] tel:[phone] [facility] No Information 8 Brea Mendieta. [address], [place], [place], [address], [place]. tel:[phone] Referring Provider: Anam Wiley, [address], [place], [address] . tel:[phone] [facility], [address], [place], [place], [address], [place] tel:[phone] [facility] No Information 8 Lori Richey. [address], [place], [address], [place]. tel:[phone] Referring Provider: Rose ADAN, [address] [place], [address]. tel:[phone] [facility], [address], [place], [place], [address], [place] tel:[phone] [facility] MyalgiaGeneral ized abdominal painPain in unspecified jointPain in left knee 8 Lori Richey. [address], [place], [address], [place]. tel:[phone] Referring Provider: Rose ADAN, [address] [facility], [place], [address]. tel:[phone] Jose [facility], [address], [place], [place], [address], [place] tel:[phone] [facility] Generalized abdominal painGeneralize d abdominal painGeneralize d abdominal painUnspecifie d abdominal painGeneralize d abdominal pain 8 RN RN. [address], [place], [place], [address], [place]. tel:[phone] Referring Provider: Rose ADAN, [address] [facility], [place], [address]. tel:[phone] [facility], [address], [place], [address], [place] tel:[phone] [facility] Abdominal pain (chief complaint) Opioid dependence, uncomplicatedC omplex regional pain syndrome I of other specified siteGeneralize d abdominal painNeuralgia and neuritis, unspecified 8 [facility]. [address], [place], [place], [address], [place]. tel:[phone] Referring Provider: Anam Wiley, [address], [place], [address] . tel:[phone] Jose [facility], [address], [place], [place], [address], [place] tel:[phone] [facility] No Information 8 Brea Mendieta. [address], [place], [place], [address], [place]. tel:[phone] Referring Provider: Anam Wiley, [address], [place], [address] . tel:[phone] Jose [facility], [address], [place], [place], [address], [place] tel:[phone] [facility] [place] No Information 8 Lori Richey. [address], [place], [address], [place]. tel:[phone] Referring Provider: Rose Bright DO S, [address] [facility], [place], [address]. tel:[phone] Jose [facility], [address], [place], [place], [address], [place] tel:[phone] [facility] [place] Generalized abdominal painMyalgiaPai n in left kneePain in unspecified joint 8 Lori Richey. [address], [place], [address], [place]. tel:[phone] Referring Provider: Rose ADAN, [address] [facility], [place], [address]. tel:[phone] Jose, [facility], [address], [place], [place], [address], [place] tel:[phone] [facility] Generalized abdominal painMyalgiaPai n in unspecified jointPain in left knee 8 Joey Garrison. [address], [place], [address], [place]. tel:[phone] Referring Provider: Rose ADAN, [address] [facility], [place], [address]. tel:[phone] [facility], [address], [place], [address], [place] tel:[phone] [facility] Abdominal pain (chief complaint) Unspecified abdominal painNeuralgia and neuritis, unspecifiedUns pecified abdominal painNeuralgia and neuritis, unspecified 8 [facility]. [address], [place], [place], [address], [place]. tel:[phone] Referring Provider: Anam Wiley, [address], [place], [address] . tel:[phone] [facility], [address], [place], [place], [address], [place] tel:[phone] [facility] No Information 8 Brea Mendieta. [address], [place], [place], [address], [place]. tel:[phone] Referring Provider: Anam Wiley, [address], [place], [address] . tel:[phone] Est Pt Eval 15 Min [facility], [address] [facility] [address], [place], [place], [address], [place] tel:[phone] [facility] Abdominal pain (chief complaint) Generalized abdominal pain 8 Leatha Joseph. [address] [facility], [address], [place], [place], [address], [place]. tel:[phone] Referring Provider: Rose Bright DO S, [address] [place], [address]. tel:[phone] [facility], [address] [facility] [facility], [place], [address], [place] tel:[phone] [facility] Abdominal pain (chief complaint) Abdominal painNeuralgia and neuritis, unspecifiedUns pecified abdominal painNeuralgia and neuritis, unspecified 8 [facility]. [address] [facility] [address], [place], [place], [address], [place]. tel:[phone] Referring Provider: Anam Wiley, [address], [place], [address] . tel:[phone] [facility], [address] [facility] [address], [place], [place], [address], [place] tel:[phone] [facility] No Information 8 Brea Mendieta. [address], [place], [place], [address], [place]. tel:[phone] Referring Provider: Anam Wiley, [address], [place], [address] . tel:[phone] New Pt Eval 60 Min [facility], [address] [facility] [address], [place], [place], [address], [place] tel:[phone] [facility] Abdominal pain (chief complaint) Generalized abdominal painPain in unspecified jointMyalgiaLo ng term (current) use of opiate analgesic No Information Referring Provider: Rose Bright DO S, [address] [place], [address]. tel:[phone] Family History Family Member Type Diagnosis Age At Onset Mother Problem (finding) Cancer Father Problem (finding) Cancer Father Problem (finding) Other Payers Payer name Insurance type Covered republican ID Authoriza tion(s) Medicare Part B [id number] [facility] [id number] Social History Type Description Quantity Date Captured [...] Location: right ankle. The pain is vise editor sound. 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 The [...] Assessmen t No Information Instructions Date Instruction Marlene caro -Schedule pump repla cement pending battery expirationFollow-up: -Follow up as scheduled for your next pump appointment Related to Postlaminectomy syndrome, not elsewhere classified same Related to Gener alized abdominal pain Follow up int he cli raina as [id number] CC from the right buttock pocket Related [...] as scheduled. Related to Generalized abdominal pain - Dr. Anam Guidry to call patient [...]
--- OUTSIDE RECORDS SUMMARY | 2023-01-17 14:59 | XMS_ITS | Continuity of Care Document ---
Author Name Unknown Organization [facility] Address [address] [place] [address] Phone Care Team Providers Care Chemical Lab Technician Name Role Phone Luis A ESCOBEDO, PhD, [...] on Encounter [facility], [address], [place], [place], [address] , [place] tel:[phone] [facility] No Information 2 Luis A Carrillo. [facility] [place], [address], [facility] [place], [address], [place]. tel:[phone] [facility], [address], [facility], [place], [address] , [place] tel:[phone] [facility] Arthrodesis status 2 Luis A Carrillo. [facility], [address], [place], [address], [place]. tel:[phone] Referring Provider: Rose Kovacs, [facility] [address] [place], [address]. tel:[phone] [facility], [address], [place], [address] , [place] tel: [phone] [facility] No Information 2 Cm Perez. [facility], [address], [place], [place], [address] , [place]. tel: [phone] Referring Provider: Rose Kovacs, [facility] [address], [place], [address]. tel:[phone] [facility], [address], [place], [place], [address] , [place] tel: [phone] [facility] No Information 2 Luis A Carrillo. [facility] [place], [address], [place], [address], [place]. tel: [phone] Referring Provider: Rose Kovacs, [facility] [address], [place], [address]. tel:[phone] [facility], [address], [place], [place], [address] , [place] tel: [phone] [facility] No Information 2 Luis A Carrillo. [facility], [address], [place], [address], [place]. tel:[phone] Referring Provider: Rose Kovacs [facility] [address], [place], [address]. [phone] Office/Outpa tient Visit,Est, Mod [facility], [address], [place], [place], [address] , [place] tel: [phone] [facility] No Information 2 Luis A Carrillo. [facility], [address], [place], [address], [place]. tel:[phone] Referring Provider: Rose Kovacs, [employer] [address], [place], [address]. [phone] Office/Outpa tient Visit,Est, Mod [facility], [address], [place], [address] , [place] tel: [phone] [facility] Spinal stenosis, lumbar region with neurogenic claudication 2 Luis A Carrillo. [facility], [address], [place], [address], [place]. tel: [phone] Referring Provider: Rose Kovacs, [facility] [address], [place], [address]. tel:[phone] Office/Outpa tient Visit,New, Mod [facility], [address], [place], [address] , [place] tel: [phone] [facility] Spinal stenosis, lumbar region with neurogenic claudication Oct- 1 Luis A Carrillo. [facility] [place], [address], [place], [address], [place]. tel: [phone] Referring Provider: Rose Kovacs, [facility] [address], [place], [address]. tel:[phone] Office/Outpa tient Visit,Est, Mod [facility], [address], [place], [address] , [place] tel: [phone] [facility] Arthrodesis status 7 Luis A Carrillo. [facility] [place], [address], [place], [address], [place]. tel: [phone] Referring Provider: Rose Kovacs [facility] [address], [place], [address]. tel:[phone] Office/Outpa tient Visit,New, Mod [facility], [address], [place], [address] , [place] tel: [phone] [facility] Arthrodesis statusOther spondylosis, lumbar region Apr- 0-201 7 Luis A Carrillo. [facility] [place], [address], [place], [address], [place]. tel: [phone] Referring Provider: Rose Kovacs, [facility] [address], [place], [address]. tel:[phone] [facility], [address], [place], [address] , [place] tel: [phone] [facility] Other intervertebral disc degeneration, lumbar regionCervicalg ia 7 Luis Alberto Landa. [facility], [address], [place], [place], [address] , [place]. tel: [phone] Family History Family Member Type Diagnosis Age At Onset No Information Payers Payer name Insurance type Covered constitution party ID Brant gold(s) Medicare MB [id number] Social History Type Description Quantity Date Captured [...]
[2023-01-17 15:25] LABS: Basophils Absolute Auto 0.01 K/uL (0.00-0.30); Basophils Percent Auto 0.1 % (0.0-3.0); Eosinophils Absolute Auto 0.05 K/uL (0.00-0.50); Eosinophils Percent Auto 0.6 % (0.0-7.0); Hematocrit 44.5 % (33.0-51.0); Hemoglobin* 15.4 gm/dL (12.0-16.0); Immature Granulocytes Abs Auto 0.05 K/uL (0.00-0.30); Immature Granulocytes Pct Auto 0.6 %; Lymphocytes Absolute Auto 1.93 K/uL (0.90-2.90); Lymphocytes Percent Auto 23.5 % (20-44); Mean Corpuscular HGB Conc 35 gm/dL (32-36); Mean Corpuscular Hemoglobin 27 pg (26-34); Mean Corpuscular Volume 78 fL (80-100); Monocytes Percent Auto 10.1 % (0.0-11.0); Neutrophils Absolute Auto 5.36 K/uL (1.7-7.0); Neutrophils Percent Auto 65.1 % (42.0-72.0); Platelet Count* 309 K/uL (140-440); RDW Coefficient of Variation % 14.7 % (11.5-15.5); Red Blood Count 5.71 m/uL (4.00-5.20); White Blood Count* 8.23 K/uL (4.50-11.00)
[2023-01-17 15:27] LABS: Slide Review Reflex No
[2023-01-17] MEDS: ONDANSETRON 2 MG/ML inj 4 MG IVP (15:27)
[2023-01-17] MEDS: HYDROmorphone 0.5 mg/0.5 ml inj IVP (15:27)
[2023-01-17 15:40] LABS: Albumin* 5.1 g/dL (3.3-5.0); Chloride* 96 mmol/L (96-114); Sodium* 130 mmol/L (135-149)
[2023-01-17 15:41] LABS: Potassium* 3.5 mmol/L (3.6-5.1)
[2023-01-17 15:42] LABS: Creatinine* 0.9 mg/dL (0.5-1.5); Est. Creatinine Clearance* 60.56; Estimated Glomerular Filt Rate 74 ml/min
[2023-01-17 15:43] LABS: Alkaline Phosphatase* 93 U/L (40-150); Anion Gap 12 mEq/L (7-15); Aspartate Amino Transferase* 27 U/L (12-35); Bilirubin Total* 0.6 mg/dL (0.1-1.5); Blood Urea Nitrogen* 17 mg/dL (7-30); Carbon Dioxide* 22 mmol/L (20-32); Glucose* 170 mg/dL (60-115); Lipase* 65 U/L (23-300); Total Protein* 8.4 g/dL (6.0-8.3)
[2023-01-17 15:44] LABS: Alanine Aminotransferase* 15 U/L (4-35); Calcium* 9.7 mg/dL (8.4-10.6)
[2023-01-17 16:02] LABS: PCR FLU A Negative PCR FLU A (Negative); PCR FLU B Negative PCR FLU B (Negative); PCR RSV Negative PCR RSV (Negative); SARS PCR* Negative SARS-CoV-2 (Negative); Troponin I* 0.09 ng/mL (0.01-0.04)
[2023-01-17 16:12] VITALS: BP 185/116; PULSE 86; O2SAT 98
[2023-01-17 16:13] VITALS: PULSE 82; O2SAT 98
[2023-01-17 16:39] VITALS: PULSE 97; O2SAT 98
[2023-01-17 16:40] VITALS: O2SAT 97
[2023-01-17] MEDS: ASPIRIN 81 MG TAB.CHEW 324 MG PO (16:51)
[2023-01-17 17:47] LABS: Appearance Urine Clear (Clear); Bilirubin Urine Negative (Negative); Blood Urine Trace-intact (Negative); Color Urine Yellow (Yellow); Glucose Urine Negative (Negative); Ketones Urine Negative (Negative); Leukocyte Esterase Urine Negative (Negative); Nitrite Urine Negative (Negative); Protein Urine 1+ (Negative); Urobilinogen Urine 0.2 (0.2-1.0); pH Urine 6.5 (5.0-8.5)
[2023-01-17 17:54] LABS: Squamous Epithelial Cell Urine Few (None-Few); WBC Urine 0-2 (0-5)
== END 2023-01-17 19:49 | disposition home or self-care (01) ==
PROVIDERS: Emergency Medicine; Emergency Provider Emergency Medicine Emergency Medical Services; PCP Family Medicine
DX: M54.6 Pain in thoracic spine (principal); R79.89 Other specified abnormal findings of blood chemistry
CPT/HCPCS: 36415; 74174; 80053; 81001; 83690; 84484; 85025; 87631; 93005; 94761; 96374; 96375; 99284; 99285; A9270; J1170; J2405; Q9967

== ENCOUNTER 2024-05-20 15:49 | Emergency (ER) | payer MEDICARE, OTHER, SELFPAY ==
--- OUTSIDE RECORDS SUMMARY | 2024-05-20 15:52 | XMS_ITS | Clinical Summary ---
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 adiography 04/06/2024 10:1 2 AM WELDING SYSTEMS AND EQUIPMENT REPAIRER Narrative 04/06/2024 10:12 AM WELDING SYSTEMS AND EQUIPMENT REPAIRER For Patients: As a result of the Cures Act, medical imaging exams and procedure reports are released immediately into your electronic medical record. You may view this report before your referring provider. If you have questions, please contact your health care provider. Indication: Right shoulder pain. Technique: Right shoulder 3 views. Comparison: None. Findings: Chronic healed proximal humeral fracture involving the greater and lesser tuberosities. Hypertrophic spur formation noted at the superolateral and inferomedial aspects of the humeral head. Abnormal alignment at the glenohumeral joint with inferior position of the humeral head in relation to the glenoid. Subcortical deformity of the superomedial humeral head. Chronic deformity of the distal clavicle. Postop changes to the right lung. Impression: Chronic deformities of the humeral head and distal clavicle. Abnormal alignment at the glenohumeral joint with inferior position of the humeral head in relation to the glenoid which may be new since 04/11/[address] chest. This could suggest traumatic subluxation versus large joint effusion. Dictated by Anam Silverio MD @ 04/06/2024 10:12:14 AM (Electronically Signed) Procedure Note Anam Silverio MD - 04/06/2024 For Patients: As a result of the 21st Century Cures Act, medical imagingexams and procedure reports are released immediately into your electronicmedical record. You may view this report before your referring provider.If you have questions, please contact your health care provider. Indication: Right shoulder pain. Technique: Right shoulder 3 views. Comparison: None. Findings: Chronic healed proximal humeral fracture involving the greater and lessertuberosities. Hypertrophic spur formation noted at the superolateral andinferomedial aspects of the humeral head. Abnormal alignment at theglenohumeral joint with inferior position of the humeral head in relationto the glenoid. Subcortical deformity of the superomedial humeral head.Chronic deformity of the distal clavicle. Postop changes to the rightlung. Impression: Chronic deformities of the humeral head and distal clavicle. Abnormalalignment at the glenohumeral joint with inferior position of the humeralhead in relation to the glenoid which may be new since 04/11/2023screening CT chest. This could suggest traumatic subluxation versus largejoint effusion. Dictated by Anam Silverio MD @ 04/06/2024 10:12:14 AM (Electronically Signed) Rose Bright DO GENERAL IMAGING Final Resul t * HEMOGLOBIN A1C (03/06/2024 11:48 AM WELDING SYSTEMS AND EQUIPMENT REPAIRER) HEMOGLOBIN A1C 4.5 <5.7 % of total Hgb [facility] Comment: For the purpose of screening for the presence of diabetes: <5.7% Consistent with the absence of diabetes 5.7-6.4% Consistent with increased risk for diabetes (prediabetes) > or =6.5% Consistent with diabetes This assay result is consistent with a decreased risk of diabetes. Currently, no consensus exists regarding use of hemoglobin A1c for diagnosis of diabetes in children. According to [place] Diabetes Association (ADA) guidelines, hemoglobin A1c <7.0% represents optimal control in non- diabetic patients. Different metrics may apply to specific patient populations. Standards of Medical Care in Diabetes(ADA). Blood BLOOD SPECIMEN / Unknown 03/06/2024 11:48 AM WELDING SYSTEMS AND EQUIPMENT REPAIRER 03/06/2024 11:49 AM WELDING SYSTEMS AND EQUIPMENT REPAIRER Rose Bright DO CHEMISTRY Final Resul t [facility] [address] [place] [address], [facility] [address] [place] [address] * (ABNORMAL) VITAMIN D 25 (DEFICIENCY) (03/06/2024 11:48 AM WELDING SYSTEMS AND EQUIPMENT REPAIRER) VITAMIN D,25-OH,TOTAL,IA 16(L) 30 - 100 ng/mL [facility] Comment: Vitamin D Status 25-OH Vitamin D: Deficiency: <20 ng/mL Insufficiency: 20 - 29 ng/mL Optimal: > or = 30 ng/mL For 25-OH Vitamin D testing on patients on D2-supplementation and patients for whom quantitation of D2 and D3 fractions is required, the [facility](TM) 25-OH VIT D, (D2,D3), LC/MS/MS is recommended: order code 65601 (patients >2yrs). See Note 1 Note 1 For additional information, please refer to http://education.AlphaLab/faq/CFF914 (This link is being provided for informational/ educational purposes only.) Blood BLOOD SPECIMEN / Unknown 03/06/2024 11:48 AM WELDING SYSTEMS AND EQUIPMENT REPAIRER 03/06/2024 11:49 AM WELDING SYSTEMS AND EQUIPMENT REPAIRER Rose Bright DO SEND OUTS Final Resul t Performing Organization Address [facility]/ZIP Co de Phone Number [facility] [address] [place] [address], [facility] [address] [place] [address] * (ABNORMAL) HEMOGLOBIN (03/06/2024 11:48 AM WELDING SYSTEMS AND EQUIPMENT REPAIRER) HEMOGLOBIN 11.0(L) 11.7 - 15.5 g/dL [facility] Blood BLOOD SPECIMEN / Unknown 03/06/2024 11:48 AM WELDING SYSTEMS AND EQUIPMENT REPAIRER 03/06/2024 11:49 AM WELDING SYSTEMS AND EQUIPMENT REPAIRER us Rose Bright DO HEMATOLOGY Final Resul t Performing Organization Address City/[facility]/ZIP Co de Phone Number [facility] [address] [facility] [place] [address], [place] [phone] [facility] [address] [place] [address] * FERRITIN (03/06/2024 11:48 AM WELDING SYSTEMS AND EQUIPMENT REPAIRER) FERRITIN 147 16 - 232 ng/mL [facility] Blood BLOOD SPECIMEN / Unknown 03/06/2024 11:48 AM WELDING SYSTEMS AND EQUIPMENT REPAIRER 03/06/2024 11:49 AM WELDING SYSTEMS AND EQUIPMENT REPAIRER us Rose Bright DO CHEMISTRY Final Resul t Performing Organization Address [facility]/ZIP Co de Phone Number [facility] [address] [facility] [place] [address], [place] [phone] [facility] [address] [facility] [place] [address] * (ABNORMAL) VITAMIN B12 (03/06/2024 11:48 AM WELDING SYSTEMS AND EQUIPMENT REPAIRER) Pathologist [facility] VITAMIN B12 148(L) 200 - 1,100 pg/mL [facility] Blood BLOOD SPECIMEN / Unknown 03/06/2024 11:48 AM WELDING SYSTEMS AND EQUIPMENT REPAIRER 03/06/2024 11:49 AM WELDING SYSTEMS AND EQUIPMENT REPAIRER Rose Bright DO CHEMISTRY Final Resul t Performing Organization Address City/[facility]/ZIP Co de Phone Number [facility] [address] [facility] [place] [address], [place] [phone] [facility] [address] [place] [address] * (ABNORMAL) BASIC METABOLIC PANEL (03/06/2024 11:48 AM WELDING SYSTEMS AND EQUIPMENT REPAIRER) GLUCOSE 86 65 - 99 mg/dL [facility] Comment: Fasting reference interval UREA NITROGEN (BUN) 7 7 - 25 mg/dL [facility] CREATININE 0.76 0.50 - 1.05 mg/dL [facility] EGFR 90 > OR = 60 mL/min/1. 73m2 [facility] [place] BUN/CREATININE RATIO SEE NOTE: 6 - 22 (calc) [facility] Comment: Not Reported: BUN and Creatinine are within reference range. SODIUM 139 135 - 146 mmol/L [facility] Fielde POTASSIUM 4.1 3.5 - 5.3 mmol/L [facility] CHLORIDE 110 98 - 110 mmol/L [facility] CARBON DIOXIDE 13(L) 20 - 32 mmol/L [facility] Comment: Verified by repeat analysis. Analysis performed on aliquoted specimen, CO2 may be decreased due to greater exposure of specimen to air. ELECTROLYTE BALANCE 16 7 - 17 mmol/L (calc) [facility] CALCIUM 8.6 8.6 - 10.4 mg/dL [facility] Blood BLOOD SPECIMEN / Unknown 03/06/2024 11:48 AM WELDING SYSTEMS AND EQUIPMENT REPAIRER 03/06/2024 11:49 AM WELDING SYSTEMS AND EQUIPMENT REPAIRER Vicki Henley MD CHEMISTRY Final Resu lt [facility] [address] [place] [address], [facility] [address] [place] [address] * (ABNORMAL) COMPLIANCE DRUG ANALYSIS (03/06/2024 11:46 AM WELDING SYSTEMS AND EQUIPMENT REPAIRER) 6-MONOACETYL MORPHINE NEG NEG ng/mL 03/11/2024 3:22 PM WELDING SYSTEMS AND EQUIPMENT REPAIRER [facility] AMPHETAMINE URINE NEG <=500 ng/mL 03/11/2024 3:22 PM WELDING SYSTEMS AND EQUIPMENT REPAIRER [facility] BARBITURATE URINE NEG <=200 ng/mL 03/11/2024 3:22 PM WELDING SYSTEMS AND EQUIPMENT REPAIRER [facility] BENZODIAZEPINE URINE POS(A) <=100 ng/mL 03/11/2024 3:[address] [facility] BUPRENORPHRINE URINE NEG <=5 ng/mL 02/25 3:[address] [facility] COCAINE METAB URINE NEG <=300 ng/mL 03/11/2024 3:[address] [facility] ETHYLGLUCURONIDE URINE NEG <=250 ng/mL 03/11/2024 3:[address] [facility] FENTANYL URINE POS(A) <=4 ng/mL 03/11/2024 3:[address] [facility] METHADONE URINE NEG <=300 ng/mL 03/11/2024 3:[address] [facility] OPIATES URINE POS(A) <=300 ng/mL 03/11/2024 3:[address] [facility] OXYCODONE URINE POS(A) <=100 ng/mL 03/11/2024 3:[address] [facility] PROPOXYPHENE URINE NEG <=300 ng/mL 03/11/2024 3:[address] [facility] THC 50 URINE POS(A) <=50 ng/mL 03/11/2024 3:[address] [facility] TRAMADOL NEG <=200 ng/mL 03/11/2024 3:[address] [facility] PH URINE 6.2 5.0 - 7.0 03/11/2024 3:[address] [facility] CREAT UR 75 >=20 mg/dL 03/11/2024 3:[address] [facility] MASS SPECTROMETRY URINE See Below 03/11/2024 3:[address] [facility] Comment:Cyclobenzaprine, Dex tromethorphan, Diphenhydramine, Doxepin, Nordoxepin, Fentanyl, Norfentanyl, Morphine, Oxcarbazepine, Oxycodone, Noroxycodone and Promethazine present. Urine URINE SPECIMEN / Unknown Non-Blood / Unknown 03/06/2024 11:46 AM [facility] 03/06/2024 11:46 AM WELDING SYSTEMS AND EQUIPMENT REPAIRER [facility] - 03/11/2024 3:22 PM WELDING SYSTEMS AND EQUIPMENT REPAIRER Current Outpatient Medications: acetaminophen (TYLENOL EXTRA STRGTH) 500 mg tablet, Take 2 tablets by mouth every 6 hours. Max acetaminophen dose: 4000mg in 24 hrs. artificial Tear, hypromellose 0.3 % gel, (Systane GeL) 0.3 % gel, 1 drop before bed and as needed during the day. Blood Pressure Monitor (Blood Pressure Kit) Kit, Diagnosis: hypertension Use as directed Cane, Wide Base Quad Cane for home use. For lifetime cholecalciferol (Vitamin D) 1,000 unit capsule, Take 2 Capsules (2,000 units) by mouth once daily. cyanocobalamin (VITAMIN B12) 1,000 mcg/mL injection, Inject 1 mL (1,000 mcg) intramuscular every 4 weeks. cyclobenzaprine (FLEXERIL) 10 mg tablet, TAKE ONE TABLET BY MOUTH AT BEDTIME NEEDED FOR MUSCLE SPASMS diazePAM (VALIUM) 5 mg tablet, TAKE 1 TABLET BY MOUTH 1/2 HOUR BEFORE YOUR PUMP REFILL AND 1 TABLET AFTER YOUR PROCEDURE FOR ANXIETY doxepin 50 mg capsule, TAKE 1 CAPSULE (50 MG) BY MOUTH TWO TIMES DAILY. TAKE WITH 150 MG CAP FOR TOTAL OF 250 MG DAILY. doxepin HCl (SINEQUAN) 150 mg capsule, TAKE 1 CAPSULE (150 MG) BY MOUTH AT BEDTIME. furosemide (Lasix) 20 mg tablet, Take 1 Tablet (20 mg) by mouth two times daily. miscellaneous medical supply [facility], As directed. PULSE OXIMETER naloxegoL (MOVANTIK) 25 mg tablet, Take 25 mg by mouth before breakfast. ondansetron (ZOFRAN ODT) 8 mg disintegrating tablet, DISSOLVE ONE TABLET IN MOUTH EVERY 8 HOURS IF NEEDED FOR NAUSEA / VOMITING OXcarbazepine (TRILEPTAL) 300 mg tablet, TAKE 2 TABLETS (600 MG) BY MOUTH TWO TIMES DAILY. oxyCODONE (ROXICODONE) 5 mg immediate release tablet, Take 1 tablet daily as needed for chronic pain promethazine (PHENERGAN) 25 mg tablet, TAKE 1 TABLET BY MOUTH EVERY DAY NEEDED FOR NAUSEA propylene glycoL (Systane Complete) 0.6 % ophthalmic solution, Place 1 Drop into the eye(s) four times daily. sodium chloride 1,000 mg soluble tablet, Take 1 Tablet (1,000 mg) by mouth two times daily. Syringe with Needle, Disp, (B-D 3cc Luer-Chau Syr 25Gx1) 3 mL 25 gauge x 1 syrg, USE DIRECTED FOR VIT. B12 INJECTIONS syringe-needle,safety,disp unt 1.5 mL 22 gauge x 1 1/2 syrg, As directed. triamcinolone (ARISTOCORT; KENALOG) 0.1 % cream, Apply topically to affected area(s) two times daily. Up to 2 weeks for eczema flare. No current facility-administered medications for this visit. As of 03/06/2024 Release to patient->Immediate us Rose Bright DO URINE Final Resul t [facility] [address] [place] [address] [address] [place] [address], [place] * OSMOLALITY,URINE (03/06/2024 11:46 AM WELDING SYSTEMS AND EQUIPMENT REPAIRER) OSMOLALITY,URI NE 411 50 - 1,400 mOsmol/kg 03/07/2024 2:31 AM WELDING SYSTEMS AND EQUIPMENT REPAIRER [facility] Urine URINE SPECIMEN / Unknown Non-Blood / Unknown 03/06/2024 11:46 AM WELDING SYSTEMS AND EQUIPMENT REPAIRER 03/06/2024 11:46 AM WELDING SYSTEMS AND EQUIPMENT REPAIRER us Vicki Henley MD URINE Final Resu lt [facility] [address] [place] [address], [place] * (ABNORMAL) LIPID PANEL W REFLEX MEASURED LDL (07/03/2023 8:00 AM CDT) CHOLESTEROL,TOTAL 248(H) 100 - 199 mg/dL 07/03/2023 2:42 PM CDT [facility] Comment: Cholesterol, Total Reference Ranges Desirable <200 mg/dL Borderline 200-239 mg/dL High >=240 mg/dL TRIGLYCERIDES 64 <150 mg/dL 07/03/2023 2:42 PM CDT [facility] HDL CHOLESTEROL 108 >40 mg/dL 2:42 PM CDT [facility] NON-HDL CHOLESTEROL 140 <145 mg/dl 07/03/2023 2:42 PM CDT [facility] CHOL/HDL RATIO 2.30 <4.50 07/03/2023 2:42 PM CDT [facility] LDL CHOLESTEROL 127 <=130 mg/dL 07/03/2023 2:42 PM CDT [facility] VLDL CHOLESTEROL 13 <=30 mg/dL 07/03/2023 2:42 PM CDT [facility] PROVIDER ORDERED STATUS RANDOM 07/03/2023 2:42 PM CDT [facility] Blood BLOOD SPECIMEN / Unknown Butterfly / Unknown 07/03/2023 8:00 AM CDT 07/03/2023 8:02 AM CDT us Rose Bright DO CHEMISTRY Final Resul t [facility] [address] [place] [address], [place] * SCAN-COLONOSCOPY (04/25/2023 3:00 PM WELDING SYSTEMS AND EQUIPMENT REPAIRER) Narrative Procedure Note Fredis Luna MD - 04/25/2023 1:56 PM CST [facility] [address] [place] [address], [address], [place] [address] Patient Name: Marina Jean-Baptiste Gender: Female Exam Date: 04/25/2023 Visit Number: [id number] Age: 58 Years Date of : 1965 Attending MD: Fredis Luna MD Medical Record#: [id number] Procedure: Colonoscopy Indications: Previous adenomatous polyp(s) Referring MD: Referral Self Primary MD: Rose Bright DO Medications: Admitting Medications: 0.9% Normal Saline at [facility] Intra Procedure Medications: Patient received monitored anesthesia care. Complications: No immediate complications Procedure: An examination of the heart and lungs was performed and found to be withinacceptable limits. . The patient was therefore deemed a reasonablecandidate for endoscopy and sedation. The risks and benefits of the procedure were explained to the patient.After obtaining informed consent, the patient received monitoredanesthesia care and I passed the scope without difficulty via the rectum to the cecum. The appendiceal orificeand ic valve were identified. The quality of the prep was good(Miralax/Gatorade Double Prep (No MgCit)). This was a complete examination throughout the entire colon. Findings: Polyp location: cecum. Quantity: 1. Size: 4 mm. Polyp shape: flatlesion. Maneuver: polypectomy was performed with a cold snare. Removal: complete. Retrieval: complete. Bleeding: none. Anal canal: internal hemorrhoid(s) Impression: Colorectal polyp detected on colonoscopy Preliminary Plan: The patient and their physician will receive a copy of the pathologyreport as well as pathology-based recommendations for future screening orsurveillance. for colon cancer screening Pathology Results: A: COLON, CECUM, POLYP: 1. Normal colonic mucosa; a lymphoid aggregate is present(clinically, 1 polyp) 2. Negative for serrated change, dysplasia, and malignancy MICROSCOPIC A: Performed. Deeper levels were examined. SPECIAL STAINING/DEEPER A: Deeper Electronically signed by: Cesar Paulson MD Interpreted at [facility] Digestive [facility], [address] [place] [address] Orders Instruction(s)/Education: Instruction/Education Timeframe Assessment Colon Cancer Prevention K63.5 Colon Polyps K63.5 Hemorrhoids (Internal) K63.5 High Fiber Diet K63.5 Final Plan: Repeat colonoscopy in 10 years for screening. If you have signs orsymptoms of lower GI illness or a new diagnosis of colon cancer in animmediate family member, you should contact [facility] or your primary providerto discuss whether your next exam should be repeated sooner. We will attempt to contact you at appropriate intervals via U.S. mail. Wemay not be able to find you or contact you at that time, therefore youshould know that the responsibility for following our recommendation restswith you. If you don't hear from us at the time your procedure is due,please contact our office to schedule an appointment. If your contactinformation should change, please contact our office so that we can updateyour record. _Electronically signed by: Fredis Luna MD 04/25/2023 cc: Rose Bright DO us Fredis Luna MD OTHER Kat l Result * XR MAMMO BETH BILAT SCREEN (04/16/2023 1:18 PM WELDING SYSTEMS AND EQUIPMENT REPAIRER) Anatomical Region Laterality Modality BREASTS, Breast Left, Breast Right Bilateral Mammography Impressions 04/17/2023 3:20 PM WELDING SYSTEMS AND EQUIPMENT REPAIRER There is no radiographic evidence for malignancy. Recommend annual mammograms. MAMMOGRAM ASSESSMENT: ACR 1 Negative PATIENTS: You will also receive a letter with your examination results in an easy to read format. If you have questions about your results, please contact your referring provider. Narrative 04/17/2023 3:20 PM WELDING SYSTEMS AND EQUIPMENT REPAIRER For Patients: As a result of the Century Cures Act, medical imaging exams and procedure reports are released immediately into your electronic medical record. You may view this report before your referring provider. If you have questions, please contact your health care provider. XR MAMMO BETH BILAT SCREEN [[id number]] CLINICAL HISTORY: This is an asymptomatic 57 y.o. patient. INDICATION FOR EXAM: Mammogram Screening. TECHNIQUE: CC & MLO views were obtained. This study was evaluated with the assistance of Computer-Aided Detection. Breast Tomosynthesis was used in interpretation. COMPARISON FILM: Yes 02/17/18 [facility] FINDINGS: The breasts have scattered areas of fibroglandular density. There are no dominant masses, suspicious micro calcifications or areas of architectural distortion. us Rose Bright DO MAMMO Final Resul t * CT CHEST SCREENING LOW DOSE WO CONTRAST (04/11/2023 11:19 AM WELDING SYSTEMS AND EQUIPMENT REPAIRER) Anatomical Region Laterality Modality Computed Tomogra phy Impressions 04/16/2023 8:20 AM WELDING SYSTEMS AND EQUIPMENT REPAIRER Negative for lung cancer screening purposes. LUNG-RADS CATEGORY 2: Benign. RADIOLOGIST RECOMMENDATION: Continue annual screening with low-dose CT chest in 12 months. Please note that all CT scans at this facility use dose modulation, iterative reconstruction, and/or weight-based dosing when appropriate to reduce radiation dose to as low as reasonably achievable. Dictated by Anam Silverio MD @ 04/12/2023 9:19:00 PM Signed by: Anam Silverio MD @04/12/2023 9:19:00 PM (Electronic Signature) Narrative 04/16/2023 8:20 AM WELDING SYSTEMS AND EQUIPMENT REPAIRER For Patients: As a result of the Century Cures Act, medical imaging exams and procedure reports are released immediately into your electronic medical record. You may view this report before your referring provider. If you have questions, please contact your health care provider. CT CHEST SCREENING LOW DOSE WITHOUT CONTRAST INDICATION: Lung cancer screening. History of smoking. High risk patient with greater than 20 pack-year smoking history. TECHNIQUE: Low-dose lung cancer screening non-contrast CT chest. Dose reduction techniques were used. COMPARISON: 04/02/2022 FINDINGS: NODULES: Stable 3 mm nodule within the right middle lobe. Additional stable nodular density adjacent to the right major fissure. LUNGS AND PLEURA: Mild biapical pleural-parenchymal scarring. Chronic linear scarring in the right lateral lung. Additional scarring in the left lower lobe. No pleural effusion. Improved aeration since the prior study. MEDIASTINUM: No adenopathy. CORONARY ARTERY CALCIFICATION: None. LIMITED UPPER ABDOMEN: Postop changes to the stomach. MUSCULOSKELETAL: Intrathecal catheter noted. Interval development of a prominent Schmorl's node involving the superior endplate of T11. us Rose Bright DO CT Final Resul t * Anti HIV 1/2 (04/19/2016 8:44 PM WELDING SYSTEMS AND EQUIPMENT REPAIRER) HIV-1/HIV-2 ANTIBODY Non-Reacti ve Non-Reacti ve 04/20/2016 2:40 AM [facility] Blood BLOOD SPECIMEN / Unknown Venipuncture / Unknown 04/19/2016 8:44 PM WELDING SYSTEMS AND EQUIPMENT REPAIRER 04/19/2016 8:51 PM WELDING SYSTEMS AND EQUIPMENT REPAIRER Narrative [facility] - 04/20/2016 2:40 AM WELDING SYSTEMS AND EQUIPMENT REPAIRER HIV-1 p24 and HIV-1/HIV-2 Ab not detected us Farhat Holland MD SEND OUTS Kat l Result [facility] [address] [place] [address], * ANTI HCV (11/29/2015 2:08 PM CDT) HEPATITIS C ANTIBODY Non-Reacti ve Non-Reacti ve 11/29/2015 7:58 PM CDT [facility] Blood BLOOD SPECIMEN / Unknown Venipuncture / Unknown 11/29/2015 2:08 PM CDT 11/29/2015 2:09 PM CDT Narrative [facility] - 11/29/2015 7:58 PM CDT Antibodies to HCV not detected; does not exclude the possibility of exposure to HCV. Rose Bright DO SEND OUTS Final Resul t Performing Organization Address City/[facility]/ZIP Co de Phone Number [facility] [address] [place] [address], from Last 3 Months or Most Recently Relevant to Health Maintenance Additional Health Concerns Infection Onset Date Last Indicated MRSA Clearance Comment:Infection Control Note: Hx of MRSA, surveillance criteria met, no need for further testing or isolation precautions. Do not delete or deactivate the FYI. 11/01/201507/2015 Insurance MEDICARE [place] ONLY MEDICARE PART A HB ONLY MEDICARE PART B HB ONLY MEDICA ACCESSABILITY SOLUTION MEDICARE PPS Advance Directives Documents on File Type Date Recorded Patient Shared Services Manager Expl anation POLST 08/21/2021 POLST 02/08/2020 * Full Code (Latest Code Status on File) Date Activated Date Inactivated Comments 05/22/2022 12:55 PM 05/22/2022 4:39 PM Question Answer Comments Code Status Discussion: Reviewed Preferences * Full Code Date Activated Date Inactivated Comments 09/08/2021 7:39 PM 09/14/2021 4:50 PM Question Answer Comments Code Status Discussion: Per Existing Order * Full Code Date Activated Date Inactivated Comments 11/06/2018 10:00 PM 11/11/2018 2:26 PM * Full Code Date Activated Date Inactivated Comments 09/22/2018 8:04 AM 09/25/2018 3:17 PM * Full Code Date Activated Date Inactivated Comments 07/22/2018 8:40 PM 07/23/2018 1:50 PM Care Teams [employer] Relationship Specialty [place] [address] [facility] [place] [address] PCP - General Family Practice 04/13/19 Gerardo Gunn MD Surgery - Orthopedics 02/27/19 Anam Guidry MD [address] [place] [address] Anesthesiology 02/27/19 Michelle Avalos MBBS [address] [place] [address] Nephrology 12/25/23
[2024-05-20 15:54] VITALS: BP 129/80; PULSE 76; RESP 18; TEMP 36.1; O2SAT 96; BMI 34.3
--- OUTSIDE RECORDS SUMMARY | 2024-05-20 17:07 | XMS_ITS | Clinical Summary ---
Author Organization [facility] Address [address] [place] [address] Care Team Providers Care Drying Frame Operator Name Role Phone Gerardo Gunn MD Unavailable Anam Guidry MD Unavailable [phone] Rose Bright DO Primary Care Provider Michelle [...] (09/08/2021): filled with opioid combination, managed by [facility] Opioid type dependence, continuous 09/08/2021 Hyponatremia 08/22/2021 Bipolar disorder, current episode hypomanic 07/2021 Prediabetes 01/14/2019 Total knee replacement status, left 11/06/2018 Post-traumatic osteoarthritis of left knee 09/22 Vomiting 07/22/2018 Presence of intrathecal pump 06/23/2018 Overview (06/23/2018): Follows at [facility] Pain clinic Fentanyl 1102.4mcg/day Bupivacaine 110.24mg/day Morphine 1.1024mg/day Infusion PA: fentanyl 50mcg, bupivacaine 0.500mg and morphine 0.0500mg - 2 doses/day max Pain medication agreement 12/10/2017 Overview (04/13/2019): Established with [facility] for osteoarthritis of lumbar spine and pain pump. Offered a trial of oxycodone 5mg once daily #14 as needed for SEVERE foot pain in addition to maximizing Tylenol, topicals, and obtaining orthotics. New CSA 04/13/19 with intent to be short-term and Toxassure today. Plan to meet with the Court Clerk and then follow up with Dr. Baker [...] Type Department Care Team Description 05/04/2024 Refill [facility] [address] [place] [address] Maile Reyes MD Refill Request (Oxcarbazepine, Doxepin) 05/01/2024 Refill [facility] [address] [place] [address] Addie Taylor MD Refill Request (Oxcarbazepine, Doxepin Hcl) 2024 1:14 PM FIRER MARINE - 2024 11:59 PM FIRER MARINE Hospital Encounter [address] [address] Rose Bright DO Becken, Amy, PT Acute pain of right shoulder; Adhesive capsulitis of right shoulder; Bursitis of right shoulder 2024 Travel 04/21/2024 11:15 AM FIRER MARINE Telemedicine [facility] [address] [place] [address] Maile Reyes MD Failed Appointment 04/20/2024 Travel 04/06/2024 9:10 AM FIRER MARINE Ancillary Procedure [facility] [address] [place] [address] 04/06/2024 8:45 AM FIRER MARINE Office Visit [facility] [address] [facility] [place] [address] Rose Bright DO Shoulder Pain/problem (Right Shoulder/arm [...] to nurse. ) 04/05/2024 Travel 04/01/2024 Refill [facility] [address] [place] [address] Addie Taylor MD Refill Request (Doxepin Hcl, Doxepin, Oxcarbazepine) 03/31/[address] [address] Vicki Henley MD Follow Up (Nephrology Post Visit (03/16/2024) RN Follow-up Call /) 03/27/2024 Telephone [facility] [address] [place] [address] Rose Bright DO Medication Management 03/24/2024 Telephone [facility] [address] [place] [address] Rose Bright DO Form (OTC MEDICATION VERIFICATION FORM) 03/16/2024 11:00 AM FIRER MARINE Telemedicine [facility] [address] [place] [address] Vicki Henley MD Follow Up (3 WEEK MED CHECK ) 03/16/2024 Telephone [facility] [address] [address] Vicki Henley MD Appointment (Neph ) 03/15/2024 Travel 03/06/2024 10:45 AM FIRER MARINE Office Visit [facility] [address] [place] [address] Rose Bright DO Medicare ANNUAL (subsequent) Visit (nonfasting) 03/06/2024 Travel 03/03/2024 Refill [facility] [address] [place] [address] Rose Bright DO Refill Request (Promethazine) 03/02/2024 Refill [facility] [address] [place] [address] Addie Taylor MD Refill Request (Oxcarbazepine, Doxepin, Doxepin Hcl) 02/27/2024 Telephone [facility] [address] [facility] [address] [place] [address] Vicki Henley MD Follow Up 02/24/2024 Telephone [facility] [address] [facility] [address] [place] [address] Vicki Henley MD Results from Last 3 [...] Comments Blood Pressure 118/74 04/06/2024 8:49 AM FIRER MARINE Pulse 78 04/06/2024 8:51 AM FIRER MARINE Temperature 37.2 C (98.9 F) 01/24/2023 9:42 AM FIRER MARINE Respiratory Rate 18 01/21/2023 8:12 AM FIRER MARINE Oxygen Saturation 97% 03/06/2024 11: 01 AM FIRER MARINE Inhaled Oxygen Concentration - - Weight 95.2 kg (209 lb 12.8 oz) 04/06/2024 8:51 AM FIRER MARINE Height 163.8 cm (5' 4.5) 04/06/2024 8:51 AM FIRER MARINE Body Mass Index 35.46 04/06/2024 8:51 AM FIRER MARINE Plan of Treatment Upcoming Encounters Date Type Department Care Team (Late st Contact Info) Description 05/22/2024 10:15 AM CDT Telemedicine [facility] [address] [place] [address] Maile Reyes MD [address] [place] [address] 05/29/2024 11:15 AM CDT Office Visit [facility] [address] [place] [address] Petey Benedict MD [address] [place] [address] Health Maintenance Due Date Last Done Comments RSV vaccine for adults or (1 - Risk 60-74 years 1-dose series) [address] (for lung CA) ag e 50-80 04/11/2024 04/11/2023, 04/02/2022, 11/06/2018, Additional history exists Mammogram for age 45-75 04/16/2024 04/16/19, 02/17/2018, 02/25/2013 (Completed [facility]) BMI (ht and wt on same day) [...] history exists Medical Devices Implanted Type Area Wood Cabinet Finisher Device Identifier Shelf Expiration Date Model / Serial / Lot [id number] - [id number] Implanted:Qty: 1 on 09/22/2018 by Anselmo Sahu MD at [facility] Ortho Total Joint Left: Knee [employer] 01/14/2023 5510-F-401 / / [id number] Description:Yolie Manning te Retaining Femoral Size #4, LEFT, Cr M9367-F-513 - [id number] Implanted:Qty: 1 on 09/22/2018 by Anselmo Sahu MD at [facility] Ortho Total Joint Left: Knee [employer] 12/16/2022 5560-S-115 / / [id number] Description:Triathlon Total Knee Cemented Stem diameter 15 mm Length 50 mm H6647-N-426 - [id number] Implanted:Qty: 1 on 09/22/2018 by Anselmo Sahu MD at [facility] Ortho Total Joint Left: Knee [employer] 07/01/2022 5531-G-416 / / [id number] Description:Triathlon X3 Tib ial Bearing Insert-CS Size 4, CS, Thickness 16 mm Cmnt Bone 40g Simplex P Non Atb Mv - [id number] Implanted:Qty: 2 on 09/22/2018 by Anselmo Sahu MD at [facility] Left: Knee [employer] 09/24/2020 6191-1-010# / / [id number] K3993-E-65 - [id number] Implanted:Qty: 1 on 09/22/2018 by Anselmo Sahu MD at [facility] Left: Knee [employer] 05/05/2023 5521-B-400 / / [id number] Description:Triathlon Total Knee [place] Tibial Baseplate size #4 W6589-Z-314 - [id number] Implanted:Qty: 1 on 09/22/2018 by Anselmo Sahu MD at [facility] Left: Knee [employer] 06/16/2023 5551-G-350 / / [id number] Description:Triathlon X3 Asy mmetric Patella size 35 mm, thickness 10 mm Screw Lmbr 5.5x25mm Endo Skeleton Tas Bone Alif Stand Alone - [id number] Implanted:Qty: 1 on 09/08/2021 by Gerardo Gunn MD at [facility] Spine Medtronic Spine/Ortho [id number] / / Screw 5.5 Voyager Mas 6.5x45 Implanted:Qty: 2 on 09/08/2021 by Gerardo Gunn MD at [facility] Spine [id number] / / Description:SCREW 5.5 VOYAGE R MAS 6.5X45 Screw 5.5 Voyager Mas 7.5x35 Implanted:Qty: 1 on 09/08/2021 by Gerrado Gunn MD at [facility] Spine [id number] / / Description:SCREW 5.5 VOYAGE R MAS 7.5X35 Screw 5.5 Voyager Mas 7.5x40 Implanted:Qty: 1 on 09/08/2021 by Gerardo Gunn MD at [facility] Spine [id number] / / Description:SCREW 5.5 VOYAGE R MAS 7.5X40 Nanette Perc 90mm Implanted:Qty: 2 on 09/08/2021 by Gerardo Gunn MD at [facility] Spine [id number] / / Description:NANETTE PERC 90MM Set Screw 5.5/6.0 Solera Voyager Implanted:Qty: 8 on 09/08/2021 by Gerardo Gunn MD at [facility] Spine [id number] / / Description:SET SCREW 5.5/6. 0 SOLERA VOYAGER Screw 5.5 Voyager Mas 7.5x45 Implanted:Qty: 2 on 09/08/2021 by Gerardo Gunn MD at [facility] Sp[facility] [id number] / / Description:SCREW 5.5 VOYAGE R MAS 7.5X45 Screw 5.5 Voyager Mas 9.5 X 80 Implanted:Qty: 2 on 09/08/2021 by Gerardo Gunn MD at [facility] Spine [id number] / / Description:SCREW 5.5 VOYAGE R MAS 9.5 X 80 [id number] graft Bone 9cc Isabel Dbf Inject Implanted:Qty: 1 on 09/08/2021 by Gerardo Gunn MD at [facility] Explanted:at [facility] (Quantity not on file) Spine Medtronic Spine/Ortho 02/13/2023 [id number] / [id number] / [id number] bone 1-4mm 90cc Medtronic Chips Canclls Freeze Dried Implanted:Qty: 1 on 09/08/2021 by Gerardo Gunn MD at [facility] Explanted:at [facility] (Quantity not on file) Spine Medtronic Spine/Ortho 07/01/2025 [id number] / [id number] / Michelle Spacer Tas 12d Std 12mm Implanted:Qty: 1 on 09/08/2021 by Gerardo Gunn MD at [facility] Sp[facility] 08/12/2025 [id number] / / [id number] Description:MICHELLE SPACER TAS 12D STD 12MM Coverplate 32 X 23 X 18 X 12deg Implanted:Qty: 1 on 09/08/2021 by Gerardo Gunn MD at [facility] 04/18/2026 [id number] / / [id number] Description:COVERPLATE 32 X 23 X 18 X 12DEG Screw Lmbr 5.5x20mm Sovereign Stand Alone - [id number] Implanted:Qty: 1 on 09/08/2021 by Gerardo Gunn MD at [facility] Spine Medtronic Spine/Ortho [id number] / / Explanted Type Area Wood Cabinet Finisher Device Identifier Shelf Expiration Date Model / Serial / Lot Explant Explanted:Qty: 1 on 09/08/2021 by Gerardo Gunn MD at [facility] Spine Description:3 SCREWS, 1 INTE RBODY Procedures Procedure Name Priority Date/Time Associated Diagnosis Comments XR SHOULDER 3 VIEWS RIGHT Routine 04/06/2024 9:18 AM FIRER MARINE Acute pain of right shoulder BASIC METABOLIC PANEL Routine 03/06/2024 11:48 AM FIRER MARINE Hyponatremia HEMOGLOBIN A1C Routine 03/06/2024 11:48 AM FIRER MARINE Prediabetes HEMOGLOBIN Routine 03/06/2024 11:48 AM FIRER MARINE History of Tucker-en-Y gastric bypass Vitamin D deficiency FERRITIN Routine 03/06/2024 11:48 AM FIRER MARINE History of Tucker-en-Y gastric bypass VITAMIN D 25 (DEFICIENCY) Routine 03/06/2024 11:48 AM FIRER MARINE History of Tucker-en-Y gastric bypass Vitamin D deficiency VITAMIN B12 Routine 03/06/2024 11:48 AM FIRER MARINE History of Tucker-en-Y gastric bypass COMPLIANCE DRUG ANALYSIS Routine 03/06/2024 11:46 AM FIRER MARINE Chronic pain syndrome Therapeutic drug monitoring OSMOLALITY,URINE Routine 03/06/2024 11:4 6 AM FIRER MARINE Hyponatremia LIPID PANEL W REFLEX MEASURED LDL Routine 07/03/2023 8:00 AM CDT Screening cholesterol level SCAN-COLONOSCOPY 04/25/2023 3:00 PM FIRER MARINE XR MAMMO BETH BILAT SCREEN Routine 04/16/2023 1:18 PM FIRER MARINE Routine adult health maintenance CT CHEST SCREENING LOW DOSE WO CONTRAST Routine 04/11/2023 11:19 AM FIRER MARINE Encounter for screening for lung cancer Former smoker ANTI HIV 1/2 Timed 04/19/2016 8:44 PM FIRER MARINE ANTI HCV Routine 11/29/2015 2:08 PM CDT Need for hepatitis C screening test from Last 3 Months or Most Recently Relevant to Health Maintenance Results * XR SHOULDER 3 VIEWS RIGHT (04/06/2024 9:18 AM FIRER MARINE) Anatomical Region Laterality Modality SHOULDERS, SHOULDER R Computed R adiography 04/06/2024 10:1 2 AM FIRER MARINE Narrative 04/06/2024 10:12 AM FIRER MARINE For Patients: As a result of the [...] t * HEMOGLOBIN A1C (03/06/2024 11:48 AM FIRER MARINE) HEMOGLOBIN A1C 4.5 <5.7 % of total [...] diagnosis of diabetes in children. According to [place] Diabetes Association (ADA) guidelines, hemoglobin A1c <7.0% represents optimal control in non- diabetic patients. Different metrics may apply to specific patient populations. Standards of Medical Care in Diabetes(ADA). Blood BLOOD SPECIMEN / Unknown 03/06/2024 11:48 AM FIRER MARINE 03/06/2024 11:49 AM FIRER MARINE Rose Bright DO CHEMISTRY Final Resul t [employer] [facility] [address] [place] [address], [facility] [address] [place] [address] * (ABNORMAL) VITAMIN D 25 (DEFICIENCY) (03/06/2024 11:48 AM FIRER MARINE) VITAMIN D,25-OH,TOTAL,IA 16(L) 30 - 100 ng/mL [facility] Comment: Vitamin D Status 25-OH Vitamin D: Deficiency: <20 ng/mL Insufficiency: 20 - 29 ng/mL Optimal: > or = 30 ng/mL For 25-OH Vitamin D testing on patients on D2-supplementation and patients for whom quantitation of D2 and D3 fractions is required, the QuestAssureD(TM) 25-OH VIT D, (D2,D3), LC/MS/MS is recommended: order code 39142 (patients >2yrs). See Note 1 Note 1 For additional information, please refer to http://education.HMT Technology/faq/ZIG571 (This link is being provided for informational/ educational purposes only.) Blood BLOOD SPECIMEN / Unknown 03/06/2024 11:48 AM FIRER MARINE 03/06/2024 11:49 AM FIRER MARINE Rsoe Bright DO SEND OUTS Final Resul t Performing Organization Address [facility]/ZIP Co de Phone Number [employer] [facility] [address] [place] [address], [employer] [address] [place] [address] * (ABNORMAL) HEMOGLOBIN (03/06/2024 11:48 AM FIRER MARINE) HEMOGLOBIN 11.0(L) 11.7 - 15.5 g/dL [facility] Blood BLOOD SPECIMEN / Unknown 03/06/2024 11:48 AM FIRER MARINE 03/06/2024 11:49 AM FIRER MARINE us Rose Bright DO HEMATOLOGY Final Resul t Performing Organization Address City/[facility]/ZIP Co de Phone Number [facility] [address] [facility] [place] [address], [place] [phone] [facility] [address] [place] [address] * FERRITIN (03/06/2024 11:48 AM FIRER MARINE) FERRITIN 147 16 - 232 ng/mL [facility] Blood BLOOD SPECIMEN / Unknown 03/06/2024 11:48 AM FIRER MARINE 03/06/2024 11:49 AM FIRER MARINE us Rose Bright DO CHEMISTRY Final Resul t Performing Organization Address [facility]/ZIP Co de Phone Number [facility] [address] [facility] [place] [address], [place] [phone] [facility] [address] [facility] [place] [address] * (ABNORMAL) VITAMIN B12 (03/06/2024 11:48 AM FIRER MARINE) Pathologist [facility] VITAMIN B12 148(L) 200 - 1,100 pg/mL [facility] Blood BLOOD SPECIMEN / Unknown 03/06/2024 11:48 AM FIRER MARINE 03/06/2024 11:49 AM FIRER MARINE Rose Bright DO CHEMISTRY Final Resul t Performing Organization Address City/[facility]/ZIP Co de Phone Number [facility] [address] [facility] [place] [address], [place] [phone] [facility] [address] [place] [address] * (ABNORMAL) BASIC METABOLIC PANEL (03/06/2024 11:48 AM FIRER MARINE) GLUCOSE 86 65 - 99 mg/dL [facility] Comment: Fasting reference interval UREA NITROGEN (BUN) 7 7 - 25 mg/dL [facility] CREATININE 0.76 0.50 - 1.05 mg/dL [facility] EGFR 90 > OR = 60 mL/min/1. 73m2 [employer] [facility] [place] BUN/CREATININE RATIO SEE NOTE: 6 - 22 (calc) [email or web address] Comment: Not Reported: BUN and Creatinine are within reference range. SODIUM 139 135 - 146 mmol/L [employer] [facility] Fielde POTASSIUM 4.1 3.5 - 5.3 mmol/L [facility] CHLORIDE 110 98 - 110 mmol/L [facility] CARBON DIOXIDE 13(L) 20 - 32 mmol/L [facility] Comment: Verified by repeat analysis. Analysis performed on aliquoted specimen, CO2 may be decreased due to greater exposure of specimen to air. ELECTROLYTE BALANCE 16 7 - 17 mmol/L (calc) RSVP [facility] CALCIUM 8.6 8.6 - 10.4 mg/dL [facility] Blood BLOOD SPECIMEN / Unknown 03/06/2024 11:48 AM FIRER MARINE 03/06/2024 11:49 AM FIRER MARINE Vicki Henley MD CHEMISTRY Final Resu lt [employer] [facility] [address] [place] [address], [facility] [address] [place] [address] * (ABNORMAL) COMPLIANCE DRUG ANALYSIS (03/06/2024 11:46 AM FIRER MARINE) 6-MONOACETYL MORPHINE NEG NEG ng/mL 03/11/2024 3:[address] [facility] AMPHETAMINE URINE NEG <=500 ng/mL 03/11/2024 3:[address] [facility] BARBITURATE URINE NEG <=200 ng/mL 03/11/2024 3:[address] [facility] BENZODIAZEPINE URINE POS(A) <=100 ng/mL 03/11/2024 3:22 PM [facility] BUPRENORPHRINE URINE NEG <=5 ng/mL 02/25 3:22 PM [facility] COCAINE METAB URINE NEG <=300 ng/mL 03/11/2024 3:22 PM [facility] ETHYLGLUCURONIDE URINE NEG <=250 ng/mL 03/11/2024 3:22 PM [facility] FENTANYL URINE POS(A) <=4 ng/mL 03/11/2024 3:22 PM [facility] METHADONE URINE NEG <=300 ng/mL 03/11/2024 3:22 PM [facility] OPIATES URINE POS(A) <=300 ng/mL 03/11/2024 3:22 PM [facility] OXYCODONE URINE POS(A) <=100 ng/mL 03/11/2024 3:22 PM [facility] PROPOXYPHENE URINE NEG <=300 ng/mL 03/11/2024 3:22 PM [facility] THC 50 URINE POS(A) <=50 ng/mL 03/11/2024 3:22 PM [facility] TRAMADOL NEG <=200 ng/mL 03/11/2024 3:22 PM [facility] PH URINE 6.2 5.0 - 7.0 03/11/2024 3:22 PM [facility] CREAT UR 75 >=20 mg/dL 03/11/2024 3:22 PM [facility] MASS SPECTROMETRY URINE See Below 03/11/2024 3:22 PM [facility] Comment:Cyclobenzaprine, Dex tromethorphan, Diphenhydramine, Doxepin, Nordoxepin, Fentanyl, Norfentanyl, Morphine, Oxcarbazepine, Oxycodone, Noroxycodone and Promethazine present. Urine URINE SPECIMEN / Unknown Non-Blood / Unknown 03/06/2024 11:46 AM [facility] 03/06/2024 11:46 AM FIRER MARINE [facility] - 03/11/2024 3:22 PM FIRER MARINE Current Outpatient Medications: acetaminophen (TYLENOL EXTRA STRGTH) [...] mouth two times daily. miscellaneous medical supply [facility], As directed. PULSE OXIMETER naloxegoL (MOVANTIK) 25 [...] Rose Bright DO URINE Final Resul t [facility] [address] [place] [address] [address] [place] [address], [place] * OSMOLALITY,URINE (03/06/2024 11:46 AM FIRER MARINE) OSMOLALITY,URI NE 411 50 - 1,400 mOsmol/kg 03/07/2024 2:31 AM FIRER MARINE [facility] Urine URINE SPECIMEN / Unknown Non-Blood / Unknown 03/06/2024 11:46 AM FIRER MARINE 03/06/2024 11:46 AM FIRER MARINE us Vicki Henley MD URINE Final Resu lt [facility] [address] [place] [address], [place] * (ABNORMAL) LIPID PANEL W REFLEX MEASURED LDL (07/03/2023 8:00 AM CDT) CHOLESTEROL,TOTAL 248(H) 100 - 199 mg/dL 07/03/2023 2:42 PM CDT [facility] Comment: Cholesterol, Total Reference Ranges Desirable <200 mg/dL Borderline 200-239 mg/dL High >=240 mg/dL TRIGLYCERIDES 64 <150 mg/dL 07/03/2023 2:42 PM CDT [facility] HDL CHOLESTEROL 108 >40 mg/dL 2:42 PM CDT [facility] NON-HDL CHOLESTEROL 140 <145 mg/dl 07/03/2023 2:42 PM CDT [facility] CHOL/HDL RATIO 2.30 <4.50 07/03/2023 2:42 PM CDT [facility] LDL CHOLESTEROL 127 <=130 mg/dL 07/03/2023 2:42 PM CDT [facility] VLDL CHOLESTEROL 13 <=30 mg/dL 07/03/2023 2:42 PM CDT [facility] PROVIDER ORDERED STATUS RANDOM 07/03/2023 2:42 PM CDT [facility] Blood BLOOD SPECIMEN / Unknown Butterfly / Unknown 07/03/2023 8:00 AM CDT 07/03/2023 8:02 AM CDT us Rose Bright DO CHEMISTRY Final Resul t [facility] [address] [place] [address], [place] * SCAN-COLONOSCOPY (04/25/2023 3:00 PM FIRER MARINE) Narrative Procedure Note Fredis Luna MD - 04/25/2023 1:56 PM CST [facility] [address] [place] [address], [address], [place] [address] Patient Name: Marina Jean-Baptiste Gender: Female Exam Date: 04/25/2023 Visit Number: [id number] Age: 58 Years Date of : 1965 Attending MD: Fredis Luna MD Medical Record#: [id number] Procedure: Colonoscopy Indications: Previous adenomatous polyp(s) Referring MD: Referral Self Primary MD: Rose Bright DO Medications: Admitting Medications: 0.9% Normal Saline at [facility] Intra Procedure Medications: Patient received monitored anesthesia [...] signed by: Cesar Paulson MD Interpreted at [facility] Digestive [facility], [address] [place] [address] Orders Instruction(s)/Education: Instruction/Education Timeframe Assessment Colon Cancer Prevention K63.5 Colon Polyps K63.5 Hemorrhoids (Internal) K63.5 High Fiber Diet K63.5 Final Plan: Repeat colonoscopy in 10 years for screening. If you have signs orsymptoms of lower GI illness or a new diagnosis of colon cancer in animmediate family member, you should contact [facility] or your primary providerto discuss whether your [...] can updateyour record. _Electronically signed by: Fredis uLna MD 04/25/2023 cc: Rose Bright DO us Fredis Luna MD OTHER Kat l Result * XR MAMMO BETH BILAT SCREEN (04/16/2023 1:18 PM FIRER MARINE) Anatomical Region Laterality Modality BREASTS, Breast Left, Breast Right Bilateral Mammography Impressions 04/17/2023 3:20 PM FIRER MARINE There is no radiographic evidence for malignancy. Recommend annual mammograms. MAMMOGRAM ASSESSMENT: ACR 1 Negative PATIENTS: You will also receive a letter with your examination results in an easy to read format. If you have questions about your results, please contact your referring provider. Narrative 04/17/2023 3:20 PM FIRER MARINE For Patients: As a result of the Century Cures Act, medical imaging exams and procedure reports are released immediately into your electronic medical record. You may view this report before your referring provider. If you have questions, please contact your health care provider. XR MAMMO BETH BILAT SCREEN [[id number]] CLINICAL HISTORY: This is an asymptomatic 57 [...] LOW DOSE WO CONTRAST (04/11/2023 11:19 AM FIRER MARINE) Anatomical Region Laterality Modality Computed Tomogra phy Impressions 04/16/2023 8:20 AM FIRER MARINE Negative for lung cancer screening purposes. LUNG-RADS [...] PM (Electronic Signature) Narrative 04/16/2023 8:20 AM FIRER MARINE For Patients: As a result of the [...] * Anti HIV 1/2 (04/19/2016 8:44 PM FIRER MARINE) HIV-1/HIV-2 ANTIBODY Non-Reacti ve Non-Reacti ve 04/20/2016 2:40 AM [facility] Blood BLOOD SPECIMEN / Unknown Venipuncture / Unknown 04/19/2016 8:44 PM FIRER MARINE 04/19/2016 8:51 PM FIRER MARINE Narrative [facility] - 04/20/2016 2:40 AM FIRER MARINE HIV-1 p24 and HIV-1/HIV-2 Ab not detected us Farhat Holland MD SEND OUTS Kat l Result [facility] [address] [place] [address], * ANTI HCV (11/29/2015 2:08 PM CDT) HEPATITIS C ANTIBODY Non-Reacti ve Non-Reacti ve 11/29/2015 7:58 PM CDT [facility] Blood BLOOD SPECIMEN / Unknown Venipuncture / Unknown 11/29/2015 2:08 PM CDT 11/29/2015 2:09 PM CDT Narrative [facility] - 11/29/2015 7:58 PM CDT Antibodies to HCV not detected; does not exclude the possibility of exposure to HCV. Rose Bright DO SEND OUTS Final Resul t Performing Organization Address City/[facility]/ZIP Co de Phone Number [facility] [address] [place] [address], from Last 3 Months or Most Recently [...] Documents on File Type Date Recorded Patient Fleece Tier Expl anation POLST 08/21/2021 POLST 02/08/2020 * [...] 8:40 PM 07/23/2018 1:50 PM Care Teams Drying Frame Operator Relationship Specialty [place] [id number] [facility] [place] [address] PCP - General Family Practice 04/13/19 Gerardo Gunn MD Surgery - Orthopedics 02/27/19 Anam Guidry MD [address] [place] [address] Anesthesiology 02/27/19 Michelle Avalos MBBS [address] [place] [address] Nephrology 12/25/23
== END 2024-05-20 17:06 | disposition home or self-care (01) ==
LOC: ED 17:05
PROVIDERS: Emergency Provider Family Medicine; PCP Family Medicine; Visit Provider Family Medicine
DX: Z53.21 Procedure and treatment not carried out due to patient leaving prior to being seen by health care provider (principal)
CPT/HCPCS: 99281

== ENCOUNTER 2024-05-21 10:25 | Emergency (ER) | payer MEDICARE, OTHER, SELFPAY ==
--- OUTSIDE RECORDS SUMMARY | 2024-05-21 10:28 | XMS_ITS | Clinical Summary ---
Author Organization [facility] Address [address] [place] [id number] Care Team Providers Care Configuration Technician Name Role Phone Gerardo Gunn MD Unavailable Anam Guidry MD Unavailable Rose Bright DO [...] (09/08/2021): filled with opioid combination, managed by [facility] Opioid type dependence, continuous 09/08/2021 Hyponatremia 08/22/2021 Bipolar disorder, current episode hypomanic 07/2021 Prediabetes 01/14/2019 Total knee replacement status, left 11/06/2018 Post-traumatic osteoarthritis of left knee 09/22 Vomiting 07/22/2018 Presence of intrathecal pump 06/23/2018 Overview (06/23/2018): Follows at [facility] Pain clinic Fentanyl 1102.4mcg/day Bupivacaine 110.24mg/day Morphine 1.1024mg/day Infusion PA: fentanyl 50mcg, bupivacaine 0.500mg and morphine 0.0500mg - 2 doses/day max Pain medication agreement 12/10/2017 Overview (04/13/2019): Established with [facility] for osteoarthritis of lumbar spine and pain pump. Offered a trial of oxycodone 5mg once daily #14 as needed for SEVERE foot pain in addition to maximizing Tylenol, topicals, and obtaining orthotics. New CSA 04/13/19 with intent to be short-term and Toxassure today. Plan to meet with the Commercial Lease Administrator and then follow up with Dr. Baker [...] Type Department Care Team Description 05/04/2024 Refill [facility] [address] [place] [address] Maile Reyes MD Refill Request (Oxcarbazepine, Doxepin) 05/01/2024 Refill [facility] [address] [place] [address] Addie Taylor MD Refill Request (Oxcarbazepine, Doxepin Hcl) 2024 1:14 PM STUNT WOMAN - 2024 11:59 PM STUNT WOMAN Hospital Encounter [address] [address] Rose Bright DO Becken, Amy, PT Acute pain of right shoulder; Adhesive capsulitis of right shoulder; Bursitis of right shoulder 2024 Travel 04/21/2024 11:15 AM STUNT WOMAN Telemedicine [facility] [address] [place] [address] Maile Reyes MD Failed Appointment 04/20/2024 Travel 04/06/2024 9:10 AM STUNT WOMAN Ancillary Procedure [facility] [address] [place] [address] 04/06/2024 8:45 AM STUNT WOMAN Office Visit [facility] [address] [facility] [place] [address] Rose Bright DO Shoulder Pain/problem (Right Shoulder/arm [...] to nurse. ) 04/05/2024 Travel 04/01/2024 Refill [facility] [address] [place] [address] Addie Taylor MD Refill Request (Doxepin Hcl, Doxepin, Oxcarbazepine) 03/31/[address] [address] Vicki Henley MD Follow Up (Nephrology Post Visit (03/16/2024) RN Follow-up Call /) 03/27/2024 Telephone [facility] [address] [place] [address] Rose Bright DO Medication Management 03/24/2024 Telephone [facility] [address] [place] [address] Rose Bright DO Form (OTC MEDICATION VERIFICATION FORM) 03/16/2024 11:00 AM STUNT WOMAN Telemedicine [facility] [address] [place] [address] Vicki Henley MD Follow Up (3 WEEK MED CHECK ) 03/16/2024 Telephone [facility] [address] [address] Vicki Henley MD Appointment (Neph ) 03/15/2024 Travel 03/06/2024 10:45 AM STUNT WOMAN Office Visit [facility] [address] [place] [address] Rose Bright DO Medicare ANNUAL (subsequent) Visit (nonfasting) 03/06/2024 Travel 03/03/2024 Refill [facility] [address] [place] [address] Rose Bright DO Refill Request (Promethazine) 03/02/2024 Refill [facility] [address] [place] [address] Addie Taylor MD Refill Request (Oxcarbazepine, Doxepin, Doxepin Hcl) 02/27/2024 Telephone [facility] [address] [facility] [address] [place] [address] Vicki Henley MD Follow Up 02/24/2024 Telephone [facility] 1601 [facility] [address] [place] [address] Vicki Henley MD Results from Last 3 [...] Comments Blood Pressure 118/74 04/06/2024 8:49 AM STUNT WOMAN Pulse 78 04/06/2024 8:51 AM STUNT WOMAN Temperature 37.2 C (98.9 F) 01/24/2023 9:42 AM STUNT WOMAN Respiratory Rate 18 01/21/2023 8:12 AM STUNT WOMAN Oxygen Saturation 97% 03/06/2024 11: 01 AM STUNT WOMAN Inhaled Oxygen Concentration - - Weight 95.2 kg (209 lb 12.8 oz) 04/06/2024 8:51 AM STUNT WOMAN Height 163.8 cm (5' 4.5) 04/06/2024 8:51 AM STUNT WOMAN Body Mass Index 35.46 04/06/2024 8:51 AM STUNT WOMAN Plan of Treatment Upcoming Encounters Date Type Department Care Team (Late st Contact Info) Description 05/22/2024 10:15 AM CDT Telemedicine [facility] [address] [place] [address] Maile Reyes MD [address] [place] [address] 05/29/2024 11:15 AM CDT Office Visit [facility] [address] [place] [address] Petey Benedict MD [address] [place] [address] Health Maintenance Due Date Last Done Comments RSV vaccine for adults or (1 - Risk 60-74 years 1-dose series) [address] (for lung CA) ag e 50-80 04/11/2024 04/11/2023, 04/02/2022, 11/06/2018, Additional history exists Mammogram for age 45-75 04/16/2024 04/16/19, 02/17/2018, 02/25/2013 [facility] BMI (ht and wt on same day) [...] history exists Medical Devices Implanted Type Area Paving Plant Operator Device Identifier Shelf Expiration Date Model / Serial / Lot [id number] - [id number] Implanted:Qty: 1 on 09/22/2018 by Anselmo Sahu MD at [facility] Ortho Total Joint Left: Knee [facility] 01/14/2023 5510-F-[id number] / / [id number] Description:Yolie Manning te Retaining Femoral Size #4, LEFT, Cr Z6159-C-062 - [id number] Implanted:Qty: 1 on 09/22/2018 by Anselmo Sahu MD at [facility] Ortho Total Joint Left: Knee [facility] 12/16/2022 5560-S-115 / / [id number] Description:Triathlon Total Knee Cemented Stem diameter 15 mm Length 50 mm B3215-Z-100 - [id number] Implanted:Qty: 1 on 09/22/2018 by Anselmo Sahu MD at [facility] Ortho Total Joint Left: Knee [facility] 07/01/2022 5531-G-416 / / [id number] Description:Triathlon X3 Tib ial Bearing Insert-CS Size 4, CS, Thickness 16 mm Cmnt Bone 40g Simplex P Non Atb Mv - [id number] Implanted:Qty: 2 on 09/22/2018 by Anselmo Sahu MD at [facility] Left: Knee [facility] 09/24/2020 6191-1-010# / / [id number] P0550-Z-98 - [id number] Implanted:Qty: 1 on 09/22/2018 by Anselmo Sahu MD at [facility] Left: Knee [facility] 05/05/2023 5521-B-400 / / [id number] Description:Triathlon Total Knee [place] Tibial Baseplate size #4 N5757-U-682 - [id number] Implanted:Qty: 1 on 09/22/2018 by Anselmo Sahu MD at [facility] Left: Knee [facility] 06/16/2023 5551-G-350 / / [id number] Description:Triathlon X3 Asy mmetric Patella size 35 mm, thickness 10 mm Screw Lmbr 5.5x25mm Endo Skeleton Tas Bone Alif Stand Alone - [id number] Implanted:Qty: 1 on 09/08/2021 by Gerardo Gunn MD at [facility] Spine Medtronic Spine/Ortho [id number] / / Screw 5.5 Voyager Mas 6.5x45 Implanted:Qty: 2 on 09/08/2021 by Gerardo Gunn MD at [facility] Spine [id number] / / Description:SCREW 5.5 VOYAGE R MAS 6.5X45 Screw 5.5 Voyager Mas 7.5x35 Implanted:Qty: 1 on 09/08/2021 by Gerardo Gunn MD at [facility] Sp[facility] [id number] / / Description:SCREW 5.5 VOYAGE R MAS 7.5X35 Screw 5.5 Voyager Mas 7.5x40 Implanted:Qty: 1 on 09/08/2021 by Gerardo Gunn MD at [facility] Sp[facility] [id number] / / Description:SCREW 5.5 VOYAGE R MAS 7.5X40 Nanette Perc 90mm Implanted:Qty: 2 on 09/08/2021 by Gerardo Gunn MD at [facility] Spine [id number] / / Description:NANETTE PERC 90MM Set Screw 5.5/6.0 Solera Voyager Implanted:Qty: 8 on 09/08/2021 by Gerardo Gunn MD at [facility] Spine [id number] / / Description:SET SCREW 5.5/6. 0 SOLERA VOYAGER Screw 5.5 Voyager Mas 7.5x45 Implanted:Qty: 2 on 09/08/2021 by Gerardo Gunn MD at [facility] [id number] / / Description:SCREW 5.5 VOYAGE R MAS 7.5X45 Screw 5.5 Voyager Mas 9.5 X 80 Implanted:Qty: 2 on 09/08/2021 by Gerardo Gunn MD at [facility] Sp[facility] [id number] / / Description:SCREW 5.5 VOYAGE R MAS 9.5 X 80 [id number] graft Bone 9cc Isabel Dbf Inject Implanted:Qty: 1 on 09/08/2021 by Gerardo Gunn MD at [facility] Explanted:at [facility] (Quantity not on file) Spine Medtronic Spine/Ortho 02/13/2023 [id number] / [id number] / [id number] bone 1-4mm 90cc Medtronic Chips Canclls Freeze Dried Implanted:Qty: 1 on 09/08/2021 by Gerardo Gunn MD at [facility] Explanted:at [facility] (Quantity not on file) Spine Medtronic Spine/Ortho 07/01/2025 [id number] / [id number] / Michelle Spacer Tas 12d Std 12mm Implanted:Qty: 1 on 09/08/2021 by Gerardo Gunn MD at [facility] 08/12/2025 [id number] / / [id number] Description:MICHELLE SPACER TAS 12D STD 12MM Coverplate 32 X 23 X 18 X 12deg Implanted:Qty: 1 on 09/08/2021 by Gerardo Gunn MD at [facility] Sp[facility] 04/18/2026 [id number] / / [id number] Description:COVERPLATE 32 X 23 X 18 X 12DEG Screw Lmbr 5.5x20mm Sovereign Stand Alone - [id number] Implanted:Qty: 1 on 09/08/2021 by Gerardo Gunn MD at [facility] Spine Medtronic Spine/Ortho [id number] / / Explanted Type Area Paving Plant Operator Device Identifier Shelf Expiration Date Model / Serial / Lot Explant Explanted:Qty: 1 on 09/08/2021 by Gerardo Gunn MD at [facility] Sp[facility] Description:3 SCREWS, 1 INTE RBODY Procedures Procedure Name Priority Date/Time Associated Diagnosis Comments XR SHOULDER 3 VIEWS RIGHT Routine 04/06/2024 9:18 AM STUNT WOMAN Acute pain of right shoulder BASIC METABOLIC PANEL Routine 03/06/2024 11:48 AM STUNT WOMAN Hyponatremia HEMOGLOBIN A1C Routine 03/06/2024 11:48 AM STUNT WOMAN Prediabetes HEMOGLOBIN Routine 03/06/2024 11:48 AM STUNT WOMAN History of Tucker-en-Y gastric bypass Vitamin D deficiency FERRITIN Routine 03/06/2024 11:48 AM STUNT WOMAN History of Tucker-en-Y gastric bypass VITAMIN D 25 (DEFICIENCY) Routine 03/06/2024 11:48 AM STUNT WOMAN History of Tucker-en-Y gastric bypass Vitamin D deficiency VITAMIN B12 Routine 03/06/2024 11:48 AM STUNT WOMAN History of Tucker-en-Y gastric bypass COMPLIANCE DRUG ANALYSIS Routine 03/06/2024 11:46 AM STUNT WOMAN Chronic pain syndrome Therapeutic drug monitoring OSMOLALITY,URINE Routine 03/06/2024 11:4 6 AM STUNT WOMAN Hyponatremia LIPID PANEL W REFLEX MEASURED LDL Routine 07/03/2023 8:00 AM CDT Screening cholesterol level SCAN-COLONOSCOPY 04/25/2023 3:00 PM STUNT WOMAN XR MAMMO BETH BILAT SCREEN Routine 04/16/2023 1:18 PM STUNT WOMAN Routine adult health maintenance CT CHEST SCREENING LOW DOSE WO CONTRAST Routine 04/11/2023 11:19 AM STUNT WOMAN Encounter for screening for lung cancer Former smoker ANTI HIV 1/2 Timed 04/19/2016 8:44 PM STUNT WOMAN ANTI HCV Routine 11/29/2015 2:08 PM CDT Need for hepatitis C screening test from Last 3 Months or Most Recently Relevant to Health Maintenance Results * XR SHOULDER 3 VIEWS RIGHT (04/06/2024 9:18 AM STUNT WOMAN) Anatomical Region Laterality Modality SHOULDERS, SHOULDER R Computed R adiography 04/06/2024 10:1 2 AM STUNT WOMAN Narrative 04/06/2024 10:12 AM STUNT WOMAN For Patients: As a result of the [...] t * HEMOGLOBIN A1C (03/06/2024 11:48 AM STUNT WOMAN) HEMOGLOBIN A1C 4.5 <5.7 % of total [...] diagnosis of diabetes in children. According to [place] Diabetes Association (ADA) guidelines, hemoglobin A1c <7.0% represents optimal control in non- diabetic patients. Different metrics may apply to specific patient populations. Standards of Medical Care in Diabetes(ADA). Blood BLOOD SPECIMEN / Unknown 03/06/2024 11:48 AM STUNT WOMAN 03/06/2024 11:49 AM STUNT WOMAN Rose Bright DO CHEMISTRY Final Resul t [employer] [facility] [address] [place] [address], [facility] [address] [place] [address] * (ABNORMAL) VITAMIN D 25 (DEFICIENCY) (03/06/2024 11:48 AM STUNT WOMAN) VITAMIN D,25-OH,TOTAL,IA 16(L) 30 - 100 ng/mL [facility] Comment: Vitamin D Status 25-OH Vitamin D: Deficiency: <20 ng/mL Insufficiency: 20 - 29 ng/mL Optimal: > or = 30 ng/mL For 25-OH Vitamin D testing on patients on D2-supplementation and patients for whom quantitation of D2 and D3 fractions is required, the QuestAssureD(TM) 25-OH VIT D, (D2,D3), LC/MS/MS is recommended: order code 36026 (patients >2yrs). See Note 1 Note 1 For additional information, please refer to http://education.[employer]/faq/JRI476 (This link is being provided for informational/ educational purposes only.) Blood BLOOD SPECIMEN / Unknown 03/06/2024 11:48 AM STUNT WOMAN 03/06/2024 11:49 AM STUNT WOMAN Rose Bright DO SEND OUTS Final Resul t Performing Organization Address [facility]/ZIP Co de Phone Number [employer] [facility] [address] [place] [address], [facility] [address] [place] [address] * (ABNORMAL) HEMOGLOBIN (03/06/2024 11:48 AM STUNT WOMAN) HEMOGLOBIN 11.0(L) 11.7 - 15.5 g/dL [facility] Blood BLOOD SPECIMEN / Unknown 03/06/2024 11:48 AM STUNT WOMAN 03/06/2024 11:49 AM STUNT WOMAN us Rose Bright DO HEMATOLOGY Final Resul t Performing Organization Address City/[facility]/ZIP Co de Phone Number [facility] [address] [facility] [place] [address], [place] [phone] [facility] [address] [place] [address] * FERRITIN (03/06/2024 11:48 AM STUNT WOMAN) FERRITIN 147 16 - 232 ng/mL [facility] Blood BLOOD SPECIMEN / Unknown 03/06/2024 11:48 AM STUNT WOMAN 03/06/2024 11:49 AM STUNT WOMAN us Rose Bright DO CHEMISTRY Final Resul t Performing Organization Address [facility]/ZIP Co de Phone Number [facility] [address] [facility] [place] [address], [place] [phone] [facility] [address] [place] [address] * (ABNORMAL) VITAMIN B12 (03/06/2024 11:48 AM STUNT WOMAN) Pathologist [facility] VITAMIN B12 148(L) 200 - 1,100 pg/mL [facility] Blood BLOOD SPECIMEN / Unknown 03/06/2024 11:48 AM STUNT WOMAN 03/06/2024 11:49 AM STUNT WOMAN Rose Bright DO CHEMISTRY Final Resul t Performing Organization Address City/[facility]/ZIP Co de Phone Number [facility] [address] [facility] [place] [address], [place] [phone] [facility] [address] [place] [address] * (ABNORMAL) BASIC METABOLIC PANEL (03/06/2024 11:48 AM STUNT WOMAN) GLUCOSE 86 65 - 99 mg/dL [facility] Comment: Fasting reference interval UREA NITROGEN (BUN) 7 7 - 25 mg/dL [address] [facility] Re[facility] CREATININE 0.76 0.50 - 1.05 mg/dL [address] [facility] [place] EGFR 90 > OR = 60 mL/min/1. 73m2 [facility] [facility] BUN/CREATININE RATIO SEE NOTE: 6 - 22 (calc) [facility] Comment: Not Reported: BUN and Creatinine are within reference range. SODIUM 139 135 - 146 mmol/L [employer] [facility] POTASSIUM 4.1 3.5 - 5.3 mmol/L [address] [facility] CHLORIDE 110 98 - 110 mmol/L [address] [facility] CARBON DIOXIDE 13(L) 20 - 32 mmol/L [address] [facility] Comment: Verified by repeat analysis. Analysis performed on aliquoted specimen, CO2 may be decreased due to greater exposure of specimen to air. ELECTROLYTE BALANCE 16 7 - 17 mmol/L (calc) [employer] CALCIUM 8.6 8.6 - 10.4 mg/dL [employer] [facility] Blood BLOOD SPECIMEN / Unknown 03/06/2024 11:48 AM STUNT WOMAN 03/06/2024 11:49 AM STUNT WOMAN Vicki Henley MD CHEMISTRY Final Resu lt [employer] [facility] [address] [place] [address], [facility] [address] [place] [address] * (ABNORMAL) COMPLIANCE DRUG ANALYSIS (03/06/2024 11:46 AM STUNT WOMAN) 6-MONOACETYL MORPHINE NEG NEG ng/mL 03/11/2024 3:22 PM STUNT WOMAN [facility] AMPHETAMINE URINE NEG <=500 ng/mL 03/11/2024 3:22 PM STUNT WOMAN [facility] BARBITURATE URINE NEG <=200 ng/mL 03/11/2024 3:22 PM STUNT WOMAN [facility] BENZODIAZEPINE URINE POS(A) <=100 ng/mL 03/11/2024 3:22 PM [facility] BUPRENORPHRINE URINE NEG <=5 ng/mL 02/25 3:22 PM [facility] COCAINE METAB URINE NEG <=300 ng/mL 03/11/2024 3:22 PM [facility] ETHYLGLUCURONIDE URINE NEG <=250 ng/mL 03/11/2024 3:22 PM [facility] FENTANYL URINE POS(A) <=4 ng/mL 03/11/2024 3:22 PM [facility] METHADONE URINE NEG <=300 ng/mL 03/11/2024 3:22 PM [facility] OPIATES URINE POS(A) <=300 ng/mL 03/11/2024 3:22 PM [facility] OXYCODONE URINE POS(A) <=100 ng/mL 03/11/2024 3:22 PM [facility] PROPOXYPHENE URINE NEG <=300 ng/mL 03/11/2024 3:22 PM [facility] THC 50 URINE POS(A) <=50 ng/mL 03/11/2024 3:22 PM [facility] TRAMADOL NEG <=200 ng/mL 03/11/2024 3:22 PM [facility] PH URINE 6.2 5.0 - 7.0 03/11/2024 3:22 PM [facility] CREAT UR 75 >=20 mg/dL 03/11/2024 3:22 PM [facility] MASS SPECTROMETRY URINE See Below 03/11/2024 3:22 PM [facility] Comment:Cyclobenzaprine, Dex tromethorphan, Diphenhydramine, Doxepin, Nordoxepin, Fentanyl, Norfentanyl, Morphine, Oxcarbazepine, Oxycodone, Noroxycodone and Promethazine present. Urine URINE SPECIMEN / Unknown Non-Blood / Unknown 03/06/2024 11:46 AM [facility] 03/06/2024 11:[address] [facility] - 03/11/2024 3:22 PM STUNT WOMAN Current Outpatient Medications: acetaminophen (TYLENOL EXTRA STRGTH) [...] mouth two times daily. miscellaneous medical supply [facility] As directed. PULSE OXIMETER naloxegoL (MOVANTIK) 25 [...] Rose Bright DO URINE Final Resul t [facility] [address] [place] [address] [address] [place] [address], [place] * OSMOLALITY,URINE (03/06/2024 11:46 AM STUNT WOMAN) OSMOLALITY,URI NE 411 50 - 1,400 mOsmol/kg 03/07/2024 2:31 AM STUNT WOMAN [facility] Urine URINE SPECIMEN / Unknown Non-Blood / Unknown 03/06/2024 11:46 AM STUNT WOMAN 03/06/2024 11:46 AM STUNT WOMAN us Vicki Henley MD URINE Final Resu lt [facility] [address] [place] [address], [place] * (ABNORMAL) LIPID PANEL W REFLEX MEASURED LDL (07/03/2023 8:00 AM CDT) CHOLESTEROL,TOTAL 248(H) 100 - 199 mg/dL 07/03/2023 2:42 PM CDT [facility] Comment: Cholesterol, Total Reference Ranges Desirable <200 mg/dL Borderline 200-239 mg/dL High >=240 mg/dL TRIGLYCERIDES 64 <150 mg/dL 07/03/2023 2:42 PM CDT [facility] HDL CHOLESTEROL 108 >40 mg/dL 2:42 PM CDT [facility] NON-HDL CHOLESTEROL 140 <145 mg/dl 07/03/2023 2:42 PM CDT [facility] CHOL/HDL RATIO 2.30 <4.50 07/03/2023 2:42 PM CDT [facility] LDL CHOLESTEROL 127 <=130 mg/dL 07/03/2023 2:42 PM CDT [facility] VLDL CHOLESTEROL 13 <=30 mg/dL 07/03/2023 2:42 PM CDT [facility] PROVIDER ORDERED STATUS RANDOM 07/03/2023 2:42 PM CDT [facility] Blood BLOOD SPECIMEN / Unknown Butterfly / Unknown 07/03/2023 8:00 AM CDT 07/03/2023 8:02 AM CDT us Rose Bright DO CHEMISTRY Final Resul t [facility] [address] [place] [address], [place] * SCAN-COLONOSCOPY (04/25/2023 3:00 PM STUNT WOMAN) Narrative Procedure Note Fredis Luna MD - 04/25/2023 1:56 PM CST [facility] [address] [place] [address], [address], [place] [address] Patient Name: Marina Jean-Baptiste Gender: Female Exam Date: 04/25/2023 Visit Number: [id number] Age: 58 Years Date of : 1965 Attending MD: Fredis Luna MD Medical Record#: [id number] Procedure: Colonoscopy Indications: Previous adenomatous polyp(s) Referring MD: Referral Self Primary MD: Rose Bright DO Medications: Admitting Medications: 0.9% Normal Saline at [facility] Intra Procedure Medications: Patient received [...] signed by: Cesar Paulson MD Interpreted at [facility], [address] [place] [address] Orders Instruction(s)/Education: Instruction/Education Timeframe Assessment Colon Cancer Prevention K63.5 Colon Polyps K63.5 Hemorrhoids (Internal) K63.5 High Fiber Diet K63.5 Final Plan: Repeat colonoscopy in 10 years for screening. If you have signs orsymptoms of lower GI illness or a new diagnosis of colon cancer in animmediate family member, you should contact [facility] or your primary providerto discuss whether [...] MAMMO BETH BILAT SCREEN (04/16/2023 1:18 PM STUNT WOMAN) Anatomical Region Laterality Modality BREASTS, Breast Left, Breast Right Bilateral Mammography Impressions 04/17/2023 3:20 PM STUNT WOMAN There is no radiographic evidence for malignancy. Recommend annual mammograms. MAMMOGRAM ASSESSMENT: ACR 1 Negative PATIENTS: You will also receive a letter with your examination results in an easy to read format. If you have questions about your results, please contact your referring provider. Narrative 04/17/2023 3:20 PM STUNT WOMAN For Patients: As a result of the Century Cures Act, medical imaging exams and procedure reports are released immediately into your electronic medical record. You may view this report before your referring provider. If you have questions, please contact your health care provider. XR MAMMO BETH BILAT SCREEN [[id number]] CLINICAL HISTORY: This is an asymptomatic 57 [...] LOW DOSE WO CONTRAST (04/11/2023 11:19 AM STUNT WOMAN) Anatomical Region Laterality Modality Computed Tomogra phy Impressions 04/16/2023 8:20 AM STUNT WOMAN Negative for lung cancer screening purposes. LUNG-RADS [...] PM (Electronic Signature) Narrative 04/16/2023 8:20 AM STUNT WOMAN For Patients: As a result of the [...] * Anti HIV 1/2 (04/19/2016 8:44 PM STUNT WOMAN) HIV-1/HIV-2 ANTIBODY Non-Reacti ve Non-Reacti ve 04/20/2016 2:40 AM [facility] Blood BLOOD SPECIMEN / Unknown Venipuncture / Unknown 04/19/2016 8:44 PM STUNT WOMAN 04/19/2016 8:51 PM STUNT WOMAN Narrative [facility] - 04/20/2016 2:40 AM STUNT WOMAN HIV-1 p24 and HIV-1/HIV-2 Ab not detected us Farhat Holland MD SEND OUTS Kat l Result [facility] [address] [place] [address], * ANTI HCV (11/29/2015 2:08 PM CDT) HEPATITIS C ANTIBODY Non-Reacti ve Non-Reacti ve 11/29/2015 7:58 PM CDT [facility] Blood BLOOD SPECIMEN / Unknown Venipuncture / Unknown 11/29/2015 2:08 PM CDT 11/29/2015 2:09 PM CDT Narrative [facility] - 11/29/2015 7:58 PM CDT Antibodies to HCV not detected; does not exclude the possibility of exposure to HCV. Rose Bright DO SEND OUTS Final Resul t Performing Organization Address City/[facility]/ZIP Co de Phone Number [facility] [address] [place] [address], from Last 3 Months or Most Recently [...] Documents on File Type Date Recorded Patient [employer]ener Expl anation POLST 08/21/2021 POLST 02/08/2020 * [...] 8:40 PM 07/23/2018 1:50 PM Care Teams Configuration Technician Relationship Specialty [place] [address] [facility] [place] [address] PCP - General Family Practice 04/13/19 Gerardo Gunn MD Surgery - Orthopedics 02/27/19 Anam Guidry MD [address] [place] [address] Anesthesiology 02/27/19 Michelle Avalos MBBS [id number] [place] [address] Nephrology 12/25/23
[2024-05-21 10:46] VITALS: BP 99/56; PULSE 90; RESP 20; TEMP 36.9; O2SAT 94
--- NOTE | 2024-05-21 11:25 | ED_ITS ---
HPI - General Adult General Time Seen by Provider: 11:25 Date Seen: 05/21/24 Chief complaint: Extremity Pain/Injury, Upper Stated complaint: R arm pain Time Seen by Provider: 05/21/24 11:11 Source: patient, RN notes reviewed and old records reviewed Mode of arrival: ambulatory Limitations: no limitations History of Present Illness HPI narrative: This 59-year-old female is coming in with ongoing right shoulder pain. She has been having symptoms since probably February. She notes the pain does radiate into her arm and elbow now. She does not have elbow forearm wrist or hand pain if her shoulder is at rest. She states she can barely shower, really cannot move the shoulder at all. She does have a history of neck issues. She does state that she had a history of a fracture in the shoulder about 15 years ago. She has been referred to physical therapy as well as the orthopedist. She is scheduled to see the orthopedist at [facility] but it is not scheduled until May. She has been trying an Toño wrap around the arm. She has chronic oxycodone at home. 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, borderline personality disorder, chronic back pain with failed previous fusion, chronic pain syndrome, cyclic vomiting syndrome, cervical degenerative disc disease, delayed emergence from anesthesia, depression, fibromyalgia, GERD, hypertension, lumbar radiculopathy, lymphedema, migraine, opioid use disorder, severe, dependence, osteoarthritis of lumbar spine, osteoporosis with vertebral in humerus fractures, RAYSHAWN BS 0 0 at age 27, Tucker-en-Y gastric bypass 2002, vitamin-D deficiency, pain medication agreement, presents implanted infusion pump, PTSD, run out disease, sleep apnea, venous stasis. She did have x-rays at an appointment with her primary on April 06, this showed chronic healed proximal humeral fracture involving the greater and lesser tuberosities. Hypertrophic spur formation noted at the superolateral and inferomedial aspect of the humeral head. Abnormal alignment of the glenohumeral joint with inferior position of the humeral head in relation to the glenoid. Subcortical deformity of the superomedial humeral head. Chronic deformity of the distal clavicle. Postop changes to the right lung. The impression is chronic deformities of the humeral head and distal clavicle. Abnormal alignment of the glenohumeral joint with inferior position of the humeral head in relation to the glenoid which may be new since 04/11/[address] chest. This could suggest traumatic subluxation verses large joint effusion. The primary did message the patient. She is denying any new injury, just pain. She was given a Medrol Dosepak at that appointment and does not feel it helped at all. Related Data Home Medications ?Medication ?Instructions ?Recorded ?Confirmed cyclobenzaprine 10 mg tablet 10 mg PO QPM PRN muscle spasm 05/27/22 05/20/24 doxepin 150 mg capsule 150 mg PO QPM 05/27/22 05/20/24 furosemide 20 mg tablet 20 mg PO BID 05/27/22 05/20/24 naloxegol 25 mg tablet (Movantik) 25 mg PO QAM 05/27/22 05/20/24 oxcarbazepine 300 mg tablet mg PO 05/27/22 oxycodone 5 mg tablet 5 mg PO DAILY PRN chronic pain 05/27/22 05/20/24 promethazine 25 mg tablet 25 mg PO Q12H PRN nausea 05/27/22 05/20/24 cholecalciferol (vitamin D3) 125 125 mcg PO DAILY 05/20/24 05/20/24 mcg (5,000 unit) capsule (Dialyvite Vitamin D) cyanocobalamin (vitamin B-12) 1,000 mcg IM Q4W 05/20/24 05/20/24 1,000 mcg/mL injection solution diazepam 5 mg tablet mg PO 05/20/24 propylene glycol 0.6 % eye drops drp 05/20/24 (Systane Complete) sodium chloride 1,000 mg soluble 1,000 mg PO BID 05/20/24 05/20/24 tablet syringe with needle 3 mL 25 gauge 05/20/24 05/20/24 x 1 (BD Luer-Chau Syringe) Previous Rx's ?Medication ?Instructions ?Recorded hydrocodone 5 mg-acetaminophen 325 1 tab PO Q4-6H PRN pain #24 tabs 01/17/23 mg tablet Allergies Allergy/AdvReac Type Severity Reaction Status Date / Time aspirin Allergy Unknown GI Bleed Verified 05/20/24 16:03 bupivacaine Allergy Unknown Agitation Verified 05/20/24 16:03 diphenhydramine Allergy Unknown Anxiety Verified 05/20/24 16:03 lamotrigine Allergy Unknown Angioedema Verified 05/20/24 16:03 metoclopramide Allergy Unknown Anxiety Verified 05/20/24 16:03 NSAIDS (Non-Steroidal Allergy Unknown GI Bleed Verified 05/20/24 16:03 Anti-Inflamma (NSAIDS (Non-Steroidal Anti-Inflammatory Drug)) prochlorperazine Allergy Unknown Unknown Verified 05/20/24 16:03 pseudoephedrine Allergy Unknown Unknown Verified 05/20/24 16:03 sumatriptan Allergy Unknown Punched Verified 05/20/24 16:03 The Beta Adrenergic Blockers Allergy Unknown Unknown Uncoded 09/15/22 21:32 Haldol Allergy Unknown Anxiety Uncoded 09/15/22 21:32 Review of Systems Narrative: As per HPI. PFSH PFSH Medical History POLST (Physician Orders for Life-Sustaining Treatment) ?Z78.9 - Other specified health status (ICD-10) Family History Father Prostate cancer Other Ovarian cancer Social History Narrative: , 3 kids, unemployed, smoker, no EtOH Smoking Status: Current every day smoker What tobacco products do you use: cig arettes Do you use any of these nicotine containing products: None Second hand tobacco smoke exposure: Yes How often do you have a drink containing alcohol: never How often do you have six or more drinks on one occasion: Never AUDIT-C Alcohol total score: 0 Non-prescribed substance use: denies use service: No Exam Const: Vital Signs, click to edit/add: Vital Signs - 24 hr 05/21/24 10:46 Temperature 98.4 F Pulse Rate [Pulse Oximeter] 90 Respiratory Rate 20 Blood Pressure [Le ft Upper Arm] 99/56 L Pulse Oximetry 94 Oxygen Delivery Me thod Room Air This 59-year-old female sitting in a chair in exam room to, alert, interactive, no apparent distress. She had an Toño wrap around her upper arm which is opened up. She complains of pain when I touch even gently over her right shoulder. Do not feel any significant sulcus. When she is talking to me and distracted by talking, can walk out her clavicles and feel no pain. She can shrug her shoulders. Any range of motion about her right shoulder is extremely painful and has very limited range of motion about the shoulder. She can do some abduction and gentle range of motion however. When her arm is along her body, no palpable pain along the humerus, elbow, forearm, wrist, hand or fingers. She has easily palpable strong radial pulse, neurovascular is intact in the fingers, hand property officer strength are 5/5 and symmetric, interosseous muscles are normal and symmetric throughout both hands. She can flex extend the wrist as long as her arm is by her side she has no pain. Lungs are clear, good air entry, no wheeze or crackles. CV regular rate and rhythm, no murmur. No acute complaints of neck pain, no pain with range of motion. Documenting provider has reviewed patient's vital signs: yes Course Course ED Course: Have reviewed with patient that she really needs to see Orthopedics. Did offer to contact our orthopedic service, she declined at this point. She is going to keep her appointment with the orthopedist scheduled. I can try to provide a sling, see if that helps with limiting range of motion, do not have a shoulder immobilizer here. Did review the concern for frozen shoulder. Clinically her examination seems to be consistent with prior although even more diminished range of motion. There is nothing that I can acutely do for her here today to remedy her situation. She declines my offer to contact our orthopedic service or to follow-up with them a if I could get her in quicker. Will see how she responds to the sling, see if it does help. We have discussed gentle range of motion/pendulum exercises multiple times a day to prevent frozen shoulder. Patient in I did discuss that she does have underlying history of cervical degenerative disc disease as well. They are always could be a component of a cervical radiculopathy developing as well. This would be extremely difficult to figure out right now. Did offer course of steroids but she declines at this time. I do ultimately suspect that this is chronic but worsening pain from her shoulder with referred pain into the arm. Reevaluation(s) Time of Reevaluation #1: 11:51 Reevaluation #1: Patient has received a sling, does want to try this at home. She feels that will help. She ultimately again declines me talking to our Orthopedics. Vital Signs Vital signs: Initial Vital Signs Temperature 98.4 F 05/21/24 10:46 Temperature Source Temporal Artery Scan 05/21/24 10:46 Pulse Rate 90 05/21/24 10:46 Respiratory Rate 20 05/21/24 10:46 Blood Pressure 99/56 L 05/21/24 10:46 Blood Pressure Mean 70 05/21/24 10:46 Pulse Oximetry 94 05/21/24 10:46 Oxygen Delivery Method Room Air 05/21/24 10:46 Vital Signs Temperature 98.4 F 05/21/24 10:46 Pulse Rate 90 05/21/24 10:46 Respiratory Rate 20 05/21/24 10:46 Blood Pressure 99/56 L 05/21/24 10:46 Pulse Oximetry 94 05/21/24 10:46 Oxygen Delivery Method Room Air 05/21/24 10:46 Temperature 98.4 F 05/21/24 10:46 Pulse Rate 90 05/21/24 10:46 Respiratory Rate 20 05/21/24 10:46 Blood Pressure 99/56 L 05/21/24 10:46 Pulse Oximetry 94 05/21/24 10:46 Oxygen Delivery Method Room Air 05/21/24 10:46 Discharge Plan Discharge Clinical Impression: Disorder of glenohumeral joint Patient Disposition: Home, Self-Care Condition: Stable Instructions: Shoulder Pain (ED) Additional Instructions: You can try the arm sling for comfort. If you are using arm sling all the time, will need to do the pendulum exercises with gentle range of motion of your shoulder as we discussed. Can continue with your home medicines that she has been using, do know that she of oxycodone. Can try ice or heat to the shoulder, use whichever helps best. You ultimately need to see Orthopedics for definitive treatment of the shoulder. Activity Level: Activity as Tolerated Prescriptions: No Action cyanocobalamin (vitamin B-12) 1,000 mcg/mL solution 1,000 mcg IM Q4W (DME) BD Luer-Chau Syringe 3 mL 25 gauge x 1 syringe MISCELLANEOUS DIRECTED diazepam 5 mg tablet PO sodium chloride 1,000 mg tablet,soluble 1,000 mg PO BID Systane Complete 0.6 % drops Patient Comments: [NO ORIGINAL SIG] cholecalciferol (vitamin D3) [Dialyvite Vitamin D] 125 mcg (5,000 unit) capsule 125 mcg PO DAILY cyclobenzaprine 10 mg tablet 10 mg PO QPM PRN (Reason: muscle spasm) oxcarbazepine 300 mg tablet PO promethazine 25 mg tablet 25 mg PO Q12H PRN (Reason: nausea) furosemide 20 mg tablet 20 mg PO BID doxepin 150 mg capsule 150 mg PO QPM oxycodone 5 mg tablet 5 mg PO DAILY PRN (Reason: chronic pain) Movantik 25 mg tablet 25 mg PO QAM hydrocodone-acetaminophen 5-325 mg tablet 1 tab PO Q4-6H PRN (Reason: pain) Qty: 24 0RF Follow Up/Referrals: Rose Bright DO [Primary Care Provider] - Stand Alone [facility] Instructions
--- OUTSIDE RECORDS SUMMARY | 2024-05-21 11:44 | XMS_ITS | Clinical Summary ---
Author Organization [employer] [facility] Address [address] [place] [address] Care Team Providers Care Manager Process Excellence Name Role Phone Gerardo Gunn MD Unavailable [phone] Anam Guidry MD Unavailable Rose Bright DO Primary Care Provider [phone] Michelle Avalos Unavailable Allergies Active Allergy Reactions [...] (09/08/2021): filled with opioid combination, managed by [facility] Opioid type dependence, continuous 09/08/2021 Hyponatremia 08/22/2021 [...] medication agreement 12/10/2017 Overview (04/13/2019): Established with [facility] for osteoarthritis of lumbar spine and pain pump. Offered a trial of oxycodone 5mg once daily #14 as needed for SEVERE foot pain in addition to maximizing Tylenol, topicals, and obtaining orthotics. New CSA 04/13/19 with intent to be short-term and Toxassure today. Plan to meet with the Manufacturing Engineering Professor and then follow up with Dr. Baker [...] Type Department Care Team Description 05/04/2024 Refill [facility] [address] [place] [address] Maile Reyes MD Refill Request (Oxcarbazepine, Doxepin) 05/01/2024 Refill [facility] [address] [place] [address] Addie Taylor MD Refill Request (Oxcarbazepine, Doxepin Hcl) 2024 1:14 PM IMAGE ASSEMBLER - 2024 11:59 PM IMAGE ASSEMBLER Hospital Encounter [address] [address] Rose Bright DO Becken, Amy, PT Acute pain of right shoulder; Adhesive capsulitis of right shoulder; Bursitis of right shoulder 2024 Travel 04/21/2024 11:15 AM IMAGE ASSEMBLER Telemedicine [facility] [address] [place] [address] Maile Reyes MD Failed Appointment 04/20/2024 Travel 04/06/2024 9:10 AM IMAGE ASSEMBLER Ancillary Procedure [facility] [address] [place] [address] 04/06/2024 8:45 AM IMAGE ASSEMBLER Office Visit [facility] [address] [facility] [place] [address] Rose Bright DO Shoulder Pain/problem (Right Shoulder/arm [...] items and needs provider signature for 3rd alliance party verification. /Was told to speak to nurse. ) 04/05/2024 Travel 04/01/2024 Refill [facility] [address] [place] [address] Addie Taylor MD Refill Request (Doxepin Hcl, Doxepin, Oxcarbazepine) 03/31/[address] [address] Vicki Henley MD Follow Up (Nephrology Post Visit (03/16/2024) RN Follow-up Call /) 03/27/2024 Telephone [facility] [address] [place] [address] Rose Bright DO Medication Management 03/24/2024 Telephone [facility] [address] [place] [address] Rose Bright DO Form (OTC MEDICATION VERIFICATION FORM) 03/16/2024 11:00 AM IMAGE ASSEMBLER Telemedicine [facility] [address] [place] [address] Vicki Henley MD Follow Up (3 WEEK MED CHECK ) 03/16/2024 Telephone [facility] [address] [address] Vicki Henley MD Appointment (Neph ) 03/15/2024 Travel 03/06/2024 10:45 AM IMAGE ASSEMBLER Office Visit [facility] [address] [place] [address] Rose Bright DO Medicare ANNUAL (subsequent) Visit (nonfasting) 03/06/2024 Travel 03/03/2024 Refill [facility] [address] [place] [address] Roes Bright DO Refill Request (Promethazine) 03/02/2024 Refill [facility] [address] [place] [address] Addie Taylor MD Refill Request (Oxcarbazepine, Doxepin, Doxepin Hcl) 02/27/2024 Telephone [facility] [address] [facility] [address] [place] [address] Vicki Henley MD Follow Up 02/24/2024 Telephone [facility] [address] [facility] [address] [place] [address] Vicki Henley MD Results from Last 3 [...] Comments Blood Pressure 118/74 04/06/2024 8:49 AM IMAGE ASSEMBLER Pulse 78 04/06/2024 8:51 AM IMAGE ASSEMBLER Temperature 37.2 C (98.9 F) 01/24/2023 9:42 AM IMAGE ASSEMBLER Respiratory Rate 18 01/21/2023 8:12 AM IMAGE ASSEMBLER Oxygen Saturation 97% 03/06/2024 11: 01 AM IMAGE ASSEMBLER Inhaled Oxygen Concentration - - Weight 95.2 kg (209 lb 12.8 oz) 04/06/2024 8:51 AM IMAGE ASSEMBLER Height 163.8 cm (5' 4.5) 04/06/2024 8:51 AM IMAGE ASSEMBLER Body Mass Index 35.46 04/06/2024 8:51 AM IMAGE ASSEMBLER Plan of Treatment Upcoming Encounters Date Type Department Care Team (Late st Contact Info) Description 05/22/2024 10:15 AM CDT Telemedicine [facility] [address] [place] [address] Maile Reyes MD [address] [place] [address] 05/29/2024 11:15 AM CDT Office Visit [facility] [address] [place] [address] Petey Benedict MD [address] [place] [address] Health Maintenance Due Date Last Done Comments RSV vaccine for adults or (1 - Risk 60-74 years 1-dose series) [address] (for lung CA) ag e 50-80 04/11/2024 04/11/2023, 04/02/2022, 11/06/2018, Additional history exists Mammogram for age 45-75 04/16/2024 04/16/19, 02/17/2018, 02/25/2013 [facility] BMI (ht and wt on same day) [...] history exists Medical Devices Implanted Type Area Spouter Device Identifier Shelf Expiration Date Model / Serial / Lot [id number]-[id number] - [id number] Implanted:Qty: 1 on 09/22/2018 by Anselmo Sahu MD at [facility] Total Joint Left: Knee [employer] 01/14/2023 5510-F-401 / / [id number] Description:Yolie Manning te Retaining Femoral Size #4, LEFT, Cr J7741-U-107 - [id number] Implanted:Qty: 1 on 09/22/2018 by Anselmo Sahu MD at [facility] Total Joint Left: Knee [employer] 12/16/2022 5560-S-115 / / [id number] Description:Triathlon Total Knee Cemented Stem diameter 15 mm Length 50 mm R5411-J-539 - [id number] Implanted:Qty: 1 on 09/22/2018 by Anselmo Sahu MD at [facility] Total Joint Left: Knee [employer] 07/01/2022 5531-G-416 / / [id number] Description:Triathlon X3 Tib ial Bearing Insert-CS Size 4, CS, Thickness 16 mm Cmnt Bone 40g Simplex P Non Atb Mv - [id number] Implanted:Qty: 2 on 09/22/2018 by Anselmo Sahu MD at [facility] Left: Knee [employer] 09/24/2020 6191-1-010# / / [id number] G3191-D-88 - [id number] Implanted:Qty: 1 on 09/22/2018 by Anselmo Sahu MD at [facility] Left: Knee [employer] 05/05/2023 5521-B-400 / / [id number] Description:Triathlon Total Knee Cummings Tibial Baseplate size #4 [id number]-R-719 - [id number] Implanted:Qty: 1 on 09/22/2018 by Anselmo Sahu MD at [facility] Left: Knee [employer] 06/16/2023 5551-G-350 / / [id number] Description:Triathlon X3 Asy mmetric Patella size 35 mm, thickness 10 mm Screw Lmbr 5.5x25mm Endo Skeleton Tas Bone Alif Stand Alone - [id number] Implanted:Qty: 1 on 09/08/2021 by Gerardo Gunn MD at [facility] [employer] Spine/Ortho [id number] / / Screw 5.5 Voyager Mas 6.5x45 Implanted:Qty: 2 on 09/08/2021 by Gerardo Gunn MD at [facility] [id number] / / Description:SCREW 5.5 VOYAGE R MAS 6.5X45 Screw 5.5 Voyager Mas 7.5x35 Implanted:Qty: 1 on 09/08/2021 by Gerardo Gunn MD at [facility] [id number] / / Description:SCREW 5.5 VOYAGE R MAS 7.5X35 Screw 5.5 Voyager Mas 7.5x40 Implanted:Qty: 1 on 09/08/2021 by Gerardo Gunn MD at [facility] [id number] / / Description:SCREW 5.5 VOYAGE R MAS 7.5X40 Nanette Perc 90mm Implanted:Qty: 2 on 09/08/2021 by Gerardo Gunn MD at [facility] [id number] / / Description:NANETTE PERC 90MM Set Screw 5.5/6.0 Solera Voyager Implanted:Qty: 8 on 09/08/2021 by Gerardo Gunn MD at [facility] [id number] / / Description:SET SCREW 5.5/6. 0 SOLERA VOYAGER Screw 5.5 Voyager Mas 7.5x45 Implanted:Qty: 2 on 09/08/2021 by Gerardo Gunn MD at [facility] [id number] / / Description:SCREW 5.5 VOYAGE R MAS 7.5X45 Screw 5.5 Voyager Mas 9.5 X 80 Implanted:Qty: 2 on 09/08/2021 by Gerardo Gunn MD at [facility] [id number] / / Description:SCREW 5.5 VOYAGE R MAS 9.5 X 80 [id number] graft Bone 9cc Isabel Dbf Inject Implanted:Qty: 1 on 09/08/2021 by Gerardo Gunn MD at [facility] Explanted:at [facility] (Quantity not on file) Spine Medtronic Spine/Ortho 02/13/2023 [id number] / [id number] / [id number] bone 1-4mm 90cc Medtronic Chips Canclls Freeze Dried Implanted:Qty: 1 on 09/08/2021 by Gerardo Gunn MD at [facility] Explanted:at [facility] (Quantity not on file) Spine [employer] Spine/Ortho 07/01/2025 [id number] / [id number] / Michelle Spacer Tas 12d Std 12mm Implanted:Qty: 1 on 09/08/2021 by Gerardo Gunn MD at [facility] 08/12/2025 [id number] / / [id number] Description:MICHELLE SPACER TAS 12D STD 12MM Coverplate 32 X 23 X 18 X 12deg Implanted:Qty: 1 on 09/08/2021 by Gerardo Gunn MD at [facility] 04/18/2026 [id number] / / [id number] Description:COVERPLATE 32 X 23 X 18 X 12DEG Screw Lmbr 5.5x20mm Sovereign Stand Alone - [id number] Implanted:Qty: 1 on 09/08/2021 by Gerardo Gunn MD at [facility] [employer] Spine/Ortho [id number] / / Explanted Type Area Spouter Device Identifier Shelf Expiration Date Model / Serial / Lot Explant Explanted:Qty: 1 on 09/08/2021 by Gerardo Gunn MD at [facility] Description:3 SCREWS, 1 INTE RBODY Procedures Procedure Name Priority Date/Time Associated Diagnosis Comments XR SHOULDER 3 VIEWS RIGHT Routine 04/06/2024 9:18 AM IMAGE ASSEMBLER Acute pain of right shoulder BASIC METABOLIC PANEL Routine 03/06/2024 11:48 AM IMAGE ASSEMBLER Hyponatremia HEMOGLOBIN A1C Routine 03/06/2024 11:48 AM IMAGE ASSEMBLER Prediabetes HEMOGLOBIN Routine 03/06/2024 11:48 AM IMAGE ASSEMBLER History of Tucker-en-Y gastric bypass Vitamin D deficiency FERRITIN Routine 03/06/2024 11:48 AM IMAGE ASSEMBLER History of Tucker-en-Y gastric bypass VITAMIN D 25 (DEFICIENCY) Routine 03/06/2024 11:48 AM IMAGE ASSEMBLER History of Tucker-en-Y gastric bypass Vitamin D deficiency VITAMIN B12 Routine 03/06/2024 11:48 AM IMAGE ASSEMBLER History of Tucker-en-Y gastric bypass COMPLIANCE DRUG ANALYSIS Routine 03/06/2024 11:46 AM IMAGE ASSEMBLER Chronic pain syndrome Therapeutic drug monitoring OSMOLALITY,URINE Routine 03/06/2024 11:4 6 AM IMAGE ASSEMBLER Hyponatremia LIPID PANEL W REFLEX MEASURED LDL Routine 07/03/2023 8:00 AM CDT Screening cholesterol level SCAN-COLONOSCOPY 04/25/2023 3:00 PM IMAGE ASSEMBLER XR MAMMO BETH BILAT SCREEN Routine 04/16/2023 1:18 PM IMAGE ASSEMBLER Routine adult health maintenance CT CHEST SCREENING LOW DOSE WO CONTRAST Routine 04/11/2023 11:19 AM IMAGE ASSEMBLER Encounter for screening for lung cancer Former smoker ANTI HIV 1/2 Timed 04/19/2016 8:44 PM IMAGE ASSEMBLER ANTI HCV Routine 11/29/2015 2:08 PM CDT Need for hepatitis C screening test from Last 3 Months or Most Recently Relevant to Health Maintenance Results * XR SHOULDER 3 VIEWS RIGHT (04/06/2024 9:18 AM IMAGE ASSEMBLER) Anatomical Region Laterality Modality SHOULDERS, SHOULDER R Computed R adiography 04/06/2024 10:1 2 AM IMAGE ASSEMBLER Narrative 04/06/2024 10:12 AM IMAGE ASSEMBLER For Patients: As a result of the [...] t * HEMOGLOBIN A1C (03/06/2024 11:48 AM IMAGE ASSEMBLER) HEMOGLOBIN A1C 4.5 <5.7 % of total [...] diagnosis of diabetes in children. According to [place] Diabetes Association (ADA) guidelines, hemoglobin A1c <7.0% represents optimal control in non- diabetic patients. Different metrics may apply to specific patient populations. Standards of Medical Care in Diabetes(ADA). Blood BLOOD SPECIMEN / Unknown 03/06/2024 11:48 AM IMAGE ASSEMBLER 03/06/2024 11:49 AM IMAGE ASSEMBLER Rose Bright DO CHEMISTRY Final Resul t [facility] [address] [place] [address], [facility] [address] [place] [address] * (ABNORMAL) VITAMIN D 25 (DEFICIENCY) (03/06/2024 11:48 AM IMAGE ASSEMBLER) VITAMIN D,25-OH,TOTAL,IA 16(L) 30 - 100 ng/mL [email or web address] Comment: Vitamin D Status 25-OH Vitamin D: Deficiency: <20 ng/mL Insufficiency: 20 - 29 ng/mL Optimal: > or = 30 ng/mL For 25-OH Vitamin D testing on patients on D2-supplementation and patients for whom quantitation of D2 and D3 fractions is required, the QuestAssureD(TM) 25-OH VIT D, (D2,D3), LC/MS/MS is recommended: order code 47741 (patients >2yrs). See Note 1 Note 1 For additional information, please refer to http://education.ColorPlaza/faq/PJR186 (This link is being provided for informational/ educational purposes only.) Blood BLOOD SPECIMEN / Unknown 03/06/2024 11:48 AM IMAGE ASSEMBLER 03/06/2024 11:49 AM IMAGE ASSEMBLER Rose Bright DO SEND OUTS Final Resul t Performing Organization Address [facility]/ZIP Co de Phone Number [facility] [address] [place] [address], [facility] [address] [place] [address] * (ABNORMAL) HEMOGLOBIN (03/06/2024 11:48 AM IMAGE ASSEMBLER) HEMOGLOBIN 11.0(L) 11.7 - 15.5 g/dL [facility] Blood BLOOD SPECIMEN / Unknown 03/06/2024 11:48 AM IMAGE ASSEMBLER 03/06/2024 11:49 AM IMAGE ASSEMBLER us Rose Bright DO HEMATOLOGY Final Resul t Performing Organization Address City/[facility]/ZIP Co de Phone Number [facility] [address] [facility] [place] [address], [place] [phone] [facility] [address] [place] [address] * FERRITIN (03/06/2024 11:48 AM IMAGE ASSEMBLER) FERRITIN 147 16 - 232 ng/mL [facility] Blood BLOOD SPECIMEN / Unknown 03/06/2024 11:48 AM IMAGE ASSEMBLER 03/06/2024 11:49 AM IMAGE ASSEMBLER us Rose Bright DO CHEMISTRY Final Resul t Performing Organization Address [facility]/ZIP Co de Phone Number [facility] [address] [facility] [place] [address], [place] [phone] [facility] [address] [facility] [place] [address] * (ABNORMAL) VITAMIN B12 (03/06/2024 11:48 AM IMAGE ASSEMBLER) Pathologist [facility] VITAMIN B12 148(L) 200 - 1,100 pg/mL [facility] Blood BLOOD SPECIMEN / Unknown 03/06/2024 11:48 AM IMAGE ASSEMBLER 03/06/2024 11:49 AM IMAGE ASSEMBLER Rose Bright DO CHEMISTRY Final Resul t Performing Organization Address City/[facility]/ZIP Co de Phone Number [facility] [address] [facility] [place] [address], [place] [phone] [facility] [address] [place] [address] * (ABNORMAL) BASIC METABOLIC PANEL (03/06/2024 11:48 AM IMAGE ASSEMBLER) GLUCOSE 86 65 - 99 mg/dL [facility] Comment: Fasting reference interval UREA NITROGEN (BUN) 7 7 - 25 mg/dL [facility] Re[facility] CREATININE 0.76 0.50 - 1.05 mg/dL [facility] [place] EGFR 90 > OR = 60 mL/min/1. 73m2 [facility] [place] BUN/CREATININE RATIO SEE NOTE: 6 - 22 (calc) [facility] Comment: Not Reported: BUN and Creatinine are within reference range. SODIUM 139 135 - 146 mmol/L [facility] Fielde POTASSIUM 4.1 3.5 - 5.3 mmol/L [employer] [employer] CHLORIDE 110 98 - 110 mmol/L [facility] CARBON DIOXIDE 13(L) 20 - 32 mmol/L [facility] Comment: Verified by repeat analysis. Analysis performed on aliquoted specimen, CO2 may be decreased due to greater exposure of specimen to air. ELECTROLYTE BALANCE 16 7 - 17 mmol/L (calc) [facility] CALCIUM 8.6 8.6 - 10.4 mg/dL [facility] Blood BLOOD SPECIMEN / Unknown 03/06/2024 11:48 AM IMAGE ASSEMBLER 03/06/2024 11:49 AM IMAGE ASSEMBLER Vicki Henley MD CHEMISTRY Final Resu lt [facility] [address] [place] [address], [facility] [address] [place] [address] * (ABNORMAL) COMPLIANCE DRUG ANALYSIS (03/06/2024 11:46 AM IMAGE ASSEMBLER) 6-MONOACETYL MORPHINE NEG NEG ng/mL 03/11/2024 3:22 PM IMAGE ASSEMBLER [facility] AMPHETAMINE URINE NEG <=500 ng/mL 03/11/2024 3:22 PM IMAGE ASSEMBLER [facility] BARBITURATE URINE NEG <=200 ng/mL 03/11/2024 3:22 PM IMAGE ASSEMBLER [facility] BENZODIAZEPINE URINE POS(A) <=100 ng/mL 03/11/2024 3:22 PM [facility] BUPRENORPHRINE URINE NEG <=5 ng/mL 02/25 3:22 PM [facility] COCAINE METAB URINE NEG <=300 ng/mL 03/11/2024 3:22 PM [facility] ETHYLGLUCURONIDE URINE NEG <=250 ng/mL 03/11/2024 3:22 PM [facility] FENTANYL URINE POS(A) <=4 ng/mL 03/11/2024 3:22 PM [facility] METHADONE URINE NEG <=300 ng/mL 03/11/2024 3:22 PM [facility] OPIATES URINE POS(A) <=300 ng/mL 03/11/2024 3:22 PM [facility] OXYCODONE URINE POS(A) <=100 ng/mL 03/11/2024 3:22 PM [facility] PROPOXYPHENE URINE NEG <=300 ng/mL 03/11/2024 3:22 PM [facility] THC 50 URINE POS(A) <=50 ng/mL 03/11/2024 3:22 PM [facility] TRAMADOL NEG <=200 ng/mL 03/11/2024 3:22 PM [facility] PH URINE 6.2 5.0 - 7.0 03/11/2024 3:22 PM [facility] CREAT UR 75 >=20 mg/dL 03/11/2024 3:22 PM [facility] MASS SPECTROMETRY URINE See Below 03/11/2024 3:22 PM [facility] Comment:Cyclobenzaprine, Dex tromethorphan, Diphenhydramine, Doxepin, Nordoxepin, Fentanyl, Norfentanyl, Morphine, Oxcarbazepine, Oxycodone, Noroxycodone and Promethazine present. Urine URINE SPECIMEN / Unknown Non-Blood / Unknown 03/06/2024 11:46 AM [facility] 03/06/2024 11:46 AM IMAGE ASSEMBLER [facility] - 03/11/2024 3:22 PM IMAGE ASSEMBLER Current Outpatient Medications: acetaminophen (TYLENOL EXTRA STRGTH) [...] Rose Bright DO URINE Final Resul t [facility] [address] [place] [address] [address] [place] [address], [place] * OSMOLALITY,URINE (03/06/2024 11:46 AM IMAGE ASSEMBLER) OSMOLALITY,URI NE 411 50 - 1,400 mOsmol/kg 03/07/2024 2:31 AM IMAGE ASSEMBLER [facility] Urine URINE SPECIMEN / Unknown Non-Blood / Unknown 03/06/2024 11:46 AM IMAGE ASSEMBLER 03/06/2024 11:46 AM IMAGE ASSEMBLER us Vicki Henley MD URINE Final Resu lt [facility] [address] [place] [address], [place] * (ABNORMAL) LIPID PANEL W REFLEX MEASURED LDL (07/03/2023 8:00 AM CDT) CHOLESTEROL,TOTAL 248(H) 100 - 199 mg/dL 07/03/2023 2:42 PM CDT [facility] Comment: Cholesterol, Total Reference Ranges Desirable <200 mg/dL Borderline 200-239 mg/dL High >=240 mg/dL TRIGLYCERIDES 64 <150 mg/dL 07/03/2023 2:42 PM CDT [facility] HDL CHOLESTEROL 108 >40 mg/dL 2:42 PM CDT [facility] NON-HDL CHOLESTEROL 140 <145 mg/dl 07/03/2023 2:42 PM CDT [facility] CHOL/HDL RATIO 2.30 <4.50 07/03/2023 2:42 PM CDT [facility] LDL CHOLESTEROL 127 <=130 mg/dL 07/03/2023 2:42 PM CDT [facility] VLDL CHOLESTEROL 13 <=30 mg/dL 07/03/2023 2:42 PM CDT [facility] PROVIDER ORDERED STATUS RANDOM 07/03/2023 2:42 PM CDT [facility] Blood BLOOD SPECIMEN / Unknown Butterfly / Unknown 07/03/2023 8:00 AM CDT 07/03/2023 8:02 AM CDT us Rose Bright DO CHEMISTRY Final Resul t [facility] [address] [place] [address], [place] * SCAN-COLONOSCOPY (04/25/2023 3:00 PM IMAGE ASSEMBLER) Narrative Procedure Note Fredis Luna MD - 04/25/2023 1:56 PM CST [facility] [address] [place] [address], [address], [place] [address] Patient Name: Marina Jean-Baptiste Gender: Female Exam Date: 04/25/2023 Visit Number: [id number] Age: 58 Years Date of : 1965 Attending MD: Fredis Luna MD Medical Record#: [id number] Procedure: Colonoscopy Indications: Previous adenomatous polyp(s) Referring MD: Referral Self Primary MD: Rose Bright DO Medications: Admitting Medications: 0.9% Normal Saline at [facility] Intra Procedure Medications: Patient received monitored anesthesia [...] signed by: Cesar Paulson MD Interpreted at [facility], [address] [place] [address] Orders Instruction(s)/Education: Instruction/Education Timeframe Assessment Colon Cancer Prevention K63.5 Colon Polyps K63.5 Hemorrhoids (Internal) K63.5 High Fiber Diet K63.5 Final Plan: Repeat colonoscopy in 10 years for screening. If you have signs orsymptoms of lower GI illness or a new diagnosis of colon cancer in animmediate family member, you should contact [facility] or your primary providerto discuss whether [...] MAMMO BETH BILAT SCREEN (04/16/2023 1:18 PM IMAGE ASSEMBLER) Anatomical Region Laterality Modality BREASTS, Breast Left, Breast Right Bilateral Mammography Impressions 04/17/2023 3:20 PM IMAGE ASSEMBLER There is no radiographic evidence for malignancy. Recommend annual mammograms. MAMMOGRAM ASSESSMENT: ACR 1 Negative PATIENTS: You will also receive a letter with your examination results in an easy to read format. If you have questions about your results, please contact your referring provider. Narrative 04/17/2023 3:20 PM IMAGE ASSEMBLER For Patients: As a result of the Century Cures Act, medical imaging exams and procedure reports are released immediately into your electronic medical record. You may view this report before your referring provider. If you have questions, please contact your health care provider. XR MAMMO BETH BILAT SCREEN [[id number]] CLINICAL HISTORY: This is an asymptomatic 57 [...] LOW DOSE WO CONTRAST (04/11/2023 11:19 AM IMAGE ASSEMBLER) Anatomical Region Laterality Modality Computed Tomogra phy Impressions 04/16/2023 8:20 AM IMAGE ASSEMBLER Negative for lung cancer screening purposes. LUNG-RADS [...] PM (Electronic Signature) Narrative 04/16/2023 8:20 AM IMAGE ASSEMBLER For Patients: As a result of the [...] * Anti HIV 1/2 (04/19/2016 8:44 PM IMAGE ASSEMBLER) HIV-1/HIV-2 ANTIBODY Non-Reacti ve Non-Reacti ve 04/20/2016 2:40 AM [facility] Blood BLOOD SPECIMEN / Unknown Venipuncture / Unknown 04/19/2016 8:44 PM IMAGE ASSEMBLER 04/19/2016 8:51 PM IMAGE ASSEMBLER Narrative [facility] - 04/20/2016 2:40 AM IMAGE ASSEMBLER HIV-1 p24 and HIV-1/HIV-2 Ab not detected us Farhat Holland MD SEND OUTS Kat l Result [facility] [address] [place] [address], * ANTI HCV (11/29/2015 2:08 PM CDT) HEPATITIS C ANTIBODY Non-Reacti ve Non-Reacti ve 11/29/2015 7:58 PM CDT [facility] Blood BLOOD SPECIMEN / Unknown Venipuncture / Unknown 11/29/2015 2:08 PM CDT 11/29/2015 2:09 PM CDT Narrative [facility] - 11/29/2015 7:58 PM CDT Antibodies to HCV not detected; does not exclude the possibility of exposure to HCV. Rose Bright DO SEND OUTS Final Resul t Performing Organization Address City/[facility]/ZIP Co de Phone Number [facility] [address] [place] [address], from Last 3 Months or Most Recently [...] Documents on File Type Date Recorded Patient Edger Machine Helper Expl anation POLST 08/21/2021 POLST 02/08/2020 * [...] 8:40 PM 07/23/2018 1:50 PM Care Teams Manager Process Excellence Relationship Specialty [place] [address] [facility] [place] [address] PCP - General Family Practice 04/13/19 Gerardo Gunn MD Surgery - Orthopedics 02/27/19 Anam Guidry MD [address] [place] [address] Anesthesiology 02/27/19 Michelle Avalos MBBS [address] [place] [address] Nephrology 12/25/23
== END 2024-05-21 12:04 | disposition home or self-care (01) ==
PROVIDERS: Emergency Provider Family Medicine; PCP Family Medicine
DX: M25.511 Pain in right shoulder (principal)
CPT/HCPCS: 99283

== ENCOUNTER 2024-07-22 11:02 | Outpatient (CLI) | payer MEDICARE, OTHER, SELFPAY ==
--- NOTE | 2024-07-22 11:15 | CRLHL7_ITS ---
For Patients: As a result of the Century Cures Act, medical imaging exams and procedure reports are released immediately into your electronic medical record. You may view this report before your referring provider. If you have questions, please contact your health care provider. Indication: Right shoulder pain. Comparison: X-rays 08/12/2017 Procedure : Informed consent was obtained. The site was marked. Time-out was performed. The skin of the right shoulder was cleansed with ChloraPrep. A sterile drape was placed. 8 cc of 1 percent lidocaine was administered for superficial anesthesia. Subsequently a 22 gauge spinal needle was introduced into the right shoulder joint under intermittent fluoroscopic guidance. Injection of 2 cc nonionic Omnipaque 240 contrast confirmed intra-articular location. Subsequently 3 cc of additional Omnipaque 240 injected along with air. The needle was removed and hemostasis achieved with direct pressure. A dressing was placed. The patient tolerated the procedure well without immediate complication and was immediately sent to CT for imaging. Total fluoroscopy time 47 seconds. Impression: Successful fluoroscopically guided right shoulder arthrogram for CT. Chronic fractures of the right proximal humerus and right distal clavicle noted along with degenerative changes at the glenohumeral joint compatible with posttraumatic arthropathy. Synovial irregularity is present suggesting chronic synovitis. Dictated by Anam Silverio MD @ 07/22/2024 12:29:02 PM (Electronically Signed)
--- NOTE | 2024-07-22 11:30 | CRLHL7_ITS ---
For Patients: As a result of the Century Cures Act, medical imaging exams and procedure reports are released immediately into your electronic medical record. You may view this report before your referring provider. If you have questions, please contact your health care provider. INDICATION: Glenohumeral osteoarthritis. COMPARISON: 12 August 2017 plain film. TECHNIQUE: 5 mL Omnipaque 240 and 20 mL of air 10 minutes prior to exam. Multidetector imaging right shoulder with axial coronal and sagittal formats. FINDINGS: Flattened humeral head with patchy subchondral sclerosis and shallow subchondral cysts. Small marginal osteophytes. And neutral glenoid version. Central bone graft 27 mm. Maintained acromial distance. And periarticular noncontrast 3 patulous capsule. Some air into the biceps tendon sheath with as stippled thin foci of peripheral mineralization. No definite full-thickness rotator cuff tear. Deltoid bulk and attenuation looks normal. A small amount of fluid without contrast or air in the subacromial/subdeltoid bursa. Chronic appearing ossicle of the and distal clavicle apparent nonunion between this articulating ossicle and the proximal clavicle with and fairly wide gap of at least 4 mm. Normal joint width between the acromion and of the distal fragment. Subtle cortical overlap disorganized sclerotic trabecula across the humeral surgical neck suggesting mild dysmorphic healed prior fracture. Sclerotic bone island in the inferior humeral head. IMPRESSION : Moderately severe glenohumeral osteoarthritis. Intact rotator cuff. Intact biceps. Subacromial/subdeltoid bursitis. Chronic nonunited fracture distal clavicle. Mild dysmorphic healed prior neck fracture. Please note that all CT scans at this facility use dose modulation, iterative reconstruction, and/or weight-based dosing when appropriate to reduce radiation dose to as low as reasonably achievable. Dictated by Brad Castillo MD @ 07/22/2024 3:52:29 PM (Electronically Signed)
== END 2024-07-22 11:03 | disposition home or self-care (01) ==
LOC: RAD 11:03
PROVIDERS: PCP Family Medicine; Visit Provider Physician Assistant
DX: M25.511 Pain in right shoulder (principal); M19.011 Primary osteoarthritis, right shoulder; M75.51 Bursitis of right shoulder; M84.421A Pathological fracture, right humerus, initial encounter for fracture; Z87.81 Personal history of (healed) traumatic fracture
CPT/HCPCS: 23350; 73201; 77002; Q9966

== ENCOUNTER 2024-07-23 10:58 | Outpatient (CLI) | payer MEDICARE, OTHER, SELFPAY ==
--- NOTE | 2024-07-23 11:15 | CRLHL7_ITS ---
For Patients: As a result of the Century Cures Act, medical imaging exams and procedure reports are released immediately into your electronic medical record. You may view this report before your referring provider. If you have questions, please contact your health care provider. Indication: RIGHT HIP PAIN OSTEOARTHRITIS Comparison: Plain films 12/07/2017 Procedure : Informed consent was obtained. The site was marked. Time-out was performed. The skin of the right hip was cleansed with ChloraPrep. A sterile drape was placed. 8 cc of 1 percent lidocaine was administered for superficial anesthesia. Subsequently a 22 gauge spinal needle was introduced into the right hip joint under intermittent fluoroscopic guidance. Injection of 2 cc nonionic Omnipaque 240 contrast confirmed intra-articular location. Subsequently 3 cc of additional Omnipaque 240 administered along with air. The needle was removed and hemostasis achieved with direct pressure. A dressing was placed. The patient tolerated the procedure well without immediate complication and was immediately sent to CT for imaging. Total fluoroscopy time 1 minute 6 seconds. Impression: Successful fluoroscopically guided right hip arthrogram for CT. Dictated by Anam Silverio MD @ 07/23/2024 1:09:02 PM (Electronically Signed)
--- NOTE | 2024-07-23 11:30 | CRLHL7_ITS ---
For Patients: As a result of the Century Cures Act, medical imaging exams and procedure reports are released immediately into your electronic medical record. You may view this report before your referring provider. If you have questions, please contact your health care provider. EXAM: CT OF THE RIGHT HIP, ARTHROGRAM CLINICAL INDICATION: Several month history of right hip pain. COMPARISON STUDIES: 12/07/2017 radiographs. TECHNICAL: CT of the pelvis with axial images following right hip intra-articular injection of iodinated contrast. Sagittal oblique and coronal oblique reformatted images of the right hip created. FINDINGS: RIGHT HIP: Small shallow tear of the anterosuperior labrum at the labral chondral junction. Full-thickness chondromalacia in the superior and anterior acetabulum with subchondral sclerosis and subchondral cystic change. Moderate to full-thickness chondromalacia in the superior medial femoral head without subchondral changes. No loose body or synovitis. OSSEOUS STRUCTURES: No fracture or stress reaction. Multiple benign bone islands. No evidence for chronic avascular necrosis. OTHER JOINT SPACES: Left Hip: No joint effusion. SI Joints: Moderate to advanced degenerative changes in the SI joints. Lumbar Spine: Postoperative changes in the lumbosacral spine with iliac struts. MUSCLES AND TENDONS: No intramuscular mass or hematoma. No muscle atrophy. No retracted tendon tear. SOFT TISSUES: No subcutaneous edema, fluid collection or hematoma. INTRAPELVIC CONTENTS: No free fluid or hematoma. No inguinal hernia. Hysterectomy. Surgical clips in the pelvis. Electronic device in the left gluteal region partially visualized. IMPRESSION: 1. Osteoarthritis in the right hip joint with areas of full-thickness chondromalacia and subchondral changes in the acetabulum and moderate to full-thickness chondromalacia superomedial femoral head. 2. Small shallow tear of the anterosuperior right labrum. 3. Degenerative changes in the SI joints. 4. Postoperative changes in the lumbosacral spine. 5. Hysterectomy. 6. Electronic device in the left gluteal region partially visualized. Please note that all CT scans at this facility use dose modulation, iterative reconstruction, and/or weight-based dosing when appropriate to reduce radiation dose to as low as reasonably achievable. Dictated by Brad Avlaos MD @ 07/23/2024 4:09:02 PM (Electronically Signed)
== END 2024-07-23 10:59 | disposition home or self-care (01) ==
LOC: RAD 11:00
PROVIDERS: PCP Family Medicine; Visit Provider Physician Assistant
DX: M25.551 Pain in right hip (principal); Z87.81 Personal history of (healed) traumatic fracture; M16.11 Unilateral primary osteoarthritis, right hip
CPT/HCPCS: 27093; 73525; 73701; 77002; Q9966; Q9967

== ENCOUNTER 2024-08-05 14:40 | Emergency (ER) | payer MEDICARE, OTHER, SELFPAY ==
--- OUTSIDE RECORDS SUMMARY | 2024-08-05 14:43 | XMS_ITS | Clinical Summary ---
Author Organization [facility] Address [address] [place] [address] Care Team Providers Care Jack Frame Tender Name Role Phone Gerardo Gunn MD Unavailable [phone] Anam Guidry MD Unavailable Rose Bright DO Primary Care Provider Michelle Avalos Unavailable [facility] [place] Unavailable Allergies Active Allergy Reactions Criticality Noted [...] Medications acetaminophen (TYLENOL EXTRA STRGTH) 500 mg tabletIndication s:Opioid use,S/P panniculectomy Take 2 tablets by mouth every 6 hours. Max acetaminophen dose: 4000mg in 24 hrs. 50 tablet 06/24/19 19 12:05 PM CDT Active naloxegoL (MOVANTIK) 25 mg tablet Take 25 mg by mouth before breakfast. Active CaneIndications: Bilateral foot pain,Neuropathic pain,Balance problem,Lumbar radiculopathy Wide Base Quad Cane for home use. For lifetime 1 Device Active syringe-needle,s afety,disp unt 1.5 mL 22 gauge x 1 1/2 syrgIndications: Vitamin B12 deficiency As directed. 12 Each Active Blood Pressure Monitor (Blood Pressure Kit) KitIndications:H ypotension, unspecified hypotension type Diagnosis: hypertension Use as directed 1 Each Active diazePAM (VALIUM) 5 mg tablet TAKE 1 TABLET BY MOUTH 1/2 HOUR BEFORE YOUR PUMP REFILL AND 1 TABLET AFTER YOUR PROCEDURE FOR ANXIETY Active ondansetron (ZOFRAN ODT) 8 mg disintegrating tabletIndication s:Intractable cyclical vomiting with nausea DISSOLVE ONE TABLET IN MOUTH EVERY 8 HOURS IF NEEDED FOR NAUSEA / VOMITING 30 Tablet 3 023 Active Syringe with Needle, Disp, (B-D 3cc Luer-Chau Syr 25Gx1) 3 mL 25 gauge x 1 syrgIndications: Vitamin B12 deficiency USE DIRECTED FOR VIT. B12 INJECTIONS 4 Each 3 024 Active triamcinolone (ARISTOCORT; KENALOG) 0.1 % creamIndications :Granuloma annulare Apply topically to affected area(s) two times daily. Up to 2 weeks for eczema flare. 45 g 1 024 Active propylene glycoL (Systane Complete) 0.6 % ophthalmic solutionIndicati ons:Dry eye syndrome of both eyes Place 1 Drop into the eye(s) four times daily. 15 mL 5 024 Active artificial Tear, hypromellose 0.3 % gel, (Systane GeL) 0.3 % gelIndications:D ry eye syndrome of both eyes 1 drop before bed and as needed during the day. 15 mL 3 024 Active cyclobenzaprine (FLEXERIL) 10 mg tabletIndication s:Lumbar radiculopathy,Mu scle spasm of back TAKE ONE TABLET BY MOUTH AT BEDTIME NEEDED FOR MUSCLE SPASMS 90 Tablet 1 025 Active promethazine (PHENERGAN) 25 mg tabletIndication s:Nausea and vomiting, unspecified vomiting type TAKE 1 TABLET BY MOUTH EVERY DAY NEEDED FOR NAUSEA 60 Tablet 3 025 Active valACYclovir (VALTREX) 500 mg tabletIndication s:suppression of recurrent herpes simplex infection Take 500 mg by mouth one time if needed (herpes). Take 1 tab by mouth three times a day for 3 days PRN for herpes flare-ups. 024 Active OXcarbazepine 300 mg tabletIndication s:Borderline personality disorder (HC) TAKE 2 TABLETS (600 MG) BY MOUTH TWO TIMES DAILY. 120 Tablet 3 025 Active doxepin HCl 150 mg capsuleIndicatio ns:Borderline personality disorder (HC),Sleep disturbance,PTSD (post-traumatic stress disorder) TAKE 1 CAPSULE (150 MG) BY MOUTH AT BEDTIME. 30 Capsule 025 Active sodium chloride 1,000 mg soluble tabletIndication s:Hyponatremia TAKE 1 TABLET (1,000 MG) BY MOUTH TWO TIMES DAILY. 180 Tablet 6 025 Active furosemide 20 mg tabletIndication s:Hyponatremia TAKE 1 TABLET (20 MG) BY MOUTH TWO TIMES DAILY. 180 Tablet 3 025 Active Calcium Citrate 250 mg calcium tabletIndication s:Other osteoporosis without current pathological fracture Take 2 Tablets (500 mg) by mouth two times daily with meals. 400 Tablet 3 025 Active cholecalciferol (Vitamin D-3) 2,000 unit capsuleIndicatio ns:Other osteoporosis without current pathological fracture Take 1 Capsule (2,000 units) by mouth once daily. 100 Capsule 3 025 Active ferrous sulfate 325 mg (65 mg iron) tabletIndication s:Microcytic anemia Take 1 Tablet (325 mg) by mouth once daily with a meal. 100 Tablet 3 025 Active doxepin 50 mg capsuleIndicatio ns:Sleep disturbance,PTSD (post-traumatic stress disorder) TAKE 1 CAPSULE (50 MG) BY MOUTH TWO TIMES DAILY. TAKE WITH 150 MG CAP FOR TOTAL OF 250 MG DAILY. 120 Capsule 025 Active LORazepam (Ativan) 0.5 mg tabIndications:G lenohumeral arthritis, right,History of fracture,Anxiety Take 30 minutes prior to the planned MRI. Unable to drive for 24 hours after taking the pill. 1 Tablet 025 Active oxyCODONE 5 mg immediate release tabletIndication s:Opioid type dependence, continuous (HC),Neck pain, chronic Take 1 Tablet (5 mg) by mouth once daily if needed for Pain. 30 Tablet 025 Active cyanocobalamin 1,000 mcg/mL injectionIndicat ions:Vitamin B12 deficiency INJECT 1 ML INTRAMUSCULARLY EVERY 4 WEEKS 3 mL 3 025 Active medication order composerIndicati ons:Chronic midline low back pain without sciatica Nova offset cane with quad tip. Use as directed 1 Each Active miscellaneous medical supply miscIndications: Hypoxia As directed. PULSE OXIMETER 1 unit Active miscellaneous medical supply miscIndications: Hypoxia As directed. PULSE OXIMETER 1 Units 019 2024 Discontinued( Reorder (E-cancel not sent)) cyanocobalamin (VITAMIN B12) 1,000 mcg/mL injectionIndicat ions:Vitamin B12 deficiency Inject 1 mL (1,000 mcg) intramuscular every 4 weeks. 13 mL 024 2024 Discontinued oxyCODONE 5 mg immediate release tabletIndication s:Opioid type dependence, continuous (HC),Neck pain, chronic Take 1 Tablet (5 mg) by mouth once daily if needed for Pain. 30 Tablet 025 2024 Discontinued( Reorder (E-cancel not sent)) cyclobenzaprine 10 mg tabletIndication s:Right hip pain Take 1 Tablet (10 mg) by mouth three times daily. 30 Tablet 2 025 2024 Discontinued( *Med complete/Lucille men complete/Leve l of care change) oxyCODONE 5 mg immediate release tabletIndication s:Right hip pain Take 1 Tablet (5 mg) by mouth every 4 hours if needed for Pain. 30 Tablet 025 2024 Discontinued( *Med complete/Lucille men complete/Leve l of care change) Hospital, Clinic, or Other Facility Administered Medication Ordered Dose Route Frequency Start Date End Date Status cyanocobalamin (VITAMIN B12) 1,000 mcg/mL injection 1,000 mcgIndications:Vitam in B12 deficiency 1000 mcg IM Q 4 WEEKS (28 DAYS) 03/09/2024 02/08/2025 Active Active Problems Problem Noted [...] (09/08/2021): filled with opioid combination, managed by [facility] Opioid type dependence, continuous 09/08/2021 Hyponatremia 08/22/2021 Bipolar disorder, current episode hypomanic 07/2021 Prediabetes 01/14/2019 Total knee replacement status, left 11/06/2018 Post-traumatic osteoarthritis of left knee 09/22 Vomiting 07/22/2018 Presence of intrathecal pump 06/23/2018 Overview (06/23/2018): Follows at [facility] Fentanyl 1102.4mcg/day Bupivacaine 110.24mg/day Morphine 1.1024mg/day Infusion PA: fentanyl 50mcg, bupivacaine 0.500mg and morphine 0.0500mg - 2 doses/day max Pain medication agreement 12/10/2017 Overview (04/13/2019): Established with [facility] for osteoarthritis of lumbar spine and pain pump. Offered a trial of oxycodone 5mg once daily #14 as needed for SEVERE foot pain in addition to maximizing Tylenol, topicals, and obtaining orthotics. New CSA 04/13/19 with intent to be short-term and Toxassure today. Plan to meet with the [facility] and then follow up with Dr. Baker [...] Encounters Date Type Department Care Team Description 08/05/[address] [address] Frahat Martínez, PhD, LP Appointment 08/05/[address] [address] Farhat Martínez, PhD, LP Appointment 08/04/2024 3:00 PM CDT Telemedicine [address] [address] Farhat Martínez, PhD, LP Telehealth; Mental Health Intake 08/04/2024 Home Care Visit [facility] [address] [place] [address] Nay Yu LISW GUIDE DOMESTIC TOUR - CASE COMMUNICATION 08/03/2024 11:45 AM CDT Home Care Visit [facility]ly [facility] [address] [place] [phone] Gladis Baer POTTERY DECORATOR - HOME VISIT 08/03/2024 Travel 07/31/2024 11:00 AM CDT Home Care Visit [facility] [address] [place] [phone] Nay Yu LISW GUIDE DOMESTIC TOUR - INITIAL ASSESSMENT 07/31/2024 Telephone [facility] Prescription Assistance Program [place] [id number] [id number] [place] [address] Maile Joseph, PharmD Medication Management ([facility] Prescription Assistance- OTC Supplements/) 07/31/2024 Telephone [facility] [address] [place] [address] Rose Bright DO DME Supply 07/30/2024 11:45 AM CDT Home Care Visit [facility] [address] [place] [phone] Gladis Baer POTTERY DECORATOR - HOME VISIT 07/30/2024 Refill [facility] [address] [place] [address] Rose Bright DO Refill Request (Cyanocobalamin) 07/29/2024 11:00 AM CDT Home Care Visit [facility] [address] [place] [phone] Alison Manning RN SN - HOME VISIT 07/27/2024 11:15 AM CDT Home Care Visit [facility] [address] [place] [phone] Gladis Baer POTTERY DECORATOR - HOME VISIT 07/27/2024 Travel 07/24/2024 11:30 AM CDT Home Care Visit [facility] [address] [place] [phone] Gladis Baer POTTERY DECORATOR - HOME VISIT 07/23/2024 Orders Only [facility] Scanner 1 scan: (1-Ord) [facility], HIP RT W CON, 07/23/2024 07/23/2024 Orders Only [facility] HIM SERVICES Scanner 1 scan: (1-Ord) [facility], [place] ARTHROGRAM HIP RT , 07/23/2024 07/23/2024 Orders Only C HIM SERVICES Scanner 1 scan: (1-Ord) [facility], [place] ARTHROGRAM HIP RT, 07/23/2024 07/23/2024 Orders Only [facility] [address] [facility] [address] [place] [address] Joan Nesbitt PA 2 scans: (2-Ord) [facility], RIGHT SHOULDER W CON , 07/22/2024 07/22/2024 Orders Only [facility] Scanner 1 scan: (1-Ord) [facility], [place] ARTHROGRAM SHOULDER RT, 07/22/2024 07/21/2024 10:30 AM CDT Home Care Visit [facility] [address] [place] [address] Gladis Baer POTTERY DECORATOR - HOME VISIT 07/17/2024 11:00 AM CDT Home Care Visit [facility] [address] [place] [address] Alison Manning RN SN - HOME VISIT 07/17/2024 Telephone [facility] [address] [facility] [address] [place] [address] Candy Chadwick MD Questions 07/17/2024 Telephone [facility] [address] [place] [address] Alison Manning, system software developer 07/16/2024 1:30 PM CDT Ancillary Procedure [facility] [address] [place] [address] 07/16/2024 10:30 AM CDT Home Care Visit [facility] [address] [place] [address] Gladis Baer POTTERY DECORATOR - HOME VISIT 07/16/2024 Travel 07/14/2024 2:15 PM CDT Office Visit [facility] [address] [facility] [address] [place] [address] Candy Chadwick MD Consult (Osteoporosis) 07/14/2024 7:45 AM CDT Telemedicine [facility] [address] [place] [address] Maile Reyes MD Telehealth; Medication Management (//) 07/14/2024 Ancillary Orders [facility] [address] [facility] [address] [place] [address] Joan Nesbitt PA 07/14/2024 Ancillary Orders [facility] [address] [facility] [address] [place] [address] Joan Nesbitt PA 07/13/2024 11:15 AM CDT Home Care Visit [facility] [address] [place] [address] Gladis Baer POTTERY DECORATOR - HOME VISIT 07/13/2024 Medical Messaging [facility] [address] [facility] [address] [place] [address] Joan Nesbitt PA rt shoulder/arm 07/13/2024 Medical Messaging [facility] [address] [facility] [place] [address] Jose Alfredo Hernandez PA hip pain 07/13/2024 Travel 07/09/2024 10:30 AM CDT Home Care Visit [facility] [address] [place] [address] Gladis Baer POTTERY DECORATOR - HOME VISIT 07/08/2024 Telephone [facility] [address] [place] [address] Petey Benedict MD Referral (MRI scan) 07/07/2024 10:15 AM CDT Home Care Visit [facility] [address] [place] [address] Saray Matos, PT PT - [id number] ASSESSMENT 07/07/2024 Telephone [facility] [address] [place] [address] Petey Benedict MD Questions 07/06/2024 11:15 AM CDT Home Care Visit [facility] [address] [place] [address] Gladis Baer POTTERY DECORATOR - HOME VISIT 07/06/2024 Travel 07/03/2024 12:00 PM CDT Office Visit [facility] [address] 1 [place] [address] Jose Alfredo Hernandez PA Hip Pain/problem (Right hip) 07/03/2024 11:55 AM CDT Ancillary Procedure [facility] [address] [place] [address] 07/03/2024 Travel 07/02/2024 10:30 AM CDT Home Care Visit [facility] [address] [place] [address] Gladis Baer POTTERY DECORATOR - HOME VISIT 07/02/2024 Telephone [facility] [address] [facility] [address] [place] [address] Candy Chadwick MD Questions 07/02/2024 Telephone [facility] [address] [place] [address] Rose Bright DO Questions 07/01/2024 Travel 07/01/2024 Telephone [facility] [address] [place] [address] Candy Chadwick MD Questions 06/30/2024 1:30 PM CDT Ancillary Procedure [facility] [address] [place] [address] 06/30/2024 10:00 AM CDT Home Care Visit [facility] [address] [place] [address] Alison Manning, CARLOS MANUEL SN - HOME VISIT 06/30/2024 Telephone [facility] [place] [address] [place] [phone] Petey Benedict MD Referral 06/30/2024 Travel 06/30/2024 Refill [facility] [address] [place] [address] Maile Reyes MD Refill Request (Doxepin) 06/28/2024 9:00 AM CDT Home Care Visit [facility] [address] [place] [address] Alison Manning RN SN - OASIS START OF CARE 06/28/2024 Telephone [facility] [address] [place] [address] Alison Manning, system software developer 06/28/2024 Plan of Care Documentation [facility]ly [facility] [address] [place] [phone] 06/26/2024 Travel 06/26/2024 Home Care Visit [facility] [address] [place] [phone] Tiffani Argueta RN CARE COORDINATION 06/25/2024 2:10 PM CDT Office Visit [facility] [address] [facility] [place] [address] Rose Bright, Coordination Problems (Frequent falls and balance issues. ) 06/25/2024 Travel 06/14/2024 Telephone [facility] [address] [place] [address] Maile Reyes MD Referral (Trauma therapy) 05/30/2024 Refill [facility] [address] [facility] [address] [place] [address] Vicki Henley MD Refill Request (Sodium Chloride, Furosemide) 05/30/2024 Refill [facility] [address] [place] [address] Maile Reyes MD Refill Request (Oxcarbazepine, Doxepin Hcl) 05/29/2024 11:30 AM CDT Ancillary Procedure [facility] [address] [place] [address] 05/29/2024 11:15 AM CDT Office Visit [facility] [address] [place] [address] Petey Benedict MD Shoulder Pain/problem (Right shoulder) 05/29/2024 Travel 05/25/2024 Telephone [facility] [address] 1 [place] [address] Petey Benedict MD Appointment (Needs additional x-ray) 05/24/2024 Home Care Visit [facility] [address] [place] [address] Sima Cruz, CARLOS MANUEL SN - NOT TAKEN UNDER HOME CARE - HOME VISIT 05/24/2024 Home Care Visit [facility] [address] [place] [address] Sima Cruz, RN CARE COORDINATION 05/23/2024 Home Care Visit [facility] [address] [place] [address] Sima Cruz, RN CARE COORDINATION 05/22/2024 10:15 AM CDT Phone Office Visit [facility] [address] [place] [address] Maile Reyes MD Telehealth; Medication Management 05/22/2024 Telephone [facility] [address] [place] [address] Maile Reyes MD Appointment (10:15 am now a phone call ) 05/21/2024 Travel from Last 3 Months Immunizations Immunization Administration [...] PHQ-2 Answer Date Recorded PHQ-2 TOTAL SCORE 3 08/03/2024 Social Connections Answer Date Recorded Do you [...] 3 3 Date Outcome GA Total Labor Labor/2nd/3rd Weight Sex Type Anes PTL Guillermina A1 A5 Name Clin 1980 Term F Vag Living 1981 SAB 1982 Term M Vag Living 1986 Term M Vag Living Last Filed Vital Signs Vital Sign Reading Time Taken Comments Blood Pressure 110/70 07/29/2024 11:27 AM CDT Pulse 79 07/29/2024 11:27 AM CDT Temperature 36.6 C (97.8 F) 07/29/2024 11:27 AM CDT Respiratory Rate 16 07/29/2024 11:27 AM CDT Oxygen Saturation 97% 07/29/2024 11:27 AM CDT Inhaled Oxygen Concentration - - Weight 88.5 kg (195 lb) 07/17/2024 11:06 AM CDT Height 160 cm (5' 3) 06/28/2024 9:30 AM CDT Body Mass Index 34.54 06/28/2024 9:30 AM CDT Plan of Treatment Upcoming Encounters Date Type Department Care Team (Late st Contact Info) Description 08/06/2024 11:45 AM CDT Home Care Visit [facility] [address] [place] [address] Gladis Baer [address] [facility] [place] [address] 08/06/2024 2:00 PM CDT Ancillary Procedure [address] [address] 08/10/2024 11:45 AM CDT Home Care Visit [facility] [address] [place] [address] Gladis Baer [address] [facility] [place] [address] 08/11/2024 1:15 PM CDT Office Visit [facility] [address] [place] [address] Petey Benedict MD [address] [place] [address] [place] [address] 08/11/2024 2:30 PM CDT Office Visit [facility] [address] [place] [address] Jose Alfredo Hernandez PA [address] [place] [address] 1 [facility] [place] [address] 08/12/2024 11:00 AM CDT Home Care Visit [facility] [address] [place] [address] Alison Manning RN 08/13/2024 11:45 AM CDT Home Care Visit [facility] [address] [place] [address] Gladis Baer [address] [facility] [place] [address] 08/17/2024 11:45 AM CDT Home Care Visit [facility] [address] [place] [address] Gladis Baer [address] [address] 08/20/2024 10:05 AM CDT Telemedicine [facility] [address] [facility] [address] [place] [address] [place] [address] [place] [address] 08/20/2024 11:45 AM CDT Home Care Visit [facility] [address] [place] [phone] Gladis Baer [address] [place] [address] 08/21/2024 4:00 AM CDT Appointment [facility] [address] [place] [phone] Alison Manning RN 08/25/2024 10:45 AM CDT Telemedicine [facility] [address] [place] [address] Maile Reyes MD [address] [place] [address] 09/11/2024 2:00 PM CDT Ancillary Procedure [facility] [address] [place] [address] 09/16/2024 1:00 PM CDT Orders Only [facility] [address] [place] [address] Lab, [place] 09/23/2024 3:00 PM CDT Telemedicine [facility] [address] [place] [address] Vicki Henley MD [address] [facility] [place] [address] Health Maintenance Due Date Last Done Comments RSV vaccine for adults or (1 - Risk 60-74 years 1-dose series) [address] (for lung CA) age 50-80 04/11/2024 04/11/2023, 04/02/2022, 11/06/2018, Additional history exists Mammogram for age 45-75 04/16/2024 04/16/19, 02/17/2018, 02/25/2013 (Completed outside of [facility]) BMI (ht and wt on same day) for age 18+ 04/06/2025 04/06/2024, 03/06/2024, 11/28/2023, Additional history exists Depression screening for age 12+ 08/03/2025 08/03/2024, 05/29/2024, 05/25/2024, Additional history exists Tetanus booster 09/20/2025 09/21/2015 Lipids for age 45-75 07/02/2028 07/03/2023, 03/02/2021, 02/27/2019, Additional history exists Colonoscopy through age 75 04/24/2033, 04/11/2017, 04/11/2017 Tdap Completed 09/21/2015 Hepatitis C screening for age 18-79 Completed 11/29/2015 HIV for age 15-65 Completed 04/19/2016, 11/01/2015 Zoster (shingles) series for age 50+ Completed 10/23/2017, 07/09/2017 Pneumococcal series for age 50+ Completed 03/09/2022 COVID-19 vaccine series Completed 11/28/19, 01/24/2023, 08/21/2021, Additional history exists Influenza Vaccine Completed 11/28/2023, , 10/26/2017, Additional history exists Hepatitis B series for 19+ Aged Out N o longer eligible based on patient's age to complete this topic Medical Devices Implanted Type Area Suction Drum Drier Operator Device Identifier Shelf Expiration Date Model / Serial / Lot [id number] - [id number] Implanted:Qty: 1 on 09/22/2018 by Anselmo Sahu MD at [facility] Total Joint Left: Knee [employer] 01/14/2023 5510-F-[id number] / / [id number] Description:Triathlon Sethia te Retaining Femoral Size #4, LEFT, Cr [id number] - [id number] Implanted:Qty: 1 on 09/22/2018 by Anselmo Sahu MD at [facility] Total Joint Left: Knee [employer] 12/16/2022 5560-[id number] / / [id number] Description:Triathlon Total Knee Cemented Stem diameter 15 mm Length 50 mm [id number] - [id number] Implanted:Qty: 1 on 09/22/2018 by Anselmo Sahu MD at [facility] Total Joint Left: Knee [employer] 07/01/2022 5531-G-[id number] / / [id number] Description:Triathlon X3 Tib ial Bearing Insert-CS Size 4, CS, Thickness 16 mm Cmnt Bone 40g Simplex P Non Atb Mv - [id number] Implanted:Qty: 2 on 09/22/2018 by Anselmo Sahu MD at [facility] Left: Knee [employer] 09/24/2020 6191-1-010# / / [id number]-[id number] - [id number] Implanted:Qty: 1 on 09/22/2018 by Anselmo Sahu MD at [facility] Left: Knee [employer] 05/05/2023 5521-B-400 / / [id number] Description:Triathlon Total Knee [place] Tibial Baseplate size #4 [id number]-B-[id number] - [id number] Implanted:Qty: 1 on 09/22/2018 by Anselmo Sahu MD at [facility] Left: Knee [employer] 06/16/2023 5551-G-350 / / [id number] Description:Triathlon X3 Asy mmetric Patella size 35 mm, thickness 10 mm Screw Lmbr 5.5x25mm Endo Skeleton Tas Bone Alif Stand Alone - [id number] Implanted:Qty: 1 on 09/08/2021 by Gerardo Gunn MD at [facility] Medtronic Spine/Ortho [id number] / / Screw 5.5 Voyager Mas 6.5x45 Implanted:Qty: 2 on 09/08/2021 by Gerardo Gunn MD at [facility] [id number] / / Description:SCREW 5.5 VOYAGE R MAS 6.5X45 Screw 5.5 Voyager Mas 7.5x35 Implanted:Qty: 1 on 09/08/2021 by Gerardo Gunn MD at [facility] [id number] / / Description:SCREW 5.5 VOYAGE R MAS 7.5X35 Screw 5.5 Voyager Mas 7.5x40 Implanted:Qty: 1 on 09/08/2021 by Gerardo Gunn MD at [facility] [id number] / / Description:SCREW 5.5 VOYAGE R MAS 7.5X40 Nanette Perc 90mm Implanted:Qty: 2 on 09/08/2021 by Gerardo Gunn MD at [facility] [id number] / / Description:NANETTE PERC 90MM Set Screw 5.5/6.0 Solera Voyager Implanted:Qty: 8 on 09/08/2021 by Gerardo Gunn MD at [facility] [id number] / / Description:SET SCREW 5.5/6. 0 SOLERA VOYAGER Screw 5.5 Voyager Mas 7.5x45 Implanted:Qty: 2 on 09/08/2021 by Gerardo Gunn MD at [facility] [id number] / / Description:SCREW 5.5 VOYAGE R MAS 7.5X45 Screw 5.5 Voyager Mas 9.5 X 80 Implanted:Qty: 2 on 09/08/2021 by Gerardo Gunn MD at [facility] [id number] / / Description:SCREW 5.5 VOYAGE R MAS 9.5 X 80 [id number] graft Bone 9cc [place] Dbf Inject Implanted:Qty: 1 on 09/08/2021 by Gerardo Gunn MD at [facility] Explanted:at [facility] (Quantity not on file) Spine Medtronic Spine/Ortho 02/13/2023 [id number] / [id number] / [id number] bone 1-4mm 90cc Medtronic Chips Canclls Freeze Dried Implanted:Qty: 1 on 09/08/2021 by Gerardo Gunn MD at [facility] Explanted:at [facility] (Quantity not on file) Spine Medtronic Spine/Ortho 07/01/2025 [id number] / [id number] / Michelle Spacer Tas 12d Std 12mm Implanted:Qty: 1 on 09/08/2021 by Gerardo Gunn MD at [facility] 08/12/2025 [id number] / / [id number] Description:MICHELLE SPACER TAS 12D STD 12MM Coverplate 32 X 23 X 18 X 12deg Implanted:Qty: 1 on 09/08/2021 by Gerardo Gunn MD at [facility] 04/18/2026 [id number] / / 21HE Description:COVERPLATE 32 X 23 X 18 X 12DEG Screw Lmbr 5.5x20mm Sovereign Stand Alone - [id number] Implanted:Qty: 1 on 09/08/2021 by Gerardo Gunn MD at [facility] Sp[facility] Medtronic Spine/Ortho [id number] / / Explanted Type Area Suction Drum Drier Operator Device Identifier Shelf Expiration Date Model / Serial / Lot Explant Explanted:Qty: 1 on 09/08/2021 by Gerardo Gunn MD at [facility] Description:3 SCREWS, 1 INTE RBODY Procedures Procedure Name Priority Date/Time Associated Diagnosis Comments SCAN-CT INTERPRETATION 12:00 AM CDT SCAN-OPERATIVE/PROCEDU RE REPORT 07/23/2024 12:00 AM CDT SCAN-DIAGNOSTIC REPORT 12:[address] ARTHROGRAM SHOULDER RIGHT Routine 07/22/2024 12:00 AM CDT Glenohumeral arthritis, right History of fracture XR INJ CT/MR ARTHROGRAM SHOULDER RIGHT Routine 07/22/2024 12:00 AM CDT Glenohumeral arthritis, right History of fracture SCAN-RADIOLOGY REPORT 07/22/2024 12:00 AM CDT XR DXA BONE DENSITY PERIPHERAL Routine 07/16/2024 1:42 PM CDT Other osteoporosis without current pathological fracture XR HIP 2 OR 3 VIEWS W PELVIS RIGHT Routine 07/03/2024 11:54 AM CDT Right hip pain XR KNEE 3 VIEWS LEFT Routine 06/30/2024 1:20 PM CDT Left leg weakness VITAMIN B12 Routine 06/25/2024 2:59 PM CDT Vitamin B12 deficiency VITAMIN D 25 (DEFICIENCY) Routine 06/25/2024 2:59 PM CDT Vitamin D deficiency COMP METABOLIC PANEL Routine 06/25/2024 2:59 PM CDT Hyponatremia CBC WITH AUTO DIFFERENTIAL Routine 06/25/2024 2:59 PM CDT Balance problem TSH Routine 06/25/2024 2:59 PM CDT Balance problem Abnormal results of thyroid function studies XR SHOULDER 1 VIEW RIGHT Routine 05/29/2024 11:30 AM CDT Right shoulder pain, unspecified chronicity LIPID PANEL W REFLEX MEASURED LDL Routine 07/03/2023 8:00 AM CDT Screening cholesterol level SCAN-COLONOSCOPY 04/25/2023 3:00 PM MANAGER CODE XR MAMMO BETH BILAT SCREEN Routine 04/16/2023 1:18 PM MANAGER CODE Routine adult health maintenance CT CHEST SCREENING LOW DOSE WO CONTRAST Routine 04/11/2023 11:19 AM MANAGER CODE Encounter for screening for lung cancer Former smoker ANTI HIV 1/2 Timed 04/19/2016 8:44 PM MANAGER CODE ANTI HCV Routine 11/29/2015 2:08 PM CDT Need for hepatitis C screening test from Last 3 Months or Most Recently Relevant to Health Maintenance Results * SCAN-OPERATIVE/PROCEDURE REPORT (07/23/2024 12:00 AM CDT) us Scanner OTHER Final Result * SCAN-DIAGNOSTIC REPORT (07/23/2024 12:00 AM CDT) us Scanner OTHER Final Result * SCAN-CT INTERPRETATION (07/23/2024 12:00 AM CDT) Anatomical Region Laterality Modality Other us Scanner OTHER Final Result * XR INJ CT/MR ARTHROGRAM SHOULDER RIGHT (07/22/2024 12:00 AM CDT) Anatomical Region Laterality Modality SHOULDER R Other us Joan BANUELOS FLUOROSCOPY Final R esult * CT ARTHROGRAM SHOULDER RIGHT (07/22/2024 12:00 AM CDT) Anatomical Region Laterality Modality SHOULDER R Computed Tomogra phy us Joan BANUELOS CT Final R esult * SCAN-RADIOLOGY REPORT (07/22/2024 12:00 AM CDT) Anatomical Region Laterality Modality Other us Scanner OTHER Final Result * (ABNORMAL) XR DXA BONE DENSITY PERIPHERAL (07/16/2024 1:42 PM CDT) Anatomical Region Laterality Modality ARMS Other Impressions 07/24/2024 4:48 PM CDT Osteoporosis. RECOMMENDATIONS: The National Osteoporosis Foundation recommends pharmacologic treatment for patients with T-scores of -2.5 or less, patients with prior history of fragility fractures, or patients with 10-year probability of greater than 3% at hips or greater than 20% of suffering major osteoporotic fractures. Recommend continued optimization of calcium and vitamin D intake through dietary means and/or supplementation and regular exercise. Consider pharmacologic therapy for osteoporosis. Follow-up bone density reading in 2 years if therapy initiated to assess therapeutic efficacy. Exam is limited due to patient's ability to position properly. Based off of left forearm, diagnosis of osteoporosis as above. Melva Castaneda PA-C [facility] 07/24/2024 Narrative 07/24/2024 4:48 PM CDT For Patients: Results are automatically released to your [facility] ([employer]) account once available, in compliance with federal regulations. This means that you may see your results before your provider has had a chance to review them. Please allow 2-3 business days for your provider to comment on the results. XR DXA Bone Mineral Density (BMD) EXAM LOCATION: [address] [address] PATIENT NAME: Marina Jean-Baptiste DATE OF : 1965 EXAM DATE: 07/16/2024 REQUESTING PROVIDER: Candy Chadwick MD GENDER AT : female HEIGHT: 5' 3 (06/28/2024) WEIGHT: 198 lb 3.2 oz (07/14/2024) MENOPAUSAL STATUS: Postmenopausal RACE/ETHNICITY: White RISK FACTORS: History of Fragility Fracture (at a major site), Smoking (current), Smoking (prior), and White Race CURRENT MEDICATION FOR BONE LOSS: NONE INDICATION: Follow-up of existing osteoporosis COMPARISON DATE(S): None DXA scans are compared to prior studies for a patient only when the two (or more) studies were performed on the same scanner. It is not possible to compare data generated on one scanner to data from another because there are not standards in DXA equipment. This applies even if the two scanners are made by the same green building materials distributor. PROCEDURE: Dual-energy x-ray absorptiometry performed with routine technique. Reporting is completed in the form of a T-score. The T-score represents the standard deviation from peak bone mass based on young healthy adult. A Z-score is used for diagnosis in premenopausal women, and for men under the age of 50. FINDINGS: RESULT FOREARM Left Forearm distal radius BMD: 0.517 g/cm2 T-Score: - 2.7 Z-Score: - 1.7 Change from prior: None WHO criteria: Normal: T-score at or above -1 SD Osteopenia: T-score between -1.1 and -2.4 SD Osteoporosis: T-score at or below -2.5 SD Candy Chadwick MD DEXA Final Result * XR HIP 2 OR 3 VIEWS W PELVIS RIGHT (07/03/2024 11:54 AM CDT) Anatomical Region Laterality Modality HIPS, HIPR, Pelvis Computed Radi ography 07/06/2024 10:5 3 AM CDT Narrative 07/06/2024 10:53 AM CDT For Patients: As a result of the Cures Act, medical imaging exams and procedure reports are released immediately into your electronic medical record. You may view this report before your referring provider. If you have questions, please contact your health care provider. Indication: Hip pain. Technique: Pelvis and right hip 3 view. Comparison: None. Findings: Mild degenerative arthrosis of bilateral hips. Instrumented fusion of lumbar spine through pelvis is present. No stimulator is identified. No acute fracture. Impression: Mild degenerative arthrosis of right hip without acute osseous findings. Dictated by Ariadna Zamora MD @ 07/06/2024 10:53:46 AM (Electronically Signed) Procedure Note Ariadna Zamora MD - 07/06/2024 For Patients: As a result of the s Act, medical imagingexams and procedure reports are released immediately into your electronicmedical record. You may view this report before your referring provider.If you have questions, please contact your health care provider. Indication: Hip pain. Technique: Pelvis and right hip 3 view. Comparison: None. Findings: Mild degenerative arthrosis of bilateral hips. Instrumented fusion oflumbar spine through pelvis is present. No stimulator is identified. No acute fracture. Impression: Mild degenerative arthrosis of right hip without acute osseous findings. Dictated by Ariadna Zamora MD @ 07/06/2024 10:53:46 AM (Electronically Signed) Jose Alfredo BANUELOS [facility] Final Result * XR KNEE 3 VIEWS LEFT (06/30/2024 1:20 PM CDT) Anatomical Region Laterality Modality KNEES, KNEE L Computed Radiogr aphy 06/30/2024 2:26 PM CDT Narrative 06/30/2024 2:26 PM CDT For Patients: As a result of the Cures Act, medical imaging exams and procedure reports are released immediately into your electronic medical record. You may view this report before your referring provider. If you have questions, please contact your health care provider. Indication: Left leg weakness Technique: Three views left knee Findings/Impression: Hardware from a left total knee arthroplasty is in satisfactory position. Bone alignment is normal. No sign of acute fracture. Postop changes are within normal limits. Dictated by Anam Silverio MD @ 06/30/2024 2:26:59 PM (Electronically Signed) Procedure Note Anam Silverio MD - 06/30/2024 For Patients: As a result of the s Act, medical imagingexams and procedure reports are released immediately into your electronicmedical record. You may view this report before your referring provider.If you have questions, please contact your health care provider. Indication: Left leg weakness Technique: Three views left knee Findings/Impression: Hardware from a left total knee arthroplasty is in satisfactory position.Bone alignment is normal. No sign of acute fracture. Postop changes arewithin normal limits. Dictated by Anam Silverio MD @ 06/30/2024 2:26:59 PM (Electronically Signed) Rose Bright DO GENERAL IMAGING Final Resul t * VITAMIN D 25 (DEFICIENCY) (06/25/2024 2:59 PM CDT) VITAMIN D,25-OH,TOTAL,IA 43 30 - 100 ng/mL [employer]Adilia Reza Comment: Vitamin D Status 25-OH Vitamin D: Deficiency: <20 ng/mL Insufficiency: 20 - 29 ng/mL [employer]: > or = 30 ng/mL For 25-OH Vitamin D testing on patients on D2-supplementation and patients for whom quantitation of D2 and D3 fractions is required, the [facility]() 25-OH VIT D, (D2,D3), LC/MS/MS is recommended: order code [id number] (patients >2yrs). See Note 1 Note 1 For additional information, please refer to http://education.Talkpush/faq/KUQ804 (This link is being provided for informational/ educational purposes only.) Blood BLOOD SPECIMEN / Unknown 06/25/2024 2:59 PM CDT 06/25/2024 3:00 PM CDT Rose Bright DO SEND OUTS Final Resul t [facility] [employer] [address] [address], [facility] [address] [place] [id number] * TSH (06/25/2024 2:59 PM CDT) [facility] TSH 1.39 0.40 - 4.50 mIU/L [facility] [employer] [facility] Blood BLOOD SPECIMEN / Unknown 06/25/2024 2:59 PM CDT 06/25/2024 3:00 PM CDT Rose Bright DO CHEMISTRY Final Resul t Performing Organization Address City/[facility]/ZIP Co de Phone Number [facility] [facility] [address] [place] [phone], [facility] [address] [place] [address] * (ABNORMAL) CBC AND DIFFERENTIAL (06/25/2024 2:59 PM CDT) [facility] WHITE BLOOD CELL COUNT 4.8 3.8 - 10.8 Thousand/u L [facility] RED BLOOD CELL COUNT 4.44 3.80 - 5.10 Million/uL [facility] HEMOGLOBIN 11.2(L) 11.7 - 15.5 g/dL [facility] HEMATOCRIT 34.6(L) 35.0 - 45.0 % [facility] MCV 77.9(L) 80.0 - 100.0 fL [facility] MCH 25.2(L) 27.0 - 33.0 pg [facility] MCHC 32.4 32.0 - 36.0 g/dL [facility] Comment: For adults, a slight decrease in the calculated MCHC value (in the range of 30 to 32 g/dL) is most likely not clinically significant; however, it should be interpreted with caution in correlation with other red cell parameters and the patient's clinical condition. RDW 14.7 11.0 - 15.0 % [facility] PLATELET COUNT 241 140 - 400 Thousand/u L [facility] MPV 10.0 7.5 - 12.5 fL [facility] ABSOLUTE NEUTROPHILS 3,226 1,500 - 7,800 cells/uL [facility] ABSOLUTE LYMPHOCYTES 970 850 - 3,900 cells/uL [facility] ABSOLUTE MONOCYTES 494 200 - 950 cells/uL [facility] ABSOLUTE EOSINOPHILS 91 15 - 500 cells/uL [facility] ABSOLUTE BASOPHILS 19 0 - 200 cells/uL [facility] NEUTROPHILS 67.2 % [facility] LYMPHOCYTES 20.2 % [facility] MONOCYTES 10.3 % [facility] EOSINOPHILS 1.9 % [facility] BASOPHILS 0.4 % [facility] Blood BLOOD SPECIMEN / Unknown 06/25/2024 2:59 PM CDT 06/25/2024 3:00 PM CDT us Rose Bright DO HEMATOLOGY Final Resul t [employer] [facility] [address] [place] [address], [facility] [address] [place] [address] * VITAMIN B12 (06/25/2024 2:59 PM CDT) [facility] VITAMIN B12 428 200 - 1,100 pg/mL [employer] [place] Blood BLOOD SPECIMEN / Unknown 06/25/2024 2:59 PM CDT 06/25/2024 3:00 PM CDT Rose Bright DO CHEMISTRY Final Resul t [employer] [facility] [address] [place] [address], [employer] [address] [place] [address] * (ABNORMAL) COMP METABOLIC PANEL (06/25/2024 2:59 PM CDT) [facility] GLUCOSE 99 65 - 99 mg/dL [facility] [employer] [facility] Comment: Fasting reference interval UREA NITROGEN (BUN) 9 7 - 25 mg/dL [facility] CREATININE 0.67 0.50 - 1.05 mg/dL [facility] EGFR 99 > OR = 60 mL/min/1. 73m2 [facility] BUN/CREATININE RATIO SEE NOTE: 6 - 22 (calc) [facility] Comment: Not Reported: BUN and Creatinine are within reference range. SODIUM 127(L) 135 - 146 mmol/L [facility] POTASSIUM 3.5 3.5 - 5.3 mmol/L [facility] CHLORIDE 86(L) 98 - 110 mmol/L [facility] CARBON DIOXIDE 30 20 - 32 mmol/L [facility] CALCIUM 9.6 8.6 - 10.4 mg/dL [facility] PROTEIN, TOTAL 7.1 6.1 - 8.1 g/dL [facility] ALBUMIN 4.5 3.6 - 5.1 g/dL [facility] GLOBULIN 2.6 1.9 - 3.7 g/dL (calc) [facility] ALBUMIN/GLOBULIN RATIO 1.7 1.0 - 2.5 (calc) [facility] BILIRUBIN, TOTAL 0.4 0.2 - 1.2 mg/dL [facility] ALKALINE PHOSPHATASE 117 37 - 153 U/L [facility] AST 15 10 - 35 U/L [facility] ALT 11 6 - 29 U/L [facility] Blood BLOOD SPECIMEN / Unknown 06/25/2024 2:59 PM CDT 06/25/2024 3:00 PM CDT us Rose Kime Deangelo DO CHEMISTRY Final Resul t [employer] [facility] [address] [place] [address], [facility] [address] [place] [address] * XR SHOULDER 1 VIEW RIGHT (05/29/2024 11:30 AM CDT) Anatomical Region Laterality Modality SHOULDERS, SHOULDER R Computed R adiography 05/29/2024 3:32 PM CDT Impressions 05/29/2024 3:32 PM CDT Chronic fracture deformity of the right proximal humerus noted. Dictated by Anam Silverio MD @ 05/29/2024 3:32:20 PM (Electronically Signed) Narrative 05/29/2024 3:32 PM CDT For Patients: As a result of the Cures Act, medical imaging exams and procedure reports are released immediately into your electronic medical record. You may view this report before your referring provider. If you have questions, please contact your health care provider. Indication: Right shoulder pain Technique: Right shoulder one view Comparison: 04/06/2024 Procedure Note Anam Silverio MD - 05/29/2024 For Patients: As a result of the Cures Act, medical imagingexams and procedure reports are released immediately into your electronicmedical record. You may view this report before your referring provider.If you have questions, please contact your health care provider. Indication: Right shoulder pain Technique: Right shoulder one view Comparison: 04/06/2024 IMPRESSION: Chronic fracture deformity of the right proximal humerus noted. Dictated by Anam Silverio MD @ 05/29/2024 3:32:20 PM (Electronically Signed) us Petey Benedict MD GENERAL IMAGING Final Resul t * (ABNORMAL) LIPID PANEL W REFLEX MEASURED LDL (07/03/2023 8:00 AM CDT) CHOLESTEROL,TOTAL 248(H) 100 - 199 mg/dL 07/03/2023 2:42 PM CDT [facility] [employer] [facility] Comment: Cholesterol, Total Reference Ranges Desirable <200 mg/dL Borderline 200-239 mg/dL High >=240 mg/dL TRIGLYCERIDES 64 <150 mg/dL 07/03/2023 2:42 PM CDT [facility] HDL CHOLESTEROL 108 >40 mg/dL 2:42 PM CDT [facility] NON-HDL CHOLESTEROL 140 <145 mg/dl 07/03/2023 2:42 PM CDT [facility] CHOL/HDL RATIO 2.30 <4.50 07/03/2023 2:42 PM CDT [facility] LDL CHOLESTEROL 127 <=130 mg/dL 07/03/2023 2:42 PM CDT [facility] VLDL CHOLESTEROL 13 <=30 mg/dL 07/03/2023 2:42 PM CDT [facility] PROVIDER ORDERED STATUS RANDOM 07/03/2023 2:42 PM CDT [facility] Blood BLOOD SPECIMEN / Unknown Butterfly / Unknown 07/03/2023 8:00 AM CDT 07/03/2023 8:02 AM CDT us Rose Bright DO CHEMISTRY Final Resul t [facility] [address] [place] [address], [place] * SCAN-COLONOSCOPY (04/25/2023 3:00 PM MANAGER CODE) Narrative Procedure Note Fredis Luna MD - 04/25/2023 1:56 PM CST [facility] [address], [address], [place] [address] Patient Name: Marina Jean-Baptiste Gender: Female Exam Date: 04/25/2023 Visit Number: [id number] Age: 58 Years Date of : 1965 Attending MD: Fredis Luna MD Medical Record#: [id number] Procedure: Colonoscopy Indications: Previous adenomatous polyp(s) Referring MD: Referral Self Primary MD: Rose Bright DO Medications: Admitting Medications: 0.9% Normal Saline at [facility] Intra Procedure Medications: Patient received monitored anesthesia [...] signed by: Cesar Paulson MD Interpreted at [facility], [address] [facility], [id number] Orders Instruction(s)/Education: Instruction/Education Timeframe Assessment Colon Cancer Prevention K63.5 Colon Polyps K63.5 Hemorrhoids (Internal) K63.5 High Fiber Diet K63.5 Final Plan: Repeat colonoscopy in 10 years for screening. If you have signs orsymptoms of lower GI illness or a new diagnosis of colon cancer in animmediate family member, you should contact [facility] or your primary providerto discuss whether [...] MAMMO BETH BILAT SCREEN (04/16/2023 1:18 PM MANAGER CODE) Anatomical Region Laterality Modality BREASTS, Breast Left, Breast Right Bilateral Mammography Impressions 04/17/2023 3:20 PM MANAGER CODE There is no radiographic evidence for malignancy. Recommend annual mammograms. MAMMOGRAM ASSESSMENT: ACR 1 Negative PATIENTS: You will also receive a letter with your examination results in an easy to read format. If you have questions about your results, please contact your referring provider. Narrative 04/17/2023 3:20 PM MANAGER CODE For Patients: As a result of the Century Cures Act, medical imaging exams and procedure reports are released immediately into your electronic medical record. You may view this report before your referring provider. If you have questions, please contact your health care provider. XR MAMMO BETH BILAT SCREEN [[id number]] CLINICAL HISTORY: This is an asymptomatic 57 [...] or areas of architectural distortion. us Rose Gruber Kaliemilana DO MAMMO Final Resul t * CT CHEST SCREENING LOW DOSE WO CONTRAST (04/11/2023 11:19 AM MANAGER CODE) Anatomical Region Laterality Modality Computed Tomogra phy Impressions 04/16/2023 8:20 AM MANAGER CODE Negative for lung cancer screening purposes. LUNG-RADS [...] PM (Electronic Signature) Narrative 04/16/2023 8:20 AM MANAGER CODE For Patients: As a result of the [...] node involving the superior endplate of T11. Rose Bright DO CT Final Resul t * Anti HIV 1/2 (04/19/2016 8:44 PM MANAGER CODE) HIV-1/HIV-2 ANTIBODY Non-Reacti ve Non-Reacti ve 04/20/2016 2:40 AM MANAGER CODE [facility] Blood BLOOD SPECIMEN / Unknown Venipuncture / Unknown 04/19/2016 8:44 PM MANAGER CODE 04/19/2016 8:51 PM MANAGER CODE Narrative [facility] - 04/20/2016 2:40 AM MANAGER CODE HIV-1 p24 and HIV-1/HIV-2 Ab not detected Farhat Holland MD SEND OUTS Kat l Result [facility] [employer] [address] [place] [address], [place] * ANTI HCV (11/29/2015 2:08 PM CDT) HEPATITIS C ANTIBODY Non-Reacti ve Non-Reacti ve 11/29/2015 7:58 PM CDT [facility] Blood BLOOD SPECIMEN / Unknown Venipuncture / Unknown 11/29/2015 2:08 PM CDT 11/29/2015 2:09 PM CDT Narrative [facility] [employer] [facility] [facility] - 11/29/2015 7:58 PM CDT Antibodies to HCV not detected; does not exclude the possibility of exposure to HCV. Rose Bright DO SEND OUTS Final Resul t [facility] [employer] [address] [place] [address], from Last 3 Months or Most Recently [...] HB ONLY MEDICA ACCESSABILITY SOLUTION MEDICARE PPS MEDICARE PPS MEDICA ACCESSABILITY SOLUTION Advance Directives Documents on File Type Date Recorded Patient Checkman Expl anation POLST 08/21/2021 POLST 02/08/2020 * DNR (Latest Code Status on File) Date Activated Date Inactivated Comments 07/06/2024 8:12 AM POLST availabl e in residence reviewed and validated to match our conversation today * Full Code Date Activated Date Inactivated Comments 05/22/2022 12:55 [...] Comments 09/22/2018 8:04 AM 09/25/2018 3:17 PM Care Teams Jack Frame Tender Relationship Specialty [place] [address] [address] PCP - General Family Practice 04/13/19 Gerardo Gunn MD Surgery - Orthopedics 02/27/19 Anam Guidry MD [address] [address] Anesthesiology 02/27/19 Michelle Avalos MBBS [address] [place] [address] Nephrology 12/25/23 [facility] [address] [place] [address] 06/26/24
[2024-08-05 14:51] VITALS: BP 146/103; PULSE 72; RESP 18; TEMP 36.9; O2SAT 95; BMI 34.3
--- NOTE | 2024-08-05 14:59 | CRLHL7_ITS ---
For Patients: As a result of the Century Cures Act, medical imaging exams and procedure reports are released immediately into your electronic medical record. You may view this report before your referring provider. If you have questions, please contact your health care provider. INDICATION: Right biceps swelling COMPARISON: None. TECHNIQUE: Sonographic evaluation of the deep veins of the right upper extremity to assess for the presence or absence of deep venous thrombosis was performed utilizing lawrence-scale and color/spectral Doppler imaging techniques. FINDINGS: Patent right internal jugular vein, innominate vein, subclavian vein, axillary vein, brachial vein, basilic vein, and cephalic vein. There is a 6.1 x 2.3 x 2.9 centimeter oval fluid collection in the right proximal arm which is located medial to the cephalic vein and demonstrates multiple thin septations. IMPRESSION: No deep venous thrombosis detected in the right upper extremity. Nonspecific complex 6.1 centimeter oval fluid collection with multiple thin septations within the right proximal arm. Dictated by Sunil Roper MD @ 08/05/2024 4:11:51 PM (Electronically Signed)
--- NOTE | 2024-08-05 15:02 | ED.GENADULT ---
HPI - General Adult General Chief complaint: Extremity Pain/Injury, Upper Stated complaint: R arm swelling Time Seen by Provider: 08/05/24 14:43 History of Present Illness HPI narrative: [age] year white female with multiple medical problems presents with swelling in her right biceps area. She reports that is tender she feels a little bit of a lump in the biceps area. She has good distal movement of her hand and arm she has had chronic right shoulder pain for which she is working with Orthopedics in [place]. She is on chronic narcotics. She has had mental health issues. She denies fever chills or rigors. Her vital signs today show only slightly elevated pressure, she is afebrile. Her medical chart is reviewed. Related Data Home Medications ?Medication ?Instructions ?Recorded ?Confirmed cyclobenzaprine 10 mg tablet 10 mg PO QPM PRN muscle spasm 05/27/22 05/20/24 doxepin 150 mg capsule 150 mg PO QPM 05/27/22 05/20/24 furosemide 20 mg tablet 20 mg PO BID 05/27/22 05/20/24 naloxegol 25 mg tablet (Movantik) 25 mg PO QAM 05/27/22 05/20/24 oxcarbazepine 300 mg tablet mg PO 05/27/22 oxycodone 5 mg tablet 5 mg PO DAILY PRN chronic pain 05/27/22 05/20/24 promethazine 25 mg tablet 25 mg PO Q12H PRN nausea 05/27/22 05/20/24 cholecalciferol (vitamin D3) 125 125 mcg PO DAILY 05/20/24 05/20/24 mcg (5,000 unit) capsule (Dialyvite Vitamin D) cyanocobalamin (vitamin B-12) 1,000 mcg IM Q4W 05/20/24 05/20/24 1,000 mcg/mL injection solution diazepam 5 mg tablet mg PO 05/20/24 propylene glycol 0.6 % eye drops drp 05/20/24 (Systane Complete) sodium chloride 1,000 mg soluble 1,000 mg PO BID 05/20/24 05/20/24 tablet syringe with needle 3 mL 25 gauge 05/20/24 05/20/24 x 1 (BD Luer-Chau Syringe) Previous Rx's ?Medication ?Instructions ?Recorded hydrocodone 5 mg-acetaminophen 325 1 tab PO Q4-6H PRN pain #24 tabs 01/17/23 mg tablet Allergies Allergy/AdvReac Type Severity Reaction Status Date / Time aspirin Allergy Unknown GI Bleed Verified 08/05/24 14:58 bupivacaine Allergy Unknown Agitation Verified 08/05/24 14:58 diphenhydramine Allergy Unknown Anxiety Verified 08/05/24 14:58 gabapentin Allergy Unknown Verified 08/05/24 14:58 haloperidol Allergy Unknown Verified 08/05/24 14:58 lamotrigine Allergy Unknown Angioedema Verified 08/05/24 14:58 metoclopramide Allergy Unknown Anxiety Verified 08/05/24 14:58 NSAIDS (Non-Steroidal Allergy Unknown GI Bleed Verified 08/05/24 14:58 Anti-Inflamma (NSAIDS (Non-Steroidal Anti-Inflammatory Drug)) prochlorperazine Allergy Unknown Unknown Verified 08/05/24 14:58 pseudoephedrine Allergy Unknown Unknown Verified 08/05/24 14:58 sumatriptan Allergy Unknown Punched Verified 08/05/24 14:58 The Beta Adrenergic Blockers Allergy Unknown Unknown Uncoded 09/15/22 21:32 Haldol Allergy Unknown Anxiety Uncoded 09/15/22 21:32 Review of Systems Status of ROS: Reports: 6 or more systems reviewed and unremarkable except as noted in History and below PFSH PFSH Medical History POLST (Physician Orders for Life-Sustaining Treatment) ?Z78.9 - Other specified health status (ICD-10) Family History Father Prostate cancer Other Ovarian cancer Social History Narrative: , 3 kids, unemployed, smoker, no EtOH Smoking Status: Current every day smoker What tobacco products do you use: cigarettes Do you use any of these nicotine containing products: None Second hand tobacco smoke exposure: Yes How often do you have a drink containing alcohol: never How often do you have six or more drinks on one occasion: Never AUDIT-C Alcohol total score: 0 Non-prescribed substance use: denies use service: No Exam Narrative: Exam Narrative: Objective: The patient's vital signs as described She has got a tender lump in her mid biceps area on the right she has good distal CMS color and pulses she has range of motion of her forearm. She has limited range of motion of her shoulder due to chronic injury arthritis and ?fractures that did not heal right?. No redness or warmth but definitely tenderness in the mid bicep area. There is a palpable soft tissue swelling in that area as well. Const: Vital Signs, click to edit/add: Vital Signs - 24 hr 08/05/24 14:51 Temperature 98.4 F Pulse Rate [Pulse Oximeter] 72 Respiratory Rate 18 Blood Pressure [Le ft Upper Arm] 146/103 H Pulse Oximetry 95 Oxygen Delivery Me thod Room Air Course Vital Signs Vital signs: Initial Vital Signs Temperature 98.4 F 08/05/24 14:51 Temperature Source Temporal Artery Scan 08/05/24 14:51 Pulse Rate 72 08/05/24 14:51 Respiratory Rate 18 08/05/24 14:51 Blood Pressure 146/103 H 08/05/24 14:51 Blood Pressure Mean 117 H 08/05/24 14:51 Blood Pressure Position Sitting 08/05/24 14:51 Pulse Oximetry 95 08/05/24 14:51 Oxygen Delivery Method Room Air 08/05/24 14:51 Vital Signs Temperature 98.4 F 08/05/24 14:51 Pulse Rate 72 08/05/24 14:51 Respiratory Rate 18 08/05/24 14:51 Blood Pressure 146/103 H 08/05/24 14:51 Pulse Oximetry 95 08/05/24 14:51 Oxygen Delivery Method Room Air 08/05/24 14:51 Temperature 98.4 F 08/05/24 14:51 Pulse Rate 72 08/05/24 14:51 Respiratory Rate 18 08/05/24 14:51 Blood Pressure 146/103 H 08/05/24 14:51 Pulse Oximetry 95 08/05/24 14:51 Oxygen Delivery Method Room Air 08/05/24 14:51 Medical Decision Making MDM Narrative Medical decision making narrative: [age] year white female with chronic right shoulder pain degenerative arthritis by history as well as fractures that is under the care of orthopedics in [place]. She describes new onset discomfort in her proximal biceps area medially where she feels a lump it is tender and I think at this point we need to exclude a blood clot in will check an ultrasound of her arm. She denies trauma so I do not think an x-ray is indicated. If this ultrasound is negative think she can wear a arm sling, ice the area, continue her pain medicine at home. And follow-up with orthopedics in the next 3-5 days. Does not appear to be infectious, no warmth erythema but for completeness will check lab studies as well. Addendum 3:35 p.m.: The patient has an ultrasound of her arm that shows a fluid collection. There is no evidence of bleeding or blood clot in the arm. Would recommend an arm sling, ice, limited mobility mobility or activity. Continue home medications and follow up with Ortho in the next few days for reassessment. White count is actually low normal and I do not think this constitutes infection. Patient was also noted to be significantly hyponatremic at 1:22 a.m. discussed her water intake she has been drinking quite a bit of water lately. Would recommend she water restrictive 3-4 glasses of water a day. Will give her 500 mL normal saline bolus now, recommend she get her sodium rechecked in 48 hours at primary care. If she has difficulty that she return to the ED for reassessment. She is asymptomatic otherwise not having any headache word-finding inability other concerns. I think we can treat her with some IV fluid and then lowered to go home. Patient does agree to fluid restrict as she reports she does drink an immense amount of water a day. Lab Data Labs: Lab Results 08/05/24 Range/Units 15:07 WBC 3.78 L (4.50-11.00) K/uL RBC 4.33 (4.00-5.20) m/uL Hgb 10.7 L (12.0-16.0) gm/dL Hct 32.1 L (33.0-51.0) % MCV 74 L (80-100) fL MCH 25 L (26-34) pg MCHC 33 (32-36) gm/dL RDW Coeff of Chely 14.7 (11.5-15.5) % Plt Count 257 (140-440) K/uL Neut % (Auto) 77.9 H (42.0-72.0) % Lymph % (Auto) 13.0 L (20-44) % [place] % (Auto) 7.7 (0.0-11.0) % Eos % (Auto) 0.8 (0.0-7.0) % Baso % (Auto) 0.3 (0.0-3.0) % Neut # (Auto) 2.90 (1.7-7.0) K/uL Lymph # (Auto) 0.50 L (0.90-2.90) K/uL [place] # (Auto) 0.30 (0.00-0.90) K/UL Eos # (Auto) 0.00 (0.00-0.50) K/uL Baso # (Auto) 0.00 (0.00-0.30) K/uL Abs Immat Gran (auto) 0.00 (0.00-0.30) K/uL Imm/Tot Granulo (auto) 0.3 % Sodium 122 L* (135-149) mmol/L Potassium 4.2 (3.6-5.1) mmol/L Chloride 88 L (96-114) mmol/L Carbon Dioxide 24 (20-32) mmol/L Anion Gap 10 (7-15) mEq/L BUN 10 (7-30) mg/dL Creatinine 0.6 (0.5-1.5) mg/dL Estimated Creat Clear 51.02 Estimated GFR 102 ml/min Glucose 123 H (60-115) mg/dL Calcium 9.4 (8.4-10.6) mg/dL C-Reactive Protein < 0.5 L (0.5-1.0) mg/dL Discharge Plan Discharge Clinical Impression: Arm pain, right, Acute hyponatremia Patient Disposition: Home w/ Parent or Adult Condition: Stable Additional Instructions: Wear the arm sling on the right arm for the next several days, recommend follow-up with orthopedics in the next 4-5 days for reassessment, ice to the bicep area where there is swelling. Your sodium level is pretty low and recommend you restrict water to 3 glasses of water a day. Recommend you get this retested in 2 days with your primary care doctor, and recheck swelling in arm after wearing sling. Activity Level: Light activity Discharge Diet: Regular Prescriptions: No Action cyanocobalamin (vitamin B-12) 1,000 mcg/mL solution 1,000 mcg IM Q4W (DME) BD Luer-Chau Syringe 3 mL 25 gauge x 1 syringe MISCELLANEOUS DIRECTED diazepam 5 mg tablet PO sodium chloride 1,000 mg tablet,soluble 1,000 mg PO BID Systane Complete 0.6 % drops Patient Comments: [NO ORIGINAL SIG] cholecalciferol (vitamin D3) [Dialyvite Vitamin D] 125 mcg (5,000 unit) capsule 125 mcg PO DAILY cyclobenzaprine 10 mg tablet 10 mg PO QPM PRN (Reason: muscle spasm) oxcarbazepine 300 mg tablet PO promethazine 25 mg tablet 25 mg PO Q12H PRN (Reason: nausea) furosemide 20 mg tablet 20 mg PO BID doxepin 150 mg capsule 150 mg PO QPM oxycodone 5 mg tablet 5 mg PO DAILY PRN (Reason: chronic pain) Movantik 25 mg tablet 25 mg PO QAM hydrocodone-acetaminophen 5-325 mg tablet 1 tab PO Q4-6H PRN (Reason: pain) Qty: 24 0RF Follow Up/Referrals: Rose Bright DO [Primary Care Provider, Family Practice] Stand Alone Forms: MyHealth Info Instructions
[2024-08-05 15:15] LABS: Basophils Percent Auto 0.3 % (0.0-3.0); Eosinophils Percent Auto 0.8 % (0.0-7.0); Hematocrit 32.1 % (33.0-51.0); Hemoglobin* 10.7 gm/dL (12.0-16.0); Immature Granulocytes Pct Auto 0.3 %; Mean Corpuscular HGB Conc 33 gm/dL (32-36); Mean Corpuscular Hemoglobin 25 pg (26-34); Mean Corpuscular Volume 74 fL (80-100); Monocytes Percent Auto 7.7 % (0.0-11.0); Neutrophils Percent Auto 77.9 % (42.0-72.0); Platelet Count* 257 K/uL (140-440); RDW Coefficient of Variation % 14.7 % (11.5-15.5); Red Blood Count 4.33 m/uL (4.00-5.20); White Blood Count* 3.78 K/uL (4.50-11.00)
[2024-08-05 15:23] LABS: Slide Review Reflex No
[2024-08-05 15:29] LABS: Chloride* 88 mmol/L (96-114); Potassium* 4.2 mmol/L (3.6-5.1)
[2024-08-05 15:31] LABS: Blood Urea Nitrogen* 10 mg/dL (7-30); Creatinine* 0.6 mg/dL (0.5-1.5); Est. Creatinine Clearance* 51.02; Estimated Glomerular Filt Rate 102 ml/min
[2024-08-05 15:32] LABS: Carbon Dioxide* 24 mmol/L (20-32)
[2024-08-05 15:33] LABS: Calcium* 9.4 mg/dL (8.4-10.6); Glucose* 123 mg/dL (60-115)
[2024-08-05 15:35] LABS: Anion Gap 10 mEq/L (7-15); C Reactive Protein* < 0.5 mg/dL (0.5-1.0); Sodium* 122 mmol/L (135-149)
[2024-08-05] MEDS: 0.9 % SODIUM CHLORIDE 500 ML 500 ML IV (15:49)
== END 2024-08-05 16:27 | disposition home or self-care (01) ==
LOC: ED 15:41
PROVIDERS: Emergency Provider Family Medicine; PCP Family Medicine
DX: M79.601 Pain in right arm (principal); E87.1 Hypo-osmolality and hyponatremia
CPT/HCPCS: 36415; 80048; 85025; 86140; 93971; 99283; 99284; J7030

== ENCOUNTER 2024-09-03 13:15 | Outpatient (CLI) | payer MEDICARE, OTHER, SELFPAY | END 2024-09-03 13:16 | disposition home or self-care (01) | PROVIDERS: PCP Family Medicine; Visit Provider Emergency Medicine | DX: R42 Dizziness and giddiness (principal) | CPT/HCPCS: A0425; A0427 ==

== ENCOUNTER 2024-09-03 13:33 | Emergency (ER) | payer MEDICARE, OTHER, SELFPAY ==
--- OUTSIDE RECORDS SUMMARY | 2024-09-03 13:35 | XMS_ITS | Clinical Summary ---
Author Organization [employer] [facility] Address [address] [place] [address] Care Team Providers Care Marble Mechanic Helper Name Role Phone Gerardo Gunn MD Unavailable [phone] Anam Guidry MD Unavailable [phone] Rose Bright DO Primary Care Provider [phone] Michelle Avalos Unavailable [facility] Unavailable Allergies Active Allergy Reactions Criticality Noted [...] the day. 15 mL 3 024 Active promethazine (PHENERGAN) 25 mg tabletIndication s:Nausea [...] TIMES DAILY. 120 Tablet 3 025 Active sodium chloride 1,000 mg soluble [...] a meal. 100 Tablet 3 025 Active LORazepam (Ativan) 0.5 mg tabIndications:G lenohumeral arthritis, right,History of fracture,Anxiety Take 30 minutes prior to the planned MRI. Unable to drive for 24 hours after taking the pill. 1 Tablet 025 Active cyanocobalamin 1,000 mcg/mL injectionIndicat ions:Vitamin B12 deficiency INJECT 1 ML INTRAMUSCULARLY EVERY 4 WEEKS 3 mL 3 Active medication order composerIndicati ons:Chronic midline low back pain without sciatica Nova offset cane with quad tip. Use as directed 1 Each Active miscellaneous medical supply miscIndications: Hypoxia As directed. PULSE OXIMETER 1 unit 025 Active cyclobenzaprine 10 mg tabletIndication s:Lumbar radiculopathy,Mu scle spasm of back TAKE ONE TABLET BY MOUTH AT BEDTIME NEEDED FOR MUSCLE SPASMS 90 Tablet 1 025 Active romosozumab-aqqg 210mg/2.34mL ( 105mg/1.17mLx2) syringeIndicatio ns:Age-related osteoporosis with current pathological fracture, sequela Inject 2.34 mL (210 mg) subcutaneous every 4 weeks. 2.34 mL 025 Active doxepin 50 mg capsuleIndicatio ns:Sleep disturbance,PTSD (post-traumatic stress disorder) TAKE 1 CAPSULE (50 MG) BY MOUTH TWO TIMES DAILY. TAKE WITH 150 MG CAP FOR TOTAL OF 250 MG DAILY. 120 Capsule 3 025 Active doxepin HCl 150 mg capsuleIndicatio ns:Sleep disturbance,PTSD (post-traumatic stress disorder),Border line personality disorder (HC) Take 1 Capsule (150 mg) by mouth at bedtime. 30 Capsule 3 025 Active oxyCODONE (ROXICODONE) 5 mg immediate release tabletIndication s:Opioid type dependence, continuous (HC),Neck pain, chronic Take 1 Tablet (5 mg) by mouth once daily if needed for Pain. 30 Tablet 025 Active cyclobenzaprine (FLEXERIL) 10 mg tabletIndication s:Lumbar radiculopathy,Mu scle spasm of back TAKE ONE TABLET BY MOUTH AT BEDTIME NEEDED FOR MUSCLE SPASMS 90 Tablet 1 025 2024 Discontinued( Reorder (E-cancel not sent)) doxepin HCl 150 mg capsuleIndicatio ns:Borderline personality disorder (HC),Sleep disturbance,PTSD (post-traumatic stress disorder) TAKE 1 CAPSULE (150 MG) BY MOUTH AT BEDTIME. 30 Capsule 3 025 2024 Discontinued( *Availability /Formulary change/Cost of medication) doxepin 50 mg capsuleIndicatio ns:Sleep disturbance,PTSD (post-traumatic stress disorder) TAKE 1 CAPSULE (50 MG) BY MOUTH TWO TIMES DAILY. TAKE WITH 150 MG CAP FOR TOTAL OF 250 MG DAILY. 120 Capsule 025 2024 Discontinued oxyCODONE 5 mg immediate release tabletIndication s:Opioid type dependence, continuous (HC),Neck pain, chronic Take 1 Tablet (5 mg) by mouth once daily if needed for Pain. 30 Tablet 025 2024 Discontinued( Reorder (E-cancel not sent)) Hospital, Clinic, or Other Facility Administered Medication Ordered Dose Route Frequency Start Date End Date Status cyanocobalamin (VITAMIN B12) 1,000 mcg/mL injection 1,000 mcgIndications:Vitam in B12 deficiency 1000 mcg IM Q 4 WEEKS (28 DAYS) 03/09/2024 02/08/2025 Active romosozumab-aqqg (EVENITY) syringe 210 mg 2.34 mLIndications:Age-re lated osteoporosis with current pathological fracture, sequela,Other osteoporosis without current pathological fracture 210 mg SubQ Q 4 WEEKS (28 DAYS) 08/25/2024 07/27/2025 Active romosozumab-aqqg (EVENITY) syringe 210 mg 2.34 mLIndications:Age-re lated osteoporosis with current pathological fracture, sequela 210 mg SubQ ONE TIME 08/20/2024 08/20/2024 Ended Active Problems Problem Noted Date Diagnosed Date Closed fracture of proximal end of right humerus with malunion 08/11/2024 Glenohumeral arthritis, right 08/11/2024 Vitamin B12 deficiency 03/08/2024 Elevated blood pressure [...] (09/08/2021): filled with opioid combination, managed by [facility] Opioid type dependence, continuous 09/08/2021 Hyponatremia 08/22/2021 Bipolar disorder, current episode hypomanic 07/2021 Prediabetes 01/14/2019 Total knee replacement status, left 11/06/2018 Post-traumatic osteoarthritis of left knee 09/22 Vomiting 07/22/2018 Presence of intrathecal pump 06/23/2018 Overview (06/23/2018): Follows at [facility] Fentanyl 1102.4mcg/day Bupivacaine 110.24mg/day Morphine 1.1024mg/day Infusion PA: fentanyl 50mcg, bupivacaine 0.500mg and morphine 0.0500mg - 2 doses/day max Pain medication agreement 12/10/2017 Overview (04/13/2019): Established with [facility] for osteoarthritis of lumbar spine and pain pump. Offered a trial of oxycodone 5mg once daily #14 as needed for SEVERE foot pain in addition to maximizing Tylenol, topicals, and obtaining orthotics. New CSA 04/13/19 with intent to be short-term and Toxassure today. Plan to meet with the Gear Nicker and then follow up with Dr. Baker [...] Encounters Date Type Department Care Team Description 09/01/2024 2:30 PM CDT [facility] [address] [place] [address] Marina Aj, PT PT - HOME VISIT 08/27/2024 11:00 AM CDT Home Care Visit [facility] [address] [place] [phone] Gladis Baer WIRING INSPECTOR - HOME VISIT 08/27/2024 Refill [facility] [address] [place] [address] Maile Reyes MD Refill Request (Doxepin) 08/26/2024 1:00 PM CDT Home Care Visit [facility] [address] [place] [address] Autumn Malone, CARLOS MANUEL SN - OASIS RECERTIFICATION 08/26/2024 Plan of Care Documentation [facility] [address] [place] [phone] 08/24/2024 Home Care Visit [facility] [address] [place] [phone] Gladis Baer WIRING INSPECTOR - HOME VISIT 08/24/2024 Telephone [facility] [address] [address] Candy Chadwick MD Care Coordination (Evenity) 08/24/2024 Telephone [facility] [address] [address] Candy Chadwick MD Medication Management (romosozumab-aqqg 210mg/2.34mL ( 105mg/1.17mLx2) syringe) 08/23/2024 Telephone [facility] [address] [place] [address] Candy Chadwick MD Prior Authorization (romosozumab-aqqg 210mg/2.34mL ( 105mg/1.17mLx2) syringe APPROVED 02/26/24-08/23/25) 08/21/2024 2:00 PM CDT Home [facility] Visit [facility] [address] [place] [address] Marina Aj, PT PT - HOME VISIT 08/21/2024 11:30 AM CDT [facility] Visit [facility] [address] [place] [phone] Alison Manning, CARLOS MANUEL SN - HOME VISIT 08/20/2024 11:45 AM CDT Home Care Visit [facility] [address] [place] [phone] Gladis Baer WIRING INSPECTOR - HOME VISIT 08/20/2024 10:05 AM CDT Telemedicine [facility] [address] [place] [address] Candy Chadwick MD Follow Up (osteoporosis); Telehealth (No vitals taken ) 08/20/2024 Travel 08/18/2024 12:30 PM CDT Home [facility] Visit [facility] [address] [place] [phone] Marina Aj, PT PT - HOME VISIT 08/18/2024 Travel 08/17/2024 11:45 AM CDT Home Care Visit [facility] [address] [place] [phone] Gladis Baer WIRING INSPECTOR - HOME VISIT 08/17/2024 Home Care Visit [facility] [address] [place] [phone] Marina Aj, PT CARE COORDINATION 08/14/2024 2:00 PM CDT Home Care Visit [facility] [address] [place] [phone] Anam Chang, PT PT - INITIAL ASSESSMENT 08/13/2024 11:45 AM CDT Home Care Visit [facility] [address] [place] [phone] Gladis Baer WIRING INSPECTOR - HOME VISIT 08/12/2024 11:00 AM CDT Home Care Visit [facility] [address] [place] [address] Alison Manning, CARLOS MANUEL SN - HOME VISIT 08/12/2024 Telephone [facility] [address] [place] [address] Rose Bright, Referral (DX review) 08/11/2024 2:30 PM CDT Office Visit [facility] [address] [place] [address] Jose Alfredo Hernandez PA Hip Pain/problem (Follow-up right hip CT results) 08/11/2024 1:15 PM CDT Office Visit [facility] [address] 1 [facility] [place] [address] Petey Benedict MD Follow Up (right shoulder/ CT results) 08/11/2024 Travel 08/10/2024 11:45 AM CDT Home Care Visit [facility] [address] [place] [address] Gladis Baer WIRING INSPECTOR - HOME VISIT 08/06/2024 4:00 PM CDT Ancillary Procedure [facility] [address] [place] [address] 08/06/2024 11:45 AM CDT Home Care Visit [facility] [address] [place] [address] Gladis Baer WIRING INSPECTOR - HOME VISIT 08/06/2024 Home Care Visit [facility] [address] [place] [address] Nay Yu LISW CARE COORDINATION 08/06/2024 Travel 08/05/2024 1:00 PM CDT Home Care Visit [facility] [address] [place] [phone] Nay Yu LISW PEANUT FARMER - HOME VISIT 08/05/2024 Orders Only [facility] HIM SERVICES Scanner 1 scan: (1-Ord) [place] VENOUS UE RT, 08/05/2024 08/05/2024 Telephone [facility] [address] [address] Farhat Martínez, PhD, LP Appointment 08/05/2024 Telephone [facility] - [address] [address] Farhat Martínez, PhD, LP Appointment 08/04/2024 3:00 PM CDT Telemedicine [facility] - [address] [address] Farhat Martínez, PhD, LP Telehealth; Mental Health Intake 08/04/2024 Home Care Visit [facility] [address] [place] [address] Nay Yu LISW PEANUT FARMER - CASE COMMUNICATION 08/03/2024 11:45 AM CDT Home Care Visit [facility] [address] [place] [phone] Gladis Baer WIRING INSPECTOR - HOME VISIT 08/03/2024 Travel 07/31/2024 11:00 AM CDT Home Care Visit [facility] [address] [place] [address] Nay Yu LISW PEANUT FARMER - INITIAL ASSESSMENT 07/31/2024 Telephone [facility] Pres[facility] Assistance Program [id number] [place] [address] Maile Joseph, PharmD Medication Management ([facility] Prescription Assistance- OTC Supplements/) 07/31/2024 Telephone [facility] [address] [place] [address] Rose Bright, DME Supply 07/30/2024 11:45 AM CDT Home Care Visit [facility] [address] [place] [address] Gladis Baer WIRING INSPECTOR - HOME VISIT 07/30/2024 Refill [facility] [address] [place] [address] Rose Bright, DO Refill Request (Cyanocobalamin) 07/29/2024 11:00 AM CDT Home Care Visit [facility] [address] [place] [address] Alison Manning RN SN - HOME VISIT 07/27/2024 11:15 AM CDT Home Care Visit [facility] [address] [place] [address] Gladis Baer WIRING INSPECTOR - HOME VISIT 07/27/2024 Travel 07/24/2024 11:30 AM CDT Home Care Visit [facility] [address] [place] [address] Gladis Baer WIRING INSPECTOR - HOME VISIT 07/23/2024 Orders Only [facility] Scanner 1 scan: (1-Ord) [facility] HIP RT W CON, 07/23/2024 07/23/2024 Orders Only [facility] Scanner 1 scan: (1-Ord) [place] ARTHROGRAM HIP RT , 07/23/2024 07/23/2024 Orders Only [facility] HIM SERVICES Scanner 1 scan: (1-Ord) [place] ARTHROGRAM HIP RT, 07/23/2024 07/23/2024 Orders Only [facility] [address] [facility] [address] [place] [address] Joan Nesbitt PA 2 scans: (2-Ord) [facility], RIGHT SHOULDER W CON , 07/22/2024 07/22/2024 Orders Only [facility] Scanner 1 scan: (1-Ord) [place] ARTHROGRAM SHOULDER RT, 07/22/2024 07/21/2024 10:30 AM CDT Home Care Visit [facility] [address] [place] [address] Gladis Baer WIRING INSPECTOR - HOME VISIT 07/17/2024 11:00 AM CDT Home Care Visit [facility] [address] [place] [address] Alison Manning, CARLOS MANUEL SN - HOME VISIT 07/17/2024 Telephone [facility] [address] [facility] [address] [place] [address] Candy Chadwick MD Questions 07/17/2024 Telephone [facility] [address] [place] [address] Alison Manning RN Home Care 07/16/2024 1:30 PM CDT Ancillary Procedure [facility] [address] [place] [address] 07/16/2024 10:30 AM CDT Home Care Visit [facility] [address] [place] [address] Gladis Baer WIRING INSPECTOR - HOME VISIT 07/16/2024 Travel 07/14/2024 2:15 PM CDT Office Visit [facility] [address] [facility] [address] [place] [address] Candy Chadwick MD Consult (Osteoporosis) 07/14/2024 7:45 AM CDT Telemedicine [facility] [address] [place] [address] Maile Reyes MD Telehealth; Medication Management (//) 07/14/2024 Ancillary Orders [facility] [address] [facility] [address] [place] [address] Joan Nesbitt PA 07/14/2024 Ancillary Orders [facility] [address] [facility] [address] [place] [address] Joan Nesbitt PA 07/13/2024 11:15 AM CDT Home Care Visit [facility] [address] [place] [address] Gladis Baer WIRING INSPECTOR - HOME VISIT 07/13/2024 Medical Messaging [facility] [address] [facility] [address] [place] [address] Joan Nesbitt PA rt shoulder/arm 07/13/2024 Medical Messaging [facility] [address] [place] [address] Jose Alfredo Hernandez PA hip pain 07/13/2024 Travel 07/09/2024 10:30 AM CDT Home Care Visit [facility] [address] [place] [address] Gladis Baer WIRING INSPECTOR - HOME VISIT 07/08/2024 Telephone [facility] [address] [place] [address] Petey Benedict MD Referral (MRI scan) 07/07/2024 10:15 AM CDT Home Care Visit [facility] [address] [place] [address] Saray Matos, PT PT - [id number] ASSESSMENT 07/07/2024 Telephone [facility] [address] [place] [address] Petey Benedict MD Questions 07/06/2024 11:15 AM CDT Home Care Visit [facility] [address] [place] [address] Gladis Baer WIRING INSPECTOR - HOME VISIT 07/06/2024 Travel 07/03/2024 12:00 PM CDT Office Visit [facility] [address] [place] [address] Jose Alfredo Hernandez PA Hip Pain/problem (Right hip) 07/03/2024 11:55 AM CDT Ancillary Procedure [facility] [address] [place] [address] 07/03/2024 Travel 07/02/2024 10:30 AM CDT Home Care Visit [facility] [address] [place] [address] Gladis Baer WIRING INSPECTOR - HOME VISIT 07/02/2024 Telephone [facility] [address] [facility] [address] [place] [address] Candy Chadwick MD Questions 07/02/2024 Telephone [facility] [address] [place] [address] Rose Bright DO Questions 07/01/2024 Travel 07/01/2024 Telephone [facility] [address] [place] [address] Candy Chadwick MD Questions 06/30/2024 1:30 PM CDT Ancillary Procedure [facility] [address] [place] [address] 06/30/2024 10:00 AM CDT Home Care Visit [facility] [address] [place] [address] Alison Manning RN SN - HOME VISIT 06/30/2024 Telephone [facility] [address] [place] [address] Petey Benedict MD Referral 06/30/2024 Travel 06/30/2024 Refill [facility] [address] [place] [address] Maile Reyes MD Refill Request (Doxepin) 06/28/2024 9:00 AM CDT Home Care Visit [facility] [address] [place] [address] Alison Manning RN SN - OASIS START OF CARE 06/28/2024 Telephone [facility] [address] [facility] [address] Alison Manning, university tutor 06/28/2024 Plan of Care Documentation [facility] [address] [place] [address] 06/26/2024 Travel 06/26/2024 Home Care Visit [facility] [address] [place] [address] Tiffani Argueta, RN CARE COORDINATION 06/25/2024 2:10 PM CDT Office Visit [facility] [address] [place] [address] Rose Bright, Coordination Problems (Frequent falls and balance issues. ) 06/25/2024 Travel 06/14/2024 Telephone [facility] [address] [place] [address] Maile Reyes MD Referral (Trauma therapy) from Last 3 Months Immunizations Immunization Administration [...] PHQ-2 Answer Date Recorded PHQ-2 TOTAL SCORE 5 08/24/2024 Social Connections Answer Date Recorded Do you [...] Sign Reading Time Taken Comments Blood Pressure 135/79 09/01/2024 3:05 PM CDT Pulse 82 09/01/2024 3:05 PM CDT Temperature 36.2 C (97.1 F) 09/01/2024 3:05 PM CDT Respiratory Rate 16 09/01/2024 3:05 PM CDT Oxygen Saturation 98% 09/01/2024 3:05 PM CDT Inhaled Oxygen Concentration - - Weight 83 kg (183 lb) 09/01/2024 3:05 PM CDT Height 160 cm (5' 3) 06/28/2024 9:30 AM CDT Body Mass Index 32.42 06/28/2024 9:30 AM CDT Plan of Treatment Upcoming Encounters Date Type Department Care Team (Late st Contact Info) Description 09/08/2024 12:00 PM CDT Home Care Visit [address] [address] Marina Aj, PT [address] [place] [address] 09/11/2024 2:00 PM CDT Ancillary Procedure [facility] [address] [place] [address] 09/16/2024 10:00 AM CDT Home Care Visit [address] [address] Alison Manning RN 09/16/2024 1:00 PM CDT Orders Only [facility] [address] [place] [address] Lab, [place] 09/17/2024 3:00 AM CDT Home Care Visit [place] [address] [place] [address] Marina Aj, PT [address] [place] [address] 09/21/2024 12:15 PM CDT Office Visit [facility] [place] [address] [place] [address] Kolby Huynh DO [address] [facility] [address] [place] [address] 09/22/2024 1:30 PM CDT Nurse/Clinic Staff Only [facility] [address] [facility] [facility] [address] [place] [address] 09/23/2024 3:00 PM CDT Telemedicine [facility] [address] [facility] [address] [place] [address] Vicki Henley MD [address] [facility] [address] [place] [address] 09/24/2024 3:00 AM CDT Home [facility] Visit [facility] [address] [place] [address] Marina Aj, PT [address] [place] [address] 10/01/2024 3:00 AM CDT Home Care Visit [facility] [address] [place] [address] Marina Aj, PT [address] [place] [address] 10/08/2024 11:15 AM CDT Telemedicine [facility] [address] [place] [address] Maile Reyes MD [address] [place] [address] Health Maintenance Due Date Last Done Comments RSV vaccine for adults or (1 - Risk 60-74 years 1-dose series) 2023 Mammogram for age 45-75 04/16/2024 04/16/19, 02/17/2018, 02/25/2013 (Completed outside of [facility]) Influenza Vaccine (#1) 2024 , 12/07/2022, 10/26/2017, Additional history exists BMI (ht and wt on same day) for age 18+ 04/06/2025 04/06/2024, 03/06/2024, 11/28/2023, Additional history exists Low Dose CT (for lung CA) age 50-80 08/06/2025 08/06/2024, 04/11/2023, 04/02/2022, Additional history exists Depression screening for age 12+ 08/24/2025 08/24/2024, 05/29/2024, 05/25/2024, Additional history exists Tetanus booster 09/20/2025 09/21/2015 Lipids for age 45-75 07/02/2028 07/03/2023, 03/02/2021, 02/27/2019, Additional history exists Colonoscopy through age 75 04/24/2033, 04/11/2017, 04/11/2017 Hepatitis C screening for age 18-79 Completed 11/29/2015 HIV for age 15-65 Completed 04/19/2016, 11/01/2015 Zoster (shingles) series for age 50+ Completed 10/23/2017, 07/09/2017 Pneumococcal series for age 50+ Completed 03/09/2022 COVID-19 vaccine series Completed 11/28/19, 01/24/2023, 08/21/2021, Additional history exists Hepatitis B series for 19+ Aged Out N o longer eligible based on patient's age to complete this topic Medical Devices Implanted Type Area Unindentured Apprentice Device Identifier Shelf Expiration Date Model / Serial / Lot [id number] - [id number] Implanted:Qty: 1 on 09/22/2018 by Anselmo Sahu MD at [facility] Ortho Total Joint Left: Knee [employer] 01/14/2023 [id number] / / [id number] Description:Hildaathlon Kerri te Retaining Femoral Size #4, LEFT, Cr [id number] - [id number] Implanted:Qty: 1 on 09/22/2018 by Anselmo Sahu MD at [facility] Ortho Total Joint Left: Knee [employer] 12/16/2022 [id number]-[id number] / / [id number] Description:Triathlon Total Knee Cemented Stem diameter 15 mm Length 50 mm [id number] - [id number] Implanted:Qty: 1 on 09/22/2018 by Anselmo Sahu MD at [facility] Ortho Total Joint Left: Knee [employer] 07/01/2022 [id number] / / [id number] Description:Triathlon X3 Tib ial Bearing Insert-CS Size 4, CS, Thickness 16 mm Cmnt Bone 40g Simplex P Non Atb Mv - [id number] Implanted:Qty: 2 on 09/22/2018 by Anselmo Sahu MD at [facility] Left: Knee [employer] 09/24/2020 [id number] / / [id number]-L-[id number] - [id number] Implanted:Qty: 1 on 09/22/2018 by Anselmo Sahu MD at [facility] Left: Knee [employer] 05/05/2023 [id number] / / [id number] Description:Triathlon Total Knee [place] Tibial Baseplate size #4 [id number]-V-[id number] - [id number] Implanted:Qty: 1 on 09/22/2018 by Anselmo Sahu MD at [facility] Left: Knee [facility] 06/16/2023 [id number] / / [id number] Description:Triathlon X3 Asy mmetric Patella size 35 mm, thickness 10 mm Screw Lmbr 5.5x25mm Endo Skeleton Tas Bone Alif Stand Alone - [id number] Implanted:Qty: 1 on 09/08/2021 by Gerardo Gunn MD at [facility] Spine Med[employer]onic Spine/Ortho [id number] / / Screw 5.5 Voyager Mas 6.5x45 Implanted:Qty: 2 on 09/08/2021 by Gerardo Gunn MD at [facility] Spine [id number] / / Description:SCREW 5.5 VOYAGE R MAS 6.5X45 Screw 5.5 Voyager Mas 7.5x35 Implanted:Qty: 1 on 09/08/2021 by Gerardo Gunn MD at [facility] Spine [id number] / / Description:SCREW 5.5 VOYAGE R MAS 7.5X35 Screw 5.5 Voyager Mas 7.5x40 Implanted:Qty: 1 on 09/08/2021 by Gerardo Gunn MD at [facility] Spine [id number] / / Description:SCREW 5.5 VOYAGE R MAS 7.5X40 Nanette Perc 90mm Implanted:Qty: 2 on 09/08/2021 by Gerardo Gunn MD at [facility] Spine [id number] / / Description:NANETTE PERC 90MM Set Screw 5.5/6.0 Solera Voyager Implanted:Qty: 8 on 09/08/2021 by Gerardo Gunn MD at [facility] Spine [id number] / / Description:SET SCREW 5.5/6. 0 SOLERA VOYAGER Screw 5.5 Voyager Mas 7.5x45 Implanted:Qty: 2 on 09/08/2021 by Gerardo Gunn MD at [facility] Spine [id number] / / Description:SCREW 5.5 VOYAGE R MAS 7.5X45 Screw 5.5 Voyager Mas 9.5 X 80 Implanted:Qty: 2 on 09/08/2021 by Gerardo Gunn MD at [facility] Spine [id number] / / Description:SCREW 5.5 VOYAGE R MAS 9.5 X 80 [id number] graft Bone 9cc Isabel Dbf Inject Implanted:Qty: 1 on 09/08/2021 by Gerardo Gunn MD at [facility] Explanted:at [facility] (Quantity not on file) Spine Medtronic Spine/Ortho 02/13/2023 [id number] / [id number] / [id number] bone 1-4mm 90cc Medtronic Chips Canclls Freeze Dried Implanted:Qty: 1 on 09/08/2021 by Gerardo Gunn MD at [facility] Explanted:at [facility] (Quantity not on file) Spine Medtronic Spine/Ortho 07/01/2025 [id number] / [id number] / Michelle Spacer Tas 12d Std 12mm Implanted:Qty: 1 on 09/08/2021 by Gerardo Gunn MD at [facility] Spine 08/12/2025 [id number] / / [id number] Description:MICHELLE SPACER TAS 12D STD 12MM Coverplate 32 X 23 X 18 X 12deg Implanted:Qty: 1 on 09/08/2021 by Gerardo Gunn MD at [facility] Spine 04/18/2026 [id number] / / 21HE Description:COVERPLATE 32 X 23 X 18 X 12DEG Screw Lmbr 5.5x20mm Sovereign Stand Alone - [id number] Implanted:Qty: 1 on 09/08/2021 by Gerardo Gunn MD at [facility] Spine Medtronic Spine/Ortho [id number] / / Explanted Type Area Unindentured Apprentice Device Identifier Shelf Expiration Date Model / Serial / Lot Explant Explanted:Qty: 1 on 09/08/2021 by Gerardo Gunn MD at [facility] Spine Description:3 SCREWS, 1 INTE RBODY Procedures Procedure Name Priority Date/Time Associated Diagnosis Comments CT CHEST SCREENING LOW DOSE WO CONTRAST Routine 08/06/2024 4:03 PM CDT Encounter for screening for lung cancer Former smoker SCAN-ULTRASOUND REPORT 5 12:00 AM CDT SCAN-CT INTERPRETATION 5 12:00 AM CDT SCAN-OPERATIVE/PROCEDU RE REPORT 07/23/2024 12:00 AM CDT SCAN-DIAGNOSTIC REPORT 5 12:[address] ARTHROGRAM SHOULDER RIGHT [...] problem Abnormal results of thyroid function studies LIPID PANEL W REFLEX MEASURED LDL Routine 07/03/2023 8:00 AM CDT Screening cholesterol level SCAN-COLONOSCOPY 04/25/2023 3:00 PM MARKETING PROPOSAL SPECIALIST XR MAMMO BETH BILAT SCREEN Routine 04/16/2023 1:18 PM MARKETING PROPOSAL SPECIALIST Routine adult health maintenance ANTI HIV 1/2 Timed 04/19/2016 8:44 PM MARKETING PROPOSAL SPECIALIST ANTI HCV Routine 11/29/2015 2:08 PM CDT Need for hepatitis C screening test from Last 3 Months or Most Recently Relevant to Health Maintenance Results * CT CHEST SCREENING LOW DOSE WO CONTRAST (08/06/2024 4:03 PM CDT) Anatomical Region Laterality Modality Computed Tomogra phy Impressions 08/08/2024 8:43 PM CDT 1. Stable small pulmonary nodules. Lung-RADS Category 2: Benign appearance or behavior. Continue annual screening with low-dose chest CT in 12 months. 2. New chronic-appearing, nonunited fracture of the sternum. Please note that all CT scans at this facility use dose modulation, iterative reconstruction and/or weight-based dosing when appropriate to reduce radiation dose to as low as reasonably achievable. Dictated by: Humza Bellamy MD @08/07/2024 1:48:50 PM Neuroradiologist CRL:gely Narrative 08/08/2024 8:43 PM CDT For Patients: As a result of the Cures Act, medical imaging exams and procedure reports are released immediately into your electronic medical record. You may view this report before your referring provider. If you have questions, please contact your health care provider. CT CHEST SCREENING LOW-DOSE WITHOUT CONTRAST, 08/06/2024 INDICATION: Lung cancer screening. TECHNIQUE: Low-dose noncontrast CT images of the chest. Dose reduction techniques used. COMPARISON: CT chest 04/11/2023. FINDINGS: Postsurgical changes along the RIGHT major fissure. Stable 4 mm solid nodule along the RIGHT minor fissure (series 6, image 95). Stable punctate nodule along the LEFT major fissure (series 6, image 94). No new or enlarging pulmonary nodules. No focal consolidation, pleural effusion, or pneumothorax. Mild biapical scarring. Heart size is normal. No pericardial effusion. No coronary artery atherosclerotic calcifications. No mediastinal or hilar lymphadenopathy. Postsurgical changes of gastric bypass. Small hiatal hernia. Multilevel thoracic spondylosis. No aggressive osseous lesions. Catheter terminating in the mid thoracic spinal canal. Unchanged chronic compression fractures and Schmorl's node deformities. New chronic-appearing, nonunited fracture of the sternum. us Rose Bright DO CT Final Resul t * SCAN-ULTRASOUND REPORT (08/05/2024 12:00 AM CDT) Anatomical Region Laterality Modality Other us Scanner OTHER Final Result * SCAN-OPERATIVE/PROCEDURE REPORT (07/23/2024 12:00 AM CDT) [...] of osteoporosis as above. Melva Castaneda PA-C [facility] 07/24/2024 Narrative 07/24/2024 4:48 PM CDT For Patients: Results are automatically released to your [facility] ([employer]) account once available, in compliance with federal regulations. This means that you may see your results before your provider has had a chance to review them. Please allow 2-3 business days for your provider to comment on the results. XR DXA Bone Mineral Density (BMD) EXAM LOCATION: [address] [address] PATIENT NAME: Marina Jean-Baptiste DATE OF : [...] two scanners are made by the same lead software tester. PROCEDURE: Dual-energy x-ray absorptiometry performed with routine [...] VITAMIN D,25-OH,TOTAL,IA 43 30 - 100 ng/mL [employer] [facility] Comment: Vitamin D Status 25-OH Vitamin D: Deficiency: <20 ng/mL Insufficiency: 20 - 29 ng/mL Optimal: > or = 30 ng/mL For 25-OH Vitamin D testing on patients on D2-supplementation and patients for whom quantitation of D2 and D3 fractions is required, the QuestAssureD() 25-OH VIT D, (D2,D3), LC/MS/MS is recommended: order code 82212 (patients >2yrs). See Note 1 Note 1 For additional information, please refer to http://[email or web address]/LXE175 (This link is being provided for informational/ educational purposes only.) Blood BLOOD SPECIMEN / Unknown 06/25/2024 2:59 PM CDT 06/25/2024 3:00 PM CDT Rose Bright DO SEND OUTS Final Resul t Performing Organization Address City/[facility]/ZIP Co de Phone Number [employer] [facility] [address] [place] [phone], [facility] [address] [place] [address] * TSH (06/25/2024 2:59 PM CDT) [facility] TSH 1.39 0.40 - 4.50 mIU/L [facility] Blood BLOOD SPECIMEN / Unknown 06/25/2024 2:59 PM CDT 06/25/2024 3:00 PM CDT Rose Bright DO CHEMISTRY Final Resul t Performing Organization Address [facility] Co de Phone Number 360T [address] [address], [facility] [address] [place] [address] * (ABNORMAL) CBC AND DIFFERENTIAL (06/25/2024 2:59 PM CDT) Pathologist [facility] WHITE BLOOD CELL COUNT 4.8 3.8 - [...] Rose Bright DO HEMATOLOGY Final Resul t [facility] [address] [place] [address], [facility] [address] [place] [address] * VITAMIN B12 (06/25/2024 2:59 PM CDT) Pathologist [facility] VITAMIN B12 428 200 - 1,100 pg/mL [facility] Blood BLOOD SPECIMEN / Unknown 06/25/2024 2:59 PM CDT 06/25/2024 3:00 PM CDT us Rose Bright DO CHEMISTRY Final Resul t 360T [facility] [address] [place] [address], [employer] [facility] [address] [place] [address] * (ABNORMAL) COMP METABOLIC PANEL (06/25/2024 2:59 PM CDT) Pathologist [facility] GLUCOSE 99 65 - 99 mg/dL [facility] [employer] [facility] Comment: Fasting reference interval UREA NITROGEN (BUN) 9 7 - 25 mg/dL [facility] CREATININE 0.67 0.50 - 1.05 mg/dL [employer] [facility] EGFR 99 > OR = 60 mL/min/1. 73m2 [employer] [facility] BUN/CREATININE RATIO SEE NOTE: 6 - 22 (calc) [facility] Comment: Not Reported: BUN and Creatinine are within reference range. SODIUM 127(L) 135 - 146 mmol/L [facility] POTASSIUM 3.5 3.5 - 5.3 mmol/L [facility] CHLORIDE 86(L) 98 - 110 mmol/L [facility] CARBON DIOXIDE 30 20 - 32 mmol/L [facility] CALCIUM 9.6 8.6 - 10.4 mg/dL [facility] PROTEIN, TOTAL 7.1 6.1 - 8.1 g/dL [facility] ALBUMIN 4.5 3.6 - 5.1 g/dL [facility] GLOBULIN 2.6 1.9 - 3.7 g/dL (calc) [facility] ALBUMIN/GLOBULIN RATIO 1.7 1.0 - 2.5 (calc) [facility] BILIRUBIN, TOTAL 0.4 0.2 - 1.2 mg/dL [employer] [facility] ALKALINE PHOSPHATASE 117 37 - 153 U/L [facility] AST 15 10 - 35 U/L [facility] ALT 11 6 - 29 U/L [facility] Blood BLOOD SPECIMEN / Unknown 06/25/2024 2:59 PM CDT 06/25/2024 3:00 PM CDT us Rose Bright DO CHEMISTRY Final Resul t [facility] [address] [place] [address], [facility] [address] [place] [address] * (ABNORMAL) LIPID PANEL W REFLEX MEASURED LDL (07/03/2023 8:00 AM CDT) CHOLESTEROL,TOTAL 248(H) 100 - 199 mg/dL 07/03/2023 2:42 PM CDT [facility] Comment: Cholesterol, Total Reference Ranges Desirable <200 mg/dL Borderline 200-239 mg/dL High >=240 mg/dL TRIGLYCERIDES 64 <150 mg/dL 07/03/2023 2:42 PM CDT [facility] HDL CHOLESTEROL 108 >40 mg/dL 2:42 PM CDT [facility] NON-HDL CHOLESTEROL 140 <145 mg/dl 07/03/2023 2:42 PM CDT [facility] CHOL/HDL RATIO 2.30 <4.50 07/03/2023 2:42 PM CDT [facility] LDL CHOLESTEROL 127 <=130 mg/dL 07/03/2023 2:42 PM CDT [facility] VLDL CHOLESTEROL 13 <=30 mg/dL 07/03/2023 2:42 PM CDT [facility] PROVIDER ORDERED STATUS RANDOM 07/03/2023 2:42 PM CDT [facility] Blood BLOOD SPECIMEN / Unknown Butterfly / Unknown 07/03/2023 8:00 AM CDT 07/03/2023 8:02 AM CDT us Rose Bright DO CHEMISTRY Final Resul t [facility] [address] [place] [address], [place] * SCAN-COLONOSCOPY (04/25/2023 3:00 PM MARKETING PROPOSAL SPECIALIST) Narrative Procedure Note Fredis Luna MD - 04/25/2023 1:56 PM CST [facility] [address] [facility] [address], [address], [place] [address] Patient Name: Marina Jean-Baptiste Gender: Female Exam Date: 04/25/2023 Visit Number: [id number] Age: 58 Years Date of : 1965 Attending MD: Fredis Luna MD Medical Record#: [id number] Procedure: Colonoscopy Indications: Previous adenomatous polyp(s) Referring MD: Referral Self Primary MD: Rose Bright DO Medications: Admitting Medications: 0.9% Normal Saline at [facility] Intra Procedure Medications: Patient [...] signed by: Cesar Paulson MD Interpreted at [facility], [address] [place] [address] Orders Instruction(s)/Education: Instruction/Education Timeframe Assessment Colon Cancer Prevention K63.5 Colon Polyps K63.5 Hemorrhoids (Internal) K63.5 High Fiber Diet K63.5 Final Plan: Repeat colonoscopy in 10 years for screening. If you have signs orsymptoms of lower GI illness or a new diagnosis of colon cancer in animmediate family member, you should contact [facility] or your primary providerto discuss whether [...] DO us Fredis Luna MD OTHER Kat paula Result * XR MAMMO BETH BILAT SCREEN (04/16/2023 1:18 PM MARKETING PROPOSAL SPECIALIST) Anatomical Region Laterality Modality BREASTS, Breast Left, Breast Right Bilateral Mammography Impressions 04/17/2023 3:20 PM MARKETING PROPOSAL SPECIALIST There is no radiographic evidence for malignancy. Recommend annual mammograms. MAMMOGRAM ASSESSMENT: ACR 1 Negative PATIENTS: You will also receive a letter with your examination results in an easy to read format. If you have questions about your results, please contact your referring provider. Narrative 04/17/2023 3:20 PM MARKETING PROPOSAL SPECIALIST For Patients: As a result of the Century Cures Act, medical imaging exams and procedure reports are released immediately into your electronic medical record. You may view this report before your referring provider. If you have questions, please contact your health care provider. XR MAMMO BETH BILAT SCREEN [[id number]] CLINICAL HISTORY: This is an asymptomatic 57 y.o. patient. INDICATION FOR EXAM: Mammogram Screening. TECHNIQUE: CC & MLO views were obtained. This study was evaluated with the assistance of Computer-Aided Detection. Breast Tomosynthesis was used in interpretation. COMPARISON FILM: Yes 02/17/18 [facility] FINDINGS: The breasts have scattered areas of fibroglandular density. There are no dominant masses, suspicious micro calcifications or areas of architectural distortion. Rose Bright DO MAMMO Final Resul t * Anti HIV 1/2 (04/19/2016 8:44 PM MARKETING PROPOSAL SPECIALIST) HIV-1/HIV-2 ANTIBODY Non-Reacti ve Non-Reacti ve 04/20/2016 2:40 AM MARKETING PROPOSAL SPECIALIST [facility] Blood BLOOD SPECIMEN / Unknown Venipuncture / Unknown 04/19/2016 8:44 PM MARKETING PROPOSAL SPECIALIST 04/19/2016 8:51 PM MARKETING PROPOSAL SPECIALIST Narrative [facility] - 04/20/2016 2:40 AM MARKETING PROPOSAL SPECIALIST HIV-1 p24 and HIV-1/HIV-2 Ab not detected us Farhat Holland MD SEND OUTS Kat l Result [facility] [address] [place] [address], * ANTI HCV (11/29/2015 2:08 PM CDT) HEPATITIS C ANTIBODY Non-Reacti ve Non-Reacti ve 11/29/2015 7:58 PM CDT [facility] Blood BLOOD SPECIMEN / Unknown Venipuncture / Unknown 11/29/2015 2:08 PM CDT 11/29/2015 2:09 PM CDT Narrative [facility] - 11/29/2015 7:58 PM CDT Antibodies to HCV not detected; does not exclude the possibility of exposure to HCV. us Rose Arroyojonny DO SEND OUTS Final Resul t [facility] 

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
[2024-09-03 13:46] VITALS: BP 126/96; PULSE 85; RESP 16; TEMP 36.8; O2SAT 96; BMI 30.9
[2024-09-03] MEDS: MECLIZINE HCL 25 MG TABLET PO (14:33)
[2024-09-03 15:18] LABS: Hematocrit 32.0 % (33.0-51.0); Hemoglobin* 10.6 gm/dL (12.0-16.0); Immature Granulocytes Abs Auto 0.07 K/uL (0.00-0.30); Immature Granulocytes Pct Auto 1.0 %; Mean Corpuscular HGB Conc 33 gm/dL (32-36); Mean Corpuscular Hemoglobin 25 pg (26-34); Mean Corpuscular Volume 74 fL (80-100); RDW Coefficient of Variation % 14.4 % (11.5-15.5); Red Blood Count 4.31 m/uL (4.00-5.20); White Blood Count* 6.95 K/uL (4.50-11.00)
[2024-09-03 15:21] LABS: Lymphocytes Absolute Auto 0.50 K/uL (0.90-2.90); Slide Review Reflex No
[2024-09-03 15:31] LABS: Chloride* 85 mmol/L (96-114); Potassium* 3.8 mmol/L (3.6-5.1)
[2024-09-03 15:34] LABS: Anion Gap 6 mEq/L (7-15); Blood Urea Nitrogen* 9 mg/dL (7-30); Carbon Dioxide* 30 mmol/L (20-32); Creatinine* 0.6 mg/dL (0.5-1.5); Est. Creatinine Clearance* 51.02; Estimated Glomerular Filt Rate 102 ml/min
[2024-09-03 15:35] LABS: Calcium* 9.2 mg/dL (8.4-10.6); Glucose* 109 mg/dL (60-115)
[2024-09-03 15:57] LABS: Sodium* 121 mmol/L (135-149)
== END 2024-09-03 16:03 | disposition home or self-care (01) ==
PROVIDERS: Emergency Provider Emergency Medicine; PCP Family Medicine
DX: R42 Dizziness and giddiness (principal); E87.1 Hypo-osmolality and hyponatremia
CPT/HCPCS: 36415; 80048; 84484; 85025; 93005; 99283; 99284; A9270